=== PATIENT | female | born 1960 | race Caucasian/White ===

== ENCOUNTER 2022-05-31 12:40 | Inpatient (IN) ==
--- NOTE | 2022-05-31 12:50 | Emergency Department Note ---
ED Provider Note NAME: CASSIDY CAGLE AGE: 61 SEX: F : 1960 ARRIVES VIA: Ambulance INFORMANT: [Patient][, ] ED PROVIDER(S): [Vaughn Cuello MD] Chief Complaint: [] HPI: [] ROS: See HPI for pertinent positives and negatives. A total of 10 systems were reviewed and otherwise negative. Past medical history: See below Surgical history: See below Social history: See below Physical Exam: GENERAL: NAD, [wearing a mask,] non-toxic. EYE EXAM: Normal conjunctiva. PERRL, no anisocoria and EOM's grossly intact w/o pain. NECK: Supple, no nuchal rigidity, no adenopathy, non-tender. No signs of meningismus. FROM of the neck with good chin to chest and neck extension. No stridor. LUNGS: Clear to auscultation. Normal chest wall mechanics. HEART: NSR, no MRG. ABDOMEN: Abdomen soft, non-tender, normo-active bowel sounds, no masses, no rebound or guarding. BACK: No CVA TTP. SKIN: No rashes and no bruising. UPPER EXTREMITIES: Upper extremities are grossly normal. LOWER EXTREMITIES: Grossly normal, no edema. NEURO EXAM: A&O x3, cranial nerves II-XII grossly intact, normal speech, moves all 4 extremities. Differential diagnoses: [] Course: Patient was seen and evaluated the bedside. Full history physical exam was performed. EKG interpreted by me [] Imaging Studies: See Below Cardiac monitoring: An order was placed for continuous cardiac monitoring. The monitor shows a rate of [] with [] rhythm. 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 marital status: Single Current Living Situation: Other Current Living Situation Comment: son and grandson live downstairs current occupational status: employed 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 Feels Safe at Home: Yes Childhood Exposure to Second-Hand Smoke: Yes Diet Comment: sometimes does [facility], Regularly: Yes Physical Activity Frequency: 5-6 Times per Week Seatbelt Use: always Sunscreen Use: Yes Allergies Allergies Allergy/AdvReac Type Severity Reaction Status Date / Time levofloxacin Allergy Intermediate UNSURE Unverified 05/17/22 14:52 baclofin Allergy Unknown Uncoded 05/17/22 14:53 Home Meds Previous Rx's Medication Instructions Recorded atorvastatin 40 mg tablet 40 mg PO DAILY #90 tabs 11/09/21 sertraline 100 mg tablet 150 mg PO DAILY #90 tabs 04/24/22 cholecalciferol (vitamin D3) 1,250 50,000 unit PO WEEKLY 8 weeks #8 05/25/22 mcg (50,000 unit) capsule caps cyanocobalamin (vitamin B-12) 1,000 mcg sublingual DAILY #30 tabs 05/25/22 1,000 mcg sublingual tablet syringe with needle 3 mL 23 x 1" #15 ea 05/25/22 (BD SafetyGlide Syringe) Results & Data (ED) Home Medications Current Medication List: was personally reviewed by me Laboratory Data Attestation: I reviewed the patient's lab results. Discharge Plan Visit Data Chief Complaint: Mental Health Evaluation Stated Complaint: ANXIETY ED Provider: Vaughn Cuello Forms Stand Alone Forms: My [facility], Suicide Prevention Resources Prescriptions Prescriptions: No Action atorvastatin 40 mg tablet 40 mg PO DAILY Qty: 90 3RF cyanocobalamin (vitamin B-12) 1,000 mcg tablet, sublingual 1,000 mcg sublingual DAILY Qty: 30 0RF cholecalciferol (vitamin D3) 1,250 mcg (50,000 unit) capsule 50,000 unit PO WEEKLY 56 Days Qty: 8 0RF Rx Instructions: Take one capsule once a week for eight weeks, then get a level rechecked. (DME) BD SafetyGlide Syringe 3 mL 23 x 1" syringe See Rx Instructions .MEDSUPPLY Qty: 15 0RF Rx Instructions: As directed for B12 injections sertraline 100 mg tablet 150 mg PO DAILY Qty: 90 3RF Referrals Referrals: Rina Rm MD [Primary Care Provider] -
--- NOTE | 2022-05-31 12:58 | Emergency Department Note ---
Impression & Plan Mood disorder, Depression ED Provider Note NAME: CASSIDY CAGLE AGE: 61 SEX: F : 1960 ARRIVES VIA: Ambulance INFORMANT: Patient ED PROVIDER(S): Luiz Ramirez DO CHIEF COMPLAINT: Depression, anxiety HPI: Patient is a 61-year-old female with past medical history B12 deficiency, vitamin D deficiency, who presents the ER for depression and anxiety. She notes she has been very weak and feels depressed and anxious for the past month. She denies any active suicidal or homicidal ideations. No auditory visual hallucinations. She feels as though she can carry on with life. She is no longer leaving the house. She has not been going to work. She is sleeping for extended period of times but notes that she wakes up after falling asleep very quickly. Denies any headache or change in vision. No chest pain or shortness of breath. No nausea, vomiting, or diarrhea. ROS: See above HPI for pertinent positives & negatives. A total of 10 systems reviewed and were otherwise negative. PAST MEDICAL HISTORY:See Below PAST SURGICAL HISTORY:See Below FAMILY HISTORY:See Below SOCIAL HISTORY:See Below HOME MEDICATIONS:See Below ALLERGIES:See Below VITALS:See Below PHYSICAL EXAMINATION: GENERAL: Sitting up in bed, alert, well appearing, well nourished, no distress, non-toxic EYE EXAM: normal conjunctiva. OROPHARYNX: no exudate, no erythema, lips, buccal mucosa, and tongue normal and mucous membranes are moist NECK: supple, no nuchal rigidity, no adenopathy, non-tender LUNGS: Clear to auscultation. Normal chest wall mechanics HEART: no murmurs, S1 normal and S2 normal ABDOMEN: abdomen soft, non-tender, normo-active bowel sounds, no masses, no rebound or guarding. UPPER EXTREMITIES: upper extremities are grossly normal. LOWER EXTREMITIES: No pitting edema. NEURO EXAM: Normal sensorium, cranial nerves II-XII intact, normal speech, no weakness of arms, no weakness of legs. No drift. PSYCH: Denies any suicidal or homicidal ideations. No auditory visual hallucinations. MEDICAL DECISION MAKING: Patient is a 61-year-old female who presents the ER for depression. She notes that she has not been eating or drinking. She is lost 6 pounds in the past several weeks. Office of aging is involved. She feels too weak to get around and does not want to get up and move. She is completely neurologically intact. CBC shows no significant leukocytosis or anemia. BMP along with LFTs bilirubin was unremarkable. TSH was unremarkable. UA was clean. Tox was negative. Alcohol was negative. Patient was updated bedside. She was seen and evaluated by psychiatric chronic care nurse. Patient was signed out Dr. Dobson at the change in shift. Start Time: 1245 Reason: Patient with PMHx of depression underwent ED Observation for psychiatric evaluation and placement. Fam Hx: No pertinent family history SocHx: See Below Assessment(s): As described above Summary: As described above Disposition: 05/31/2022 1700. Total Time: 4.25hr Triage Nursing notes reviewed. Limited review of prior medical records performed Vital Signs: reviewed and remarkable for no significant abnormalities Differential diagnosis: Mood disorder, infection, hypoglycemia, electrolyte abnormalities, cardiac sources, intracerebral event, toxicologic, trauma, neurologic, as well as other pathologies. ER treatment provided: See below Diagnostics interpreted by me: ECG: none Laboratory studies: As stated above and show below. Imaging studies: See below Consultation(s): none Procedures: none Critical Care: None Past Med/Surg History Medical History Anxiety Hyperlipidemia Trigeminal neuralgia of left side of face Surgical History H/O wisdom tooth extraction H/O: Family History Aunt Breast cancer Denies family history of Ovarian cancer Prostate cancer Myocardial infarction Colorectal cancer Social History Smoking Status: Never smoker Tobacco Type: Cigarettes Age Started Using Tobacco: 16; Second Hand Exposure: No; Hx Alcohol Use: No Hx Substance Use: No Preferred Language: Spanish Communication Ability: Effective Visual Impairment: No Limitations Hearing Ability: Normal 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 marital status: Single Current Living Situation: Other Current Living Situation Comment: son and grandson live downstairs current occupational status: employed 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 Feels Safe at Home: Yes Childhood Exposure to Second-Hand Smoke: Yes Diet Comment: sometimes does [facility], Regularly: Yes Physical Activity Frequency: 5-6 Times per Week Seatbelt Use: always Sunscreen Use: Yes Allergies Allergies Allergy/AdvReac Type Severity Reaction Status Date / Time levofloxacin Allergy Intermediate UNSURE Unverified 05/17/22 14:52 baclofin Allergy Unknown Uncoded 05/17/22 14:53 Home Meds Previous Rx's Medication Instructions Recorded atorvastatin 40 mg tablet 40 mg PO DAILY #90 tabs 11/09/21 sertraline 100 mg tablet 150 mg PO DAILY #90 tabs 04/24/22 cholecalciferol (vitamin D3) 1,250 50,000 unit PO WEEKLY 8 weeks #8 05/25/22 mcg (50,000 unit) capsule caps cyanocobalamin (vitamin B-12) 1,000 mcg sublingual DAILY #30 tabs 05/25/22 1,000 mcg sublingual tablet syringe with needle 3 mL 23 x 1" #15 ea 05/25/22 (BD SafetyGlide Syringe) Results & Data (ED) Vital Signs Vital Signs - 24 hr 05/31/22 12:40 05/31/22 15:34 Temperature 36.9 C 37.1 C Temperature Source Oral Oral Pulse Rate 76 Pulse Rate [Finger] 74 Respiratory Rate 18 18 Respiratory Effort / Characteristics Non-Labored Non-Labored Respiratory Depth Normal Normal Respiratory Pattern Regular Blood Pressure 136/96 Blood Pressure [Left Arm] 166/83 H Blood Pressure Mean 109 Blood Pressure Mean [Left Arm] 110 Pulse Oximetry 97 96 Oxygen Delivery Method Room Air Room Air Sepsis Recent Fever Within 48 Hours No Sepsis New/Unexplained Change in Mental Status N/A Sepsis Action Taken by Nursing No Action Required Laboratory Data Result diagrams: 05/31/22 14:20 05/31/22 14:20 Lab Results 05/31/22 05/31/22 05/31/22 Range/Units 13:05 13:05 14:20 WBC 7.18 (4.8-10.8) K/ul RBC 5.58 H (3.93-5.22) M/uL Hgb 16.6 H (12.0-16.0) g/dl Hct 48.0 H (34.1-44.9) % MCV 86.0 (80.0-100.0) fL MCH 29.7 (25.0-34.0) pg MCHC 34.6 (32.0-36.0) g/dL RDW Std Deviation 39.6 (36.4-46.3) fL RDW Coeff of [place]aga 13.0 (11.5-14.5) % Plt Count 217 (130-400) K/uL MPV 8.9 L (9.4-12.3) fL Immature Gran % (Auto) 0.1 % Neut % (Auto) 77.3 % Lymph % (Auto) 15.9 % Dane % (Auto) 6.1 % Eos % (Auto) 0.3 % Baso % (Auto) 0.3 % Neut # (Auto) 5.55 (1.4-6.5) K/uL Lymph # (Auto) 1.14 L (1.2-3.4) K/uL Dane # (Auto) 0.44 (0.24-0.82) K/uL Eos # (Auto) 0.02 (0-0.50) K/uL Baso # (Auto) 0.02 (0-0.2) K/uL Immature Gran # (Auto) 0.01 (0.00-0.02) K/uL Sodium (136-145) mmol/L Potassium (3.5-5.1) mmol/L Chloride (98-107) mmol/L Carbon Dioxide (21-32) mmol/L Anion Gap (3-11) BUN (6-23) mg/dl Creatinine (0.6-1.2) mg/dl Est Cr Clr Drug Dosing ml/min Est GFR ( Amer) ml/min Est GFR (Non-Af Amer) ml/min BUN/Creatinine Ratio (10-20) Glucose (70-99(Fasting)) mg/dl Calcium (8.5-10.1) mg/dl Total Bilirubin (0.2-1.0) mg/dl AST (13-39) U/L ALT (7-52) U/L Alkaline Phosphatase (34-104) U/L Total Protein (6.0-8.3) gm/dl Albumin (3.4-5.0) gm/dl Globulin (2.5-4.0) gm/dl Albumin/Globulin Ratio (0.9-2) TSH (0.300-4.500) uIu/ml Urine Color Yellow Urine Appearance Turbid A (Clear) Urine pH 7.5 (4.5-7.5) Ur Specific [place] 1.015 (1.000-1.030) Urine Protein Negative (Negative) Urine Glucose (UA) Negative (Negative) Urine Ketones Negative (Negative) Urine Blood Negative (Negative) Urine Nitrite Negative (Negative) Urine Bilirubin Negative (Negative) Urine Urobilinogen Negative (Negative) Ur Leukocyte Esterase Negative (Negative) Urine WBC (Auto) 1-5 (0-5) /hpf Urine RBC (Auto) 0-4 (0-4) /hpf U Hyaline Cast (Auto) 1-5 (0-5) /lpf U Epithel Cells (Auto) 20-30 H (0-5) /lpf Urine Bacteria (Auto) Negative (Negative) Salicylates (3.0-30) mg/dl Urine Opiates Screen Neg (Neg) Ur Methadone, Qual Neg (Neg) Acetaminophen (10-30) ug/ml Urine Barbiturates Neg (Neg) Ur Phencyclidine (PCP) Neg (Neg) U Amphetamin/Meth Scrn Neg (Neg) MDMA (Ecstasy) Screen Neg (Neg) U Benzodiazepines Scrn Neg (Neg) Ur Cocaine Metabolite Neg (Neg) U Marijuana (THC) Screen Neg (Neg) Ethyl Alcohol mg/dL (<10.0) mg/dl 05/31/22 05/31/22 05/31/22 Range/Units 14:20 14:20 14:20 WBC (4.8-10.8) K/ul RBC (3.93-5.22) M/uL Hgb (12.0-16.0) g/dl Hct (34.1-44.9) % MCV (80.0-100.0) fL MCH (25.0-34.0) pg MCHC (32.0-36.0) g/dL RDW Std Deviation (36.4-46.3) fL RDW Coeff of Naga (11.5-14.5) % Plt Count (130-400) K/uL MPV (9.4-12.3) fL Immature Gran % (Auto) % Neut % (Auto) % Lymph % (Auto) % Dane % (Auto) % Eos % (Auto) % Baso % (Auto) % Neut # (Auto) (1.4-6.5) K/uL Lymph # (Auto) (1.2-3.4) K/uL Dane # (Auto) (0.24-0.82) K/uL Eos # (Auto) (0-0.50) K/uL Baso # (Auto) (0-0.2) K/uL Immature Gran # (Auto) (0.00-0.02) K/uL Sodium 139 (136-145) mmol/L Potassium 3.5 (3.5-5.1) mmol/L Chloride 102 (98-107) mmol/L Carbon Dioxide 29 (21-32) mmol/L Anion Gap 8 (3-11) BUN 8 (6-23) mg/dl Creatinine 0.75 (0.6-1.2) mg/dl Est Cr Clr Drug Dosing 50.9 ml/min Est GFR ( Amer) 99.7 ml/min Est GFR (Non-Af Amer) 86.0 ml/min BUN/Creatinine Ratio 10.7 (10-20) Glucose 123 H (70-99(Fasting)) mg/dl Calcium 10.1 (8.5-10.1) mg/dl Total Bilirubin 1.0 (0.2-1.0) mg/dl AST 12 L (13-39) U/L ALT 14 (7-52) U/L Alkaline Phosphatase 127 H (34-104) U/L Total Protein 7.2 (6.0-8.3) gm/dl Albumin 4.7 (3.4-5.0) gm/dl Globulin 2.5 (2.5-4.0) gm/dl Albumin/Globulin Ratio 1.9 (0.9-2) TSH 2.074 (0.300-4.500) uIu/ml Urine Color Urine Appearance (Clear) Urine pH (4.5-7.5) Ur Specific [place] (1.000-1.030) Urine Protein (Negative) Urine Glucose (UA) (Negative) Urine Ketones (Negative) Urine Blood (Negative) Urine Nitrite (Negative) Urine Bilirubin (Negative) Urine Urobilinogen (Negative) Ur Leukocyte Esterase (Negative) Urine WBC (Auto) (0-5) /hpf Urine RBC (Auto) (0-4) /hpf U Hyaline Cast (Auto) (0-5) /lpf U Epithel Cells (Auto) (0-5) /lpf Urine Bacteria (Auto) (Negative) Salicylates < 3.0 L (3.0-30) mg/dl Urine Opiates Screen (Neg) Ur Methadone, Qual (Neg) Acetaminophen < 3 L (10-30) ug/ml Urine Barbiturates (Neg) Ur Phencyclidine (PCP) (Neg) U Amphetamin/Meth Scrn (Neg) MDMA (Ecstasy) Screen (Neg) U Benzodiazepines Scrn (Neg) Ur Cocaine Metabolite (Neg) U Marijuana (THC) Screen (Neg) Ethyl Alcohol mg/dL (<10.0) mg/dl 05/31/22 Range/Units 14:20 WBC (4.8-10.8) K/ul RBC (3.93-5.22) M/uL Hgb (12.0-16.0) g/dl Hct (34.1-44.9) % MCV (80.0-100.0) fL MCH (25.0-34.0) pg MCHC (32.0-36.0) g/dL RDW Std Deviation (36.4-46.3) fL RDW Coeff of [place]ga[place] (11.5-14.5) % Plt Count (130-400) K/uL MPV (9.4-12.3) fL Immature Gran % (Auto) % Neut % (Auto) % Lymph % (Auto) % Dane % (Auto) % Eos % (Auto) % Baso % (Auto) % Neut # (Auto) (1.4-6.5) K/uL Lymph # (Auto) (1.2-3.4) K/uL Dane # (Auto) (0.24-0.82) K/uL Eos # (Auto) (0-0.50) K/uL Baso # (Auto) (0-0.2) K/uL Immature Gran # (Auto) (0.00-0.02) K/uL Sodium (136-145) mmol/L Potassium (3.5-5.1) mmol/L Chloride (98-107) mmol/L Carbon Dioxide (21-32) mmol/L Anion Gap (3-11) BUN (6-23) mg/dl Creatinine (0.6-1.2) mg/dl Est Cr Clr Drug Dosing ml/min Est GFR ( Amer) ml/min Est GFR (Non-Af Amer) ml/min BUN/Creatinine Ratio (10-20) Glucose (70-99(Fasting)) mg/dl Calcium (8.5-10.1) mg/dl Total Bilirubin (0.2-1.0) mg/dl AST (13-39) U/L ALT (7-52) U/L Alkaline Phosphatase (34-104) U/L Total Protein (6.0-8.3) gm/dl Albumin (3.4-5.0) gm/dl Globulin (2.5-4.0) gm/dl Albumin/Globulin Ratio (0.9-2) TSH (0.300-4.500) uIu/ml Urine Color Urine Appearance (Clear) Urine pH (4.5-7.5) Ur Specific [place] (1.000-1.030) Urine Protein (Negative) Urine Glucose (UA) (Negative) Urine Ketones (Negative) Urine Blood (Negative) Urine Nitrite (Negative) Urine Bilirubin (Negative) Urine Urobilinogen (Negative) Ur Leukocyte Esterase (Negative) Urine WBC (Auto) (0-5) /hpf Urine RBC (Auto) (0-4) /hpf U Hyaline Cast (Auto) (0-5) /lpf U Epithel Cells (Auto) (0-5) /lpf Urine Bacteria (Auto) (Negative) Salicylates (3.0-30) mg/dl Urine Opiates Screen (Neg) Ur Methadone, Qual (Neg) Acetaminophen (10-30) ug/ml Urine Barbiturates (Neg) Ur Phencyclidine (PCP) (Neg) U Amphetamin/Meth Scrn (Neg) MDMA (Ecstasy) Screen (Neg) U Benzodiazepines Scrn (Neg) Ur Cocaine Metabolite (Neg) U Marijuana (THC) Screen (Neg) Ethyl Alcohol mg/dL < 10.0 (<10.0) mg/dl Discharge Plan Visit Data Chief Complaint: Mental Health Evaluation Stated Complaint: ANXIETY ED Provider: Luiz Ramirez Discharge Problem: Mood disorder, Depression Forms Stand Alone Forms: My [facility], Suicide Prevention Resources Prescriptions Prescriptions: No Action atorvastatin 40 mg tablet 40 mg PO DAILY Qty: 90 3RF cyanocobalamin (vitamin B-12) 1,000 mcg tablet, sublingual 1,000 mcg sublingual DAILY Qty: 30 0RF cholecalciferol (vitamin D3) 1,250 mcg (50,000 unit) capsule 50,000 unit PO WEEKLY 56 Days Qty: 8 0RF Rx Instructions: Take one capsule once a week for eight weeks, then get a level rechecked. (DME) BD SafetyGlide Syringe 3 mL 23 x 1" syringe See Rx Instructions .MEDSUPPLY Qty: 15 0RF Rx Instructions: As directed for B12 injections sertraline 100 mg tablet 150 mg PO DAILY Qty: 90 3RF Referrals Referrals: Rina Rm MD [Primary Care Provider] -
[2022-05-31 13:27] LABS: Appearance Urine Turbid (Clear); Bacteria Urine Automated Negative (Negative); Bilirubin Urine Negative (Negative); Blood Urine Negative (Negative); Color Urine Yellow; Epithelial Cell Urine Auto 20-30 /lpf (0-5); Glucose Urine UA Negative (Negative); Ketones Urine Negative (Negative); Leukocyte Esterase Urine Negative (Negative); Nitrite Urine Negative (Negative); Protein Urine Negative (Negative); RBC Urine Automated 0-4 /hpf (0-4); Specific Gravity Urine 1.015 (1.000-1.030); Urobilinogen Urine Negative (Negative); pH Urine 7.5 (4.5-7.5)
[2022-05-31 13:54] LABS: Amphetamines+Metham, Urine Neg (Neg); Barbiturates, Urine Neg (Neg); Benzodiazepine, Urine Neg (Neg); Cocaine, Urine Neg (Neg); MDMA (Ecstacy), Urine Neg (Neg); Methadone, Urine Neg (Neg); Opiate, Urine Neg (Neg); Phencyclidine, Urine Neg (Neg)
[2022-05-31 14:45] LABS: Basophils # (auto) 0.02 K/uL (0-0.2); Basophils % (auto) 0.3 %; Eosinophils # (auto) 0.02 K/uL (0-0.50); Eosinophils % (auto) 0.3 %; Hemoglobin 16.6 g/dl (12.0-16.0); Immature Granulocytes # (auto) 0.01 K/uL (0.00-0.02); Immature Granulocytes % (auto) 0.1 %; Lymphocytes # (auto) 1.14 K/uL (1.2-3.4); Lymphocytes % (auto) 15.9 %; Mean Corpuscular Hemoglobin 29.7 pg (25.0-34.0); Mean Corpuscular Hgb Conc 34.6 g/dL (32.0-36.0); Mean Platelet Volume 8.9 fL (9.4-12.3); Monocytes # (auto) 0.44 K/uL (0.24-0.82); Monocytes % (auto) 6.1 %; Neutrophils # (auto) 5.55 K/uL (1.4-6.5); Neutrophils % (auto) 77.3 %; Platelet Count 217 K/uL (130-400); RDW Standard Deviation 39.6 fL (36.4-46.3); Red Blood Count 5.58 M/uL (3.93-5.22); White Blood Count 7.18 K/ul (4.8-10.8)
[2022-05-31 15:00] LABS: Albumin Globulin Ratio 1.9 (0.9-2); Albumin Level 4.7 gm/dl (3.4-5.0); BUN Creatinine Ratio 10.7 (10-20); Calcium 10.1 mg/dl (8.5-10.1); Creatinine Clr Calc Pharmacy 50.9 ml/min; Est GFR (African American) 99.7 ml/min; Globulin 2.5 gm/dl (2.5-4.0); Potassium 3.5 mmol/L (3.5-5.1); Total Protein 7.2 gm/dl (6.0-8.3)
[2022-05-31 15:02] LABS: Acetaminophen < 3 ug/ml (10-30); Salicylate < 3.0 mg/dl (3.0-30)
[2022-05-31] MEDS ORDERED: ACETAMINOPHEN 325 MG TAB PO PRN (18:17)
[2022-05-31] MEDS ORDERED: BISMUTH SUBSALICYLATE LIQD 236 ML PO PRN (18:17)
[2022-05-31] MEDS ORDERED: SODIUM CHLORIDE 0.65% NA SOLN 45 ML (OCEAN) PRN (18:17)
[2022-05-31] MEDS ORDERED: ALUMINUM/MAGNESIUM SUSP 30 ML UDC PO PRN (18:17)
[2022-05-31] MEDS ORDERED: MAGNESIUM HYDROXIDE SUSP 30 ML UDC PO PRN (18:17)
[2022-05-31] MEDS ORDERED: hydrOXYzine HCl 25 MG TAB PO PRN ×2 (18:17)
--- NOTE | 2022-05-31 20:59 | Emergency Department Note ---
ED Visit Note Signed out to me awaiting placement. Patient was accepted at [facility] [address] .
[2022-06-01] MEDS ORDERED: PROPRANOLOL HCL 10 MG TAB PO SCH (11:05)
[2022-06-01] MEDS ORDERED: ATORVASTATIN 40 MG TAB PO SCH (11:15)
[2022-06-01] MEDS ORDERED: SERTRALINE HCL 50 MG TABLET PO SCH (11:15)
[2022-06-01] MEDS ORDERED: CYANOCOBALAMIN (B-12) 500 MCG TABLET PO SCH (12:00)
--- NOTE | 2022-06-01 15:07 | History & Physical ---
Date of Service June 01, 2022 Impression / Recommendations Impression 61 yo female with depression in the context of medical leave for tremor and associated health-related anxiety. Presented to ED with thoughts of overwhelm/inability to function. (1) Depression: (2) Tremor: (3) Anxiety: Plan The patient was admitted to the [facility]) on q15 min checks (behavioral with suicide precautions) for safety. The patient will participate in group, recreational, and milieu therapies and will be offered additional individual and family sessions as clinically appropriate. Risks/benefits/alternatives were reviewed re: taper of Zoloft and identifying outpatient providers. She would prefer discharge given out of network benefits if viable safety/aftercare plan rather than being transferred to another facility. She agreed to a trial of propranolol after confirming no hx of arrthymia, cardiac issues, etc. Inventory Assets Strengths: help seeking, close with son Needs: outpatient providers, improve coping skills Suicide Risk Level Suicide Risk Level Comments: patient will be maintained on suicide checks while hospitalized according to unit procotol Risk Factors Assessment : Yes Do You Have Access To A Gun?: No Health Problems: Yes Mental Health Diagnoses: Yes Substance Use Disorders: No Previous Attempt: Yes Family History of Suicide: Yes (great nephew) Previous Psychiatric Hospitalization: No Hopelessness: Yes Protective Factors Assessment Employed: No Supportive Family: Yes Psychiatric History Identifying Data CASSIDY CAGLE is a 61-year-old F who currently lives in [place], and was admitted on 05/31/22 18:17 on a 201 voluntary commitment for inability to function at home. Chief Complaint "I'm just worried about this tremor and doing my job. What will I do?" History of Present Illness Patient presented to the ED on referral from crisis/son as she has been weak and c/o tremor for weeks. She also described parethesias and that these symptoms interfere with work and she continues to worry that she has Parkinson's even though she has been evaluated by neurology. She hasn't felt interested in things and worries constantly about finances as her medical leave (since Mid April) has already exhausted her PTO and she is unsure where things stand with her short term disability. She is open to anxiety/depression making her presentation worse. The tremor is worse when she demonstrates it, otherwise consistent with essential tremor and per son to SW other women in the family have had it. She has taken Zoloft "for years" with minimal perceived benefit, and although the dose was increased recently to 150 mg she has only been taking 100 mg as otherwise "I felt worse". Sleep and appetite are more disrupted, lack of interest in things. Although she denies SI, she does feel easily overwhelmed and has wished she wouldn't wake up. She denies having intent or plan to harm he rself. Past Psychiatric History Previous Psych History: no formal Current Psychiatric Diagnosis: mood disorder Outpatient Services: med management with PCP Previous Psych Admissions: none Do You Have Access To A Gun?: No History of Previous Suicide Attempt: No Past Medication Trials: Zoloft only Past Head Trauma/Neuro History History of Concussion/Seizure: No Allergies Allergy/AdvReac Type Severity Reaction Status Date / Time levofloxacin Allergy Intermediate UNSURE Unverified 05/17/22 14:52 baclofin Allergy Unknown Uncoded 05/17/22 14:53 Home Medications Medication Instructions Recorded Confirmed Type atorvastatin 40 mg tablet 40 mg PO DAILY #90 tabs 11/09/21 05/31/22 Rx cholecalciferol (vitamin D3) 1,250 50,000 unit PO WEEKLY 8 weeks #8 05/25/22 05/31/22 Rx mcg (50,000 unit) capsule caps cyanocobalamin (vitamin B-12) 1,000 mcg sublingual DAILY #30 tabs 05/25/22 05/31/22 Rx 1,000 mcg sublingual tablet propranolol 10 mg tablet 10 mg PO BIDM #60 tabs 06/01/22 Rx sertraline 100 mg tablet 50 mg PO DAILY #1 tab 06/01/22 05/31/22 Rx Family History Family Mental Health History Comment: great nephew completed suicide; sister has depression, mom may have had depression Alcohol History Hx of Alcohol Use Over the Past 12 Months: No AUDIT Total Score: 0 Smoking Use Have You Smoked or Used Tobacco Products in the Last 30 Days: No Smoking Status: Never smoker Substance History Hx of Prescription Med Misuse Over the Past 12 Months: No Hx of Over the Counter Med Misuse Over the Past 12 Months: No Hx of Inhalent Misuse Over the Past 12 Months: No Hx of Organic Substance Use Over the Past 12 Months: No Hx of Illegal Substances/Street Drug Use Over Past 12 Months: No Problems as a Result of Past Substance Use: None Identified Personal History Living Arrangements: Home Childhood: 1 sister Highest Grade Completed: [employer]. Marital Status: Number Of Children: 1 (son), "had him at age 17" Beliefs That Will Affect Care: None Current Legal Problems: No Hx Traumatic Life Events: No Patient History Medical History Anxiety Hyperlipidemia Trigeminal neuralgia of left side of face Surgical History H/O wisdom tooth extraction H/O: Family History Aunt Breast cancer Denies family history of Ovarian cancer Prostate cancer Myocardial infarction Colorectal cancer Social History Smoking Status: Never smoker Tobacco Type: Cigarettes Age Started Using Tobacco: 16; Second Hand Exposure: No; Hx Alcohol Use: No Hx Substance Use: No Preferred Language: Turkish Communication Ability: Effective Visual Impairment: No Limitations Hearing Ability: Normal 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 Beliefs That Will Affect Care: None marital status: Single Current Living Situation: Other Current Living Situation Comment: son and grandson live downstairs current occupational status: employed current occupation: [employer] Feels Safe at Home: Yes Childhood Exposure to Second-Hand Smoke: Yes Diet Comment: sometimes does [facility], Regularly: Yes Physical Activity Frequency: 5-6 Times per Week Seatbelt Use: always Sunscreen Use: Yes Assistive Devices: None Review of Systems Review of Systems: All systems reviewed & are unremarkable except as noted in HPI & below Physical Exam Psychiatric: Orientation: alert and oriented x 3 Apperance: appropriately dressed and appropriately groomed Eye Contact: good eye contact Motor Behavior: + tremor (fine, resting) Speech: normal rate/rhythm/volume of speech Affect: + depressed affect and + anxious affect Mood: + depressed mood and + anxious mood Thought Process: goal directed thought process Thought Content: reality based without delusions Suicidal Thoughts: denies suicidal thoughts Homicidal Thoughts: denies homicidal thoughts Hallucinations: no auditory hallucinations and no visual hallucinations Cognition: attention grossly intact and language grossly intact Estimated Intelligence: consistent with education level Insight: + limited insight Vital Signs (Past 24 Hours): Last Vital Signs Temp 36.7 C 06/01/22 14:27 Pulse 97 H 06/01/22 14:27 Resp 16 06/01/22 14:27 BP 146/81 H 06/01/22 14:27 Pulse Ox 99 06/01/22 14:27 O2 Del Method 05/31/22 19:33 Exam Statement: A physical exam was performed in the ED by Dr. Ramirez for the purposes of medical clearance. I accept that physical as correct and adequate for the purposes of the inpatient physical exam. Results & Data ([facility]) Laboratory Results Laboratory Results - last 24 hr 05/31/22 05/31/22 14:20 17:46 TSH 2.074 SARS-CoV-2, RNA, NAAT NEGATIVE Labs 05/31/22 05/31/22 05/31/22 13:05 13:05 14:20 WBC 7.18 RBC 5.58 H Hgb 16.6 H Hct 48.0 H MCV 86.0 MCH 29.7 MCHC 34.6 RDW Std Deviation 39.6 RDW Coeff of [place] 13.0 Plt Count 217 MPV 8.9 L Immature Gran % (Auto) 0.1 Neut % (Auto) 77.3 Lymph % (Auto) 15.9 [place] % (Auto) 6.1 Eos % (Auto) 0.3 Baso % (Auto) 0.3 Neut # (Auto) 5.55 Lymph # (Auto) 1.14 L [place] # (Auto) 0.44 Eos # (Auto) 0.02 Baso # (Auto) 0.02 Immature Gran # (Auto) 0.01 Sodium Potassium Chloride Carbon Dioxide Anion Gap BUN Creatinine Est Cr Clr Drug Dosing Est GFR ( Amer) Est GFR (Non-Af Amer) BUN/Creatinine Ratio Glucose Calcium Total Bilirubin AST ALT Alkaline Phosphatase Total Protein Albumin Globulin Albumin/Globulin Ratio TSH Urine Color Yellow Urine Appearance Turbid A Urine pH 7.5 Ur Specific [place] 1.015 Urine Protein Negative Urine Glucose (UA) Negative Urine Ketones Negative Urine Blood Negative Urine Nitrite Negative Urine Bilirubin Negative Urine Urobilinogen Negative Ur Leukocyte Esterase Negative Urine WBC (Auto) 1-5 Urine RBC (Auto) 0-4 U Hyaline Cast (Auto) 1-5 U Epithel Cells (Auto) 20-30 H Urine Bacteria (Auto) Negative Salicylates Urine Opiates Screen Neg Ur Methadone, Qual Neg Acetaminophen Urine Barbiturates Neg Ur Phencyclidine (PCP) Neg U Amphetamin/Meth Scrn Neg MDMA (Ecstasy) Screen Neg U Benzodiazepines Scrn Neg Ur Cocaine Metabolite Neg U Marijuana (THC) Screen Neg Ethyl Alcohol mg/dL SARS-CoV-2, RNA, NAAT 05/31/22 05/31/22 05/31/22 14:20 14:20 14:20 WBC RBC Hgb Hct MCV MCH MCHC RDW Std Deviation RDW Coeff of [place] Plt Count MPV Immature Gran % (Auto) Neut % (Auto) Lymph % (Auto) [place] % (Auto) Eos % (Auto) Baso % (Auto) Neut # (Auto) Lymph # (Auto) [place] # (Auto) Eos # (Auto) Baso # (Auto) Immature Gran # (Auto) Sodium 139 Potassium 3.5 Chloride 102 Carbon Dioxide 29 Anion Gap 8 BUN 8 Creatinine 0.75 Est Cr Clr Drug Dosing 50.9 Est GFR ( Amer) 99.7 Est GFR (Non-Af Amer) 86.0 BUN/Creatinine Ratio 10.7 Glucose 123 H Calcium 10.1 Total Bilirubin 1.0 AST 12 L ALT 14 Alkaline Phosphatase 127 H Total Protein 7.2 Albumin 4.7 Globulin 2.5 Albumin/Globulin Ratio 1.9 TSH 2.074 Urine Color Urine Appearance Urine pH Ur Specific [place] Urine Protein Urine Glucose (UA) Urine Ketones Urine Blood Urine Nitrite Urine Bilirubin Urine Urobilinogen Ur Leukocyte Esterase Urine WBC (Auto) Urine RBC (Auto) U Hyaline Cast (Auto) U Epithel Cells (Auto) Urine Bacteria (Auto) Salicylates < 3.0 L Urine Opiates Screen Ur Methadone, Qual Acetaminophen < 3 L Urine Barbiturates Ur Phencyclidine (PCP) U Amphetamin/Meth Scrn MDMA (Ecstasy) Screen U Benzodiazepines Scrn Ur Cocaine Metabolite U Marijuana (THC) Screen Ethyl Alcohol mg/dL SARS-CoV-2, RNA, NAAT 05/31/22 05/31/22 14:20 17:46 WBC RBC Hgb Hct MCV MCH MCHC RDW Std Deviation RDW Coeff of [place] Plt Count MPV Immature Gran % (Auto) Neut % (Auto) Lymph % (Auto) [place] % (Auto) Eos % (Auto) Baso % (Auto) Neut # (Auto) Lymph # (Auto) [place] # (Auto) Eos # (Auto) Baso # (Auto) Immature Gran # (Auto) Sodium Potassium Chloride Carbon Dioxide Anion Gap BUN Creatinine Est Cr Clr Drug Dosing Est GFR ( Amer) Est GFR (Non-Af Amer) BUN/Creatinine Ratio Glucose Calcium Total Bilirubin AST ALT Alkaline Phosphatase Total Protein Albumin Globulin Albumin/Globulin Ratio TSH Urine Color Urine Appearance Urine pH Ur Specific [place] Urine Protein Urine Glucose (UA) Urine Ketones Urine Blood Urine Nitrite Urine Bilirubin Urine Urobilinogen Ur Leukocyte Esterase Urine WBC (Auto) Urine RBC (Auto) U Hyaline Cast (Auto) U Epithel Cells (Auto) Urine Bacteria (Auto) Salicylates Urine Opiates Screen Ur Methadone, Qual Acetaminophen Urine Barbiturates Ur Phencyclidine (PCP) U Amphetamin/Meth Scrn MDMA (Ecstasy) Screen U Benzodiazepines Scrn Ur Cocaine Metabolite U Marijuana (THC) Screen Ethyl Alcohol mg/dL < 10.0 SARS-CoV-2, RNA, NAAT NEGATIVE Current Inpatient Medications Current Inpatient Medications: Current Inpatient Medications Acetaminophen (Acetaminophen 325 Mg Tab) 650 mg PO Q4H PRN PRN Reason: Headache or Minor Fever Stop: 06/30/22 18:16 Al Hydrox/Mg Hydrox/Simethicone (Aluminum/Magnesium Susp 30 Ml Udc) 30 ml PO Q4H PRN PRN Reason: GI Upset Stop: 06/30/22 18:16 Atorvastatin Calcium (Atorvastatin 40 Mg Tab) 40 mg PO DAILY CLAU Stop: 07/01/22 11:14 Last Admin: 06/01/22 12:34 Dose: 40 mg Bismuth Subsalicylate (Bismuth Subsalicylate Liqd 236 Ml) 15 ml PO PRN PRN PRN Reason: Loose Stool Stop: 06/30/22 18:16 Cyanocobalamin (Cyanocobalamin (B-12) 500 Mcg Tablet) 1,000 mcg PO DAILY CLAU Stop: 07/01/22 11:59 Last Admin: 06/01/22 12:34 Dose: 1,000 mcg Hydroxyzine HCl (Hydroxyzine Hcl 25 Mg Tab) 50 mg PO HSZ PRN PRN Reason: Insomnia Stop: 06/30/22 18:16 Hydroxyzine HCl (Hydroxyzine Hcl 25 Mg Tab) 25 mg PO Q4H PRN PRN Reason: Anxiety Stop: 06/30/22 18:16 Last Admin: 05/31/22 19:26 Dose: 25 mg Magnesium Hydroxide (Magnesium Hydroxide Susp 30 Ml Udc) 30 ml PO DAILY PRN PRN Reason: Constipation Stop: 06/30/22 18:16 Propranolol HCl (Propranolol Hcl 10 Mg Tab) 10 mg PO BIDM [facility] Stop: 07/01/22 11:04 Last Admin: 06/01/22 11:32 Dose: 10 mg Sertraline HCl (Sertraline Hcl 50 Mg Tablet) 50 mg PO DAILY CLAU Stop: 07/01/22 11:14 Last Admin: 06/01/22 11:32 Dose: 50 mg Sodium Chloride (Sodium Chloride 0.65% Na Soln 45 Ml ([place])) 1 - 2 sprays NA PRN PRN PRN Reason: Nasal Dryness/Congestion Stop: 06/30/22 18:16
--- NOTE | 2022-06-01 16:14 | Discharge Summary ---
Date of Service June 01, 2022 History of Present Illness Patient presented to the ED on referral from crisis/son as she has been weak and c/o tremor for weeks. She also described parethesias and that these symptoms interfere with work and she continues to worry that she has Parkinson's even though she has been evaluated by neurology. She hasn't felt interested in things and worries constantly about finances as her medical leave (since April) has already exhausted her PTO and she is unsure where things stand with her short term disability. She is open to anxiety/depression making her presentation worse. The tremor is worse when she demonstrates it, otherwise consistent with essential tremor and per son to SW other women in the family have had it. She has taken Zoloft "for years" with minimal perceived benefit, and although the dose was increased recently to 150 mg she has only been taking 100 mg as otherwise "I felt worse". Sleep and appetite are more disrupted, lack of interest in things. Although she denies SI, she does feel easily overwhelmed and has wished she wouldn't wake up. She denies having intent or plan to harm herself. Physical Exam Psychiatric Orientation: alert and oriented x 3 Apperance: appropriately dressed and appropriately groomed Eye Contact: good eye contact Motor Behavior: + tremor (fine, resting) Speech: normal rate/rhythm/volume of speech Affect: + depressed affect and + anxious affect Mood: + depressed mood and + anxious mood Thought Process: goal directed thought process Thought Content: reality based without delusions Suicidal Thoughts: denies suicidal thoughts Homicidal Thoughts: denies homicidal thoughts Hallucinations: no auditory hallucinations and no visual hallucinations Cognition: attention grossly intact and language grossly intact Estimated Intelligence: consistent with education level Insight: + limited insight Vital Signs (Past 24 Hours) Last Vital Signs Temp 36.7 C 06/01/22 14:27 Pulse 97 H 06/01/22 14:27 Resp 16 06/01/22 14:27 BP 146/81 H 06/01/22 14:27 Pulse Ox 99 06/01/22 14:27 O2 Del Method 05/31/22 19:33 Principal Diagnosis major depressive disorder Psychiatric Data See daily stay summary. In short, safety was maintained and the patient was cooperative with care she received but was requesting discharge given that she was not actively suicidal, had assistance in multidisciplinary discharge planning, and a viable safety plan. SW involved in son who was also comfortable with this. She was concerned about cost of stay under out of network benefits but that was not the sole rationale for her decision. There is no evidence of psychosis, abeba, or derlirium interfering with her medical decision making and as such no grounds for involuntary commitment. Medication changes included taper of Zoloft (which will need to be completed on an outpatient basis) in preparation for a trial of another agent (perhaps Cymbalta given paresthesia complaints or another SSRI) and addition of low dose propranolol for tremor. She received 1 dose of propranolol and felt she did well with it and was hopeful. A safety plan was completed prior to discharge. Day of Discharge Assessment Today the patient voices readiness for discharge. They note improvement in mood and deny thoughts to harm self or others. Thoughts remain organized and they are improved from admission. There is no evidence of psychosis. They agree to take mediations as prescribed and keep follow-up appointments. They are stable for discharge to outpatient level of care. Transition of Care Transition Of Care Record: was reviewed with the patient Advance Directives Advance Directives Information Provided: Yes Advance Directives: No Mental Health Advance Directive: No Advance Directives on File: No Living Will: No Power of Chief Digital Media Officer: No Advance Directives Reason:: Declines as Mental Health Visit. Suicide Risk Level Suicide Risk Level Comments: Suicide risk at discharge is deemed low as the patient is no longer requiring 24-hr monitoring, has a safety plan, and is free of suicidal ideation at discharge. Risk Factors Assessment : Yes Do You Have Access To A Gun?: No Health Problems: Yes Mental Health Diagnoses: Yes Substance Use Disorders: No Previous Attempt: Yes Family History of Suicide: Yes (great nephew) Previous Psychiatric Hospitalization: No Hopelessness: Yes Protective Factors Assessment Employed: No Supportive Family: Yes Tobacco Cessation at Discharge Tobacco Cessation Medication Prescribed at Discharge: Not Applicable/Non-Smoker Total Time Total Time Spent: Less Than 30 Minutes Discharge Data Lab Results 05/31/22 05/31/22 05/31/22 13:05 13:05 14:20 WBC 7.18 RBC 5.58 H Hgb 16.6 H Hct 48.0 H MCV 86.0 MCH 29.7 MCHC 34.6 RDW Std Deviation 39.6 RDW Coeff of [place] 13.0 Plt Count 217 MPV 8.9 L Immature Gran % (Auto) 0.1 Neut % (Auto) 77.3 Lymph % (Auto) 15.9 [place] % (Auto) 6.1 Eos % (Auto) 0.3 Baso % (Auto) 0.3 Neut # (Auto) 5.55 Lymph # (Auto) 1.14 L [place] # (Auto) 0.44 Eos # (Auto) 0.02 Baso # (Auto) 0.02 Immature Gran # (Auto) 0.01 Sodium Potassium Chloride Carbon Dioxide Anion Gap BUN Creatinine Est Cr Clr Drug Dosing Est GFR ( Amer) Est GFR (Non-Af Amer) BUN/Creatinine Ratio Glucose Calcium Total Bilirubin AST ALT Alkaline Phosphatase Total Protein Albumin Globulin Albumin/Globulin Ratio TSH Urine Color Yellow Urine Appearance Turbid A Urine pH 7.5 Ur Specific [place] 1.015 Urine Protein Negative Urine Glucose (UA) Negative Urine Ketones Negative Urine Blood Negative Urine Nitrite Negative Urine Bilirubin Negative Urine Urobilinogen Negative Ur Leukocyte Esterase Negative Urine WBC (Auto) 1-5 Urine RBC (Auto) 0-4 U Hyaline Cast (Auto) 1-5 U Epithel Cells (Auto) 20-30 H Urine Bacteria (Auto) Negative Salicylates Urine Opiates Screen Neg Ur Methadone, Qual Neg Acetaminophen Urine Barbiturates Neg Ur Phencyclidine (PCP) Neg U Amphetamin/Meth Scrn Neg MDMA (Ecstasy) Screen Neg U Benzodiazepines Scrn Neg Ur Cocaine Metabolite Neg U Marijuana (THC) Screen Neg Ethyl Alcohol mg/dL SARS-CoV-2, RNA, NAAT 05/31/22 05/31/22 05/31/22 14:20 14:20 14:20 WBC RBC Hgb Hct MCV MCH MCHC RDW Std Deviation RDW Coeff of [place] Plt Count MPV Immature Gran % (Auto) Neut % (Auto) Lymph % (Auto) [place] % (Auto) Eos % (Auto) Baso % (Auto) Neut # (Auto) Lymph # (Auto) [place] # (Auto) Eos # (Auto) Baso # (Auto) Immature Gran # (Auto) Sodium 139 Potassium 3.5 Chloride 102 Carbon Dioxide 29 Anion Gap 8 BUN 8 Creatinine 0.75 Est Cr Clr Drug Dosing 50.9 Est GFR ( Amer) 99.7 Est GFR (Non-Af Amer) 86.0 BUN/Creatinine Ratio 10.7 Glucose 123 H Calcium 10.1 Total Bilirubin 1.0 AST 12 L ALT 14 Alkaline Phosphatase 127 H Total Protein 7.2 Albumin 4.7 Globulin 2.5 Albumin/Globulin Ratio 1.9 TSH 2.074 Urine Color Urine Appearance Urine pH Ur Specific [place] Urine Protein Urine Glucose (UA) Urine Ketones Urine Blood Urine Nitrite Urine Bilirubin Urine Urobilinogen Ur Leukocyte Esterase Urine WBC (Auto) Urine RBC (Auto) U Hyaline Cast (Auto) U Epithel Cells (Auto) Urine Bacteria (Auto) Salicylates < 3.0 L Urine Opiates Screen Ur Methadone, Qual Acetaminophen < 3 L Urine Barbiturates Ur Phencyclidine (PCP) U Amphetamin/Meth Scrn MDMA (Ecstasy) Screen U Benzodiazepines Scrn Ur Cocaine Metabolite U Marijuana (THC) Screen Ethyl Alcohol mg/dL SARS-CoV-2, RNA, NAAT 05/31/22 05/31/22 14:20 17:46 WBC RBC Hgb Hct MCV MCH MCHC RDW Std Deviation RDW Coeff of [place] Plt Count MPV Immature Gran % (Auto) Neut % (Auto) Lymph % (Auto) [place] % (Auto) Eos % (Auto) Baso % (Auto) Neut # (Auto) Lymph # (Auto) [place] # (Auto) Eos # (Auto) Baso # (Auto) Immature Gran # (Auto) Sodium Potassium Chloride Carbon Dioxide Anion Gap BUN Creatinine Est Cr Clr Drug Dosing Est GFR ( Amer) Est GFR (Non-Af Amer) BUN/Creatinine Ratio Glucose Calcium Total Bilirubin AST ALT Alkaline Phosphatase Total Protein Albumin Globulin Albumin/Globulin Ratio TSH Urine Color Urine Appearance Urine pH Ur Specific [place] Urine Protein Urine Glucose (UA) Urine Ketones Urine Blood Urine Nitrite Urine Bilirubin Urine Urobilinogen Ur Leukocyte Esterase Urine WBC (Auto) Urine RBC (Auto) U Hyaline Cast (Auto) U Epithel Cells (Auto) Urine Bacteria (Auto) Salicylates Urine Opiates Screen Ur Methadone, Qual Acetaminophen Urine Barbiturates Ur Phencyclidine (PCP) U Amphetamin/Meth Scrn MDMA (Ecstasy) Screen U Benzodiazepines Scrn Ur Cocaine Metabolite U Marijuana (THC) Screen Ethyl Alcohol mg/dL < 10.0 SARS-CoV-2, RNA, NAAT NEGATIVE Hospital Course (1) Depression: (2) Tremor: (3) Anxiety: Plan The patient was admitted to the [facility] ([facility] mental [facility] unit) on q15 min checks (behavioral with suicide precautions) for safety. The patient will participate in group, recreational, and milieu therapies and will be offered additional individual and family sessions as clinically appropriate. Risks/benefits/alternatives were reviewed re: taper of Zoloft and identifying outpatient providers. She would prefer discharge given out of network benefits if viable safety/aftercare plan rather than being transferred to another facility. She agreed to a trial of propranolol after confirming no hx of arrthymia, cardiac issues, etc. Mental Health & Subst Abuse Tx Psychiatrist Name of Psychiatrist: Benito Randall Psychiatrist's Date of Appointment with Psychiatrist: 06/14/22 Time of Appointment with Psychiatrist: 8:15 AM Psychiatric Appointment Comment: [address] [facility] [address] Psychiatrist Release of Information: Obtained, Reviewed and Signed Therapist Name of Therapist: [facility] Therapy Appointment Comment: On waitlist - please follow up in 2 weeks for an update. Matcher Operator Name of Matcher Operator: None Post Discharge Appointments Primary Care Physician Name Of Family Doctor: SANJAY Chand [facility] Date of Appointment with PCP: 06/08/22 Time of Appointment with PCP: 4:00 PM Provider Appointment Comment: [address], [place] [address] Primary Care Release of Information: Obtained, Reviewed and Signed Neurologist Name of Neurologist: SANJAY Germain Neurologist's Date of Appointment with Neurologist: 06/12/22 Time of Appointment with Neurologist: 2:00 PM Neurology Appointment Comment: [address], [place] [address] Release of Information for Neurologist: Obtained, Reviewed and Signed Specialist Name of Specialist: [facility] (Occupational Therapy) Phone Number for Specialist: [phone] Time of Appointment with Specialist: Call to schedule initial assessment. Specialty Appointment Comment: [address] [facility] Smoking Cessation Counseling Tobacco Cessation Medication Prescribed at Discharge: Not Applicable/Non-Smoker Discharge Plan Discharge Items Patient Disposition: Home - Self-Care Reason For Visit: MDD Discharge Diagnosis: major depressive disorder Activity: Resume your previous activity Non-emergency contact: Primary Care Provider, Neurologist, Psychiatrist and Therapist Call non-emergency contact if: you have any medication questions and your symptoms worsen Follow-up/Referrals: Rina Rm MD [Primary Care Provider] - Diet: Regular Addtl Attending Provider Instructions: SPECIAL CARE INSTRUCTIONS: 1. Follow through with your scheduled aftercare appointments. If unable to keep an appointment, please call to reschedule. 2. Take your medication only as prescribed. Medication should not be changed or stopped without the approval of your doctor. In the event of worsening symptoms or concerns about side effects, contact your doctor immediately. 3. Utilize new healthy coping skills, anger management skills, and stress management skills learned during your hospitalization. Journal feelings and process them with a support person. Identify stressors or situations that may result in relapse, deterioration or inappropriate behaviors and develop a plan to deal with those issues. 4. If your coping skills are ineffective and you are in crisis, contact your outpatient providers for direction. If unable to reach your providers, please call the [facility] CRISIS LINE AT , go to the [facility] walk-in center at [address] [place] [address] [facility] or go to the closest Emergency Room. 5. Avoid alcohol and un-prescribed drugs. 6. You have been provided with the Mental Health Advance Directives Pamphlet for your review. 7. Your condition is stable for discharge to outpatient level of care, but recovery is an ongoing process. Ifthoughts to harm yourself or others return, follow the safety plan developed during your stay. Planning for a safe return home includes securing weapons. Our treatment team recommends weaponsbe removed from the home until your outpatient provider reassesses your progress. In rare cases where the items themselvescannot be removed, guns and ammunitionshould be secured separatelyand keys stored by a reliable personoutside of the home. If you were admitted on an involuntary commitment, the police or other legal authorities may be involved in this process. AFTERCARE APPOINTMENTS: * Please call your insurance company prior to your scheduled appointment to confirm your aftercare providers are covered. Take your insurance information to your appointments. WHO TO CALL AND WHEN: Medical Emergencies: For questions or emergencies related to your hospital stay, please contact the Inpatient Behavioral Health Unit at [phone]. A steel turner is on-call 08/04 for the Behavioral Health Unit for emergencies At any time you feel your situation is an emergency, you may also call 911 immediately. Pending Studies at Discharge: No Stand-Alone Forms: My [facility], Smoking Cessation Medications and DC Order Prescriptions: New propranolol 10 mg Tablet 10 mg PO BIDM Qty: 60 0RF Continued atorvastatin 40 mg tablet 40 mg PO DAILY Qty: 90 3RF cyanocobalamin (vitamin B-12) 1,000 mcg tablet, sublingual 1,000 mcg sublingual DAILY Qty: 30 0RF cholecalciferol (vitamin D3) 1,250 mcg (50,000 unit) capsule 50,000 unit PO WEEKLY 56 Days Qty: 8 0RF Rx Instructions: Take one capsule once a week for eight weeks, then get a level rechecked. Changed sertraline 100 mg tablet 50 mg PO DAILY Qty: 1 0RF Rx Instructions: for 5 days then discontinue Discontinued (DME) BD SafetyGlide Syringe 3 mL 23 x 1" syringe See Rx Instructions .MEDSUPPLY Qty: 15 0RF Rx Instructions: As directed for B12 injections Discharge Orders: Discharge Order (Routine); Ordered 06/01/22 Ordered By: Lucrecia Infante Admission Data Admit Date/Time: 05/31/22 18:17 Attending Provider: Lucrecia Infante Admit Provider: Lucrecia Infante Primary Care Provider: Rina Rm Other Interventions: Discharge Summary Assessment (RN) Last Done: 06/01/22 14:27 PSY Interdisciplinary Discharge Planning Last Done: 06/01/22 14:27 Coding Level of Care Code None Diagnoses Depression F32.A Tremor R25.1 Anxiety F41.9 Comment the patient was admitted and discharged in less than 24 hrs.
== END 2022-06-01 15:13 | disposition home or self-care (01) | DRG 881 ==
LOC: ED 12:40 → 3S 18:17

== ENCOUNTER 2024-12-17 11:15 | Inpatient (IN) ==
--- NOTE | 2024-12-17 11:33 | Emergency Department Note ---
Impression & Plan Abdominal pain, Renal colic, Acute hypokalemia, Weakness ED Provider Note NAME: CASSIDY CAGLE AGE: 64 SEX: F : 1960 ARRIVES VIA: Ambulance INFORMANT: Patient ED PROVIDER(S): Luiz Ramirez DO CHIEF COMPLAINT: abdominal pain HPI: Patient is a 64-year-old female with a past medical history of seizures, cerebral hemorrhage, trigeminal neuralgia, anxiety and hyperlipidemia that presents to the ER for abdominal pain. Per report from medics this has been present today. Patient is able to state that she has pain in her lower belly and point to it but denies all other complaints including head pain and chest pain and cough and congestion. History is limited secondary to mentation. ADDITIONAL HISTORY OBTAINED: Additional history is obtained from nursing staff at [facility] who notes that patient has not eaten today. They note that they sent her here as she has been complaining of belly pain which started earlier today. Chronic Medical/Social Conditions Affecting Care: Per HPI PAST MEDICAL HISTORY:See Below PAST SURGICAL HISTORY:See Below FAMILY HISTORY:See Below SOCIAL HISTORY:See Below HOME MEDICATIONS:See Below ALLERGIES:See Below VITALS:See Below PHYSICAL EXAMINATION: GENERAL: Sitting up in bed, alert, chronically ill-appearing, disheveled EYE EXAM: normal conjunctiva. PERRL and EOM's grossly intact. OROPHARYNX: no exudate, no erythema, lips, buccal mucosa, and tongue normal and mucous membranes are moist NECK: supple, no nuchal rigidity, no adenopathy, non-tender LUNGS: Clear to auscultation. Normal chest wall mechanics HEART: no murmurs, S1 normal and S2 normal ABDOMEN: abdomen soft, non-tender, normo-active bowel sounds, no masses, no rebound or guarding. UPPER EXTREMITIES: upper extremities are grossly normal. LOWER EXTREMITIES: No pitting edema. NEURO EXAM: Awake alert moving upper extremities holding lower abdomen MEDICAL DECISION MAKING: Patient is a 64-year-old female who presents ER for the above-stated complaint. IV was established and blood work was obtained. Labs show no significant leukocytosis or anemia. BMP with a hypokalemia at 2.9. LFTs and bilirubin unremarkable. Lipase was normal. Alves was hanging out upon arrival. Multiple attempts in the ER to replace was unsuccessful. Urology was consulted. CT abdomen pelvis shows a distal right ureteral stone. I do favor this likely cause of the symptoms. She was given IV fluids, IV morphine and Zofran. She was updated at bedside. Discussed the case with urology at bedside and they recommended taking the patient to the OR for stent and Alves placement. [facility] with [facility] and they note that patient has not eaten anything today. Discussed case with the hospitalist for further evaluation management treatment. IV potassium was ordered. Consults/Care Managements Discussions: Per [facility] Triage Nursing notes reviewed. Limited review of prior medical records performed Vital Signs: reviewed and remarkable for no significant abnormalities Differential diagnosis: Differential diagnoses includes but is not limited to gastritis, peptic ulcer disease, GERD, gallbladder disease, pancreatitis, small bowel obstruction, appendicitis, diverticulitis, hernia, urinary tract infection, torsion, /ectopic (if female), perforation, trauma, infectious. ER treatment provided: See below Diagnostics interpreted by me include EKG and cardiac monitoring as listed below: -Cardiac Monitoring: An order was placed for continuous cardiac monitoring. The monitor shows a rate of 70 with sinus rhythm. -ECG: none -Laboratory studies:Interpreted by me as stated above in MDM and shown below. Imaging studies: Xrays: As interpreted by me:none CTs show: CT abdomen pelvis per my preliminary interpretation showed no obvious bowel obstruction CT and pelvis per radiologist described above Procedures:none Critical Care: None Past Med/Surg History Problem List (Updated 12/17/24 @ 14:13 by EMELY Bunn) Nephrolithiasis Right ureteral stone Esophageal dysphagia Seizure-like activity Cerebral hemorrhage Carpal tunnel syndrome, left Cerebral vein occlusion left Cerebral venous sinus thrombosis Depression (Acute) B12 deficiency Vitamin D deficiency Cervical radiculopathy Paresthesias Hyper reflexia Tremor Neuralgia Depression Trigeminal neuralgia of left side of face Anxiety Hyperlipidemia Medical History Aphasia Cognitive communication deficit Abnormal posture Muscle weakness (generalized) Difficulty in walking, not elsewhere classified 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 Presence of urogenital implants H/O wisdom tooth extraction H/O: Family History Aunt Breast cancer Denies family history of Ovarian cancer Prostate cancer Myocardial infarction Colorectal cancer Social History Smoking Status: Unknown if ever smoked Tobacco Type: Cigarettes Age Started Using Tobacco: 16; Preferred Language: Dutch Communication Ability: unknown Visual Impairment: No Limitations Hearing Ability: Normal Tomography Technologist Required: No Beliefs That Will Affect Care: None marital status: Single Current Living Situation: Senior Care Current Living Situation Comment: [facility] current occupational status: employed 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5 mg PO UD PRN Motion Sickness 08/27/24 12/14/24 Milk of Magnesia 30 ml PO UD PRN Constipation 10/09/24 12/14/24 acetaminophen 500 mg/15 mL oral 1,000 mg PO BID 10/09/24 12/14/24 liquid acetaminophen 650 mg/20.3 mL oral 650 mg PO QID PRN pain 1-8 10/09/24 12/14/24 suspension ascorbic acid-ascorbate 30 ml PO QAM frequent UTI's 10/09/24 12/14/24 calcium-ascorbate sod 500 mg/15 mL oral liquid (Vitamin C) atorvastatin 20 mg/5 mL (4 mg/mL) 10 mg PO HS 10/09/24 12/14/24 oral suspension bisacodyl 10 mg rectal suppository 10 mg MO UD PRN Constipation 10/09/24 12/14/24 (Dulcolax (bisacodyl)) ceftriaxone 1 gram solution for 1 g IM QPM 10/09/24 12/14/24 injection docusate sodium 50 mg/5 mL oral 100 mg PO BID 10/09/24 12/14/24 liquid gabapentin 300 mg/6 mL (6 mL) oral 100 - 300 mg PO UD 10/09/24 12/14/24 solution levetiracetam 500 mg/5 mL (5 mL) 500 mg PO BID 10/09/24 12/14/24 oral solution lidocaine HCl 10 mg/mL (1 %) 2.1 ml IM UD 10/09/24 12/14/24 injection solution melatonin 3 mg/4 mL oral drops 3 mg PO HS 10/09/24 12/14/24 ondansetron 4 mg disintegrating 4 mg PO Q6H PRN nausea/vomiting 10/09/24 12/14/24 tablet oxycodone 5 mg/5 mL oral solution 5 mg PO Q4H PRN pain 9-10 10/09/24 12/14/24 promethazine 25 mg/mL injection 25 mg IM Q6H PRN nausea/vomiting 10/09/24 12/14/24 solution propranolol 20 mg/5 mL (4 mg/mL) 20 mg PO TID 10/09/24 12/14/24 oral solution ropinirole 0.25 mg tablet 0.25 mg PO TID 10/09/24 12/14/24 sodium phosphates 19 gram-7 118 ml MO UD PRN Constipation 10/09/24 12/14/24 gram/118 mL enema (Fleet Enema) Pantoprazole Sodium 40 mg PO BID 12/14/24 12/14/24 acetaminophen 650 mg rectal 650 mg MO Q4H PRN pain, rated 1-3 12/14/24 12/14/24 suppository mirtazapine 15 mg tablet (Remeron) 15 mg PO HS 12/14/24 12/14/24 potassium chloride 20 mEq/15 mL 20 meq PO QID 12/14/24 12/14/24 oral liquid Results & Data (ED) Vital Signs Vital Signs - 24 hr 12/17/24 11:24 12/17/24 12:12 12/17/24 12:16 Temperature 36.6 C Temperature Source Oral Pulse Rate 97 H 93 H 91 H Pulse Rate from SpO2 Sensor 93 H Respiratory Rate 18 13 Respiratory Effort / Characteristics Non-Labored Spontaneous Respiratory Depth Normal Respiratory Pattern Regular Blood Pressure 134/75 Blood Pressure Mean 94 Pulse Oximetry 99 99 Oxygen Delivery Method Room Air Room Air Sepsis Recent Fever Within 48 Hours No Sepsis New/Unexplained Change in Mental Status No Sepsis Action Taken by Nursing No Action Required 12/17/24 12:33 12/17/24 12:48 12/17/24 13:09 Temperature Temperature Source Pulse Rate 90 90 98 H Pulse Rate from SpO2 Sensor 90 89 98 H Respiratory Rate 20 26 H 15 Respiratory Effort / Characteristics Respiratory Depth Respiratory Pattern Blood Pressure Blood Pressure Mean Pulse Oximetry 98 99 98 Oxygen Delivery Method Room Air Room Air Room Air Sepsis Recent Fever Within 48 Hours Sepsis New/Unexplained Change in Mental Status Sepsis Action Taken by Nursing 12/17/24 13:24 12/17/24 13:27 12/17/24 13:32 Temperature Temperature Source Pulse Rate 96 H 97 H Pulse Rate from SpO2 Sensor 96 H 96 H Respiratory Rate 16 26 H Respiratory Effort / Characteristics Respiratory Depth Respiratory Pattern Blood Pressure 112/91 Blood Pressure Mean 96 Pulse Oximetry 98 99 Oxygen Delivery Method Room Air Room Air Sepsis Recent Fever Within 48 Hours Sepsis New/Unexplained Change in Mental Status Sepsis Action Taken by Nursing 12/17/24 13:36 12/17/24 13:57 12/17/24 14:00 Temperature Temperature Source Pulse Rate 94 H 88 Pulse Rate from SpO2 Sensor 94 H 88 Respiratory Rate 26 H 20 Respiratory Effort / Characteristics Respiratory Depth Respiratory Pattern Blood Pressure 135/80 Blood Pressure Mean 98 Pulse Oximetry 98 99 Oxygen Delivery Method Room Air Room Air Sepsis Recent Fever Within 48 Hours Sepsis New/Unexplained Change in Mental Status Sepsis Action Taken by Nursing Laboratory Data 12/17/24 12:36 12/17/24 12:36 Lab Results 12/17/24 12/17/24 Range/Units 12:31 12:36 WBC 7.21 (4.8-10.8) K/ul RBC 3.93 L (4.20-5.40) M/uL Hgb 12.7 (12.0-16.0) g/dl POC Hgb 13.3 (12.0-16.0) g/dl Hct 37.2 (37.0-47.0) % POC Hct 39 (37-47) % MCV 94.7 (80.0-100.0) fL MCH 32.3 (25.0-34.0) pg MCHC 34.1 (32.0-36.0) g/dL RDW Std Deviation 54.9 H (36.4-46.3) fL RDW Coeff of [place] 15.9 H (11.5-14.5) % Plt Count 213 (130-400) K/uL MPV 9.6 (9.4-12.4) fL Immature Gran % (Auto) 0.6 % Neut % (Auto) 50.7 % Lymph % (Auto) 37.9 % [place] % (Auto) 10.0 % Eos % (Auto) 0.7 % Baso % (Auto) 0.1 % Neut # (Auto) 3.66 (1.40-6.50) K/uL Lymph # (Auto) 2.73 (1.20-3.40) K/uL [place] # (Auto) 0.72 H (0.11-0.59) K/uL Eos # (Auto) 0.05 (0.00-0.50) K/uL Baso # (Auto) 0.01 (0.00-0.20) K/uL Immature Gran # (Auto) 0.04 (0.01-0.20) K/uL Absolute Nucleated RBC 0.03 (0.00-0.12) K/uL Nucleated RBC % (auto) 0.4 % POC Sodium 133 L (135-144) mmol/L Sodium 139 (136-145) mmol/L POC Potassium 2.8 L (3.3-5.0) mmol/L Potassium 2.9 L (3.5-5.1) mmol/L POC Chloride 97 L (101-112) mmol/L Chloride 97 L (98-107) mmol/L Carbon Dioxide 35 H (21-32) mmol/L POC Total CO2 31 (24-31) mmol/L Anion Gap 7 (3-11) POC Anion Gap 9.0 L (16-25) mmol/L POC BUN 16 (7-18) mg/dl BUN 16 (6-23) mg/dl Creatinine 0.56 L (0.6-1.2) mg/dl POC Creatinine 0.5 L (0.6-1.3) mg/dl Est Cr Clr Drug Dosing Not Reportable eGFR 101.85 BUN/Creatinine Ratio 28.6 H (10-20) Glucose 113 H (70-99(Fasting)) mg/dl POC Glucose (other) 116 H (70-99) mg/dl Calcium 8.3 L (8.6-10.3) mg/dl POC Ioniz Calcium [place] 0.82 L (1.12-1.32) mmol/l Total Bilirubin 1.0 (0.2-1.0) mg/dl AST 18 (13-39) U/L ALT 12 (7-52) U/L Alkaline Phosphatase 134 H (34-104) U/L Total Protein 5.5 L (6.0-8.3) gm/dl Albumin 2.7 L (3.4-5.0) gm/dl Globulin 2.8 (2.5-4.0) gm/dl Albumin/Globulin Ratio 1.0 (0.9-2) Lipase 58 (11-82) U/L Administered Medications Discontinued Medications Sodium Chloride (Nss) 1,000 mls @ 999 mls/hr IV .Q1H1M ONE Stop: 12/17/24 12:30 Last Admin: 12/17/24 13:09 Dose: 999 mls/hr Documented By: NA Potassium Acetate (Potassium Acetate/Nss) 10 meq in 105 mls @ 105 mls/hr IV Q1H ONE Stop: 12/17/24 13:32 Last Admin: 12/17/24 13:08 Dose: 105 mls/hr Documented By: NA Ioversol (Optiray 320 100ml) 94 ml IV ONCE ONE Stop: 12/17/24 13:09 Last Admin: 12/17/24 13:09 Dose: 94 ml Documented By: MOR Imaging Data Radiologist's Impression: Abdomen/Pelvis CT 12/17/24 11:[address] WITH IV CONTRAST CT DOSE: 607.25 mGy.cm HISTORY: Acute mid abdominal pain mid abd pain TECHNIQUE: Multiaxial CT images of the abdomen and pelvis were performed following the IV administration of 94 cc of Optiray, A dose lowering technique was utilized adhering to the principles of ALARA. COMPARISON STUDY: 08/27/2024 FINDINGS: Chronic moderate right hemidiaphragmatic elevation with right basilar atelectasis versus scarring. No pneumatosis or pneumoperitoneum. Unremarkable spleen, gallbladder, mildly atrophic pancreas and adrenal glands. Hepatic steatosis. Patency of the hepatic and portal veins. Mild cortical scarring of the superior pole left kidney. 4 mm nonobstructing calculus of the superior pole right kidney.8 mm calculus within the right renal pelvis causes mild pelviectasis with urothelial thickening. 2 mm nonobstructing calculus of the report right kidney. There is no significant hydronephrosis. 4 mm calculus of the distal right ureter on image 316 is noted approximately 2 cm upstream to the UVJ. Partial distention of the urinary bladder with irregular wall thickening and mucosal hyperemia with small bladder diverticula. Retroflexed uterus with possible fundal fibroid. Atherosclerosis of aorta without aneurysm. No lymphadenopathy. Distal esophageal wall thickening. The mid to distal esophagus is fluid-filled. No bowel obstruction. No acute fracture. Heterogeneously sclerotic appearance of the right hemipelvis is similar to prior suggestive of pagetoid changes. IMPRESSION: 1. 4 mm calculus of the distal right ureter without associated hydronephrosis. 2. Unchanged 8 mm calculus in the right renal pelvis causing mild pelviectasis with urothelial thickening. Correlate with urinalysis to exclude infection. 3. Nonobstructing right renal calculi. 4. Probable cystitis. 5. No bowel obstruction or bowel wall thickening. 6. Additional findings as above. ACT 112: Negative or not required by law. The above report was generated using voice recognition software. It may contain grammatical, syntax or spelling errors. Electronically signed by: Mraky Rosa M.D. 12/17/2024 1:39 PM Discharge Plan Visit Data Chief Complaint: Abdominal Pain Stated Complaint: AB PAIN ED Provider: Luiz Ramirez Discharge Problem: Abdominal pain, Renal colic, Acute hypokalemia, Weakness Patient Disposition: Admitted As Inpatient Discharge Instructions Interventions: ED Discharge Assessment Last Done: 12/17/24 14:05 Forms Stand Alone Forms: [employer] Prescriptions Prescriptions: No Action docusate sodium 50 mg/5 mL Liquid 100 mg PO BID lidocaine HCl 10 mg/mL (1 %) Solution 2.1 ml IM UD Rx Instructions: give 2.1 mL IM in the evening to minimize pain with IM injection for 10 days with 1gm Ceftriaxone prior to administration oxycodone 5 mg/5 mL Solution 5 mg PO Q4H PRN (Reason: pain 9-10) ceftriaxone 1 gram Recon Soln 1 g IM QPM Rx Instructions: for 10 days for UTI propranolol 20 mg/5 mL (4 mg/mL) Solution 20 mg PO TID ropinirole 0.25 mg Tablet 0.25 mg PO TID bisacodyl [Dulcolax (bisacodyl)] 10 mg Suppository 10 mg MO UD PRN (Reason: Constipation) Rx Instructions: give on day 3 3-11 shift, if no BM after MOM promethazine 25 mg/mL Solution 25 mg IM Q6H PRN (Reason: nausea/vomiting) Fleet Enema 19-7 gram/118 mL Enema 118 ml MO UD PRN (Reason: Constipation) Rx Instructions: if no BM after dulcolax, administer fleets on -3 shift after day 4. ondansetron 4 mg Tablet,Disintegrating 4 mg PO Q6H PRN (Reason: nausea/vomiting) Rx Instructions: if promethazine is ineffective acetaminophen 500 mg/15 mL Liquid 1,000 mg PO BID levetiracetam 500 mg/5 mL (5 mL) Solution 500 mg PO BID acetaminophen 650 mg/20.3 mL Suspension 650 mg PO QID PRN (Reason: pain 1-8 ) Vitamin C 500 mg/15 mL Liquid 30 ml PO QAM gabapentin 300 mg/6 mL (6 mL) Solution 100 - 300 mg PO UD Rx Instructions: 100mg BID and 300mg HS, daily melatonin 3 mg/4 mL Drops 3 mg PO HS atorvastatin 20 mg/5 mL (4 mg/mL) Suspension 10 mg PO HS Rx Instructions: administer on an empty stomach, at least 1 hour before or 2 hours after food/meal(s) Milk of Magnesia 30 ml PO UD PRN (Reason: Constipation) Rx Instructions: after no BM for 3 days administer on 7-3 shift acetaminophen 650 mg Suppository 650 mg MO Q4H PRN (Reason: Pain) meclizine 12.5 mg Tablet 12.5 mg PO UD PRN (Reason: Motion Sickness) Rx Instructions: Take 30 minutes prior to any vehicle transport acetaminophen 650 mg Suppository 650 mg MO Q4H PRN (Reason: pain, rated 1-3) potassium chloride 20 mEq/15 mL Liquid 20 meq PO QID mirtazapine [Remeron] 15 mg Tablet 15 mg PO HS Pantoprazole Sodium 40 mg PO BID Rx Instructions: 4mg/10mL Referrals Referrals: [facility] [Primary Care Provider] - Discharge Problem: Abdominal pain Qualifiers: Abdominal location: unspecified location Qualified Code(s): R10.9 - Unspecified abdominal pain
[2024-12-17 12:43] LABS: iSTAT Creatinine 0.5 mg/dl (0.6-1.3); iSTAT Hemoglobin 13.3 g/dl (12.0-16.0); iSTAT Ionized Calcium 0.82 mmol/l (1.12-1.32); iSTAT Potassium 2.8 mmol/L (3.3-5.0)
[2024-12-17 13:00] LABS: Basophils # (auto) 0.01 K/uL (0.00-0.20); Basophils % (auto) 0.1 %; Eosinophils # (auto) 0.05 K/uL (0.00-0.50); Eosinophils % (auto) 0.7 %; Hematocrit (blood only) 37.2 % (37.0-47.0); Hemoglobin 12.7 g/dl (12.0-16.0); Immature Granulocytes # (auto) 0.04 K/uL (0.01-0.20); Immature Granulocytes % (auto) 0.6 %; Lymphocytes # (auto) 2.73 K/uL (1.20-3.40); Lymphocytes % (auto) 37.9 %; Mean Corpuscular Hemoglobin 32.3 pg (25.0-34.0); Mean Corpuscular Hgb Conc 34.1 g/dL (32.0-36.0); Mean Corpuscular Volume 94.7 fL (80.0-100.0); Mean Platelet Volume 9.6 fL (9.4-12.4); Monocytes # (auto) 0.72 K/uL (0.11-0.59); Neutrophils # (auto) 3.66 K/uL (1.40-6.50); Neutrophils % (auto) 50.7 %; Nucleated RBC # (auto) 0.03 K/uL (0.00-0.12); Nucleated RBC % (auto) 0.4 %; Platelet Count 213 K/uL (130-400); RDW Coefficient of Variation 15.9 % (11.5-14.5); RDW Standard Deviation 54.9 fL (36.4-46.3); Red Blood Count 3.93 M/uL (4.20-5.40); White Blood Count 7.21 K/ul (4.8-10.8)
[2024-12-17] MEDS: POTASSIUM ACETATE/NSS 10 MEQ/105 ML BAG IV ONE (13:08)
[2024-12-17] MEDS: OPTIRAY 320 100ml IV ONE (13:09)
[2024-12-17] MEDS: SODIUM CHLORIDE 0.9% 1,000 ML IV ONE (13:09)
[2024-12-17 13:13] LABS: Albumin Level 2.7 gm/dl (3.4-5.0); Anion Gap 7 (3-11); Calcium 8.3 mg/dl (8.6-10.3); Carbon Dioxide 35 mmol/L (21-32); Chloride 97 mmol/L (98-107); Potassium 2.9 mmol/L (3.5-5.1); Sodium 139 mmol/L (136-145)
[2024-12-17 13:19] LABS: Alanine Aminotransferase 12 U/L (7-52); Alkaline Phosphatase 134 U/L (34-104); Aspartate Aminotransferase 18 U/L (13-39); BUN Creatinine Ratio 28.6 (10-20); Blood Urea Nitrogen 16 mg/dl (6-23); Globulin 2.8 gm/dl (2.5-4.0); Glucose 113 mg/dl (70-99(Fasting)); Lipase 58 U/L (11-82); Total Protein 5.5 gm/dl (6.0-8.3)
--- NOTE | 2024-12-17 13:40 | CT Scan Report ---
ABDOMEN AND PELVIS CT WITH IV CONTRAST CT DOSE: 607.25 mGy.cm HISTORY: Acute mid abdominal pain mid abd pain TECHNIQUE: Multiaxial CT images of the abdomen and pelvis were performed following the IV administrat ion of 94 cc of Optiray, A dose lowering technique was utilized adhering to the principles of ALARA. COMPARISON STUDY: 08/27/2024 FINDINGS: Chronic moderate right hemidiaphragmatic elevation with right basilar atelectasis versus sc arring. No pneumatosis or pneumoperitoneum. Unremarkable spleen, gallbladder, mildly atrophic pancrea s and adrenal glands. Hepatic steatosis. Patency of the hepatic and portal veins. Mild cortical scarring of the superior pole left kidney. 4 mm nonobstructing calculus of the superior pole right kidney.8 mm calculus within the right renal pelvis causes mild pelviectasis with urotheli al thickening. 2 mm nonobstructing calculus of the report right kidney. There is no significant hydro nephrosis. 4 mm calculus of the distal right ureter on image 316 is noted approximately 2 cm upstream to the UVJ. Partial distention of the urinary bladder with irregular wall thickening and mucosal hyp eremia with small bladder diverticula. Retroflexed uterus with possible fundal fibroid. Atheroscleros is of aorta without aneurysm. No lymphadenopathy. Distal esophageal wall thickening. The mid to distal esophagus is fluid-filled. No bowel obstruction. No acute fracture. Heterogeneously sclerotic appearance of the right hemipelvis is similar to prior suggestive of pagetoid changes. IMPRESSION: 1. 4 mm calculus of the distal right ureter without associated hydronephrosis. 2. Unchanged 8 mm calculus in the right renal pelvis causing mild pelviectasis with urothelial thicke radha. Correlate with urinalysis to exclude infection. 3. Nonobstructing right renal calculi. 4. Probable cystitis. 5. No bowel obstruction or bowel wall thickening. 6. Additional findings as above. ACT 112: Negative or not required by law. The above report was generated using voice recognition software. It may contain grammatical, syntax o r spelling errors. Electronically signed by: Marky Rosa M.D. 12/17/2024 1:39 PM
--- NOTE | 2024-12-17 14:03 | Urology Consultation ---
<Statement entered by Steven Chopra MD - 12/17/24 15:25> I have seen and discussed Mr. Rae's case with EMELY Cullen and agree with the above documentation. She appears to have a right ureteral stone and UTI. In this case we will proceed with cystoscopy, right retrograde pyelogram and right ureteral stent placement. We will replace Alves catheter at the time of surgery. I discussed this procedure as well as the associated risks and benefits with her as well as her son/POA. Both expressed understanding and would like to proceed with surgery. -Steven Chopra MD. Date of Consultation December 17, 2024 Assessment & Plan (1) Right ureteral stone: (2) Nephrolithiasis: 64 yo/F presented to ED from [facility] on 12/17/24 for evaluation of abdominal pain. CT abdomen pelvis demonstrates a 4 mm right ureteral calculus. Patient currently afebrile, hemodynamically stable Labs reviewedcreatinine 0.56, WBC 7.21, hemoglobin 12.7 CTAP shows 4 mm right ureteral calculus, no hydronephrosis; an 8 mm stone within the right renal pelvis with urothelial thickening. Urinary bladder with irregular wall thickening and hyperemia with small bladder diverticula. Patient has chronic Alves catheter, which was out upon arrival per nursing Alves unable to be replaced by nursing Discussed findings of right ureteral stone and concern for infection Recommend cystoscopy and right ureteral stent placement given findings Alves catheter can be replaced in OR and obtain culture She has been initiated on Ceftriaxone Keep NPO for procedure Recommend admit to medicine for observation after procedure See attending note for further details of plan of care History of Present Illness Requesting Physician: Dr. Ramirez History of Present Illness This is a 64-year-old female with past medical history of seizures, cerebral hemorrhage, hyperlipidemia, and chronic indwelling catheter who presented to the ED today from [facility] for evaluation of abdominal pain. On arrival to ED, she was afebrile, hemodynamic stable. Lab work shows a creatinine of 0.56, WBC 7.21, hemoglobin 12.7. Patient's Alves catheter was reportedly out with a 30cc balloon intact. Nursing was unable to replace Alves catheter in ED. Workup included CT abdomen pelvis with IV contrast which demonstrated a 4 mm calculus at the distal right ureter without associated hydronephrosis. Stable 8 mm calculus in the right renal pelvis causing mild pelviectasis with urothelial thickening, nonobstructing right renal calculi. Urinary bladder with irregular wall thickening and hyperemia with small bladder diverticula. Urology is consulted for catheter replacement and stone. Patient seen and examined in the emergency department. She is resting in litter, no acute distress. She is alert. Responds "okay" when asked questions. Unable to provide history. Per [facility], patient has not had anything to eat or drink today. Allergies Allergy/AdvReac Type Severity Reaction Status Date / Time No Known Allergies Allergy Verified 12/14/24 14:48 Home Medications Medication Instructions Recorded Confirmed Type acetaminophen 650 mg rectal 650 mg [place] Q4H PRN Pain 08/27/24 12/14/24 History suppository meclizine 12.5 mg tablet 12.5 mg PO UD PRN Motion Sickness 08/27/24 12/14/24 History Milk of Magnesia 30 ml PO UD PRN Constipation 10/09/24 12/14/24 History acetaminophen 500 mg/15 mL oral 1,000 mg PO BID 10/09/24 12/14/24 History liquid acetaminophen 650 mg/20.3 mL oral 650 mg PO QID PRN pain 1-8 10/09/24 12/14/24 History suspension ascorbic acid-ascorbate 30 ml PO QAM frequent UTI's 10/09/24 12/14/24 History calcium-ascorbate sod 500 mg/15 mL oral liquid (Vitamin C) atorvastatin 20 mg/5 mL (4 mg/mL) 10 mg PO HS 10/09/24 12/14/24 History oral suspension bisacodyl 10 mg rectal suppository 10 mg AZ UD PRN Constipation 10/09/24 12/14/24 History (Dulcolax (bisacodyl)) ceftriaxone 1 gram solution for 1 g IM QPM 10/09/24 12/14/24 History injection docusate sodium 50 mg/5 mL oral 100 mg PO BID 10/09/24 12/14/24 History liquid gabapentin 300 mg/6 mL (6 mL) oral 100 - 300 mg PO UD 10/09/24 12/14/24 History solution levetiracetam 500 mg/5 mL (5 mL) 500 mg PO BID 10/09/24 12/14/24 History oral solution lidocaine HCl 10 mg/mL (1 %) 2.1 ml IM UD 10/09/24 12/14/24 History injection solution melatonin 3 mg/4 mL oral drops 3 mg PO HS 10/09/24 12/14/24 History ondansetron 4 mg disintegrating 4 mg PO Q6H PRN nausea/vomiting 10/09/24 12/14/24 History tablet oxycodone 5 mg/5 mL oral solution 5 mg PO Q4H PRN pain 9-10 10/09/24 12/14/24 History promethazine 25 mg/mL injection 25 mg IM Q6H PRN nausea/vomiting 10/09/24 12/14/24 History solution propranolol 20 mg/5 mL (4 mg/mL) 20 mg PO TID 10/09/24 12/14/24 History oral solution ropinirole 0.25 mg tablet 0.25 mg PO TID 10/09/24 12/14/24 History sodium phosphates 19 gram-7 118 ml AZ UD PRN Constipation 10/09/24 12/14/24 History gram/118 mL enema (Fleet Enema) Pantoprazole Sodium 40 mg PO BID 12/14/24 12/14/24 History acetaminophen 650 mg rectal 650 mg [place] Q4H PRN pain, rated 1-3 12/14/24 12/14/24 History suppository mirtazapine 15 mg tablet (Remeron) 15 mg PO HS 12/14/24 12/14/24 History potassium chloride 20 mEq/15 mL 20 meq PO QID 12/14/24 12/14/24 History oral liquid Patient History Medical History Aphasia Cognitive communication deficit Abnormal posture Muscle weakness (generalized) Difficulty in walking, not elsewhere classified 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 Presence of urogenital implants H/O wisdom tooth extraction H/O: Family History Aunt Breast cancer Denies family history of Ovarian cancer Prostate cancer Myocardial infarction Colorectal cancer Social History Smoking Status: Current every day smoker Tobacco Type: Cigarettes Age Started Using Tobacco: 16; Preferred Language: Faroese Communication Ability: unknown Visual Impairment: No Limitations Hearing Ability: Normal Contract Admin Required: No Beliefs That Will Affect Care: None marital status: Single Current Living Situation: Retirement Current Living Situation Comment: [facility] current occupational status: employed 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 Feels Safe at Home: Yes Childhood Exposure to Second-Hand Smoke: Yes Diet: other Diet Comment: sometimes does [facility], Regularly: Yes Physical Activity Frequency: 5-6 Times per Week Seatbelt Use: always Sunscreen Use: Yes Assistive Devices: Mechanical Lift and Walker Review of Systems Review of Systems: Unobtainable due to cognitive status Physical Exam Constitutional: no acute distress Respiratory: normal respiratory effort; no respiratory distress and no labored breathing Gastrointestinal (Abdomen): Inspection/Auscultation: abdomen normal to inspection Musculoskeletal: Head/Neck/Chest: normocephalic Neurologic: awake aphasia Psychiatric: Orientation: alert and cooperative Results & Data Vital Signs (Past 12 Hours) Vital Signs Temp Pulse Resp BP Pulse Ox O2 Del Method 12/17/24 12:16 91 H 12/17/24 11:24 36.6 C 97 H 18 134/75 99 Room Air PG Care Time/CCT Total # of Minutes Spent Total Time Spent with Patient: Total time spent is greater than 50% in coordination of care (as documented) at patient's floor/unit and/or counseling patient: Coding Level of Care Code 78782 INT INP/OBS CARE 3/75MIN Diagnoses Right ureteral stone N20.1 Nephrolithiasis N20.0
[2024-12-17] MEDS: MoRPHine SULFATE 4 MG/ML 1 ML CARP\\VIAL IV STA (14:09)
[2024-12-17] MEDS: cefTRIAXone SODIUM 2,000 MG/50 ML BAG IV STA (14:09)
[2024-12-17] MEDS: ONDANSETRON INJ 2 MG/ML 2 ML VIAL IV STA (14:09)
[2024-12-17] MEDS ORDERED: SOD PHOSPHATE/SOD BIPHOSPHATE ENEMA 132 ML BTL PR PRN (14:11)
[2024-12-17] MEDS ORDERED: PROMETHAZINE HCL INJ 25 MG/ML 1 ML VIAL IM PRN (14:11)
[2024-12-17] MEDS ORDERED: ONDANSETRON 4 MG OD TAB PO PRN (14:11)
[2024-12-17] MEDS ORDERED: bisacodyL 10 MG SUPP PR PRN (14:11)
[2024-12-17] MEDS ORDERED: MECLIZINE 12.5 MG TAB PO PRN (14:11)
--- NOTE | 2024-12-17 14:11 | History & Physical Report ---
Date of Service December 17, 2024 Assessment & Plan (1) Right ureteral stone: Plan: Postobstructive nephropathy secondary to right ureteral stone in a 64 yo female with abdominal pain S/P ureteral stent placed on rocephin vitals stable will admit to med/surg awaiting cultures. (2) Cerebral hemorrhage: Plan: chronic patient with expressive aphasia. resumed gabapentin and keppra (3) Hyperlipidemia: Plan: resume home meds Hypokalemia Replaced potassium History of Present Illness Chief Complaint: abdominal pain. Primary Care Provider: [facility] Pleasent 64 year old female with PMH: hemorrhagic stroke, seizures, hyperlipidemia, and chronic indwelling catheter who presented to the ED from [facility] for abdominal pain. Unable to obtain more details from the abdominal pain. Patient has expressive aphasia and is a poor historian. Vitals were stable in the ED. No fever. CT abd/pelvis was obtained. Imaging showed hydronephrosis with a 4 mm calculus at the distal right ureter. Urology was consulted for stent placement and Hospitalist service for admission. Allergies Allergy/AdvReac Type Severity Reaction Status Date / Time No Known Allergies Allergy Verified 12/14/24 14:48 Home Medications Medication Instructions Recorded Confirmed Type meclizine 12.5 mg tablet 12.5 mg PO DIRECTED PRN Motion 08/27/24 12/17/24 History Sickness acetaminophen 500 mg/15 mL oral 1,000 mg PO BID 10/09/24 12/17/24 History liquid acetaminophen 650 mg/20.3 mL oral 650 mg PO QID PRN pain 1-8 10/09/24 12/17/24 History suspension ascorbic acid-ascorbate 15 ml PO QAM frequent UTI's 10/09/24 12/17/24 History calcium-ascorbate sod 500 mg/15 mL oral liquid (Vitamin C) bisacodyl 10 mg rectal suppository 10 mg PA DIRECTED PRN 10/09/24 12/17/24 History (Dulcolax (bisacodyl)) Constipation docusate sodium 50 mg/5 mL oral 100 mg PO BID 10/09/24 12/17/24 History liquid gabapentin 300 mg/6 mL (6 mL) oral 100 - 300 mg PO TID 10/09/24 12/17/24 History solution levetiracetam 500 mg/5 mL (5 mL) 500 mg PO BID 10/09/24 12/17/24 History oral solution magnesium hydroxide 400 mg/5 mL 2,400 mg PO DIRECTED PRN 10/09/24 12/17/24 History oral suspension (Milk of Magnesia) Constipation ##0 melatonin 3 mg/4 mL oral drops 3 mg PO HS 10/09/24 12/17/24 History ondansetron 4 mg disintegrating 4 mg PO Q6H PRN nausea/vomiting 10/09/24 12/17/24 History tablet oxycodone 5 mg/5 mL oral solution 5 mg PO Q4H PRN pain 9-10 10/09/24 12/17/24 History promethazine 25 mg/mL injection 25 mg IM Q6H PRN nausea/vomiting 10/09/24 12/17/24 History solution propranolol 20 mg/5 mL (4 mg/mL) 60 mg PO Q8H 10/09/24 12/17/24 History oral solution ropinirole 0.25 mg tablet 0.25 mg PO TID 10/09/24 12/17/24 History sodium phosphates 19 gram-7 118 ml PA DIRECTED PRN 10/09/24 12/17/24 History gram/118 mL enema (Fleet Enema) Constipation acetaminophen 650 mg rectal 650 mg PA Q4H PRN pain, rated 1-3 12/14/24 12/17/24 History suppository mirtazapine 15 mg tablet (Remeron) 15 mg PO HS 12/14/24 12/17/24 History pantoprazole 40 mg tablet,delayed See Rx Instructions .Route .COMPLEX 12/14/24 12/17/24 History release potassium chloride 20 mEq/15 mL 20 meq PO QID 12/14/24 12/17/24 History oral liquid atorvastatin 40 mg tablet 40 mg PO HS 12/17/24 12/17/24 History Past Med/Surg History Problem List Nephrolithiasis Right ureteral stone Esophageal dysphagia Seizure-like activity Cerebral hemorrhage Carpal tunnel syndrome, left Cerebral vein occlusion left Cerebral venous sinus thrombosis Depression (Acute) B12 deficiency Vitamin D deficiency Cervical radiculopathy Paresthesias Hyper reflexia Tremor Neuralgia Depression Trigeminal neuralgia of left side of face Anxiety Hyperlipidemia Medical History Aphasia Cognitive communication deficit Abnormal posture Muscle weakness (generalized) Difficulty in walking, not elsewhere classified 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 Presence of urogenital implants H/O wisdom tooth extraction H/O: Family History Aunt Breast cancer Denies family history of Ovarian cancer Prostate cancer Myocardial infarction Colorectal cancer Social History Smoking Status: Former smoker Tobacco Type: Cigarettes Age Started Using Tobacco: 16; Hx Alcohol Use: No Hx Substance Use: No Preferred Language: Nigerien Communication Ability: Impaired Visual Impairment: No Limitations Hearing Ability: Normal Ic Designer Custom Required: No Beliefs That Will Affect Care: None marital status: Single Current Living Situation: [facility] Current Living Situation Comment: [facility] resident current occupational status: employed 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 Other Information That Helps Us Care for You: No Feels Safe at Home: Yes Safety Concerns: Feels Safe At This Time Childhood Exposure to Second-Hand Smoke: Yes Diet: other Diet Comment: sometimes does [facility], Regularly: Yes Physical Activity Frequency: 5-6 Times per Week Seatbelt Use: always Sunscreen Use: Yes Assistive Devices: Mechanical Lift and Walker Review of Systems Review of Systems: Other (unable to obtain due to expressive aphasia) Physical Exam Constitutional: WD/WN, vitals as above Eyes: PERRL, conjunctivae normal, anicteric sclerae ENMT: external ear and nose normal, oropharynx normal Neck: trachea midline, no thyromegaly Respiratory: normal respiratory effort, lungs clear to auscultation Cardiovascular: RRR, no murmur, no edema Gastrointestinal (Abdomen): normal bowel sounds, soft, nontender, no hepatosplenomegaly Skin: no rashes, warm and dry Psychiatric: Orientation: alert, oriented to person and oriented to place (due to aphasia unable to check for time) Lymphatic: no cervical or axillary lymphadenopathy Results & Data Results & Data Vital Signs (Past 12 Hours) Vital Signs Temp Pulse Resp BP Pulse Ox O2 Del Method 12/17/24 14:00 135/80 12/17/24 13:57 88 20 99 Room Air 12/17/24 13:36 94 H 26 H 98 Room Air 12/17/24 13:32 112/91 12/17/24 13:27 97 H 26 H 99 Room Air 12/17/24 13:24 96 H 16 98 Room Air 12/17/24 13:09 98 H 15 98 Room Air 12/17/24 12:48 90 26 H 99 Room Air 12/17/24 12:33 90 20 98 Room Air 12/17/24 12:16 91 H 12/17/24 12:12 93 H 13 99 Room Air 12/17/24 11:24 36.6 C 97 H 18 134/75 99 Room Air PG Care Time/CCT Total # of Minutes Spent Total Time Spent with Patient: Total time spent is greater than 50% in coordination of care (as documented) at patient's floor/unit and/or counseling patient: Coding Level of Care Code 59468 INT INP/OBS CARE 3/75MIN Diagnoses Right ureteral stone N20.1 Cerebral hemorrhage I61.9 Hyperlipidemia E78.5
--- NOTE | 2024-12-17 14:17 | Anesthesiology Consultation ---
Date of Service December 17, 2024 Assessment & Plan Chart Review Chart Review: Acceptable Risk for Surgery and Patient NOT seen in Pre Admission Testing Consults Requested none ASA [id number] Proposed Anesthesia Anesthesia Type: MAC History Surgery Operation Date: 12/17/24 07:00 Proposed Procedures p Cystoscopy Right Ureteral Stent Placement - Steven Chopra MD Height/Weight Weight: 46.7 kg Allergies Allergy/AdvReac Type Severity Reaction Status Date / Time No Known Allergies Allergy Verified 12/14/24 14:48 Medications Home Medications Medication Instructions Recorded Confirmed Last Taken acetaminophen 650 mg rectal 650 mg [place] Q4H PRN Pain 08/27/24 12/14/24 Unknown suppository meclizine 12.5 mg tablet 12.5 mg PO UD PRN Motion Sickness 08/27/24 12/14/24 Unknown Milk of Magnesia 30 ml PO UD PRN Constipation 10/09/24 12/14/24 Unknown acetaminophen 500 mg/15 mL oral 1,000 mg PO BID 10/09/24 12/14/24 10/13/24 liquid acetaminophen 650 mg/20.3 mL oral 650 mg PO QID PRN pain 1-8 10/09/24 12/14/24 10/13/24 suspension ascorbic acid-ascorbate 30 ml PO QAM frequent UTI's 10/09/24 12/14/24 10/07/24 calcium-ascorbate sod 500 mg/15 mL oral liquid (Vitamin C) atorvastatin 20 mg/5 mL (4 mg/mL) 10 mg PO HS 10/09/24 12/14/24 10/13/24 oral suspension bisacodyl 10 mg rectal suppository 10 mg AK UD PRN Constipation 10/09/24 12/14/24 Unknown (Dulcolax (bisacodyl)) ceftriaxone 1 gram solution for 1 g IM QPM 10/09/24 12/14/24 Unknown injection docusate sodium 50 mg/5 mL oral 100 mg PO BID 10/09/24 12/14/24 Unknown liquid gabapentin 300 mg/6 mL (6 mL) oral 100 - 300 mg PO UD 10/09/24 12/14/24 10/13/24 solution levetiracetam 500 mg/5 mL (5 mL) 500 mg PO BID 10/09/24 12/14/24 10/13/24 oral solution lidocaine HCl 10 mg/mL (1 %) 2.1 ml IM UD 10/09/24 12/14/24 Unknown injection solution melatonin 3 mg/4 mL oral drops 3 mg PO HS 10/09/24 12/14/24 Unknown ondansetron 4 mg disintegrating 4 mg PO Q6H PRN nausea/vomiting 10/09/24 12/14/24 Unknown tablet oxycodone 5 mg/5 mL oral solution 5 mg PO Q4H PRN pain 9-10 10/09/24 12/14/24 Unknown promethazine 25 mg/mL injection 25 mg IM Q6H PRN nausea/vomiting 10/09/24 12/14/24 Unknown solution propranolol 20 mg/5 mL (4 mg/mL) 20 mg PO TID 10/09/24 12/14/24 10/13/24 oral solution ropinirole 0.25 mg tablet 0.25 mg PO TID 10/09/24 12/14/24 10/13/24 sodium phosphates 19 gram-7 118 ml AK UD PRN Constipation 10/09/24 12/14/24 Unknown gram/118 mL enema (Fleet Enema) Pantoprazole Sodium 40 mg PO BID 12/14/24 12/14/24 Unknown acetaminophen 650 mg rectal 650 mg AK Q4H PRN pain, rated 1-3 12/14/24 12/14/24 Unknown suppository mirtazapine 15 mg tablet (Remeron) 15 mg PO HS 12/14/24 12/14/24 Unknown potassium chloride 20 mEq/15 mL 20 meq PO QID 12/14/24 12/14/24 Unknown oral liquid Active Medications Generic Name Dose Route Start Last Admin Trade Name Freq PRN Reason Stop Dose Admin Ceftriaxone Sodium 2,000 mg in 50 mls @ 100 mls/hr 12/17/24 13:51 12/17/24 14:09 Rocephin IV 12/17/24 14:20 100 mls/hr NOW STA Administration Past Medical History Medical History Aphasia Cognitive communication deficit Abnormal posture Muscle weakness (generalized) Difficulty in walking, not elsewhere classified 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, unspecified Dysphagia, oral phase Cerebral infarction due to cerebral venous thrombosis, nonpyogenic Dysphagia following cerebral infarction Aphasia following cerebral infarction Personal history of nicotine dependence Anxiety disorder, unspecified Major depressive disorder with single episode Hyperlipidemia RLS (restless legs syndrome) Trigeminal neuralgia Adult failure to thrive Nontraumatic intracerebral hemorrhage in hemisphere, subcortical Exercise / Class Metabolic Activity III < 4 Walking/Shop/Light housework Past Family History Family History Aunt Breast cancer Denies family history of Ovarian cancer Prostate cancer Myocardial infarction Colorectal cancer Past Surgical History Surgical History History of esophagogastroduodenoscopy (EGD) 10/14/24, w/bx. Presence of urogenital implants H/O wisdom tooth extraction H/O: Past Anesthesia History No Hx of Anesthesia Complications and No Family Hx of Anesthesia Complications History of PONV No Hx of PONV and No Hx of Motion Sickness Social History Smoking Status: Current every day smoker Physical Exam Vital Signs Last Vital Signs Temp 36.6 C 12/17/24 11:24 Pulse 88 12/17/24 13:57 Resp 20 12/17/24 13:57 BP 135/80 12/17/24 14:00 Pulse Ox 99 12/17/24 13:57 O2 Del Method Room Air 12/17/24 13:57 Testing Laboratory Results 12/17/24 12:36 12/17/24 12:36 12/17/24 12:31 POC Glucose (other) 116 H Electrocardiogram Date: 09/02/22 Findings: + NSR @ (@ 81)
[2024-12-17] MEDS ORDERED: PROPOFOL IV EMULSION 10 MG/ML 20 ML VIAL IV ONE (14:35)
[2024-12-17] MEDS ORDERED: MIDAZOLAM HCL 1 MG/ML 2ML VIAL ONE (14:35)
[2024-12-17] MEDS ORDERED: LIDOCAINE 2% 2 ML VIAL/AMP(20MG/ML) INFIL ONE (14:35)
[2024-12-17] MEDS ORDERED: fentaNYL citrate PF 100 MCG/2 ML VIAL ONE (14:35)
[2024-12-17] MEDS ORDERED: MAGNESIUM HYDROXIDE SUSP 30 ML UDC PO PRN (14:38)
[2024-12-17 15:05] LABS: iSTAT Creatinine 0.6 mg/dl (0.6-1.3); iSTAT Hemoglobin 12.9 g/dl (12.0-16.0); iSTAT Ionized Calcium 1.05 mmol/l (1.12-1.32); iSTAT Potassium 3.1 mmol/L (3.3-5.0)
[2024-12-17] MEDS ORDERED: FLUMAZENIL 0.1 MG/1 ML 10 ML VIAL IV PRN (15:23)
[2024-12-17] MEDS ORDERED: fentaNYL citrate PF 100 MCG/2 ML VIAL IV PRN (15:23)
[2024-12-17] MEDS ORDERED: PROMETHAZINE HCL 6.25 MG in SODIUM CHLORIDE 0.9% 50 ML IV PRN (15:23)
[2024-12-17] MEDS ORDERED: ePHEDrine sulfate 50 MG/ML AMP IV PRN (15:23)
[2024-12-17] MEDS ORDERED: NALOXONE HCL 0.4 MG/1 ML VIAL/CARP IV PRN (15:23)
[2024-12-17] MEDS ORDERED: ONDANSETRON INJ 2 MG/ML 2 ML VIAL IV PRN (15:23)
[2024-12-17] MEDS ORDERED: ATROPINE SULFATE 0.1 MG/ML 10ML SYR IV PRN (15:23)
[2024-12-17] MEDS: DIATRIZOATE MEGLUMINE 30% 100ML VIAL INSTIL ONE (15:50)
--- NOTE | 2024-12-17 15:56 | Operative Report ---
PG Post Operative Report Pre & Post Diagnosis Operation Date: 12/17/24 07:00 Preoperative diagnosis: Right ureteral stone, UTI Postoperative diagnosis: Right ureteral stone, UTI I identified the patient and participated in the time-out.: Yes Procedure Operation Date: 12/17/24 07:00 Cystoscopy, right ureteral stent placement Surgeon Steven Chopra MD Manager Lab none Estimated Blood Loss 0 Findings Consistent with Post-Op Diagnosis Specimens Urine from right kidney for culture Drains 6 [place] x 24 cm double-J ureteral stent in the right ureter 16 [place] Alves catheter per urethra Anesthesia Type MAC Complications none Disposition Accompanied Patient To Recovery: Yes Disposition: Recovery Room Indications This is a 64-year-old female who presented to the emergency department was found to have a distal right ureteral stone as well as concern for urinary tract infection. She is brought to the OR for right ureteral stent placement. Description of Procedure The patient was identified in the holding area and informed consent was confirmed. She was marked on the right side, then was taken to the operating room where anesthesia was initiated. She was placed in the dorsal lithotomy position with all pressure points appropriately padded. She was prepped and draped in the usual sterile fashion and a preoperative timeout was performed. A well-lubricated cystoscope was inserted per urethra and panendoscopy was performed. The urethra was normal in appearance. The bladder was of normal size with ureteral orifices in orthotopic position. The right ureteral orifice was identified and cannulated with a 5 [place] open- ended catheter. 0.038 inch zip wire was advanced to the kidney under fluoroscopic guidance. The kidney was still full of contrast from her earlier CT scan. I advanced the 5 [place] open-ended catheter up to the kidney to aspirate some of this urine. This was collected and sent for culture. The wire was then replaced. Over the wire, a 6 [place] x 24 centimeter double-J ureteral stent was advanced. When the wire was removed, the proximal curl was visualized in the kidney with x-ray, and the distal curl visualized in the bladder with the cystoscope. At this point the bladder was drained and all instrumentation was removed. The patient was then awakened from anesthesia and was brought to the PACU in stable condition. I attest to the content of the Intraoperative Record and any orders documented therein. Any exceptions are noted below.
--- NOTE | 2024-12-17 17:05 | Anesthesiology Progress Note ---
Date of Service December 17, 2024 Anesthesia Post Procedure Vital Signs Vital Signs: Temp Pulse Pulse Resp BP BP Pulse Ox 12/17/24 16:35 93 H 14 154/93 H 100 12/17/24 16:20 93 H 14 135/86 100 12/17/24 16:10 87 18 148/94 H 97 12/17/24 16:00 36.0 C L 88 20 120/92 98 12/17/24 14:38 36.5 C 88 20 104/83 99 12/17/24 14:00 135/80 12/17/24 13:57 88 20 99 12/17/24 13:36 94 H 26 H 98 12/17/24 13:32 112/91 12/17/24 13:27 97 H 26 H 99 12/17/24 13:24 96 H 16 98 12/17/24 13:09 98 H 15 98 12/17/24 12:48 90 26 H 99 12/17/24 12:33 90 20 98 12/17/24 12:16 91 H 12/17/24 12:12 93 H 13 99 12/17/24 11:24 36.6 C 97 H 18 134/75 99 O2 Del Method 12/17/24 16:35 Room Air 12/17/24 16:20 Room Air 12/17/24 16:10 Room Air 12/17/24 16:00 Room Air 12/17/24 14:38 Room Air 12/17/24 14:00 12/17/24 13:57 Room Air 12/17/24 13:36 Room Air 12/17/24 13:32 12/17/24 13:27 Room Air 12/17/24 13:24 Room Air 12/17/24 13:09 Room Air 12/17/24 12:48 Room Air 12/17/24 12:33 Room Air 12/17/24 12:16 12/17/24 12:12 Room Air 12/17/24 11:24 Room Air Pain Intensity Abdomen: Pain Intensity: 7 Transfer of Care Handoff Completed per policy Notes Mental Status: alert / awake / arousable Patient Amnestic to Procedure: Yes Nausea / Vomiting: adequately controlled Pain: adequately controlled Airway Patency, RR, SpO2: stable & adequate BP & HR: stable & adequate Hydration State: stable & adequate Anesthetic Complications: no major complications apparent
[2024-12-17] MEDS: POTASSIUM CHLORIDE 20 MEQ/15 ML UDC PO STA (17:21)
[2024-12-17] MEDS: LACTATED RINGER'S 1,000 ML IV SCH (17:21)
[2024-12-17] MEDS ORDERED: PROMETHAZINE 25 MG/51 ML BAG IV PRN (18:00)
[2024-12-17] MEDS: ACETAMINOPHEN SUSP 325 MG/10.15 ML UDC PO PRN (20:47)
[2024-12-17] MEDS: POTASSIUM CHLORIDE 20 MEQ/15 ML UDC PO SCH (20:48)
[2024-12-17] MEDS: MELATONIN 3 MG TAB PO SCH (20:49)
[2024-12-17] MEDS: GABAPENTIN 250 MG/5 ML 470 ML BTL PO SCH (20:50)
[2024-12-17] MEDS: PROPRANOLOL PO SCH (20:50)
[2024-12-17] MEDS: levETIRAcetam ORAL SOLN 100MG/ML PO SCH (20:51)
[2024-12-17] MEDS: rOPINIRole HCL 0.25 MG TABLET PO SCH (20:53)
[2024-12-17] MEDS: PANTOprazole 40 MG TAB PO SCH (22:32)
[2024-12-17] MEDS: ATORVASTATIN 10 MG TAB PO SCH (22:33)
[2024-12-17] MEDS: MIRTAZAPINE TAB 15 MG TAB PO SCH (22:33)
[2024-12-17] MEDS: DOCUSATE SODIUM SYRUP 100 MG/10 ML UDC PO SCH (22:33)
[2024-12-17] MEDS: ACETAMINOPHEN SUSP 500 MG/15.6 ML UDP PO SCH (22:36)
[2024-12-18 07:21] LABS: Basophils # (auto) 0.01 K/uL (0.00-0.20); Basophils % (auto) 0.1 %; Eosinophils # (auto) 0.05 K/uL (0.00-0.50); Eosinophils % (auto) 0.6 %; Hematocrit (blood only) 37.4 % (37.0-47.0); Hemoglobin 12.2 g/dl (12.0-16.0); Immature Granulocytes # (auto) 0.06 K/uL (0.01-0.20); Immature Granulocytes % (auto) 0.7 %; Lymphocytes # (auto) 3.58 K/uL (1.20-3.40); Lymphocytes % (auto) 44.6 %; Mean Corpuscular Hemoglobin 31.7 pg (25.0-34.0); Mean Corpuscular Hgb Conc 32.6 g/dL (32.0-36.0); Mean Corpuscular Volume 97.1 fL (80.0-100.0); Mean Platelet Volume 9.5 fL (9.4-12.4); Monocytes # (auto) 0.69 K/uL (0.11-0.59); Monocytes % (auto) 8.6 %; Neutrophils # (auto) 3.64 K/uL (1.40-6.50); Neutrophils % (auto) 45.4 %; Nucleated RBC # (auto) 0.03 K/uL (0.00-0.12); Nucleated RBC % (auto) 0.4 %; Platelet Count 202 K/uL (130-400); RDW Coefficient of Variation 16.4 % (11.5-14.5); RDW Standard Deviation 58.4 fL (36.4-46.3); Red Blood Count 3.85 M/uL (4.20-5.40); White Blood Count 8.03 K/ul (4.8-10.8)
[2024-12-18 07:36] LABS: BUN Creatinine Ratio 20.3 (10-20); C Reactive Protein 2.18 mg/dl (0-0.5); Calcium 8.1 mg/dl (8.6-10.3); Creatinine Clr Calc Pharmacy 62.2 ml/min; Potassium 3.5 mmol/L (3.5-5.1)
[2024-12-18 07:46] LABS: Appearance Urine Turbid (Clear); Bacteria Urine Automated 1+ (None Seen); Bilirubin Urine Negative (Negative); Blood Urine 3+ (Negative); Color Urine Dark Yellow; Glucose Urine UA Negative (Negative); Ketones Urine Trace (Negative); Leukocyte Esterase Urine 2+ (Negative); Nitrite Urine Negative (Negative); Protein Urine 3+ (Negative); RBC Urine Automated >20 /hpf (0-2); Specific Gravity Urine > 1.045 (1.000-1.030); Urobilinogen Urine Negative (Negative); WBC Urine Automated >50 /hpf (0-5); pH Urine 5.5 (4.5-7.5)
--- NOTE | 2024-12-18 08:06 | Fluoroscopy Report ---
[facility] CLINICAL HISTORY: STENT PLACEMENTstatus post placement of a right ureteral stent COMPARISON STUDY: CT 08/27/2024 FLUOROSCOPY TIME: 9.7 seconds FLUOROSCOPY IMAGES: 2 EXPOSURE DOSE: 0.96 mGy FINDINGS: Proximal portion of a right ureteral stent is in satisfactory positioning. Mild dilation of the right renal pelvis. IMPRESSION: Fluoroscopic assistance as above. ACT 112: Negative or not required by law. Electronically signed by: Marky Rosa M.D. 12/18/2024 8:03 AM
[2024-12-18] MEDS: GABAPENTIN 250 MG/5 ML 470 ML BTL PO SCH (09:51)
[2024-12-18] MEDS: ASCORBIC ACID 500 MG TAB PO SCH (09:53)
--- NOTE | 2024-12-18 10:28 | Urology Progress Note ---
Date of Service December 18, 2024 Assessment & Plan (1) Nephrolithiasis: (2) Right ureteral stone: Plan 64-year-old female with an obstructing right ureteral stone and concern for UTI. s/p cystoscopy and right ureteral stent placement on 12/17/24 Appears to be tolerating the ureteral stent Labs reviewed -WBCs 8.03, hemoglobin 12.2, creatinine 0.69 Blood cultures currently pending Chronic Alves catheter in place, draining appropriately Continue supportive care and monitoring. Continue antibiotics as prescribed. Would recommend fluconazole due to yeast in the urine No plan for further urologic intervention during this admission. Will arrange outpatient follow-up with our service for definitive stone management after the infection has been treated-recommend her son be present in person or by phone. Urology will sign off Admission and Anticipated Discharge Date Admission Date: December 18, 2024 Supervising Physician Co-Signing Physician Notes Doing well s/p ureteral stent placement on 12/17/24. Would continue broad- spectrum antibiotics and consider adding fluconazole given the yeast on her recent urine sample. Can narrow as cultures become available. No plan for additional intervention at this time. Urology will sign off for now and coordinate outpatient follow-up for definitive stone removal. Subjective Patient resting comfortably in bed At her baseline with some aphasia Denied abdominal or flank pain Catheter draining clear yellow Review of Systems Constitutional: as per Subjective / HPI Genitourinary: as per Subjective / HPI Physical Exam Constitutional: + lethargic; no acute distress Respiratory: normal respiratory effort Musculoskeletal: Extremities: + limited ROM of extremities Psychiatric: Orientation: oriented to person Results & Data Vital Signs (Past 12 Hours) Vital Signs Temp Pulse Resp BP Pulse Ox O2 Del Method 12/18/24 07:59 36.6 C 80 16 90/62 L 98 Room Air 12/18/24 05:42 36 C L 104/72 98 Room Air 12/18/24 03:38 36.4 C 67 14 95/64 L 95 Room Air 12/17/24 22:44 36.7 C 80 106/67 98 Room Air PG Care Time/CCT Total # of Minutes Spent Total Time Spent with Patient: Total time spent is greater than 50% in coordination of care (as documented) at patient's floor/unit and/or counseling patient: Coding Level of Care Code 49764 SUB INP/OBS CARE 10/10MIN Diagnoses Nephrolithiasis N20.0 Right ureteral stone N20.1
[2024-12-18] MEDS ORDERED: cefTRIAXone SODIUM 2,000 MG/50 ML BAG IV SCH (14:00)
[2024-12-18] MEDS: CEFEPIME 2000MG 2,000 MG/20 ML SYR IV SCH (17:24)
--- NOTE | 2024-12-18 22:42 | Hospitalist Progress Note ---
Date of Service December 18, 2024 Assessment & Plan (1) Right ureteral stone: Plan: Postobstructive nephropathy secondary to right ureteral stone in a 64 yo female with abdominal pain S/P ureteral stent cultures growing pseudomonas, will switch to cefepime. vitals stable will admit to med/surg awaiting sensitivities cultures LIkely will need to be here over the weekend. (2) Cerebral hemorrhage: Plan: chronic patient with expressive aphasia. Patient more lethargic today. will hold gabapentin continue keppra (3) Hyperlipidemia: Plan: resume home meds Hypokalemia Replaced potassium Admission and Anticipated Discharge Date Admission Date: December 18, 2024 Subjective Patient is drowsy, poor historian. Physical Exam Constitutional: WD/WN, vitals as above Eyes: PERRL, conjunctivae normal, anicteric sclerae ENMT: external ear and nose normal, oropharynx normal Neck: trachea midline, no thyromegaly Respiratory: normal respiratory effort, lungs clear to auscultation Cardiovascular: RRR, no murmur, no edema Gastrointestinal (Abdomen): normal bowel sounds, soft, nontender, no hepatosplenomegaly Skin: no rashes, warm and dry Psychiatric: Orientation: alert, oriented to person and oriented to place (due to aphasia unable to check for time) Lymphatic: no cervical or axillary lymphadenopathy Results & Data Results & Data Vital Signs (Past 12 Hours) Vital Signs Temp Pulse Resp BP Pulse Ox O2 Del Method 12/18/24 21:12 36.7 C 98 H 18 101/68 95 Room Air 12/18/24 14:53 36.3 C L 77 16 105/80 97 Room Air 12/18/24 14:12 36.6 C 78 16 95/60 L 98 Room Air PG Care Time/CCT Total # of Minutes Spent Total Time Spent with Patient: Total time spent is greater than 50% in coordination of care (as documented) at patient's floor/unit and/or counseling patient: Coding Level of Care Code 71679 SUB INP/OBS CARE 3/50MIN Diagnoses Right ureteral stone N20.1 Cerebral hemorrhage I61.9 Hyperlipidemia E78.5
[2024-12-18] MEDS: PLASMA-LYTE A 1,000 ML IV SCH (23:18)
[2024-12-19 09:47] LABS: BUN Creatinine Ratio 30.8 (10-20); C Reactive Protein 2.21 mg/dl (0-0.5); Calcium 7.9 mg/dl (8.6-10.3); Creatinine Clr Calc Pharmacy 82.5 ml/min; Potassium 3.4 mmol/L (3.5-5.1)
[2024-12-19 10:58] LABS: Hematocrit (blood only) 35.2 % (37.0-47.0); Hemoglobin 11.4 g/dl (12.0-16.0); Mean Corpuscular Hemoglobin 30.6 pg (25.0-34.0); Mean Corpuscular Hgb Conc 32.4 g/dL (32.0-36.0); Mean Corpuscular Volume 94.6 fL (80.0-100.0); Mean Platelet Volume 9.6 fL (9.4-12.4); Nucleated RBC # (auto) 0.02 K/uL (0.00-0.12); Nucleated RBC % (auto) 0.3 %; Platelet Count 200 K/uL (130-400); RDW Coefficient of Variation 16.5 % (11.5-14.5); RDW Standard Deviation 56.6 fL (36.4-46.3); Red Blood Count 3.72 M/uL (4.20-5.40); White Blood Count 6.92 K/ul (4.8-10.8)
[2024-12-19] MEDS: FLUCONAZOLE 100 MG TAB PO SCH (13:52)
--- NOTE | 2024-12-19 23:00 | Hospitalist Progress Note ---
Date of Service December 19, 2024 Assessment & Plan (1) Right ureteral stone: Plan: Postobstructive nephropathy secondary to right ureteral stone in a 64 yo female with abdominal pain S/P ureteral stent cultures growing pseudomonas, switched to cefepime. urine now also growing marge: added fluconazole. vitals stable will admit to med/surg awaiting sensitivities cultures Likely will need to be here over the weekend. (2) Cerebral hemorrhage: Plan: chronic patient with expressive aphasia. Patient more lethargic today. will resume gabapentin on 12/20 continue keppra (3) Hyperlipidemia: Plan: resume home meds Hypokalemia Replaced potassium Admission and Anticipated Discharge Date Admission Date: December 18, 2024 Subjective 64 yo female is a por historian. She is more awake today. Physical Exam Constitutional: WD/WN, vitals as above Eyes: PERRL, conjunctivae normal, anicteric sclerae ENMT: external ear and nose normal, oropharynx normal Neck: trachea midline, no thyromegaly Respiratory: normal respiratory effort, lungs clear to auscultation Cardiovascular: RRR, no murmur, no edema Gastrointestinal (Abdomen): normal bowel sounds, soft, nontender, no hepatosplenomegaly Skin: no rashes, warm and dry Psychiatric: Orientation: alert, oriented to person and oriented to place (due to aphasia unable to check for time) Lymphatic: no cervical or axillary lymphadenopathy Results & Data Results & Data Vital Signs (Past 12 Hours) Vital Signs Temp Pulse Resp BP Pulse Ox O2 Del Method 12/19/24 20:30 Room Air 12/19/24 20:30 36.4 C L 99 H 16 107/70 96 Room Air 12/19/24 15:23 Room Air 12/19/24 15:03 36.9 C 93 H 18 115/78 95 Room Air PG Care Time/CCT Total # of Minutes Spent Total Time Spent with Patient: Total time spent is greater than 50% in coordination of care (as documented) at patient's floor/unit and/or counseling patient: Coding Level of Care Code 38929 SUB INP/OBS CARE 3/50MIN Diagnoses Right ureteral stone N20.1 Cerebral hemorrhage I61.9 Hyperlipidemia E78.5
[2024-12-20 07:52] LABS: Hemoglobin 11.3 g/dl (12.0-16.0); Mean Corpuscular Hemoglobin 31.7 pg (25.0-34.0); Mean Corpuscular Hgb Conc 33.2 g/dL (32.0-36.0); Mean Corpuscular Volume 95.5 fL (80.0-100.0); Mean Platelet Volume 9.9 fL (9.4-12.4); Nucleated RBC # (auto) 0.02 K/uL (0.00-0.12); Nucleated RBC % (auto) 0.3 %; Platelet Count 186 K/uL (130-400); RDW Coefficient of Variation 15.8 % (11.5-14.5); RDW Standard Deviation 55.1 fL (36.4-46.3); Red Blood Count 3.56 M/uL (4.20-5.40); White Blood Count 7.06 K/ul (4.8-10.8)
[2024-12-20 08:18] LABS: Potassium 3.7 mmol/L (3.5-5.1)
[2024-12-20 08:23] LABS: BUN Creatinine Ratio 40.7 (10-20); C Reactive Protein 1.91 mg/dl (0-0.5); Creatinine Clr Calc Pharmacy 79.4 ml/min
[2024-12-20] MEDS: GABAPENTIN 100 MG CAP PO ONE (14:17)
[2024-12-20] MEDS: SODIUM CHLORIDE 0.9% 1,000 ML IV SCH (16:07)
--- NOTE | 2024-12-20 22:24 | Hospitalist Progress Note ---
Date of Service December 20, 2024 Assessment & Plan (1) Right ureteral stone: Plan: Postobstructive nephropathy secondary to right ureteral stone in a 64 yo female with abdominal pain S/P ureteral stent cultures growing pseudomonas, switched to cefepime. urine now also growing marge: added fluconazole. vitals stable Likely will need to be here over the weekend. (2) Cerebral hemorrhage: Plan: chronic patient with expressive aphasia. Patient more lethargic today. will resume gabapentin on 12/20 continue keppra Given poor appetite failure to thrive: will consult GI on 12/21 for PEG tube placement this was scheduled for last week. Added IVF due to her poor oral intake (3) Hyperlipidemia: Plan: resume home meds Hypokalemia Replaced potassium Admission and Anticipated Discharge Date Admission Date: December 18, 2024 Subjective Patient is a poor historian. Patient reports having some pain. Physical Exam Constitutional: WD/WN, vitals as above Eyes: PERRL, conjunctivae normal, anicteric sclerae ENMT: external ear and nose normal, oropharynx normal Neck: trachea midline, no thyromegaly Respiratory: normal respiratory effort, lungs clear to auscultation Cardiovascular: RRR, no murmur, no edema Gastrointestinal (Abdomen): normal bowel sounds, soft, nontender, no hepatosplenomegaly Skin: no rashes, warm and dry Psychiatric: Orientation: alert, oriented to person and oriented to place (due to aphasia unable to check for time) Lymphatic: no cervical or axillary lymphadenopathy Results & Data Results & Data Vital Signs (Past 12 Hours) Vital Signs Temp Pulse Resp BP Pulse Ox O2 Del Method 12/20/24 19:20 Room Air 12/20/24 19:17 36.5 C 82 16 106/71 99 Room Air 12/20/24 15:30 36.5 C 83 16 96/58 L 99 Room Air PG Care Time/CCT Total # of Minutes Spent Total Time Spent with Patient: Total time spent is greater than 50% in coordination of care (as documented) at patient's floor/unit and/or counseling patient: Coding Level of Care Code 32788 SUB INP/OBS CARE 3/50MIN Diagnoses Right ureteral stone N20.1 Cerebral hemorrhage I61.9 Hyperlipidemia E78.5
--- NOTE | 2024-12-21 09:55 | Gastrointestinal Consultation ---
Date of Consultation December 21, 2024 Assessment & Plan (1) Esophageal dysphagia: GI was asked to see due to failure to thrive and for consideration of a peg tube. Patient does admit to some dysphagia. She has aphasia and answered questions yes/no. We discussed a peg tube for nutrition/feedings. She is curr ently refusing to have this done. I will discuss this case further with Dr. Church, further recommendations to follow. Supervising Physician Co-Signing Physician Notes I saw and examined this patient with our nurse practitioner and agree with her assessment and plan. Considering feeding gastrostomy in this patient with failu re to maintain adequate caloric intake. Today she is refusing to proceed with this plan. In light of prior strokes and aphasia it is very hard to determine her exact wishes. As we are confident that this is what she wants as well as what her family wants can proceed. History of Present Illness Reason for Consultation: Peg tube for placement / failure to thrive Requesting Physician: Piyush Murillo MD Attending Physician: Piyush Murillo History of Present Illness Patient is a 64 year old female with a past medical history of hemorrhagic stroke, seizures, hyperlipidemia, and chronic indwelling catheter who presented to the ED from [facility] with complaints of abdominal pain. Imaging showed hydronephrosis with a 4 mm calculus at the distal right ureter. she is status post stent. Patient has expressive aphasia and is a poor historian, however shakes her head yes/no to answer my questions. GI was asked to come see about peg tube placement due to failure to thrive. She does admit to some dysphagia. The rest of GI ROS unremarkable. I discussed with her about peg tube placement and she is currently refusing peg tube placement. Allergies Allergy/AdvReac Type Severity Reaction Status Date / Time No Known Allergies Allergy Verified 12/14/24 14:48 Home Medications Medication Instructions Recorded Confirmed Type meclizine 12.5 mg tablet 12.5 mg PO DIRECTED PRN Motion 08/27/24 12/17/24 History Sickness acetaminophen 500 mg/15 mL oral 1,000 mg PO BID 10/09/24 12/17/24 History liquid acetaminophen 650 mg/20.3 mL oral 650 mg PO QID PRN pain 1-8 10/09/24 12/17/24 History suspension ascorbic acid-ascorbate 15 ml PO QAM frequent UTI's 10/09/24 12/17/24 History calcium-ascorbate sod 500 mg/15 mL oral liquid (Vitamin C) bisacodyl 10 mg rectal suppository 10 mg TX DIRECTED PRN 10/09/24 12/17/24 History (Dulcolax (bisacodyl)) Constipation docusate sodium 50 mg/5 mL oral 100 mg PO BID 10/09/24 12/17/24 History liquid gabapentin 300 mg/6 mL (6 mL) oral 100 - 300 mg PO TID 10/09/24 12/17/24 History solution levetiracetam 500 mg/5 mL (5 mL) 500 mg PO BID 10/09/24 12/17/24 History oral solution magnesium hydroxide 400 mg/5 mL 2,400 mg PO DIRECTED PRN 10/09/24 12/17/24 History oral suspension (Milk of Magnesia) Constipation ##0 melatonin 3 mg/4 mL oral drops 3 mg PO HS 10/09/24 12/17/24 History ondansetron 4 mg disintegrating 4 mg PO Q6H PRN nausea/vomiting 10/09/24 12/17/24 History tablet oxycodone 5 mg/5 mL oral solution 5 mg PO Q4H PRN pain 9-10 10/09/24 12/17/24 History promethazine 25 mg/mL injection 25 mg IM Q6H PRN nausea/vomiting 10/09/24 12/17/24 History solution propranolol 20 mg/5 mL (4 mg/mL) 60 mg PO Q8H 10/09/24 12/17/24 History oral solution ropinirole 0.25 mg tablet 0.25 mg PO TID 10/09/24 12/17/24 History sodium phosphates 19 gram-7 118 ml TX DIRECTED PRN 10/09/24 12/17/24 History gram/118 mL enema (Fleet Enema) Constipation acetaminophen 650 mg rectal 650 mg TX Q4H PRN pain, rated 1-3 12/14/24 12/17/24 History suppository mirtazapine 15 mg tablet (Remeron) 15 mg PO HS 12/14/24 12/17/24 History pantoprazole 40 mg tablet,delayed See Rx Instructions .Route .COMPLEX 12/14/24 12/17/24 History release potassium chloride 20 mEq/15 mL 20 meq PO QID 12/14/24 12/17/24 History oral liquid atorvastatin 40 mg tablet 40 mg PO HS 12/17/24 12/17/24 History Patient History Medical History Aphasia Cognitive communication deficit Abnormal posture Muscle weakness (generalized) Difficulty in walking, not elsewhere classified 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 Presence of urogenital implants H/O wisdom tooth extraction H/O: Family History Aunt Breast cancer Denies family history of Ovarian cancer Prostate cancer Myocardial infarction Colorectal cancer Social History Smoking Status: Former smoker Tobacco Type: Cigarettes Age Started Using Tobacco: 16; Hx Alcohol Use: No Hx Substance Use: No Preferred Language: Belgian Communication Ability: Impaired Visual Impairment: No Limitations Hearing Ability: Normal Loading Unit Tool Setter Required: No Beliefs That Will Affect Care: None marital status: Single Current Living Situation: Intermediate Current Living Situation Comment: [facility] resident current occupational status: employed 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 Other Information That Helps Us Care for You: No Feels Safe at Home: Yes Safety Concerns: Feels Safe At This Time Childhood Exposure to Second-Hand Smoke: Yes Diet: other Diet Comment: sometimes does [facility], Regularly: Yes Physical Activity Frequency: 5-6 Times per Week Seatbelt Use: always Sunscreen Use: Yes Assistive Devices: Mechanical Lift Review of Systems Review of Systems: All systems reviewed & are unremarkable except as noted in HPI & below Physical Exam Constitutional: WD/WN, vitals as above Respiratory: normal respiratory effort, lungs clear to auscultation Cardiovascular: Rate/Rhythm: regular rate and regular rhythm Gastrointestinal (Abdomen): normal bowel sounds, soft, nontender, no hepatosplenomegaly Psychiatric: Orientation: alert Results & Data Vital Signs (Past 12 Hours) Vital Signs Temp Pulse Resp BP Pulse Ox O2 Del Method 12/21/24 08:20 97.7 F 87 16 120/84 97 Room Air 12/21/24 07:35 Room Air Coding Level of Care Code 86489 INT INP/OBS CARE 2/55MIN Diagnoses Esophageal dysphagia R13.19
[2024-12-21 17:42] LABS: C Reactive Protein 0.96 mg/dl (0-0.5); Calcium 7.4 mg/dl (8.6-10.3); Creatinine Clr Calc Pharmacy 85.8 ml/min; Potassium 4.6 mmol/L (3.5-5.1)
[2024-12-21 18:45] LABS: Hematocrit (blood only) 34.8 % (37.0-47.0); Hemoglobin 11.3 g/dl (12.0-16.0); Mean Corpuscular Hemoglobin 31.4 pg (25.0-34.0); Mean Corpuscular Hgb Conc 32.5 g/dL (32.0-36.0); Mean Corpuscular Volume 96.7 fL (80.0-100.0); Mean Platelet Volume 10.1 fL (9.4-12.4); Nucleated RBC # (auto) 0.02 K/uL (0.00-0.12); Nucleated RBC % (auto) 0.3 %; Platelet Count 154 K/uL (130-400); RDW Coefficient of Variation 16.5 % (11.5-14.5); RDW Standard Deviation 58.9 fL (36.4-46.3)
--- NOTE | 2024-12-21 22:33 | Hospitalist Progress Note ---
Date of Service December 21, 2024 Assessment & Plan (1) Right ureteral stone: Plan: Postobstructive nephropathy secondary to right ureteral stone in a 64 yo female with abdominal pain S/P ureteral stent cultures growing pseudomonas, switched to cefepime. urine now also growing marge: added fluconazole. vitals stable Urine now clear with magallanes cathter in place. (2) Cerebral hemorrhage: Plan: chronic patient with expressive aphasia. Patient now awake continue gabapentin on 12/20 continue keppra Given poor appetite failure to thrive: consulted GI on 12/21 for PEG tube placement this was scheduled for last week as an outpatient. Added IVF due to her poor oral intake Discussed with GI. (3) Hyperlipidemia: Plan: resume home meds Hypokalemia Replaced potassium Admission and Anticipated Discharge Date Admission Date: December 18, 2024 Subjective 64 yo female has aphasia. Son at bedside, able to ask patient if she is agreeable for peg tube feeding which she was. Physical Exam Constitutional: WD/WN, vitals as above Eyes: PERRL, conjunctivae normal, anicteric sclerae ENMT: external ear and nose normal, oropharynx normal Neck: trachea midline, no thyromegaly Respiratory: normal respiratory effort, lungs clear to auscultation Cardiovascular: RRR, no murmur, no edema Gastrointestinal (Abdomen): normal bowel sounds, soft, nontender, no hepatosp lenomegaly Skin: no rashes, warm and dry Psychiatric: Orientation: alert, oriented to person and oriented to place (due to aphasia unable to check for time) Lymphatic: no cervical or axillary lymphadenopathy Results & Data Results & Data Vital Signs (Past 12 Hours) Vital Signs Temp Pulse Pulse Resp BP Pulse Ox O2 Del Method 12/21/24 19:20 36.4 C L 70 16 105/67 100 Room Air 12/21/24 14:28 36.3 C L 79 16 104/74 99 Room Air 12/21/24 11:34 36.5 C 80 18 120/84 98 Room Air PG Care Time/CCT Total # of Minutes Spent Total Time Spent with Patient: Total time spent is greater than 50% in coordination of care (as documented) at patient's floor/unit and/or counseling patient: Coding Level of Care Code 62981 SUB INP/OBS CARE 3/50MIN Diagnoses Right ureteral stone N20.1 Cerebral hemorrhage I61.9 Hyperlipidemia E78.5
[2024-12-22 08:27] LABS: Hematocrit (blood only) 33.6 % (37.0-47.0); Hemoglobin 11.3 g/dl (12.0-16.0); Mean Corpuscular Hemoglobin 31.5 pg (25.0-34.0); Mean Corpuscular Hgb Conc 33.6 g/dL (32.0-36.0); Mean Corpuscular Volume 93.6 fL (80.0-100.0); Mean Platelet Volume 9.7 fL (9.4-12.4); Nucleated RBC # (auto) 0.04 K/uL (0.00-0.12); Nucleated RBC % (auto) 0.6 %; Platelet Count 147 K/uL (130-400); RDW Coefficient of Variation 16.6 % (11.5-14.5); RDW Standard Deviation 55.8 fL (36.4-46.3); Red Blood Count 3.59 M/uL (4.20-5.40); White Blood Count 6.92 K/ul (4.8-10.8)
[2024-12-22 08:38] LABS: Calcium 7.4 mg/dl (8.6-10.3); Creatinine Clr Calc Pharmacy 102.1 ml/min; Potassium 4.6 mmol/L (3.5-5.1)
--- NOTE | 2024-12-22 10:57 | Gastroenterology Progress Note ---
Date of Service December 22, 2024 Assessment & Plan (1) Esophageal dysphagia: Plan: Patient now agreeable to peg tube. Discussed case with Dr. Church. Will coordinate with endo staff for peg tube placement. Will plan to do tomorrow 12/23. Admission and Anticipated Discharge Date Admission Date: December 18, 2024 Supervising Physician Co-Signing Physician Notes I saw and examined this patient with our nurse practitioner and agree with her assessment and plan. Family and patient agreeable to feeding tube placement. Will proceed tomorrow. Needs INR and continue antibiotics. Subjective Patient now agreeable to having peg tube placement. Physical Exam Constitutional: WD/WN, vitals as above Respiratory: normal respiratory effort, lungs clear to auscultation Cardiovascular: Rate/Rhythm: regular rate and regular rhythm Gastrointestinal (Abdomen): normal bowel sounds, soft, nontender, no hepatosplenomegaly Psychiatric: Orientation: alert Results & Data Results & Data Vital Signs (Past 12 Hours) Vital Signs Temp Pulse Resp BP Pulse Ox O2 Del Method 12/22/24 09:02 Room Air 12/22/24 07:39 97.5 F L 73 14 126/98 99 Room Air Laboratory Results Laboratory Results - last 48 hr 12/21/24 12/21/24 12/22/24 16:43 18:22 07:13 WBC Cancelled 7.90 6.92 RBC Cancelled 3.60 L 3.59 L Hgb Cancelled 11.3 L 11.3 L Hct Cancelled 34.8 L 33.6 L MCV Cancelled 96.7 93.6 MCH Cancelled 31.4 31.5 MCHC Cancelled 32.5 33.6 RDW Std Deviation Cancelled 58.9 H 55.8 H RDW Coeff of Naga Cancelled 16.5 H 16.6 H Plt Count Cancelled 154 147 MPV Cancelled 10.1 9.7 Absolute Nucleated RBC Cancelled 0.02 0.04 Nucleated RBC % (auto) Cancelled 0.3 0.6 Platelet Estimate Cancelled Sodium 140 138 Potassium 4.6 D 4.6 Chloride 111 H 114 H Carbon Dioxide 21 19 L Anion Gap 8 5 BUN 15 13 Creatinine 0.50 L 0.42 L Est Cr Clr Drug Dosing 85.8 102.1 eGFR 104.67 109.16 BUN/Creatinine Ratio 30.0 H 31.0 H Glucose 136 H 103 H Calcium 7.4 L 7.4 L C-Reactive Protein 0.96 H Coding Level of Care Code 71347 SUB INP/OBS CARE 35MIN Diagnoses Esophageal dysphagia R13.19
[2024-12-22] MEDS: SODIUM CHLORIDE 0.9% 1,000 ML IV SCH (18:31)
--- NOTE | 2024-12-22 22:46 | Hospitalist Progress Note ---
Date of Service December 22, 2024 Assessment & Plan (1) Right ureteral stone: Plan: Postobstructive nephropathy secondary to right ureteral stone in a 64 yo female with abdominal pain S/P ureteral stent cultures growing pseudomonas, switched to cefepime. urine now also growing marge: added fluconazole. vitals stable Urine now clear with magallanes cathter in place. Plan for Peg tube placement. (2) Cerebral hemorrhage: Plan: chronic patient with expressive aphasia. Patient now awake continue gabapentin on 12/20 continue keppra Given poor appetite failure to thrive: consulted GI on 12/21 for PEG tube placement this was scheduled for last week as an outpatient. Added IVF due to her poor oral intake Discussed with GI. (3) Hyperlipidemia: Plan: resume home meds Hypokalemia Replaced potassium Admission and Anticipated Discharge Date Admission Date: December 18, 2024 Subjective Patient reports no new symptoms. She is a poor historian. Physical Exam Constitutional: WD/WN, vitals as above Eyes: PERRL, conjunctivae normal, anicteric sclerae ENMT: external ear and nose normal, oropharynx normal Neck: trachea midline, no thyromegaly Respiratory: normal respiratory effort, lungs clear to auscultation Cardiovascular: RRR, no murmur, no edema Gastrointestinal (Abdomen): normal bowel sounds, soft, nontender, no hepatosplenomegaly Skin: no rashes, warm and dry Psychiatric: Orientation: alert, oriented to person and oriented to place (due to aphasia unable to check for time) Lymphatic: no cervical or axillary lymphadenopathy Results & Data Results & Data Vital Signs (Past 12 Hours) Vital Signs Temp Pulse Resp BP Pulse Ox O2 Del Method 12/22/24 21:00 Room Air 12/22/24 15:38 36.3 C L 70 14 100/70 97 Room Air 12/22/24 14:05 36.5 C 72 16 114/72 97 Room Air PG Care Time/CCT Total # of Minutes Spent Total Time Spent with Patient: Total time spent is greater than 50% in coordination of care (as documented) at patient's floor/unit and/or counseling patient: Coding Level of Care Code 22670 SUB INP/OBS CARE 2/35MIN Diagnoses Right ureteral stone N20.1 Cerebral hemorrhage I61.9 Hyperlipidemia E78.5
[2024-12-23 09:08] LABS: BUN Creatinine Ratio 26.2 (10-20); C Reactive Protein 1.19 mg/dl (0-0.5); Calcium 7.7 mg/dl (8.6-10.3); Creatinine Clr Calc Pharmacy 102.1 ml/min; Potassium 3.8 mmol/L (3.5-5.1)
[2024-12-23 09:11] LABS: INR 1.1 (0.9-1.1); Prothrombin Time 11.9 Seconds (9.0-12.0)
[2024-12-23 09:16] LABS: Hematocrit (blood only) 39.5 % (37.0-47.0); Hemoglobin 12.7 g/dl (12.0-16.0); Mean Corpuscular Hemoglobin 31.8 pg (25.0-34.0); Mean Corpuscular Hgb Conc 32.2 g/dL (32.0-36.0); Mean Platelet Volume 10.2 fL (9.4-12.4); Nucleated RBC # (auto) 0.03 K/uL (0.00-0.12); Nucleated RBC % (auto) 0.2 %; Platelet Count 180 K/uL (130-400); RDW Coefficient of Variation 16.9 % (11.5-14.5); Red Blood Count 3.99 M/uL (4.20-5.40); White Blood Count 12.41 K/ul (4.8-10.8)
--- NOTE | 2024-12-23 10:55 | History & Physical Bridge Note ---
Date of Service December 23, 2024 History & Physical Bridge Note I have examined the patient, reviewed the History & Physical and in the interval since the performance of the History & Physical I have noted the following changes of clinical significance: Patient is agreeable to having peg tube. no new concerns. will proceed with peg placement later today. Supervising Physician Co-Signing Physician Notes I saw and examined this patient with our nurse practitioner and agree with her assessment and plan.
[2024-12-23] MEDS: MICONAZOLE NITRATE POWDER 85 GM EXT PRN (12:48)
--- NOTE | 2024-12-23 21:21 | Hospitalist Progress Note ---
Date of Service December 23, 2024 Assessment & Plan (1) Right ureteral stone: Plan: Postobstructive nephropathy secondary to right ureteral stone in a 64 yo female with abdominal pain S/P ureteral stent cultures growing pseudomonas, switched to cefepime. urine now also growing marge: added fluconazole. vitals stable Urine now clear with magallanes cathter in place. Plan for Peg tube placement: need consent, this will be postponed to saturday. (2) Cerebral hemorrhage: Plan: chronic patient with expressive aphasia. Patient again lethargic. will hold all meds including gabapentin and keppra, will likely resume meds but use gabapentin at lower dose if patient is more awake on 12/24 Given poor appetite failure to thrive: consulted GI on 12/21 for PEG tube placement this was scheduled for last week as an outpatient. Added IVF due to her poor oral intake Discussed with GI. (3) Hyperlipidemia: Plan: resume home meds Hypokalemia Replaced potassium Admission and Anticipated Discharge Date Admission Date: December 18, 2024 Subjective 64 yo female is more lethargic today. Physical Exam Constitutional: WD/WN, vitals as above Eyes: PERRL, conjunctivae normal, anicteric sclerae ENMT: external ear and nose normal, oropharynx normal Neck: trachea midline, no thyromegaly Respiratory: normal respiratory effort, lungs clear to auscultation Cardiovascular: RRR, no murmur, no edema Gastrointestinal (Abdomen): normal bowel sounds, soft, nontender, no hepatosplenomegaly Skin: no rashes, warm and dry Psychiatric: Orientation: alert, oriented to person and oriented to place (due to aphasia unable to check for time) Lymphatic: no cervical or axillary lymphadenopathy Results & Data Results & Data Vital Signs (Past 12 Hours) Vital Signs Temp Pulse Resp BP Pulse Ox O2 Del Method 12/23/24 14:06 36.5 C 77 16 94/65 L 98 Room Air PG Care Time/CCT Total # of Minutes Spent Total Time Spent with Patient: Total time spent is greater than 50% in coordination of care (as documented) at patient's floor/unit and/or counseling patient: Coding Level of Care Code 12571 SUB INP/OBS CARE 3/50MIN Diagnoses Right ureteral stone N20.1 Cerebral hemorrhage I61.9 Hyperlipidemia E78.5
[2024-12-23] MEDS: LACTATED RINGER'S 1,000 ML IV ONE (23:31)
--- NOTE | 2024-12-24 00:49 | Communication Note ---
Date of Service: December 24, 2024 Was contacted by RN regarding BP of 81/66 with repeat of 70/32. Arrived at bedside and patient awake and alert, able to answer questions, and endorsing pal pitations and dizziness. Denied having chest pain, SOB, or other sxs. Other VS without fevers/hypothermia, mild tachycardia of 94, and O2 saturation of 98. Lactate ordered and showed level of 3.4. Urine cultures showing Dhara and Pseudomonas susceptible to Cefepime. Ordered blood cultures, random cortisol, cbc, cmp, troponin, and d-dimer. Hgb and WBC stable, CMP showing hypokalemia of 2.9 (replacement ordered), Troponin and d-dimer wnl. Random cortisol of 18.77. In between the two 1L boluses, repeat manual BM showing 90s systolic over 50-60s diastolic (MAP > 65). Current Alves catheter not changed since 12/17/24. Will remove catheter and do voiding trial but could replace if failed or if otherwise indicated. Will order hydrocortisone stress dose and maintenance since current random cortisol level may represent relative AI since cortisol levels typically increase with stress from infection and hypotension. Will continue to monitor. Resident Activity Tracking Resident Involvement: Resident Care Provided Care Provided: Adult Hospital Medicine
[2024-12-24] MEDS: LACTATED RINGER'S 1,000 ML IV ONE (01:06)
[2024-12-24 01:27] LABS: Hematocrit (blood only) 34.3 % (37.0-47.0); Hemoglobin 11.1 g/dl (12.0-16.0); Mean Corpuscular Hemoglobin 31.8 pg (25.0-34.0); Mean Corpuscular Hgb Conc 32.4 g/dL (32.0-36.0); Mean Corpuscular Volume 98.3 fL (80.0-100.0); Mean Platelet Volume 10.4 fL (9.4-12.4); Nucleated RBC # (auto) 0.07 K/uL (0.00-0.12); Nucleated RBC % (auto) 0.5 %; Platelet Count 162 K/uL (130-400); RDW Coefficient of Variation 17.1 % (11.5-14.5); RDW Standard Deviation 60.7 fL (36.4-46.3); Red Blood Count 3.49 M/uL (4.20-5.40); White Blood Count 12.99 K/ul (4.8-10.8)
[2024-12-24 01:53] LABS: Albumin Globulin Ratio 0.9 (0.9-2); Albumin Level 2.2 gm/dl (3.4-5.0); BUN Creatinine Ratio 30.6 (10-20); Bilirubin,Total 0.8 mg/dl (0.2-1.0); Calcium 7.4 mg/dl (8.6-10.3); Creatinine Clr Calc Pharmacy 87.5 ml/min; Globulin 2.4 gm/dl (2.5-4.0); Potassium 2.9 mmol/L (3.5-5.1); Total Protein 4.6 gm/dl (6.0-8.3)
[2024-12-24 01:54] LABS: Troponin I High Sensitivity 10.2 pg/ml (0-14)
[2024-12-24 01:55] LABS: D Dimer 440 ug/L FEU (0-500)
[2024-12-24] MEDS: POTASSIUM CHLORIDE / WTR 10 MEQ/100 ML PLCT IV SCH (02:35)
[2024-12-24 02:37] LABS: Basophils # (auto) 0.04 K/uL (0.00-0.20); Basophils % (auto) 0.3 %; Echinocytes 1+; Eosinophils # (auto) 0.02 K/uL (0.00-0.50); Eosinophils % (auto) 0.2 %; Immature Granulocytes # (auto) 0.12 K/uL (0.01-0.20); Immature Granulocytes % (auto) 0.9 %; Lymphocytes # (auto) 2.22 K/uL (1.20-3.40); Lymphocytes % (auto) 17.1 %; Monocytes # (auto) 0.54 K/uL (0.11-0.59); Monocytes % (auto) 4.2 %; Neutrophils # (auto) 10.05 K/uL (1.40-6.50); Neutrophils % (auto) 77.3 %; Polychromasia 1+
[2024-12-24] MEDS: HYDROCORTISONE SOD 100 MG in SYRINGE 0 ML IV ONE (04:04)
[2024-12-24] MEDS: HYDROCORTISONE SOD 50 MG in SYRINGE 0 ML IV SCH (09:14)
[2024-12-24] MEDS: ACETAMINOPHEN 1,000 MG/100 ML VIAL IV PRN (09:18)
[2024-12-24 12:25] LABS: BUN Creatinine Ratio 31.8 (10-20); Calcium 7.4 mg/dl (8.6-10.3); Creatinine Clr Calc Pharmacy 97.5 ml/min; Magnesium 1.3 mg/dl (1.7-2.4); Phosphorus 2.1 mg/dl (2.5-4.9); Potassium 4.4 mmol/L (3.5-5.1)
[2024-12-24] MEDS: LIDOCAINE 2% 2 ML VIAL/AMP(20MG/ML) INFIL ONE (14:49)
[2024-12-24] MEDS: ONDANSETRON INJ 2 MG/ML 2 ML VIAL ONE (14:49)
[2024-12-24] MEDS: PROPOFOL IV EMULSION 10 MG/ML 20 ML VIAL IV ONE (14:49)
[2024-12-24] MEDS: GLYCOPYRROLATE 0.2 MG/ML VIAL ONE (14:50)
[2024-12-24] MEDS: fentaNYL citrate PF 100 MCG/2 ML VIAL ONE (14:50)
--- NOTE | 2024-12-24 15:13 | Gastroenterology Progress Note ---
Date of Service December 24, 2024 Assessment & Plan (1) Esophageal dysphagia: Plan Will plan to proceed with peg tube tomorrow as long as medically stable. Noted that she was hypotensive earlier today. will reevaluate tomorrow morning. Admission and Anticipated Discharge Date Admission Date: December 18, 2024 Subjective no complaints from patient. we were able to obtain consent from family to proceed with peg. noted that she was hypotensive earlier today. Physical Exam Gastrointestinal (Abdomen): normal bowel sounds, soft, nontender, no hepatosplenomegaly Psychiatric: Orientation: alert Results & Data Results & Data Vital Signs (Past 12 Hours) Vital Signs Temp Pulse Resp BP Pulse Ox O2 Del Method 12/24/24 08:47 Room Air 12/24/24 07:28 97.5 F L 87 14 92/62 L 95 Room Air 12/24/24 05:25 97/65 L Coding Level of Care Code 59824 SUB INP/OBS CARE 10/10MIN Diagnoses Esophageal dysphagia R13.19
[2024-12-24 16:42] LABS: Hematocrit (blood only) 35.5 % (37.0-47.0); Hemoglobin 11.5 g/dl (12.0-16.0); Mean Corpuscular Hemoglobin 31.7 pg (25.0-34.0); Mean Corpuscular Hgb Conc 32.4 g/dL (32.0-36.0); Mean Corpuscular Volume 97.8 fL (80.0-100.0); Mean Platelet Volume 11.1 fL (9.4-12.4); Nucleated RBC # (auto) 0.07 K/uL (0.00-0.12); Nucleated RBC % (auto) 0.6 %; Platelet Count 202 K/uL (130-400); RDW Coefficient of Variation 17.6 % (11.5-14.5); RDW Standard Deviation 62.4 fL (36.4-46.3); Red Blood Count 3.63 M/uL (4.20-5.40); White Blood Count 11.48 K/ul (4.8-10.8)
--- NOTE | 2024-12-24 20:49 | Hospitalist Progress Note ---
Date of Service December 24, 2024 Assessment & Plan (1) Right ureteral stone: Plan: Postobstructive nephropathy secondary to right ureteral stone in a 64 yo female with abdominal pain S/P ureteral stent Urine culture (12/17/2024, 3:45pm) growing Pseudomonas aeruginosa; repeat urine culture (12/18/2024, time unknown) growing 4,000 cfu/mL gram negative bacilli: continue cefepime. Urine culture (12/17/2024, 3:45pm) growing Dhara albicans; repeat urine culture (12/18/2024, time unknown) growing Dhara albicans: continue fluconazole. Plan for PEG tube placement on Saturday with GI Dr. Lenin Church. 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 Patient NOT lethargic on 12/24/2024. However, I have opted to continue holding OFF patient's home-scheduled gabapentin and keppra on 12/24/2024. Given poor appetite failure to thrive: Consulted GI Dr. Lenin Church on 12/21/2024 for PEG tube placement and patient awaits PEG on Saturday with GI Dr. Lenin Church. Of note, PEG was originally scheduled for last week as an outpatient. Added IVF due to her poor oral intake (3) Hyperlipidemia: Plan: Asymptomatic on home-scheduled atorvastatin 10mg PO qhs. Hypokalemia Replaced potassium (4) Acute hypokalemia: Plan: RESOLVED with post-admission K 2.9 mmol/L (12/24/2024, 12:47am) treated with ongoing KCl 20meq PO qid (start date 12/17/2024, 5:00pm). RESOLVED with post- supplement K 4.4 mmol/L (12/24/2024, 11:37am). Observe. Admission and Anticipated Discharge Date Admission Date: December 18, 2024 Subjective Patient suffers from expressive aphasia due to historical left basal ganglia CVA (diagnosed on 09/02/2022), and hence, patient cannot talk in words/sentences, but nonetheless, patient remains wide awake and alert, and can nod/grunt in the affirmative or negative when answering all questions posed to her by the examiner in an appropriate manner. Patient reports that she has no complaints at all on 12/24/2024. Review of Systems Constitutional: Negative for antecedent/coincident fevers, chills, diaphoresis, cough, wheeze, sore throat, hemoptysis, chest pains, palpitations, pleurisy, nausea, vomiting, diarrhea, abdominal pain, pelvic pain, hematemesis, hematochezia, melena, hematuria, dysuria, frequency, urgency, headaches, dizziness, lightheadedness, visual changes, hearing changes, weakness, falls, syncope, trauma, travel history, sick contacts, or food/drug ingestions novel or new. All other review of systems are reported as negative by the patient on 12/24/2024. Physical Exam Constitutional: General: Comfortable, coherent, cooperative; wide awake and alert. Not confused, lethargic, or obtunded. Patient suffers from expressive aphasia due to historical left basal ganglia CVA (diagnosed on 09/02/2022), and hence, patient cannot talk in words/sentences, but nonetheless, patient remains wide awake and alert, and can nod/grunt in the affirmative or negative when answering all questions posed to her by the examiner in an appropriate manner. HEENT: Normocephalic, atraumatic. Extra-ocular muscles intact. Pupils equally round and reactive to light. No nystagmus, gaze paresis, anisocoria, miosis, mydriasis, hyphema, scleral injection, conjunctivitis, or pterygium. No otorrhea or rhinorrhea. No pharyngeal erythema, edema, or discharge. Neck: Supple, no stridor, bruit, goiter, or hepato-jugular reflux. Jugular venous pressure is estimated to be 3 cm above the sternal angle of Jama, which in turn, is 5 cm above the level of the right atrium; with jugular venous pressure estimated to be 8 cm, then, there is no jugular venous distention on 12/24/2024. Lymphatics: No cervical (anterior/posterior), supraclavicular, infraclavicular, axillary, epitrochlear, or inguinal adenopathy. Chest: Symmetric rise and fall with respirations. Non-tender to palpation. Lungs: Clear to auscultation and percussion. Heart: Regular rate and rhythm. S1 and S2 noted. No S3 or S4 summation gallop. No tripartite friction rub. Grade II/ early systolic murmur @ LLSB without radiation to the carotids, axilla, or back, and which remains invariant in regards to the respiratory cycle. Abdomen: Soft, non-tender, non-distended. No rebound, guarding, Denny's sign, or organomegaly. Bowel sounds auscultated in all 4 quadrants. Extremities: No clubbing, cyanosis, or edema. 2+ pedal pulses bilaterally. Skin: No decubitus ulcer, exanthem, or enanthem. Genito-urinary: No urethral discharge. No magallanes catheter. No purewick. Dry diaper. Neurology: Alert and oriented in regards to person, place, time, and situ ation. DTR+ and symmetric. Psychiatry: No homicidal ideation. No suicidal ideation. No flat affect; smiles appropriately. Results & Data Results & Data Vital Signs (Past 12 Hours) Vital Signs Temp Pulse Pulse Resp BP Pulse Ox O2 Del Method 12/24/24 19:20 36.7 C 95 H 14 117/79 99 Room Air 12/24/24 17:57 109/75 12/24/24 15:21 36.4 C L 88 16 94/66 L 98 Room Air 12/24/24 08:47 Room Air Laboratory Results 12/23/24 23:37 Aerobic Blood Culture - Pending Blood Anaerobic Blood Culture - Pending 12/23/24 23:37 Aerobic Blood Culture - Pending Blood Anaerobic Blood Culture - Pending 12/24/24 12/24/24 12/24/24 11:37 02:18 00:50 WBC 11.48 H RBC 3.63 L Hgb 11.5 L Hct 35.5 L MCV 97.8 MCH 31.7 MCHC 32.4 RDW Std Deviation 62.4 H RDW Coeff of Naga 17.6 H Plt Count 202 MPV 11.1 Immature Gran % (Auto) Neut % (Auto) Lymph % (Auto) [facility] [facility] % (Auto) Eos % (Auto) Baso % (Auto) Neut # (Auto) Lymph # (Auto) [facility] # (Auto) Eos # (Auto) Baso # (Auto) Immature Gran # (Auto) Absolute Nucleated RBC 0.07 Nucleated RBC % (auto) 0.6 Polychromasia Echinocytes D-Dimer 440 Sodium 137 Potassium 4.4 D Chloride 115 H Carbon Dioxide 15 L Anion Gap 7 BUN 14 Creatinine 0.44 L Est Cr Clr Drug Dosing 97.5 eGFR 107.95 BUN/Creatinine Ratio 31.8 H Glucose 120 H Lactate 3.9 H* Calcium 7.4 L Phosphorus 2.1 L Magnesium 1.3 L Total Bilirubin AST ALT Alkaline Phosphatase Troponin I High Sens Total Protein Albumin Globulin Albumin/Globulin Ratio Random Cortisol 12/24/24 12/23/24 00:47 23:37 WBC 12.99 H RBC 3.49 L Hgb 11.1 L Hct 34.3 L MCV 98.3 MCH 31.8 MCHC 32.4 RDW Std Deviation 60.7 H RDW Coeff of Naga 17.1 H Plt Count 162 MPV 10.4 Immature Gran % (Auto) 0.9 Neut % (Auto) 77.3 Lymph % (Auto) 17.1 [facility] [place] [facility] % (Auto) 4.2 Eos % (Auto) 0.2 Baso % (Auto) 0.3 Neut # (Auto) 10.05 H Lymph # (Auto) 2.22 [facility] [place] [facility] # (Auto) 0.54 Eos # (Auto) 0.02 Baso # (Auto) 0.04 Immature Gran # (Auto) 0.12 Absolute Nucleated RBC 0.07 Nucleated RBC % (auto) 0.5 Polychromasia 1+ Echinocytes 1+ D-Dimer Sodium 140 Potassium 2.9 L D Chloride 114 H Carbon Dioxide 17 L Anion Gap 9 BUN 15 Creatinine 0.49 L Est Cr Clr Drug Dosing 87.5 eGFR 105.18 BUN/Creatinine Ratio 30.6 H Glucose 93 Lactate 3.4 H* Calcium 7.4 L Phosphorus Magnesium Total Bilirubin 0.8 AST 35 ALT 16 Alkaline Phosphatase 133 H Troponin I High Sens 10.2 Total Protein 4.6 L Albumin 2.2 L Globulin 2.4 L Albumin/Globulin Ratio 0.9 Random Cortisol 18.77 PG Care Time/CCT Total # of Minutes Spent Total Time Spent with Patient: Total time spent is greater than 50% in coordination of care (as documented) at patient's floor/unit and/or counseling patient: Coding Level of Care Code 26499 SUB INP/OBS CARE 2/35MIN Diagnoses Right ureteral stone N20.1 Cerebral hemorrhage I61.9 Hyperlipidemia E78.5 Acute hypokalemia E87.6
[2024-12-25] MEDS: SODIUM CHLORIDE 0.9% 1,000 ML IV SCH (01:29)
--- NOTE | 2024-12-25 10:07 | History & Physical Bridge Note ---
Date of Service December 25, 2024 History & Physical Bridge Note I have examined the patient, reviewed the History & Physical and in the interval since the performance of the History & Physical I have noted the following changes of clinical significance: no changes noted. no complaints offered by patient. Blood pressure more stable today. - will plan to proceed with PEG placement today. Supervising Physician Co-Signing Physician Notes I saw and examined this patient with our nurse practitioner and agree with her assessment and plan. Obtain consent from son will proceed with PEG tube placement.
[2024-12-25 11:35] LABS: Basophils # (auto) 0.01 K/uL (0.00-0.20); Basophils % (auto) 0.1 %; Hematocrit (blood only) 31.6 % (37.0-47.0); Hemoglobin 10.3 g/dl (12.0-16.0); Immature Granulocytes # (auto) 0.07 K/uL (0.01-0.20); Immature Granulocytes % (auto) 0.8 %; Lymphocytes # (auto) 1.71 K/uL (1.20-3.40); Lymphocytes % (auto) 18.9 %; Mean Corpuscular Hemoglobin 31.7 pg (25.0-34.0); Mean Corpuscular Hgb Conc 32.6 g/dL (32.0-36.0); Mean Corpuscular Volume 97.2 fL (80.0-100.0); Mean Platelet Volume 10.4 fL (9.4-12.4); Monocytes % (auto) 4.4 %; Neutrophils # (auto) 6.85 K/uL (1.40-6.50); Neutrophils % (auto) 75.8 %; Nucleated RBC # (auto) 0.03 K/uL (0.00-0.12); Nucleated RBC % (auto) 0.3 %; Platelet Count 183 K/uL (130-400); RDW Coefficient of Variation 17.4 % (11.5-14.5); RDW Standard Deviation 60.9 fL (36.4-46.3); Red Blood Count 3.25 M/uL (4.20-5.40); White Blood Count 9.04 K/ul (4.8-10.8)
--- NOTE | 2024-12-25 12:05 | Anesthesiology Consultation ---
Date of Service December 25, 2024 Assessment & Plan ASA ASA4 Proposed Anesthesia Anesthesia Type: MAC Risk / Benefits Reviewed With: PT / POA / Parent / Guardian, Accepts Plan and Informed Consent Obtained History Surgery Operation Date: 12/17/24 07:00 Proposed Procedures p Cystoscopy Right Ureteral Stent Placement - Steven Chopra MD Operation Date: 12/23/24 16:30 Proposed Procedures p Esophagogastroduodenoscopy with Gastric Tube Placement Dr. Ranjit Church MD Operation Date: 12/25/24 16:30 Proposed Procedures p Esophagogastroduodenoscopy with Gastric Tube Placement Dr. Ranjit Church MD Height/Weight Height: 5 ft 1 in Weight: 50.2 kg Allergies Allergy/AdvReac Type Severity Reaction Status Date / Time No Known Allergies Allergy Verified 12/14/24 14:48 Medications Home Medications Medication Instructions Recorded Confirmed Last Taken meclizine 12.5 mg tablet 12.5 mg PO DIRECTED PRN Motion 08/27/24 12/17/24 Unknown Sickness acetaminophen 500 mg/15 mL oral 1,000 mg PO BID 10/09/24 12/17/24 10/13/24 liquid acetaminophen 650 mg/20.3 mL oral 650 mg PO QID PRN pain 1-8 10/09/24 12/17/24 10/13/24 suspension ascorbic acid-ascorbate 15 ml PO QAM frequent UTI's 10/09/24 12/17/24 10/07/24 calcium-ascorbate sod 500 mg/15 mL oral liquid (Vitamin C) bisacodyl 10 mg rectal suppository 10 mg NC DIRECTED PRN 10/09/24 12/17/24 Unknown (Dulcolax (bisacodyl)) Constipation docusate sodium 50 mg/5 mL oral 100 mg PO BID 10/09/24 12/17/24 Unknown liquid gabapentin 300 mg/6 mL (6 mL) oral 100 - 300 mg PO TID 10/09/24 12/17/24 10/13/24 solution levetiracetam 500 mg/5 mL (5 mL) 500 mg PO BID 10/09/24 12/17/24 10/13/24 oral solution magnesium hydroxide 400 mg/5 mL 2,400 mg PO DIRECTED PRN 10/09/24 12/17/24 Unknown oral suspension (Milk of Magnesia) Constipation ##0 melatonin 3 mg/4 mL oral drops 3 mg PO HS 10/09/24 12/17/24 Unknown ondansetron 4 mg disintegrating 4 mg PO Q6H PRN nausea/vomiting 10/09/24 12/17/24 Unknown tablet oxycodone 5 mg/5 mL oral solution 5 mg PO Q4H PRN pain 9-10 10/09/24 12/17/24 Unknown promethazine 25 mg/mL injection 25 mg IM Q6H PRN nausea/vomiting 10/09/24 12/17/24 Unknown solution propranolol 20 mg/5 mL (4 mg/mL) 60 mg PO Q8H 10/09/24 12/17/24 10/13/24 oral solution ropinirole 0.25 mg tablet 0.25 mg PO TID 10/09/24 12/17/24 10/13/24 sodium phosphates 19 gram-7 118 ml NC DIRECTED PRN 10/09/24 12/17/24 Unknown gram/118 mL enema (Fleet Enema) Constipation acetaminophen 650 mg rectal 650 mg NC Q4H PRN pain, rated 1-3 12/14/24 12/17/24 Unknown suppository mirtazapine 15 mg tablet (Remeron) 15 mg PO HS 12/14/24 12/17/24 Unknown pantoprazole 40 mg tablet,delayed See Rx Instructions .Route .COMPLEX 12/14/24 12/17/24 Unknown release potassium chloride 20 mEq/15 mL 20 meq PO QID 12/14/24 12/17/24 Unknown oral liquid atorvastatin 40 mg tablet 40 mg PO HS 12/17/24 12/17/24 Unknown Active Medications Generic Name Dose Route Start Last Admin Trade Name Freq PRN Reason Stop Dose Admin Ascorbic Acid 1,000 mg 12/18/24 09:00 12/25/24 08:39 Ascorbic Acid 500 Mg Tab PO 01/17/25 08:59 Not Given DAILY [facility] Atorvastatin Calcium 10 mg 12/17/24 21:00 12/24/24 20:35 Atorvastatin 10 Mg Tab PO 01/16/25 20:59 Not Given HS [facility] Docusate Sodium 100 mg 12/17/24 21:00 12/25/24 08:39 Docusate Sodium Syrup 100 Mg/10 Ml Udc PO 01/16/25 20:59 Not Given BID CLAU Fluconazole 200 mg 12/19/24 13:00 12/25/24 08:39 Fluconazole 100 Mg Tab PO 01/01/25 09:01 Not Given DAILY CLAU Gabapentin 100 mg 12/18/24 08:00 12/23/24 14:21 Gabapentin 250 Mg/5 Ml 470 Ml Btl PO 01/17/25 07:59 100 mg BID@0800,1200 CLAU Administration Gabapentin 300 mg 12/17/24 21:00 12/22/24 20:47 Gabapentin 250 Mg/5 Ml 470 Ml Btl PO 01/16/25 20:59 300 mg HS CLAU Administration Cefepime HCl 2,000 mg in 20 mls @ 5 mls/min 12/18/24 14:45 12/25/24 06:18 Maxipime 2000mg IV 12/28/24 14:44 5 mls/min Q8 CLAU Administration Hydrocortisone Sodium 1 mls @ 4 mls/min 12/24/24 09:00 12/25/24 09:03 Succinate 50 mg/ Syringe IV 01/23/25 08:59 4 mls/min Q6H CLAU Administration Acetaminophen 1,000 mg in 100 mls @ 400 mls/hr 12/24/24 09:04 12/25/24 10:22 Ofirmev IV 12/27/24 09:03 Infused Q8H PRN Infusion Headache or Pain Levetiracetam 500 mg 12/17/24 21:00 12/25/24 08:39 Levetiracetam Oral Soln 100mg/Ml PO 01/16/25 20:59 Not Given BID [facility] Melatonin 3 mg 12/17/24 21:00 12/24/24 20:35 Melatonin 3 Mg Tab PO 01/16/25 20:59 Not Given HS [facility] Miconazole Nitrate 1 appln 12/20/24 15:42 12/23/24 12:48 Miconazole Nitrate Powder 85 Gm EXT 01/19/25 15:41 1 appln PRN PRN Administration Affected Skin Folds Mirtazapine 15 mg 12/17/24 21:00 12/24/24 20:35 Mirtazapine Tab 15 Mg Tab PO 01/16/25 20:59 Not Given HS CLAU Pantoprazole Sodium 40 mg 12/17/24 21:00 12/25/24 08:39 Pantoprazole 40 Mg Tab PO 01/16/25 20:59 Not Given BID CLAU Potassium Chloride 20 meq 12/17/24 17:00 12/25/24 08:39 Potassium Chloride 20 Meq/15 Ml Udc PO 01/16/25 16:59 Not Given QID CLAU Propranolol HCl 20 mg 12/17/24 21:00 12/25/24 08:39 Propranolol Oral Soln 8 Mg/Ml PO 01/16/25 20:59 Not Given TID CLAU Ropinirole HCl 0.25 mg 12/17/24 21:00 12/25/24 08:39 Ropinirole Hcl 0.25 Mg Tablet PO 01/16/25 20:59 Not Given TID CLAU NPO Date Last Intake of Fluids: 12/22/24 Time Last Intake of Fluids: 08:00 Last Intake of Fluids Comment: sips of water Date Last Intake of Solids: 12/16/24 Time Last Intake of Solids: 13:00 Past Medical History Medical History Aphasia Cognitive communication deficit Abnormal posture Muscle weakness (generalized) Difficulty in walking, not elsewhere classified 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, unspecified Dysphagia, oral phase Cerebral infarction due to cerebral venous thrombosis, nonpyogenic Dysphagia following cerebral infarction Aphasia following cerebral infarction Personal history of nicotine dependence Anxiety disorder, unspecified Major depressive disorder with single episode Hyperlipidemia RLS (restless legs syndrome) Trigeminal neuralgia Adult failure to thrive Nontraumatic intracerebral hemorrhage in hemisphere, subcortical Exercise / Class Metabolic Activity II 4-5 Yardwork/Stairs/Walk up hill Past Family History Family History Aunt Breast cancer Denies family history of Ovarian cancer Prostate cancer Myocardial infarction Colorectal cancer Past Surgical History Surgical History History of esophagogastroduodenoscopy (EGD) 10/14/24, w/bx. Presence of urogenital implants H/O wisdom tooth extraction H/O: Past Anesthesia History No Hx of Anesthesia Complications and No Family Hx of Anesthesia Complications History of PONV No Hx of PONV and No Hx of Motion Sickness Social History Smoking Status: Former smoker Hx Alcohol Use: No Hx Substance Use: No Review of Systems pt non verbal denies ELICIA Physical Exam Vital Signs Last Vital Signs Temp 36.7 C 12/25/24 07:16 Pulse 88 12/25/24 07:16 Resp 17 12/25/24 07:16 BP 135/97 12/25/24 07:16 Pulse Ox 100 12/25/24 07:16 O2 Del Method Room Air 12/25/24 08:00 ENMT Mouth: no TMJ abnormality and no dentition abnormality Thyromental Distance: > or= 3.5 Finger Breadths Mallampati Class: Other (unable to assess) Neck neck extension not limited Respiratory normal respiratory effort; no respiratory distress Auscultation: lungs clear to auscultation bilaterally Cardiovascular Rate/Rhythm: regular rate and regular rhythm Neurologic moves all extremities Psychiatric Orientation: alert and oriented x 3 Testing Laboratory Results 12/25/24 10:09 12/24/24 11:37 PT 11.9 Seconds (9.0-12.0) 12/23/24 08:21 INR 1.1 (0.9-1.1) 12/23/24 08:21 Urine Color Dark Yellow 12/18/24 Unknown Urine Appearance Turbid (Clear) A 12/18/24 Unknown Urine pH 5.5 (4.5-7.5) 12/18/24 Unknown Ur Specific Combes > 1.045 (1.000-1.030) H 12/18/24 Unknown Urine Protein 3+ (Negative) H 12/18/24 Unknown Urine Glucose (UA) Negative (Negative) 12/18/24 Unknown Urine Ketones Trace (Negative) H 12/18/24 Unknown Urine Nitrite Negative (Negative) 12/18/24 Unknown Ur Leukocyte Esterase 2+ (Negative) H 12/18/24 Unknown Urine WBC (Auto) >50 /hpf (0-5) H 12/18/24 Unknown Urine RBC (Auto) >20 /hpf (0-2) H 12/18/24 Unknown U Hyaline Cast (Auto) 11-20 /lpf (0-2) H 12/18/24 Unknown U Epithel Cells (Auto) 3-5 /hpf (0-2) H 12/18/24 Unknown Urine Bacteria (Auto) 1+ (None Seen) H 12/18/24 Unknown 12/23/24 23:37 Aerobic Blood Culture - Preliminary Blood No growth in Aerobic bottle after 24 hours. Anaerobic Blood Culture - Final 12/23/24 23:37 Aerobic Blood Culture - Preliminary Blood No growth in Aerobic bottle after 24 hours. Anaerobic Blood Culture - Final 12/18/24 Unknown Urine Culture - Final Urine,Clean Catch Dhara albicans Gram negative bacilli 12/17/24 15:45 Urine Culture - Final Urine,Kidney Pseudomonas aeruginosa Dhara albicans Electrocardiogram Date: 09/02/22 Findings: + NSR @ (@ 73)
[2024-12-25 12:07] LABS: Magnesium 1.3 mg/dl (1.7-2.4); Phosphorus 2.5 mg/dl (2.5-4.9)
[2024-12-25] MEDS: SODIUM CHLORIDE 0.9% 500 ML IV SCH (12:49)
--- NOTE | 2024-12-25 14:03 | GI REPORT ---
[facility] Patient: CASSIDY CAGLE : 1960 Sex at : Female Age: 64 Years Procedure: Upper GI endoscopy Date: 12/25/2024 Attending Physician: Lenin Church MD Referring MD: Referred Self Indications: - Feeding disorder Medications: - Monitored Anesthesia Care Complications: - No immediate complications. Estimated Blood Loss: - Estimated blood loss was minimal. Procedure: - Prior to the procedure, a History and Physical was performed, and patient medications and allergies were reviewed. The patient's tolerance of previous anesthesia was also reviewed. The risks and benefits of the procedure and the sedation options and risks were discussed with the patient. All questions were answered, and informed consent was obtained. [Anticoagulant Agents] [Days Prior to Procedure]. [ASA Grade]. After reviewing the risks and benefits, the patient was deemed in satisfactory condition to undergo the procedure. - The egd scope was introduced through the mouth and advanced to the second part of the duodenum. - The upper GI endoscopy was accomplished without difficulty. - The patient tolerated the procedure well. Findings: - The examined esophagus was normal. - The entire examined stomach was normal. The patient was placed in the supine position for PEG placement. The stomach was insufflated to appose gastric and abdominal delgadillo. A site was located in the body of the stomach with excellent transillumination for placement. The abdominal wall was marked and prepped in a sterile manner. The area was anesthetized with 1 mL of 0.5% lidocaine. The trocar needle was introduced through the abdominal wall and into the stomach under direct endoscopic view. A snare was introduced through the endoscope and opened in the gastric lumen. The guide wire was passed through the trocar and into the open snare. The snare was closed around the guide wire. The endoscope and snare were removed, pulling the wire out through the mouth. A skin incision was made at the site of needle insertion. The externally removable 20 Fr gastrostomy tube was lubricated. The G-tube was passed over the guide wire through the mouth, and into the stomach. The trocar needle was removed, and the gastrostomy tube was pulled out from the stomach through the skin. The guide wire was removed, and the external bumper attached to the gastrostomy tube. The feeding tube was then cut to an appropriate length. The final position of the gastrostomy tube was confirmed by skin marking noted to be 2 cm at the external bumper. The final tension and compression of the abdominal wall by the PEG tube and external bumper were checked and revealed that the bumper was moderately tight and mildly deforming the skin. The feeding tube was capped, and the tube site was cleaned and dressed. - The examined duodenum was normal. Impression: - Normal esophagus. - Normal stomach. - An externally removable PEG placement was successfully completed. - Normal examined duodenum. - No specimens collected. Recommendation: - Resume previous diet. - Patient has a contact number available for emergencies. The signs and symptoms of potential delayed complications were discussed with the patient. Return to normal activities tomorrow. Written discharge instructions were provided to the patient. Procedure Code(s): - 32162, Esophagogastroduodenoscopy, flexible, transoral; with directed placement of percutaneous gastrostomy tube CPT(R) - 2023 copyright [employer]. All Rights Reserved. The CPT codes, CCI edits and ICD codes generated are intended as suggestions and were generated based on input data. These codes are preliminary and upon rail setter review may be revised to meet current compliance and payer requirements. The provider is responsible for the final determination of appropriate codes, and modifiers. Lenin Church MD This document has been electronically signed. Note Initiated:12/25/2024 Note Completed:12/25/2024 2:01 PM [id number]
--- NOTE | 2024-12-25 14:23 | Anesthesiology Progress Note ---
Date of Service December 25, 2024 Anesthesia Post Procedure Vital Signs Vital Signs: Temp Pulse Pulse Resp BP BP Pulse Ox 12/25/24 14:09 69 18 165/119 H 98 12/25/24 12:45 36 C L 97 H 16 152/111 H 99 12/25/24 08:00 12/25/24 07:16 36.7 C 88 17 135/97 100 12/24/24 20:40 12/24/24 19:20 36.7 C 95 H 14 117/79 99 12/24/24 17:57 109/75 12/24/24 15:21 36.4 C L 88 16 94/66 L 98 O2 Del Method 12/25/24 14:09 Room Air 12/25/24 12:45 Room Air 12/25/24 08:00 Room Air 12/25/24 07:16 Room Air 12/24/24 20:40 Room Air 12/24/24 19:20 Room Air 12/24/24 17:57 12/24/24 15:21 Room Air Pain Intensity Abdomen: Pain Intensity: 6 Transfer of Care Handoff Completed per policy Notes Mental Status: alert / awake / arousable and participated in evaluation Patient Amnestic to Procedure: Yes Nausea / Vomiting: adequately controlled Pain: adequately controlled Airway Patency, RR, SpO2: stable & adequate BP & HR: stable & adequate Hydration State: stable & adequate Anesthetic Complications: no major complications apparent and Pt Satisfied with anesthetic care
[2024-12-25] MEDS: LIDOCAINE 2% 2 ML VIAL/AMP(20MG/ML) INFIL ONE ×2 (15:05→15:06)
[2024-12-25] MEDS: PROPOFOL IV EMULSION 10 MG/ML 20 ML VIAL IV ONE (15:06)
[2024-12-25] MEDS: fentaNYL citrate PF 100 MCG/2 ML VIAL ONE (15:07)
[2024-12-25] MEDS: PHENYLEPHRINE 100MCG/ML 5ML SYR ONE (15:08)
--- NOTE | 2024-12-25 18:45 | Hospitalist Progress Note ---
Date of Service December 25, 2024 Assessment & Plan (1) Right ureteral stone: Plan: Postobstructive nephropathy secondary to right ureteral stone in a 64 yo female with abdominal pain S/P ureteral stent Urine culture (12/17/2024, 3:45pm) growing Pseudomonas aeruginosa; repeat urine culture (12/18/2024, time unknown) growing 4,000 cfu/mL gram negative bacilli: continue cefepime. Urine culture (12/17/2024, 3:45pm) growing Dhara albicans; repeat urine culture (12/18/2024, time unknown) growing Dhara albicans: continue fluconazole. Plan for PEG tube placement on Saturday with GI Dr. Lenin Church. 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 Patient NOT lethargic on 12/24/2024 or on 12/25/2024. However, I have opted to continue holding OFF patient's home-scheduled gabapentin and keppra on 12/24/2024 and on 12/25/2024. Given poor appetite failure to thrive: Consulted GI Dr. Lenin Church on 12/21/2024 for PEG insertion; patient subsequently underwent PEG insertion on 12/25/2024, 2:03pm with GI Dr. Lenin Church. Of note, PEG was originally scheduled for last week as an outpatient. Added IVF due to her poor oral intake (3) Hyperlipidemia: Plan: Asymptomatic on home-scheduled atorvastatin 10mg PO qhs on 12/24/2024 and on 12/25/2024. (4) Acute hypokalemia: Plan: RESOLVED with post-admission K 2.9 mmol/L (12/24/2024, 12:47am) treated with ongoing KCl 20meq PO qid (start date 12/17/2024, 5:00pm). RESOLVED with post- supplement K 4.4 mmol/L (12/24/2024, 11:37am). Observe. Admission and Anticipated Discharge Date Admission Date: December 18, 2024 Subjective Patient suffers from expressive aphasia due to historical left basal ganglia CVA (diagnosed on 09/02/2022), and hence, patient cannot talk in words/sentences, but nonetheless, patient remains wide awake and alert, and can nod/grunt in the affirmative or negative when answering all questions posed to her by the examiner in an appropriate manner. Patient reports that she has no complaints at all on 12/24/2024 and on 12/25/2024. Review of Systems Constitutional: Negative for antecedent/coincident fevers, chills, diaphoresis, cough, wheeze, sore throat, hemoptysis, chest pains, palpitations, pleurisy, nausea, vomiting, diarrhea, abdominal pain, pelvic pain, hematemesis, hematochezia, melena, hematuria, dysuria, frequency, urgency, headaches, dizziness, lightheadedness, visual changes, hearing changes, weakness, falls, syncope, trauma, travel history, sick contacts, or food/drug ingestions novel or new. All other review of systems are reported as negative by the patient on 12/24/2024 and on 12/25/2024. Physical Exam Constitutional: General: Comfortable, coherent, cooperative; wide awake and alert. Not confused, lethargic, or obtunded. Patient suffers from expressive aphasia due to historical left basal ganglia CVA (diagnosed on 09/02/2022), and hence, patient cannot talk in words/sentences, but nonetheless, patient remains wide awake and alert, and can nod/grunt in the affirmative or negative when answering all questions posed to her by the examiner in an appropriate manner. HEENT: Normocephalic, atraumatic. Extra-ocular muscles intact. Pupils equally round and reactive to light. No nystagmus, gaze paresis, anisocoria, miosis, mydriasis, hyphema, scleral injection, conjunctivitis, or pterygium. No otorrhea or rhinorrhea. No pharyngeal erythema, edema, or discharge. Neck: Supple, no stridor, bruit, goiter, or hepato-jugular reflux. Jugular venous pressure is estimated to be 3 cm above the sternal angle of Jama, which in turn, is 5 cm above the level of the right atrium; with jugular venous pressure estimated to be 8 cm, then, there is no jugular venous distention on 12/24/2024. Lymphatics: No cervical (anterior/posterior), supraclavicular, infraclavicular, axillary, epitrochlear, or inguinal adenopathy. Chest: Symmetric rise and fall with respirations. Non-tender to palpation. Lungs: Clear to auscultation and percussion. No audible expiratory wheeze, egophony, pectoriloquy, increase in tactile fremitus, or flatness/dullness to percussion at the bases. Heart: Regular rate and rhythm. S1 and S2 noted. No S3 or S4 summation gallop. No tripartite friction rub. Grade II/ early systolic murmur @ LLSB without radiation to the carotids, axilla, or back, and which remains invariant in regards to the respiratory cycle. Abdomen: Soft, non-tender, non-distended. No rebound, guarding, Denny's sign, or organomegaly. Bowel sounds auscultated in all 4 quadrants. PEG in situ (12/25/2024, 2:03pm, GI Dr. Lenin Church). Extremities: No clubbing, cyanosis, or edema. 2+ pedal pulses bilaterally. Skin: No decubitus ulcer, exanthem, or enanthem. Genito-urinary: No urethral discharge. No magallanes catheter. No purewick. Dry diaper. Neurology: Alert and oriented in regards to person, place, time, and situation. DTR+ and symmetric. Psychiatry: No homicidal ideation. No suicidal ideation. No flat affect; smiles appropriately. Results & Data Results & Data Vital Signs (Past 12 Hours) Vital Signs Temp Pulse Pulse Resp BP BP Pulse Ox 12/25/24 18:04 36.8 C 86 20 150/88 H 97 12/25/24 17:00 36.8 C 20 L 88 144/77 H 12/25/24 16:25 36.4 C L 91 H 16 120/69 99 12/25/24 16:00 36.6 C 83 18 147/91 H 98 12/25/24 15:30 36.6 C 90 20 150/96 H 98 12/25/24 15:00 36.8 C 88 20 158/98 H 98 12/25/24 14:43 79 16 178/100 H 98 12/25/24 14:28 84 16 141/107 H 99 12/25/24 14:09 69 18 165/119 H 98 12/25/24 12:45 36 C L 97 H 16 152/111 H 99 12/25/24 08:00 12/25/24 07:16 36.7 C 88 17 135/97 100 O2 Del Method 12/25/24 18:04 Room Air 12/25/24 17:00 12/25/24 16:25 Room Air 12/25/24 16:00 Room Air 12/25/24 15:30 Room Air 12/25/24 15:00 Room Air 12/25/24 14:43 Room Air 12/25/24 14:28 Room Air 12/25/24 14:09 Room Air 12/25/24 12:45 Room Air 12/25/24 08:00 Room Air 12/25/24 07:16 Room Air Laboratory Results 12/23/24 23:37 Aerobic Blood Culture - Preliminary Blood No growth in Aerobic bottle after 24 hours. Anaerobic Blood Culture - Final 12/23/24 23:37 Aerobic Blood Culture - Preliminary Blood No growth in Aerobic bottle after 24 hours. Anaerobic Blood Culture - Final 12/25/24 12/25/24 12/25/24 11:33 10:15 10:09 WBC 9.04 RBC 3.25 L Hgb 10.3 L Hct 31.6 L MCV 97.2 MCH 31.7 MCHC 32.6 RDW Std Deviation 60.9 H RDW Coeff of Naga 17.4 H Plt Count 183 MPV 10.4 Immature Gran % (Auto) 0.8 Neut % (Auto) 75.8 Lymph % (Auto) 18.9 Ramsey % (Auto) 4.4 Eos % (Auto) 0.0 Baso % (Auto) 0.1 Neut # (Auto) 6.85 H Lymph # (Auto) 1.71 Ramsey # (Auto) 0.40 Eos # (Auto) 0.00 Baso # (Auto) 0.01 Immature Gran # (Auto) 0.07 Absolute Nucleated RBC 0.03 Nucleated RBC % (auto) 0.3 Lactate 1.2 Phosphorus 2.5 TNP Magnesium 1.3 L TNP Diagnostic Findings EGD (12/25/2024, 2:03pm): Normal esophagus, stomach, and duodenum. Externally removable PEG placement successfully completed. No specimens collected. (as per GI Dr. Lenin Church). PG Care Time/CCT Total # of Minutes Spent Total Time Spent with Patient: Total time spent is greater than 50% in coordination of care (as documented) at patient's floor/unit and/or counseling patient: Coding Level of Care Code 49156 SUB INP/OBS CARE 2/35MIN Diagnoses Right ureteral stone N20.1 Cerebral hemorrhage I61.9 Hyperlipidemia E78.5 Acute hypokalemia E87.6
[2024-12-25] MEDS: HYDROmorphone INJ 0.5 MG/0.5 ML SYR IV STA (22:10)
[2024-12-26 08:54] LABS: BUN Creatinine Ratio 29.8 (10-20); Calcium 7.3 mg/dl (8.6-10.3); Creatinine Clr Calc Pharmacy 75.2 ml/min; Magnesium 1.3 mg/dl (1.7-2.4); Phosphorus 2.7 mg/dl (2.5-4.9); Potassium 3.2 mmol/L (3.5-5.1)
[2024-12-26] MEDS: MAGNESIUM SULFATE / D5W 1 GM/100 ML BAG IV SCH (09:31)
[2024-12-26] MEDS: POTASSIUM CHLORIDE / WTR 10 MEQ/100 ML PLCT IV SCH (09:31)
[2024-12-26 10:06] LABS: Albumin Level 2.1 gm/dl (3.4-5.0)
[2024-12-26 10:39] LABS: Hemoglobin 11.8 g/dl (12.0-16.0); Mean Corpuscular Hemoglobin 31.7 pg (25.0-34.0); Mean Corpuscular Hgb Conc 32.8 g/dL (32.0-36.0); Mean Corpuscular Volume 96.8 fL (80.0-100.0); Mean Platelet Volume 10.2 fL (9.4-12.4); Nucleated RBC # (auto) 0.07 K/uL (0.00-0.12); Nucleated RBC % (auto) 0.6 %; Platelet Count 155 K/uL (130-400); RDW Coefficient of Variation 17.5 % (11.5-14.5); RDW Standard Deviation 61.6 fL (36.4-46.3); Red Blood Count 3.72 M/uL (4.20-5.40); White Blood Count 11.76 K/ul (4.8-10.8)
[2024-12-26 10:41] LABS: Basophils # (auto) 0.01 K/uL (0.00-0.20); Basophils % (auto) 0.1 %; Immature Granulocytes # (auto) 0.11 K/uL (0.01-0.20); Lymphocytes % (auto) 14.8 %; Monocytes # (auto) 0.45 K/uL (0.11-0.59); Monocytes % (auto) 3.9 %; Neutrophils # (auto) 9.21 K/uL (1.40-6.50); Neutrophils % (auto) 80.2 %
--- NOTE | 2024-12-26 12:53 | Ultrasound Report ---
US arterial duplex UE LT CLINICAL HISTORY: pulseless, cold left arm COMPARISON STUDY: None FINDINGS: Arterial velocities at the left upper extremity are normal. No evidence of significant venita rial narrowing or occlusion seen at the left upper extremity. IMPRESSION: No significant arterial narrowing or occlusion seen at the left upper extremity. ACT 112: Negative or not required by law. Electronically signed by: Kevin Bryant M.D. 12/26/2024 12:52 PM
[2024-12-26] MEDS: TUBE FEEDING WATER FLUSH GT SCH (13:09)
[2024-12-26] MEDS: FIBERSOURCE HN 1.2 CAL 1000 ML BAG GT SCH (13:10)
[2024-12-26] MEDS: MULTI VIT W/MINERALS LIQUID 15 ML UDC PEG SCH (13:49)
[2024-12-26] MEDS: MoRPHine SULFATE 2 MG/ML CARP IV PRN (13:49)
[2024-12-26] MEDS: THIAMINE HCL 100 MG TAB PEG SCH (13:49)
--- NOTE | 2024-12-26 18:55 | Hospitalist Progress Note ---
Date of Service December 26, 2024 Assessment & Plan (1) Right ureteral stone: Plan: Postobstructive nephropathy secondary to right ureteral stone in a 64 yo female with abdominal pain S/P ureteral stent Urine culture (12/17/2024, 3:45pm) growing Pseudomonas aeruginosa; repeat urine culture (12/18/2024, time unknown) growing 4,000 cfu/mL gram negative bacilli: continue cefepime. Urine culture (12/17/2024, 3:45pm) growing Dhara albicans; repeat urine culture (12/18/2024, time unknown) growing Dhara albicans: continue fluconazole. s/p PEG tube insertion (12/25/2024, 2:03pm) with GI Dr. Lenin Church. Patient awaits formal [employer] evaluation regarding initiation of PEG feeds on 12/26/2024. 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 Patient NOT lethargic on 12/24/2024 - 12/26/2024. However, I have opted to continue holding OFF patient's home-scheduled gabapentin and keppra on 12/24/2024 and on 12/25/2024. Given poor appetite failure to thrive: Consulted GI Dr. Lenin Church on 12/21/2024 for PEG insertion; patient subsequently underwent PEG insertion on 12/25/2024, 2:03pm with GI Dr. Lenin Church. Of note, PEG was originally scheduled for last week as an outpatient. Added IVF due to her poor oral intake (3) Hyperlipidemia: Plan: Asymptomatic on home-scheduled atorvastatin 10mg PO qhs on 12/24/2024 - 12/26/2024. (4) Acute hypokalemia: Plan: RESOLVED with post-admission K 2.9 mmol/L (12/24/2024, 12:47am) treated with ongoing KCl 20meq PO qid (start date 12/17/2024, 5:00pm). RESOLVED with post- supplement K 4.4 mmol/L (12/24/2024, 11:37am). RECURRENT with current K 3.2 mmol/L (12/26/2024, 7:37am) with etiology of recurrent hypokalemia most probably due to NPO status with no oral intake of potassium-containing foods or liquids. Supplement with KCl 10mmol IV q1h x 8 doses (starting on 12/26/2024, 9:15am). Check post-supplement K in the 12/27/2024 am. Admission and Anticipated Discharge Date Admission Date: December 18, 2024 Subjective Patient suffers from expressive aphasia due to historical left basal ganglia CVA (diagnosed on 09/02/2022), and hence, patient cannot talk in words/sentences, but nonetheless, patient remains wide awake and alert, and can nod/grunt in the affirmative or negative when answering all questions posed to her by the examiner in an appropriate manner. Patient reports that she has no complaints at all on 12/24/2024 - 12/26/2024. Review of Systems Constitutional: Negative for antecedent/coincident fevers, chills, diaphoresis, cough, wheeze, sore throat, hemoptysis, chest pains, palpitations, pleurisy, nausea, vomiting, diarrhea, abdominal pain, pelvic pain, hematemesis, hematochezia, melena, hematuria, dysuria, frequency, urgency, headaches, dizziness, lightheadedness, visual changes, hearing changes, weakness, falls, syncope, trauma, travel history, sick contacts, or food/drug ingestions novel or new. All other review of systems are reported as negative by the patient on 12/24/2024 - 12/26/2024. Physical Exam Constitutional: General: Comfortable, coherent, cooperative; wide awake and alert. Not confused, lethargic, or obtunded. Patient suffers from expressive aphasia due to historical left basal ganglia CVA (diagnosed on 09/02/2022), and hence, patient cannot talk in words/sentences, but nonetheless, patient remains wide awake and alert, and can nod/grunt in the affirmative or negative when answering all questions posed to her by the examiner in an appropriate manner. HEENT: Normocephalic, atraumatic. Extra-ocular muscles intact. Pupils equally round and reactive to light. No nystagmus, gaze paresis, anisocoria, miosis, mydriasis, hyphema, scleral injection, conjunctivitis, or pterygium. No otorrhea or rhinorrhea. No pharyngeal erythema, edema, or discharge. Neck: Supple, no stridor, bruit, goiter, or hepato-jugular reflux. Jugular venous pressure is estimated to be 3 cm above the sternal angle of Jama, which in turn, is 5 cm above the level of the right atrium; with jugular venous pressure estimated to be 8 cm, then, there is no jugular venous distention on 12/26/2024. Lymphatics: No cervical (anterior/posterior), supraclavicular, infraclavicular, axillary, epitrochlear, or inguinal adenopathy. Chest: Symmetric rise and fall with respirations. Non-tender to palpation. Lungs: Clear to auscultation and percussion. No audible expiratory wheeze, egophony, pectoriloquy, increase in tactile fremitus, or flatness/dullness to percussion at the bases. Heart: Regular rate and rhythm. S1 and S2 noted. No S3 or S4 summation gallop. No tripartite friction rub. Grade II/ early systolic murmur @ LLSB without radiation to the carotids, axilla, or back, and which remains invariant in regards to the respiratory cycle. Abdomen: Soft, non-tender, non-distended. No rebound, guarding, Denny's sign, or organomegaly. Bowel sounds auscultated in all 4 quadrants. PEG in situ (12/25/2024, 2:03pm, GI Dr. Lenin Church). Extremities: No clubbing, cyanosis, or edema. 2+ pedal pulses bilaterally. Skin: No decubitus ulcer, exanthem, or enanthem. Genito-urinary: No urethral discharge. No magallanes catheter. No purewick. Dry diaper. Neurology: Alert and oriented in regards to person, place, time, and situation. DTR+ and symmetric. Psychiatry: No homicidal ideation. No suicidal ideation. No flat affect; smiles appropriately. Results & Data Results & Data Vital Signs (Past 12 Hours) Vital Signs Temp Pulse Resp BP Pulse Ox O2 Del Method 12/26/24 14:51 36.3 C L 86 20 107/76 100 Room Air 12/26/24 11:35 36.6 C 112 H 20 122/92 96 Room Air 12/26/24 10:52 36.4 C L 119 H 20 130/73 99 Room Air 12/26/24 08:15 36.8 C 125 H 22 131/82 100 Room Air 12/26/24 07:30 Room Air Laboratory Results 12/23/24 23:37 Aerobic Blood Culture - Preliminary Blood No growth in Aerobic bottle after 48 hours. Anaerobic Blood Culture - Final 12/23/24 23:37 Aerobic Blood Culture - Preliminary Blood No growth in Aerobic bottle after 48 hours. Anaerobic Blood Culture - Final 12/26/24 12/26/24 10:22 07:37 WBC 11.76 H Cancelled RBC 3.72 L Cancelled Hgb 11.8 L Cancelled Hct 36.0 L Cancelled MCV 96.8 Cancelled MCH 31.7 Cancelled MCHC 32.8 Cancelled RDW Std Deviation 61.6 H Cancelled RDW Coeff of Naga 17.5 H Cancelled Plt Count 155 Cancelled MPV 10.2 Cancelled Immature Gran % (Auto) 1.0 Cancelled Neut % (Auto) 80.2 Cancelled Lymph % (Auto) 14.[address] [place] % (Auto) 3.9 Cancelled Eos % (Auto) 0.0 Cancelled Baso % (Auto) 0.1 Cancelled Neut # (Auto) 9.21 H Cancelled Lymph # (Auto) 1.[address] [place] # (Auto) 0.45 Cancelled Eos # (Auto) 0.00 Cancelled Baso # (Auto) 0.01 Cancelled Immature Gran # (Auto) 0.11 Cancelled Absolute Nucleated RBC 0.07 Cancelled Nucleated RBC % (auto) 0.6 Cancelled Neutrophils % (Manual) Cancelled Band Neutrophils % Cancelled Lymphocytes % (Manual) Cancelled Prolymphocyte % Cancelled Reactive Lymphs % (Man) Cancelled Monocytes % (Manual) Cancelled Eosinophils % (Manual) Cancelled Basophils % (Manual) Cancelled Metamyelocytes % (Man) Cancelled Myelocytes % (Man) Cancelled Promyelocytes % (Man) Cancelled Blast Cells % (Manual) Cancelled Plasma Cell % (Manual) Cancelled Other Cells % Cancelled Nucleated RBC % Cancelled Neutrophils # (Manual) Cancelled Band Neutrophils # Cancelled Total Absolute Neuts Cancelled Lymphocytes # (Manual) Cancelled Prolymphocyte # Cancelled Reactive Lymphs # Cancelled Total Abs Lymphocytes Cancelled Monocytes # (Manual) Cancelled Eosinophils # (Manual) Cancelled Basophils # (Manual) Cancelled Metamyelocytes # (Man) Cancelled Myelocytes # (Manual) Cancelled Promyelocytes # (Man) Cancelled Blast Cells # (Man) Cancelled Plasma Cell # (Manual) Cancelled Other Cells # Cancelled Nucleated RBCs # (Man) Cancelled Hypersegmented Neuts Cancelled Hyposegmented Neuts Cancelled Hypogranular Neuts Cancelled Large Granular Lymphs Cancelled # Lrg Granular Lymphs Cancelled Hairy Cells Cancelled Smudge Cells Cancelled Toxic Granulation Cancelled Toxic Vacuolation Cancelled Dohle Bodies Cancelled Elif Rods Cancelled Platelet Estimate Cancelled Hypogranular Platelets Cancelled Giant Platelets Cancelled Platelet Satelliting Cancelled RBC Morphology Cancelled Polychromasia Cancelled Hypochromasia Cancelled Poikilocytosis Cancelled Basophilic Stippling Cancelled Anisocytosis Cancelled Microcytosis Cancelled Macrocytosis Cancelled Spherocytes Cancelled Pappenheimer Bodies Cancelled Sickle Cells Cancelled Target Cells Cancelled Tear Drop Cells Cancelled Ovalocytes Cancelled Stomatocytes Cancelled [place] Bodies Cancelled Echinocytes Cancelled Acanthocytes (Spur) Cancelled Rouleaux Cancelled RBC Agglutinates Cancelled Schistocytes Cancelled Sezary Cell Cancelled Sodium 140 Potassium 3.2 L D Chloride 119 H Carbon Dioxide 12 L Anion Gap 9 BUN 17 Creatinine 0.57 L Est Cr Clr Drug Dosing 75.2 eGFR 101.42 BUN/Creatinine Ratio 29.8 H Glucose 119 H Calcium 7.3 L Phosphorus 2.7 Magnesium 1.3 L Albumin 2.1 L Blood Parasites ID Cancelled PG Care Time/CCT Total # of Minutes Spent Total Time Spent with Patient: Total time spent is greater than 50% in coordination of care (as documented) at patient's floor/unit and/or counseling patient: Coding Level of Care Code 81716 SUB INP/OBS CARE 2/35MIN Diagnoses Right ureteral stone N20.1 Cerebral hemorrhage I61.9 Hyperlipidemia E78.5 Acute hypokalemia E87.6
[2024-12-26] MEDS: oxyCODONE HCL SOLN 5 MG/5 ML UDC PO PRN (21:55)
[2024-12-27] MEDS ORDERED: ONDANSETRON 4 MG OD TAB PEG PRN (08:30)
[2024-12-27] MEDS ORDERED: MAGNESIUM HYDROXIDE SUSP 30 ML UDC PEG PRN (08:30)
[2024-12-27 08:41] LABS: BUN Creatinine Ratio 41.8 (10-20); Blood Urea Nitrogen 23 mg/dl (6-23); Calcium 7.5 mg/dl (8.6-10.3); Carbon Dioxide 12 mmol/L (21-32); Chloride 116 mmol/L (98-107); Glucose 245 mg/dl (70-99(Fasting))
[2024-12-27 08:48] LABS: Basophils # (auto) 0.03 K/uL (0.00-0.20); Basophils % (auto) 0.3 %; Hematocrit (blood only) 37.2 % (37.0-47.0); Hemoglobin 11.4 g/dl (12.0-16.0); Immature Granulocytes # (auto) 0.08 K/uL (0.01-0.20); Immature Granulocytes % (auto) 0.7 %; Lymphocytes # (auto) 2.43 K/uL (1.20-3.40); Lymphocytes % (auto) 20.7 %; Mean Corpuscular Hemoglobin 31.4 pg (25.0-34.0); Mean Corpuscular Hgb Conc 30.6 g/dL (32.0-36.0); Mean Corpuscular Volume 101.9 fL (80.0-100.0); Mean Platelet Volume 9.8 fL (9.4-12.4); Monocytes % (auto) 4.3 %; Neutrophils # (auto) 8.71 K/uL (1.40-6.50); Nucleated RBC # (auto) 0.06 K/uL (0.00-0.12); Nucleated RBC % (auto) 0.5 %; Platelet Count 118 K/uL (130-400); RDW Coefficient of Variation 18.1 % (11.5-14.5); RDW Standard Deviation 67.7 fL (36.4-46.3); Red Blood Count 3.63 M/uL (4.20-5.40); White Blood Count 11.75 K/ul (4.8-10.8)
[2024-12-27] MEDS: oxyCODONE HCL SOLN 5 MG/5 ML UDC GT PRN (09:08)
[2024-12-27] MEDS: POTASSIUM CHLORIDE 20 MEQ/15 ML UDC PEG SCH (09:09)
[2024-12-27] MEDS: DOCUSATE SODIUM SYRUP 100 MG/10 ML UDC PEG SCH (09:09)
[2024-12-27] MEDS: FLUCONAZOLE 100 MG TAB PEG SCH (09:10)
[2024-12-27] MEDS: ASCORBIC ACID 500 MG TAB PEG SCH (09:11)
[2024-12-27] MEDS: LANSOPRAZOLE 30 MG SOLTAB PEG SCH (09:29)
[2024-12-27] MEDS: levETIRAcetam ORAL SOLN 100MG/ML PEG SCH (09:30)
--- NOTE | 2024-12-27 10:54 | XRay Report ---
KUB HISTORY: crying uncontrollably COMPARISON STUDY: 06/04/2023 FINDINGS: Position of the PEG tube is grossly stable. There is an interval well positioned appearing right ureteral stent. There are a few right renal calculi visible. There is mild retained stool. No b owel obstruction seen. No gross free air. IMPRESSION: No acute findings. ACT 112: Negative or not required by law. The above report was generated using voice recognition software. It may contain grammatical, syntax o r spelling errors. Electronically signed by: Kevin Bryant M.D. 12/27/2024 10:52 AM
[2024-12-27] MEDS ORDERED: GABAPENTIN 250 MG/5 ML 470 ML BTL PEG SCH ×2 (12:00→21:00)
[2024-12-27 14:39] LABS: Albumin Level 2.2 gm/dl (3.4-5.0); Magnesium 2.7 mg/dl (1.7-2.4)
--- NOTE | 2024-12-27 18:00 | Hospitalist Progress Note ---
Date of Service December 27, 2024 Assessment & Plan (1) Right ureteral stone: Plan: Postobstructive nephropathy secondary to right ureteral stone in a 64 years old female present with generalized abdominal pain S/P ureteral stent Urine culture (12/17/2024, 3:45pm) growing Pseudomonas aeruginosa; repeat urine culture (12/18/2024, time unknown) growing 4,000 cfu/mL gram negative bacilli: D/C cefepime 2g IV q8 (day #1 on 12/18/2024, 5:24pm; day #10 on 12/27/2024, 1:45pm) on 12/27/2024, 6:12pm. Urine culture (12/17/2024, 3:45pm) growing Dhara albicans; repeat urine culture (12/18/2024, time unknown) growing Dhara albicans: s/p fluconazole 200mg PO daliy (day #1 on 12/20/2024, 10:34am; day #4 on 12/23/2024, 2:21pm), not given on 12/24/2024, 12/25/2024, or 12/26/2024; started fluconazole 200mg PEG daily (day #1/3 on 12/27/2024, 9:10am; day #2/3 on 12/28/2024, 9:10am; day #3/3 on 12/29/2024, 9:10am). s/p PEG tube insertion (12/25/2024, 2:03pm) with GI Dr. Lenin Church. Patient underwent formal [employer] evaluation regarding initiation of PEG feeds on 12/26/2024, and is tolerating very well FiberSource HN 1.2 liu @ 30 mL/hr on 12/27/2024 with no residuals noted. 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 Patient NOT lethargic on 12/24/2024 - 12/27/2024. However, I have opted to continue holding OFF patient's home-scheduled gabapentin 300mg PO tid and keppra 500mg PO bid on 12/24/2024 and on 12/25/2024 given NPO status with PEG not yet inserted. Patient subsequently underwent PEG insertion (12/25/2024, 2:03pm, GI Dr. Lenin Church). Restarted keppra 500mg PEG bid (12/27/2024, 9:00am). Restarted gabapentin 300mg PEG tid (12/27/2024, 6:05pm).. Given poor appetite failure to thrive: Consulted GI Dr. Lenin Church on 12/21/2024 for PEG insertion; patient subsequently underwent PEG insertion on 12/25/2024, 2:03pm with GI Dr. Lenin Church. Of note, PEG was originally scheduled for last week as an outpatient. Added IVF due to her poor oral intake (3) Hyperlipidemia: Plan: Asymptomatic on home-scheduled atorvastatin 10mg PO qhs on 12/24/2024 - 12/27/2024. (4) Acute hypokalemia: Plan: RESOLVED with post-admission K 2.9 mmol/L (12/24/2024, 12:47am) treated with ongoing KCl 20meq PO qid (start date 12/17/2024, 5:00pm). RESOLVED with post- supplement K 4.4 mmol/L (12/24/2024, 11:37am). RECURRENT with current K 3.2 mmol/L (12/26/2024, 7:37am) with etiology of recurrent hypokalemia most probably due to NPO status with no oral intake of potassium-containing foods or liquids. Supplemented with KCl 10mmol IV q1h x 8 doses (starting on 12/26/2024, 9:15am). Post-supplement K hemolyzed (12/27/2024, 7:46am). Post-supplement K hemolyzed (12/27/2024, 11:09am). Post-supplement K hemolyzed (12/27/2024, 11:09am). Post-supplement K cancelled (12/27/2024, 12:54pm). Post-supplement K 6.0 mmol/L (12/27/2024, 2:11pm). Given coincident findings of BUN:creatinine ratio > 20:1 (cf., BUN 23, creatinine 0.55 on 12/27/2024, 7:46am), Na 132 mmol/L and Mg 2.7 mg/dL (12/27/2024, 2:11pm), I surmise that patient is acutely dehydrated even while receiving FiberSource HN 1.2 liu @ 30 mL/hr on 12/27/2024, and that acute dehydration is the etiology of patient's acute hyperkalemia. Hence, I have opted to continue free water flushes of 100 mL PEG q4h [id number]; start 1 liter of 0.9% NS @ 50 mL/hr (12/27/2024, 6:25pm); and I will check repeat BUN:creatinine ratio, K, Na, and Mg levels in the 12/28/2024 am. . Admission and Anticipated Discharge Date Admission Date: December 18, 2024 Subjective Patient suffers from expressive aphasia due to historical left basal ganglia CVA (diagnosed on 09/02/2022), and hence, patient cannot talk in words/sentences, but nonetheless, patient remains wide awake and alert, and can nod/grunt in the affirmative or negative when answering all questions posed to her by the examiner in an appropriate manner. Patient reports that she has no complaints at all on 12/24/2024 - 12/27/2024. Review of Systems Constitutional: Negative for antecedent/coincident fevers, chills, diaphoresis, cough, wheeze, sore throat, hemoptysis, chest pains, palpitations, pleurisy, nausea, vomiting, diarrhea, abdominal pain, pelvic pain, hematemesis, hematochezia, melena, keri turia, dysuria, frequency, urgency, headaches, dizziness, lightheadedness, visual changes, hearing changes, weakness, falls, syncope, trauma, travel history, sick contacts, or food/drug ingestions novel or new. All other review of systems are reported as negative by the patient on 12/24/2024 - 12/27/2024. Physical Exam Constitutional: General: Comfortable, coherent, cooperative; wide awake and alert. Not confused, lethargic, or obtunded. Patient suffers from expressive aphasia due to historical left basal ganglia CVA (diagnosed on 09/02/2022), and hence, patient cannot talk in words/sentences, but nonetheless, patient remains wide awake and alert, and can nod/grunt in the affirmative or negative when answering all questions posed to her by the examiner in an appropriate manner. HEENT: Normocephalic, atraumatic. Extra-ocular muscles intact. Pupils equally round and reactive to light. No nystagmus, gaze paresis, anisocoria, miosis, mydriasis, hyphema, scleral injection, conjunctivitis, or pterygium. No otorrhea or rhinorrhea. No pharyngeal erythema, edema, or discharge. Neck: Supple, no stridor, bruit, goiter, or hepato-jugular reflux. Jugular venous pressure is estimated to be 3 cm above the sternal angle of Jama, which in turn, is 5 cm above the level of the right atrium; with jugular venous pressure estimated to be 8 cm, then, there is no jugular venous distention on 12/27/2024. Lymphatics: No cervical (anterior/posterior), supraclavicular, infraclavicular, axillary, epitrochlear, or inguinal adenopathy. Chest: Symmetric rise and fall with respirations. Non-tender to palpation. Lungs: Clear to auscultation and percussion. No audible expiratory wheeze, egophony, pectoriloquy, increase in tactile fremitus, or flatness/dullness to percussion at the bases. Heart: Regular rate and rhythm. S1 and S2 noted. No S3 or S4 summation gallop. No tripartite friction rub. Grade II/ early systolic murmur @ LLSB without radiation to the carotids, axilla, or back, and which remains invariant in regards to the respiratory cycle. Abdomen: Soft, non-tender, non-distended. No rebound, guarding, Denny's sign, or organomegaly. Bowel sounds auscultated in all 4 quadrants. PEG in situ (12/25/2024, 2:03pm, GI Dr. Lenin Church) tolerating FiberSource HN 1.2 liu @ 30 mL/hr with no residuals noted on 12/27/2024. Extremities: No clubbing, cyanosis, or edema. 2+ pedal pulses bilaterally. Skin: No decubitus ulcer, exanthem, or enanthem. Genito-urinary: No urethral discharge. No magallanes catheter. No purewick. Dry diaper. Neurology: Alert and oriented in regards to person, place, time, and situation. DTR+ and symmetric. Psychiatry: No homicidal ideation. No suicidal ideation. No flat affect; smiles appropriately. Results & Data Results & Data Vital Signs (Past 12 Hours) Vital Signs Temp Pulse Resp BP BP Pulse Ox O2 Del Method 12/27/24 17:40 64 22 100/72 99 Room Air 12/27/24 14:29 36.6 C 62 20 124/86 98 Room Air 12/27/24 11:14 36.2 C L 88 18 136/82 96 Room Air 12/27/24 08:32 37.2 C 62 18 121/80 90 Room Air 12/27/24 08:00 Room Air Diagnostic Findings Portable AXR (12/27/2024, 10:31am)(performed to address patient's monotonous moaning without appearing distressed on 12/27/2024): No obstruction. No free air. Few R renal calculi noted. Mild retained stool. ECG Additional Comments: EKG (12/27/2024, 6:21pm): (to evaluate for any peaked T waves, [place] prolongation, QRS widening, bundle branch blocks, or U waves given K 6.0 mmol/L (12/27/2024, 2:11pm) PG Care Time/CCT Total # of Minutes Spent Total Time Spent with Patient: Total time spent is greater than 50% in coordination of care (as documented) at patient's floor/unit and/or counseling patient: Coding Level of Care Code 23912 SUB INP/OBS CARE 2/35MIN Diagnoses Right ureteral stone N20.1 Cerebral hemorrhage I61.9 Hyperlipidemia E78.5 Acute hypokalemia E87.6
--- NOTE | 2024-12-27 20:25 | XRay Report ---
EXAM: Portable AP chest radiograph TECHNIQUE: AP portable radiograph of the chest was obtained. INDICATION: Shortness of breath Comparison: Chest radiograph September 02, 2022. FINDINGS: LINES and TUBES: None. CARDIOVASCULAR: Cardiac silhouette is mildly enlarged in size. LUNGS/PLEURA: There are hazy bibasilar densities obscuring the hemidiaphragms which may represent pleural fluids and atelectasis. Superimposed airspace disease is not excluded. Mild pulmonary vascular congestion. No discernible pneumothorax. OSSEOUS/OTHER: No displaced acute osseous process identified. Compressive changes of the spine. There is a catheter material noted over the right hemiabdomen. IMPRESSION: Hazy bibasilar densities obscuring the hemidiaphragms which may represent pleural fluids and atelectasis. Superimposed airspace disease is not excluded. Electronically signed by Mauro Logan 12-27-2024 8:24 PM
[2024-12-27 20:44] LABS: Potassium 5.9 mmol/L (3.5-5.1)
[2024-12-27] MEDS: NALOXONE HCL 0.4 MG/1 ML VIAL/CARP ONE (20:51)
[2024-12-27 20:56] LABS: iSTAT Arterial Blood Gas HCO3 5 meg/L (19-24); iSTAT Arterial Blood Gas pCO2 12 mmHg (35-46); iSTAT Arterial Blood Gas pH 7.21 (7.35-7.45); iSTAT Arterial Blood Gas pO2 87 mmHg (80-95); iSTAT Carbon Dioxide 5 mmol/L (24-31); iSTAT Hematocrit 43 % (37-47); iSTAT Hemoglobin 14.6 g/dl (12.0-16.0); iSTAT Potassium 5.7 mmol/L (3.3-5.0); iSTAT Sodium 135 mmol/L (135-144)
[2024-12-27] MEDS ORDERED: MIRTAZAPINE TAB 15 MG TAB GT SCH (21:00)
[2024-12-27 21:01] LABS: Base Excess VBG -19.6 mEq/L; HCO3 VBG 6 mmol/L; PCO2 VBG 14 mmHg (38-50); PO2 VBG 131 mmHg; pH VBG 7.21 (7.36-7.41)
[2024-12-27 21:16] LABS: Albumin Level 2.3 gm/dl (3.4-5.0); BUN Creatinine Ratio 37.7 (10-20); Bilirubin Direct 0.2 mg/dl (0-0.2); Bilirubin,Total 0.6 mg/dl (0.2-1.0); Calcium 8.3 mg/dl (8.6-10.3); Creatinine Clr Calc Pharmacy 62.2 ml/min; Potassium 5.7 mmol/L (3.5-5.1)
[2024-12-27 21:18] LABS: Hematocrit (blood only) 43.3 % (37.0-47.0); Hemoglobin 13.8 g/dl (12.0-16.0); Mean Corpuscular Hemoglobin 31.4 pg (25.0-34.0); Mean Corpuscular Hgb Conc 31.9 g/dL (32.0-36.0); Mean Corpuscular Volume 98.4 fL (80.0-100.0); Mean Platelet Volume 9.9 fL (9.4-12.4); Nucleated RBC # (auto) 0.27 K/uL (0.00-0.12); Platelet Count 170 K/uL (130-400); RDW Coefficient of Variation 18.3 % (11.5-14.5); RDW Standard Deviation 65.9 fL (36.4-46.3); White Blood Count 9.05 K/ul (4.8-10.8)
[2024-12-27 21:21] LABS: Troponin I High Sensitivity 11.4 pg/ml (0-14)
[2024-12-27] MEDS ORDERED: STAT IV/IM STA (21:23)
[2024-12-27 21:31] LABS: D Dimer 2330 ug/L FEU (0-500)
[2024-12-27] MEDS: ATORVASTATIN 10 MG TAB PEG SCH (21:51)
[2024-12-27] MEDS: SODIUM BICARBONATE 8.4% 150 MEQ in DEXTROSE 5% 1,000 ML IV SCH (22:05)
[2024-12-27] MEDS: THIAMINE HCL 200 MG in SODIUM CHLORIDE 0.9% 50 ML IV STA (22:17)
[2024-12-27 22:45] LABS: Basophils # (auto) 0.04 K/uL (0.00-0.20); Basophils % (auto) 0.4 %; Eosinophils # (auto) 0.04 K/uL (0.00-0.50); Eosinophils % (auto) 0.4 %; Immature Granulocytes # (auto) 0.13 K/uL (0.01-0.20); Immature Granulocytes % (auto) 1.4 %; Lymphocytes % (auto) 28.7 %; Monocytes # (auto) 0.28 K/uL (0.11-0.59); Monocytes % (auto) 3.1 %; Neutrophils # (auto) 5.96 K/uL (1.40-6.50); Polychromasia 1+
--- NOTE | 2024-12-27 23:02 | CT Scan Report ---
Exam(s): CT HEAD Without Contrast EXAM: CT Head Without Intravenous Contrast CLINICAL HISTORY: Reason for exam: lethargy; sluggish pupils. TECHNIQUE: Axial computed tomography images of the head/brain without intravenous contrast. CTDI is 61.2 mGy and DLP is 961.59 mGy-cm. Automated exposure control was utilized for the study. A dose lowering technique was utilized adhering to the principles of ALARA. COMPARISON: CT January 23, 2024. FINDINGS: Brain: There is stable, old encephalomalacia in the left basal ganglia and estrella radiata white matter. No acute intracranial edema, hemorrhage or abnormal mass-effect. Ventricles: Unremarkable. No ventriculomegaly. Bones/joints: Unremarkable. No acute fracture. Soft tissues: Unremarkable. Sinuses: Unremarkable as visualized. No acute sinusitis. Mastoid air cells: Unremarkable as visualized. No mastoid effusion. IMPRESSION: No acute findings in the head/brain. Electronically signed by: Montrell Buck MD 12/27/24 23:01 PM
[2024-12-28] MEDS: GABAPENTIN 300 MG CAP PO SCH (00:17)
[2024-12-28] MEDS: SODIUM CHLORIDE 0.9% 500 ML IV ONE (00:17)
[2024-12-28 00:33] LABS: Appearance Urine Turbid (Clear); Bacteria Urine Automated 4+ (None Seen); Bilirubin Urine Negative (Negative); Blood Urine 3+ (Negative); Cast Urine Automated >20 /lpf (0-2); Color Urine Orange; Glucose Urine UA 2+ (Negative); Granular Casts Urine Present /lpf (None Prsent); Hyaline Casts Urine Present /lpf (None Presnt); Ketones Urine Negative (Negative); Leukocyte Esterase Urine 3+ (Negative); Nitrite Urine Negative (Negative); Protein Urine 2+ (Negative); RBC Urine Automated >20 /hpf (0-2); Specific Gravity Urine 1.011 (1.000-1.030); Urobilinogen Urine Negative (Negative); WBC Urine Automated >50 /hpf (0-5); pH Urine 5.5 (4.5-7.5)
[2024-12-28 00:41] LABS: Urine Potassium 21.8 mmol/L
[2024-12-28 02:18] LABS: BUN Creatinine Ratio 33.3 (10-20); Calcium 7.5 mg/dl (8.6-10.3); Creatinine Clr Calc Pharmacy 59.6 ml/min; Potassium 4.3 mmol/L (3.5-5.1)
[2024-12-28 03:47] LABS: Base Excess VBG -9.9 mEq/L; HCO3 VBG 14 mmol/L; Oxygen Saturation VBG < 60.0 %; PCO2 VBG 24 mmHg (38-50); PO2 VBG 31 mmHg; pH VBG 7.36 (7.36-7.41)
--- NOTE | 2024-12-28 04:21 | Communication Note ---
Date of Service: December 28, 2024 Patient with Rapid Response called earlier for decreased responsiveness, tachypnea. ABG obtained 7.21//5 Chemistry with Mg=455, K=5.7, HCO3=8. Renal function intact. Lactate=2. No anion gap CT Head with no acute findings in the brain CXR with hazy bibasilar densities which may represent pleural fluids and atelectasis, airspace disease not excluded Non-anion gap metabolic acidosis - etiology uncertain. Possible RTA. Consider pancreatic-duodenal fistula - patient with recent placement of PEG tube. This is unlikely complication of PEG procedure. Markedly elevated d-dimer at 2230 -Urine studies sent for workup of RTA including UA, Urine Osm and Urine electrolytes -Do not strongly suspect PE despite elevated d-dimer. Patient has not been tachycardic or hypoxic. Could consider CTA-chest but will hold off for now until patient is more stable and acidosis improving. Patient given Thiamine 200mg IV, HCO3 x 1 amp followed by HCO3 + D5W drip at 125mL/hr. Second PIV placed in LUE by IV team. Repeat blood work sent at 0100 with inaccurate results as drawn off line running HCO3+D5W Low core temperature at 36 rectal -External warming blanket placed Right femoral venous stick obtained with assistance from Critical Care EMELY Ferreira at 03:23. Labs show improvement in VBG 7.36//. Chemistry with improved K=4.5, HCO3=18. Glucose is elevated at 328 -Will DC bicarbonate drip. -Check BSG q 4 hours with discontinuation of D5W + HCO3 -Will provide insulin sliding scale. Goal blood sugar 110 - 180. Of note, patient on steroids as well -Repeat BMP at 12:00 today Patient with hypotension - BP 74/61 -Given 1L LR bolus -Albumin 5% 250mL -BP improving -Called patient's son, Basil [phone] and Left Message
[2024-12-28 04:34] LABS: Albumin Level 1.7 gm/dl (3.4-5.0); Bilirubin Direct 0.1 mg/dl (0-0.2); Potassium 4.5 mmol/L (3.5-5.1); Thyroid Stimulating Hormone 7.286 uIu/ml (0.300-4.500)
[2024-12-28 04:35] LABS: BUN Creatinine Ratio 39.7 (10-20); Bilirubin,Total 0.6 mg/dl (0.2-1.0); Calcium 7.4 mg/dl (8.6-10.3); Creatinine Clr Calc Pharmacy 68.1 ml/min; Total Protein 4.4 gm/dl (6.0-8.3)
[2024-12-28 04:45] LABS: ALC (manual) 3.46 K/uL (1.2-3.4); ANC (manual) 2.93 K/uL (1.4-6.5); Hematocrit (blood only) 37.1 % (37.0-47.0); Hemoglobin 12.5 g/dl (12.0-16.0); Lymphocytes # (manual) 3.46 K/uL (1.2-3.4); Lymphocytes % (manual) 53 %; Mean Corpuscular Hemoglobin 32.1 pg (25.0-34.0); Mean Corpuscular Hgb Conc 33.7 g/dL (32.0-36.0); Mean Corpuscular Volume 95.1 fL (80.0-100.0); Mean Platelet Volume 11.7 fL (9.4-12.4); Monocytes # (manual) 0.13 K/uL (0.11-0.59); Monocytes % (manual) 2 %; Neutrophils # (manual) 2.93 K/uL (1.40-6.50); Neutrophils % (manual) 45 %; Nucleated RBC % (auto) 1.5 %; Platelet Count 131 K/uL (130-400); Polychromasia 1+; RDW Coefficient of Variation 17.9 % (11.5-14.5); RDW Standard Deviation 60.7 fL (36.4-46.3); White Blood Count 6.52 K/ul (4.8-10.8)
[2024-12-28] MEDS ORDERED: GLUCOSE 10 TAB/TUBE PO PRN (04:55)
[2024-12-28] MEDS ORDERED: DEXTROSE 50% 50 ML SYRINGE IV PRN (04:55)
[2024-12-28] MEDS ORDERED: GLUCAGON FOR INJ 1 MG VIAL SQ PRN (04:55)
[2024-12-28] MEDS ORDERED: GLUCOSE 40% GEL 15 GM TUBE PO PRN (04:55)
[2024-12-28] MEDS ORDERED: CARBOHYDRATES FOR HYPOGLYCEMIA PO PRN (04:55)
[2024-12-28 05:10] LABS: T4 Free Thyroxine 0.99 ng/dl (0.61-1.60)
[2024-12-28] MEDS: LACTATED RINGER'S 1,000 ML IV ONE (05:34)
[2024-12-28] MEDS: ALBUMIN 5% 250 ML IV ONE (05:47)
[2024-12-28] MEDS: INSULIN ASPART PER UNIT CHARGE SC SCH (05:55)
[2024-12-28] MEDS: OPTIRAY 320 125ml IV ONE (07:51)
[2024-12-28] MEDS: PLASMA-LYTE A 1,000 ML IV SCH (08:29)
[2024-12-28] MEDS: MEROPENEM 500 MG in SYRINGE 0 ML IV SCH (08:33)
--- NOTE | 2024-12-28 08:38 | CT Scan Report ---
EXAM: CT angio chest PE protocol CLINICAL HISTORY: elevated d-dimer. TECHNIQUE: CT angiography of the chest was performed with and without intravenous contrast with the following protocol: axial images with, reconstructed coronal and sagittal images. Non-contrast images were initially acquired, followed by contrast-enhanced images in arterial and venous phases. Intravenous contrast was administered using automated injection techniques. Bolus tracking was employed to optimize arterial phase imaging. One of these 3D techniques was utilized: Maximum Intensity Pixel (MIP), 3D Reconstructed Images, Volume Rendered Images, Surface Shaded Rendering. One of the following dose reduction techniques was utilized for this exam: Automated exposure control, adjustment of the mA and/or kV according to patient size, and use of iterative reconstruction. DLP: 170.5 mGy.cm. COMPARISON: chest x-ray dated 12/27/[address] dated 12/17/2024. FINDINGS: Aorta and Great Vessels: Ascending Aorta: Normal in caliber, no aneurysm, dissection, or significant atherosclerosis. Aortic Arch: Normal in caliber, no aneurysm, dissection, or significant atherosclerosis. Descending Aorta: Normal in caliber, no aneurysm, dissection, or significant atherosclerosis. Pulmonary Arteries: Right upper lobe segmental artery thrombus is seen. The main pulmonary artery and its branches are patent. No evidence of other pulmonary embolism or significant stenosis. Heart: Cardiac Chambers: Mildly enlarged in size with increased RV:LV ratio, indicating right cardiac strain. Pericardium: Mild pericardial effusion/thickening. Lungs and Pleura: Bilateral moderate-sized free pleural effusion with passive basal atelectasis. No evidence of consolidation, collapse, or focal lesions. Mediastinum: No mediastinal mass or abnormal lymphadenopathy. The esophagus is mildly prominent, nonspecific. Normal appearance of the trachea and central bronchi. Hilar Structures: Hilar structures are normal without enlargement. Chest Wall: No mass lesions or abnormalities in the chest wall. Vascular Structures: Superior Vena Cava: Patent without evidence of stenosis or thrombus. Inferior Vena Cava: Patent without evidence of stenosis or thrombus. Free gas was noted in the abdomen. Bones and Soft Tissues: No fractures, lytic, or blastic lesions of the visualized bony structures. Soft tissues are unremarkable. IMPRESSION: 1. Right upper lobe segmental artery thrombus is seen with evidence of right sided cardiac strain, echo correlation recommended. 2. Bilateral moderate pleural effusion with passive basal atelectasis. present in previous chest X ray and not seen in the abdomen CT on 12/17/2024. 3. The esophagus is mildly prominent, nonspecific. Electronically signed by Reza Oreilly 12-28-2024 08:38 AM
--- NOTE | 2024-12-28 09:09 | CT Scan Report ---
EXAM: CT abd pelvis IV con only CLINICAL HISTORY: s/p PEG tube TECHNIQUE: CT of the abdomen and pelvis was performed with and without contrast (112 Opti 320), with the following protocol: axial images with, and reconstructed coronal and sagittal images. One of the following dose reduction techniques was utilized for this exam: Automated exposure control, adjustment of the mA and/or kV according to patient size, and use of iterative reconstruction. total DLP 1750.52 mGy.cm COMPARISON: Comparison is made with prior CT dated 12/17/2024. FINDINGS: Visualised thorax shows new appearance of mild bilateral pleural effusion with underlying subsegmental atelectasis. Abdomen: Liver: Normal in size, shape, and stable fatty density with pericholecystic hyperemia in segments 4b and 5. Stable small hypodense lesion of 5-6 mm in segment 6 likely cyst. No focal lesions, cysts, or masses were identified. Hepatic vasculature and biliary ducts are unremarkable. Gallbladder and Biliary System: The gallbladder is normal in size and shape with enhancing wall. No wall thickening, pericholecystic fluid, or gallstones were identified. The common bile duct is normal in caliber without dilation. Pancreas: Pancreatic head, body, and tail are visualized and appear normal in size and density. No pancreatic masses or calcifications were noted. The pancreatic duct is not dilated. Spleen: Normal in size, shape, and density. New appearance of linear faint hypodensities along lateral aspect of parenchyma possibly ischemia. Appendix: The appendix is normal in size without allison appendiceal fat stranding, and without an appendicolith. No evidence of appendiceal abscess or perforation. Kidneys and Adrenal Glands: New finding of right renal DJ stent and calculus along stent in proximal ureter. Previously seen calculi in upper pole and pelvis of right kidney not seen in current scan. Both kidneys are normal in size, shape, and position. Cortical thickness is within normal limits. Adrenal glands are unremarkable with no evidence of masses or hyperplasia. Pelvis: Urinary Bladder: Partially distended and shows stable irregular wall thickening. No intraluminal lesions identified. Uterus: Normal in size and contour. No masses or abnormal thickening. Ovaries: Not well visualized but no gross abnormalities noted. Vagina: Normal in contour and wall thickness. Cervix: No evidence of mass or abnormal thickening. Peritoneal and Retroperitoneal Structures: New appearance of moderate ascites and fat stranding in mesentery. Mild amount of free air noted. No lymphadenopathy was noted. Moderate atherosclerotic wall calcifications in abdominal aorta and its branches. Bowel: New finding of PEG tube in stomach and edematous thickening of stomach wall. The visualized bowel loops are normal in caliber and appearance. No evidence of bowel obstruction or wall thickening. Bones and Soft Tissues: Diffuse anasarca. Osteopenia. Spondylotic changes in spine. Pelvic bones and soft tissues are unremarkable. No fractures or abnormal masses were identified. IMPRESSION: 1. New appearance of mild bilateral pleural effusion with underlying subsegmental atelectasis. 2. New appearance of moderate ascites and fat stranding in mesentery. 3. New finding of PEG tube in stomach and edematous thickening of stomach wall. 4. New finding of mild pneumoperitoneum likely post intervention. 5. New appearance of linear faint hypodensities along lateral aspect of splenic parenchyma possibly ischemia. 6. New finding of right renal DJ stent and calculus along stent in proximal ureter. 7. Previously seen calculi in upper pole and pelvis of right kidney not seen in current scan. 8. Stable fatty liver with pericholecystic hyperemia in segments 4b and 5. 9. Stable small hypodense lesion of 5-6 mm in segment 6 of liver likely cyst. 10. Stable irregular wall thickening in urinary bladder likely cystitis. Clinical correlation is recommended for further evaluation. Electronically signed by Reza Oreilly 12-28-2024 09:09 AM
[2024-12-28] MEDS ORDERED: Heparin IV Adult Wt-Based Standard w/ INITIAL Bolus Protocol IV STA (09:13)
--- NOTE | 2024-12-28 09:31 | Critical Care Consultation ---
Date of Consultation December 28, 2024 Assessment & Plan (1) Pulmonary emboli: Reason Critically Ill: Hypotension with recent diagnosis of pulmonary embolism PLAN: Neuro: Encephalopathy: Multifactorial - History of hemorrhagic CVA, history of seizure-like activity, known urologic infection - Patient has been off home gabapentin and Keppra, would continue Keppra Resp: Acute pulmonary embolism - This could be considered provoked secondary to immobilization and surgical procedure biotic risk. I am unclear of the patient's baseline mobility - Heparin infusion, will likely need transition to oral anticoagulant - Patient has absolute contraindication to systemic thrombolysis: Prior hemorrhagic CVA CV: Hypotension: Likely multifactorial - No obvious evidence of heart strain seen on echocardiogram, no elevation in troponin, patient's blood pressure improved with crystalloid administration Fluids/Renal: Chronic indwelling Alves Right-sided nephrolithiasis - Postop day 11 from right-sided ureteral stent - Reviewed 12/18 urology plan to continue biotics as prescribed, fluconazole, urology to facilitate outpatient follow-up Non-Anion gap metabolic acidosis - Documentation of GI losses however nursing notes reveal proximately 1 bowel movement daily - Most consistent with hyperchloremic metabolic acidosis ID: Funguria -Diflucan until 12/29/2024 - Patient hypothermic, however blood pressure is improved after crystalloid infusion Pseudomonal urinary tract infection - Day 10/ days of cefepime, transition to meropenem for concerns for attribution to encephalopathy - Meropenem 500 mg every 6 hours GI/Nutrition: Failure to thrive - Postop day 3 from PEG tube placement Can restart tube feeds at trickle and increase slowly Heme: Type and screen ordered DVT prophylaxis: Heparin infusion Endocrine: ICU hyperglycemia protocol Patient previously given steroids for relatively low cortisol Vascular access: Left internal jugular CVC catheter - Triple-lumen obtained secondary to requiring multiple medications and possible compatibility issues versus Kirby catheter given the diagnosis Code Status: Full code Disposition: ICU (2) Nephrolithiasis: (3) Right ureteral stone: (4) Esophageal dysphagia: (5) Seizure-like activity: (6) Cerebral hemorrhage: (7) Metabolic acidosis with normal anion gap and bicarbonate losses: Supervising Physician Co-Signing Physician Notes I have personally spent 50 minutes of critical care time in the direct management of this patient. This is a life/limb threatening event. This includes time spent evaluating patient, direct bedside care, chart review, placing orders, interpretation of diagnostic studies, discussion with consultants, patient, and/or family members regarding treatment decisions, as well as other required patient management activities. This time is exclusive of all separately billable procedures, and teaching time and separate from and in addition to any other critical care service time. History of Present Illness Reason for Consultation: Pulmonary embolism and hypotension Attending Physician: Ernesto Fagan MD History of Present Illness Patient with a complex past medical history who was initially admitted to the hospital on December 17 for abdominal pain who was noted to have right-sided ureter al stone requiring ureteral stent. Significant past medical history includes prior hemorrhagic stroke with residual deficits including expressive aphasia, seizures who normally resides at [facility]. Patient was found to have polymicrobial infection including Pseudomonas and Dhara. During the course of her stay patient was also diagnosed with failure to thrive and underwent a PEG tube placement with gastroenterology. Overnight patient was called for rapid responses like acidosis and hypotension, ultimately the patient responded to fluids and await further evaluation. She was found to have a right upper lobe embolism pretension she was transferred to the ICU for further evaluation and management. Additionally the patient had poor vascular access several ultrasound-guided IVs. Per report the patient's mentation has also creased. Allergies Allergy/AdvReac Type Severity Reaction Status Date / Time No Known Allergies Allergy Verified 12/14/24 14:48 Home Medications Medication Instructions Recorded Confirmed Type meclizine 12.5 mg tablet 12.5 mg PO DIRECTED PRN Motion 08/27/24 12/17/24 History Sickness acetaminophen 500 mg/15 mL oral 1,000 mg PO BID 10/09/24 12/17/24 History liquid acetaminophen 650 mg/20.3 mL oral 650 mg PO QID PRN pain 1-8 10/09/24 12/17/24 History suspension ascorbic acid-ascorbate 15 ml PO QAM frequent UTI's 10/09/24 12/17/24 History calcium-ascorbate sod 500 mg/15 mL oral liquid (Vitamin C) bisacodyl 10 mg rectal suppository 10 mg [place] DIRECTED PRN 10/09/24 12/17/24 History (Dulcolax (bisacodyl)) Constipation docusate sodium 50 mg/5 mL oral 100 mg PO BID 10/09/24 12/17/24 History liquid gabapentin 300 mg/6 mL (6 mL) oral 100 - 300 mg PO TID 10/09/24 12/17/24 History solution levetiracetam 500 mg/5 mL (5 mL) 500 mg PO BID 10/09/24 12/17/24 History oral solution magnesium hydroxide 400 mg/5 mL 2,400 mg PO DIRECTED PRN 10/09/24 12/17/24 History oral suspension (Milk of Magnesia) Constipation ##0 melatonin 3 mg/4 mL oral drops 3 mg PO HS 10/09/24 12/17/24 History ondansetron 4 mg disintegrating 4 mg PO Q6H PRN nausea/vomiting 10/09/24 12/17/24 History tablet oxycodone 5 mg/5 mL oral solution 5 mg PO Q4H PRN pain 9-10 10/09/24 12/17/24 History promethazine 25 mg/mL injection 25 mg IM Q6H PRN nausea/vomiting 10/09/24 12/17/24 History solution propranolol 20 mg/5 mL (4 mg/mL) 60 mg PO Q8H 10/09/24 12/17/24 History oral solution ropinirole 0.25 mg tablet 0.25 mg PO TID 10/09/24 12/17/24 History sodium phosphates 19 gram-7 118 ml [place] DIRECTED PRN 10/09/24 12/17/24 History gram/118 mL enema (Fleet Enema) Constipation acetaminophen 650 mg rectal 650 mg [place] Q4H PRN pain, rated 1-3 12/14/24 12/17/24 History suppository mirtazapine 15 mg tablet (Remeron) 15 mg PO HS 12/14/24 12/17/24 History pantoprazole 40 mg tablet,delayed See Rx Instructions .Route .COMPLEX 12/14/24 12/17/24 History release potassium chloride 20 mEq/15 mL 20 meq PO QID 12/14/24 12/17/24 History oral liquid atorvastatin 40 mg tablet 40 mg PO HS 12/17/24 12/17/24 History Patient History Medical History Aphasia Cognitive communication deficit Abnormal posture Muscle weakness (generalized) Difficulty in walking, not elsewhere classified 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 Presence of urogenital implants H/O wisdom tooth extraction H/O: Family History Aunt Breast cancer Denies family history of Ovarian cancer Prostate cancer Myocardial infarction Colorectal cancer Social History Smoking Status: Former smoker Tobacco Type: Cigarettes Age Started Using Tobacco: 16; Hx Alcohol Use: No Hx Substance Use: No Preferred Language: Chinese Communication Ability: Impaired Visual Impairment: No Limitations Hearing Ability: Normal Shoes Hand Sewer Required: No Beliefs That Will Affect Care: None marital status: Single Current Living Situation: [facility] Current Living Situation Comment: [facility] resident current occupational status: employed 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 Glascow Coma Scale: Eyes: 4, Verbal 2, Motor 5, Total 11 Skin: Cool, please see vascular evaluation of hand for further details Head: Atraumatic Ears, nose, mouth and throat: airway patent Cardiovascular: Normal sinus rhythm noted on bedside monitor Respiratory: no respiratory distress Gastrointestinal: Non distended Musculoskeletal: No deformity Results & Data Results & Data Vital Signs (Past 12 Hours) Vital Signs Temp Pulse Pulse Pulse Resp BP BP 12/28/24 08:20 34.8 C L 85 19 109/73 12/28/24 07:29 79 23 126/67 12/28/24 05:09 35.2 C L 80 28 H 74/61 L 12/28/24 02:30 78 106/79 12/27/24 22:00 12/27/24 21:31 80 40 H 94/80 L Pulse Ox O2 Del Method 12/28/24 08:20 98 Room Air 12/28/24 07:29 97 Room Air 12/28/24 05:09 97 Room Air 12/28/24 02:30 97 Room Air 12/27/24 22:00 Room Air 12/27/24 21:31 97 Room Air Critical Care Results & Data Vital Signs (Past 12 Hours) Vital Signs Temp Pulse Pulse Pulse Resp BP BP 12/28/24 08:20 34.8 C L 85 19 109/73 12/28/24 07:29 79 23 126/67 12/28/24 05:09 35.2 C L 80 28 H 74/61 L 12/28/24 02:30 78 106/79 12/27/24 22:00 12/27/24 21:31 80 40 H 94/80 L Pulse Ox O2 Del Method 12/28/24 08:20 98 Room Air 12/28/24 07:29 97 Room Air 12/28/24 05:09 97 Room Air 12/28/24 02:30 97 Room Air 12/27/24 22:00 Room Air 12/27/24 21:31 97 Room Air Lab & Micro Results (Past 24 Hours) RBC 3.90 M/uL (4.20-5.40) L 12/28/24 WBC 6.52 K/ul (4.8-10.8) 12/28/24 Hgb 12.5 g/dl (12.0-16.0) 12/28/24 Hct 37.1 % (37.0-47.0) 12/28/24 MCV 95.1 fL (80.0-100.0) 12/28/24 MCH 32.1 pg (25.0-34.0) 12/28/24 MCHC 33.7 g/dL (32.0-36.0) 12/28/24 RDW Standard Deviation 60.7 fL (36.4-46.3) H 12/28/24 RDW Coefficient of Variation 17.9 % (11.5-14.5) H 12/28/24 Plt Count 131 K/uL (130-400) 12/28/24 MPV 11.7 fL (9.4-12.4) 12/28/24 Nucleated Red Blood Cells % (auto) 1.5 % 12/28 Nucleated RBC Absolute Count (auto) 0.10 K/uL (0.00-0.12) 0 12/28/24 Neutrophils (%) (Auto) 66.0 % 12/27/24 Lymphocytes (%) (Auto) 28.7 % 12/27/24 Monocytes # (Auto) 0.28 K/uL (0.11-0.59) 12/27/24 Eosinophils # (Auto) 0.04 K/uL (0.00-0.50) 12/27/24 Immature Granulocyte % (Auto) 1.4 % 12/27/24 Neutrophils # (Auto) 5.96 K/uL (1.40-6.50) 12/27/24 Lymphocytes # (Auto) 2.60 K/uL (1.20-3.40) 12/27/24 Monocytes # (Auto) 0.28 K/uL (0.11-0.59) 12/27/24 Eosinophils # (Auto) 0.04 K/uL (0.00-0.50) 12/27/24 Basophils # (Auto) 0.04 K/uL (0.00-0.20) 12/27/24 Immature Granulocyte # (Auto) 0.13 K/uL (0.01-0.20) 5 ANC 2.93 K/uL (1.4-6.5) 12/28/24 ALC 3.46 K/uL (1.2-3.4) H 12/28/24 Neutrophils % (Manual) 45 % 12/28/24 Lymphocytes % (Manual) 53 % 12/28/24 Monocytes % (Manual) 2 % 12/28/24 Neutrophils # (Manual) 2.93 K/uL (1.40-6.50) 12/28/24 Lymphocytes # (Manual) 3.46 K/uL (1.2-3.4) H 12/28/24 Monocytes # (Manual) 0.13 K/uL (0.11-0.59) 12/28/24 Polychromasia 1+ 12/28/24 Na 137 mmol/L (136-145) 12/28/24 K 3.9 mmol/L (3.5-5.1) 12/28/24 Cl 111 mmol/L (98-107) H 12/28/24 CO2 17 mmol/L (21-32) L 12/28/24 Anion Gap 9 (3-11) 12/28/24 BUN 22 mg/dl (6-23) 12/28/24 Creatinine 0.56 mg/dl (0.6-1.2) L 12/28/24 BUN/Creatinine Ratio 39.3 (10-20) H 12/28/24 Glu 135 mg/dl (70-99(Fasting)) H 12/28/24 Ca 7.8 mg/dl (8.6-10.3) L 12/28/24 Phosphorus Level 2.0 mg/dl (2.5-4.9) L 12/27/24 Total Bilirubin 0.6 mg/dl (0.2-1.0) 12/28/24 Direct Bilirubin 0.1 mg/dl (0-0.2) 12/28/24 AST 33 U/L (13-39) 12/28/24 ALT 37 U/L (7-52) 12/28/24 Alkaline Phosphatase 172 U/L (34-104) H 12/28/24 TP 4.4 gm/dl (6.0-8.3) L 12/28/24 Albumin 1.7 gm/dl (3.4-5.0) L 12/28/24 Calcium Level 7.8 mg/dl (8.6-10.3) L 12/28/24 12:52 Venous Blood pH 7.36 (7.36-7.41) 12/28/24 03:23 Venous Blood Partial Pressure CO2 24 mmHg (38-50) L 12/28/24 03 :23 Venous Blood Partial Pressure O2 31 mmHg 12/28/24 03:23 Venous Blood HCO3 14 mmol/L 12/28/24 03:23 Venous Blood Base Excess -9.9 mEq/L 12/28/24 03:23 Venous Blood Oxygen Saturation < 60.0 % 12/28/24 03:23 Diagnostic Findings (Past 24 Hours) KUB X-Ray 12/27/24 10:31 KUB HISTORY: crying uncontrollably COMPARISON STUDY: 06/04/2023 FINDINGS: Position of the PEG tube is grossly stable. There is an interval well positioned appearing right ureteral stent. There are a few right renal calculi visible. There is mild retained stool. No bowel obstruction seen. No gross free air. IMPRESSION: No acute findings. ACT 112: Negative or not required by law. The above report was generated using voice recognition software. It may contain grammatical, syntax or spelling errors. Electronically signed by: Kevin Bryant M.D. 12/27/2024 10:52 AM Chest X-Ray 12/27/24 19:29 EXAM: Portable AP chest radiograph TECHNIQUE: AP portable radiograph of the chest was obtained. INDICATION: Shortness of breath Comparison: Chest radiograph September 02, 2022. FINDINGS: LINES and TUBES: None. CARDIOVASCULAR: Cardiac silhouette is mildly enlarged in size. LUNGS/PLEURA: There are hazy bibasilar densities obscuring the hemidiaphragms which may represent pleural fluids and atelectasis. Superimposed airspace disease is not excluded. Mild pulmonary vascular congestion. No discernible pneumothorax. OSSEOUS/OTHER: No displaced acute osseous process identified. Compressive changes of the spine. There is a catheter material noted over the right hemiabdomen. IMPRESSION: Hazy bibasilar densities obscuring the hemidiaphragms which may represent pleural fluids and atelectasis. Superimposed airspace disease is not excluded. Electronically signed by Mauro Logan 12-27-2024 8:[address] 12/27/24 19:29 Exam(s): CT HEAD Without Contrast EXAM: CT Head Without Intravenous Contrast CLINICAL HISTORY: Reason for exam: lethargy; sluggish pupils. TECHNIQUE: Axial computed tomography images of the head/brain without intravenous contrast. CTDI is 61.2 mGy and DLP is 961.59 mGy-cm. Automated exposure control was utilized for the study. A dose lowering technique was utilized adhering to the principles of ALARA. COMPARISON: CT January 23, 2024. FINDINGS: Brain: There is stable, old encephalomalacia in the left basal ganglia and estrella radiata white matter. No acute intracranial edema, hemorrhage or abnormal mass-effect. Ventricles: Unremarkable. No ventriculomegaly. Bones/joints: Unremarkable. No acute fracture. Soft tissues: Unremarkable. Sinuses: Unremarkable as visualized. No acute sinusitis. Mastoid air cells: Unremarkable as visualized. No mastoid effusion. IMPRESSION: No acute findings in the head/brain. Electronically signed by: Montrell Buck MD 12/27/24 23:01 PM Abdomen/Pelvis CT 12/28/24 07:09 EXAM: CT abd pelvis IV con only CLINICAL HISTORY: s/p PEG tube TECHNIQUE: CT of the abdomen and pelvis was performed with and without contrast (112 Opti 320), with the following protocol: axial images with, and reconstructed coronal and sagittal images. One of the following dose reduction techniques was utilized for this exam: Automated exposure control, adjustment of the mA and/or kV according to patient size, and use of iterative reconstruction. total DLP 1750.52 mGy.cm COMPARISON: Comparison is made with prior CT dated 12/17/2024. FINDINGS: Visualised thorax shows new appearance of mild bilateral pleural effusion with underlying subsegmental atelectasis. Abdomen: Liver: Normal in size, shape, and stable fatty density with pericholecystic hyperemia in segments 4b and 5. Stable small hypodense lesion of 5-6 mm in segment 6 likely cyst. No focal lesions, cysts, or masses were identified. Hepatic vasculature and biliary ducts are unremarkable. Gallbladder and Biliary System: The gallbladder is normal in size and shape with enhancing wall. No wall thickening, pericholecystic fluid, or gallstones were identified. The common bile duct is normal in caliber without dilation. Pancreas: Pancreatic head, body, and tail are visualized and appear normal in size and density. No pancreatic masses or calcifications were noted. The pancreatic duct is not dilated. Spleen: Normal in size, shape, and density. New appearance of linear faint hypodensities along lateral aspect of parenchyma possibly ischemia. Appendix: The appendix is normal in size without allison appendiceal fat stranding, and without an appendicolith. No evidence of appendiceal abscess or perforation. Kidneys and Adrenal Glands: New finding of right renal DJ stent and calculus along stent in proximal ureter. Previously seen calculi in upper pole and pelvis of right kidney not seen in current scan. Both kidneys are normal in size, shape, and position. Cortical thickness is within normal limits. Adrenal glands are unremarkable with no evidence of masses or hyperplasia. Pelvis: Urinary Bladder: Partially distended and shows stable irregular wall thickening. No intraluminal lesions identified. Uterus: Normal in size and contour. No masses or abnormal thickening. Ovaries: Not well visualized but no gross abnormalities noted. Vagina: Normal in contour and wall thickness. Cervix: No evidence of mass or abnormal thickening. Peritoneal and Retroperitoneal Structures: New appearance of moderate ascites and fat stranding in mesentery. Mild amount of free air noted. No lymphadenopathy was noted. Moderate atherosclerotic wall calcifications in abdominal aorta and its branches. Bowel: New finding of PEG tube in stomach and edematous thickening of stomach wall. The visualized bowel loops are normal in caliber and appearance. No evidence of bowel obstruction or wall thickening. Bones and Soft Tissues: Diffuse anasarca. Osteopenia. Spondylotic changes in spine. Pelvic bones and soft tissues are unremarkable. No fractures or abnormal masses were identified. IMPRESSION: 1. New appearance of mild bilateral pleural effusion with underlying subsegmental atelectasis. 2. New appearance of moderate ascites and fat stranding in mesentery. 3. New finding of PEG tube in stomach and edematous thickening of stomach wall. 4. New finding of mild pneumoperitoneum likely post intervention. 5. New appearance of linear faint hypodensities along lateral aspect of splenic parenchyma possibly ischemia. 6. New finding of right renal DJ stent and calculus along stent in proximal ureter. 7. Previously seen calculi in upper pole and pelvis of right kidney not seen in current scan. 8. Stable fatty liver with pericholecystic hyperemia in segments 4b and 5. 9. Stable small hypodense lesion of 5-6 mm in segment 6 of liver likely cyst. 10. Stable irregular wall thickening in urinary bladder likely cystitis. Clinical correlation is recommended for further evaluation. Electronically signed by Reza Oreilly 12-28-2024 09:09 AM Chest CTA 12/28/24 07:09 EXAM: CT angio chest PE protocol CLINICAL HISTORY: elevated d-dimer. TECHNIQUE: CT angiography of the chest was performed with and without intravenous contrast with the following protocol: axial images with, reconstructed coronal and sagittal images. Non-contrast images were initially acquired, followed by contrast-enhanced images in arterial and venous phases. Intravenous contrast was administered using automated injection techniques. Bolus tracking was employed to optimize arterial phase imaging. One of these 3D techniques was utilized: Maximum Intensity Pixel (MIP), 3D Reconstructed Images, Volume Rendered Images, Surface Shaded Rendering. One of the following dose reduction techniques was utilized for this exam: Automated exposure control, adjustment of the mA and/or kV according to patient size, and use of iterative reconstruction. DLP: 170.5 mGy.cm. COMPARISON: chest x-ray dated 12/27/[address] dated 12/17/2024. FINDINGS: Aorta and Great Vessels: Ascending Aorta: Normal in caliber, no aneurysm, dissection, or significant atherosclerosis. Aortic Arch: Normal in caliber, no aneurysm, dissection, or significant atherosclerosis. Descending Aorta: Normal in caliber, no aneurysm, dissection, or significant atherosclerosis. Pulmonary Arteries: Right upper lobe segmental artery thrombus is seen. The main pulmonary artery and its branches are patent. No evidence of other pulmonary embolism or significant stenosis. Heart: Cardiac Chambers: Mildly enlarged in size with increased RV:LV ratio, indicating right cardiac strain. Pericardium: Mild pericardial effusion/thickening. Lungs and Pleura: Bilateral moderate-sized free pleural effusion with passive basal atelectasis. No evidence of consolidation, collapse, or focal lesions. Mediastinum: No mediastinal mass or abnormal lymphadenopathy. The esophagus is mildly prominent, nonspecific. Normal appearance of the trachea and central bronchi. Hilar Structures: Hilar structures are normal without enlargement. Chest Wall: No mass lesions or abnormalities in the chest wall. Vascular Structures: Superior Vena Cava: Patent without evidence of stenosis or thrombus. Inferior Vena Cava: Patent without evidence of stenosis or thrombus. Free gas was noted in the abdomen. Bones and Soft Tissues: No fractures, lytic, or blastic lesions of the visualized bony structures. Soft tissues are unremarkable. IMPRESSION: 1. Right upper lobe segmental artery thrombus is seen with evidence of right sided cardiac strain, echo correlation recommended. 2. Bilateral moderate pleural effusion with passive basal atelectasis. present in previous chest X ray and not seen in the abdomen CT on 12/17/2024. 3. The esophagus is mildly prominent, nonspecific. Electronically signed by Reza Oreilly 12-28-2024 08:38 AM I & O Totals 24 Hours 12/27/24 12/28/24 12/29/24 06:59 06:59 06:59 Intake Total 1281.667 / 1965.455 1755.250 / 3208.250 0.75 / 0.75 Output Total 350 / 350 525 / 525 Balance 931.667 / 545.419 7355.250 / 2683.250 0.75 / 0.75 Cumulative 12/17/24 11:06 thru 12/28/24 07:31 Intake Total 89436.333 Output Total 6660 Balance 78417.333 RT Ventilator Mngmt (Last Documented) Ventilator Ordered Settings Respiratory Rate 19 12/28/24 08:20 Ventilator - PT Measurements Respiratory Rate 19 Coding Level of Care Code 45863 CRITICAL CARE 1ST 30-74M Diagnoses Acute pulmonary embolism without acute cor pulmonale, unspecified pulmonary embolism type I26.99 Pulmonary embolism type: unspecified Chronicity: acute Acute cor pulmonale presence: without acute cor pulmonale Nephrolithiasis N20.0 Right ureteral stone N20.1 Esophageal dysphagia R13.19 Seizure-like activity R56.9 Cerebral hemorrhage I61.9 Metabolic acidosis with normal anion gap and bicarbonate losses E87.20 (1) Pulmonary emboli Pulmonary embolism type: unspecified Chronicity: acute Acute cor pulmonale presence: without acute cor pulmonale Qualified Code(s): I26.99 - Other pulmonary embolism without acute cor pulmonale
--- NOTE | 2024-12-28 10:38 | XCELERA ---
[id number]
--- NOTE | 2024-12-28 11:09 | Hospitalist Progress Note ---
Date of Service December 28, 2024 Assessment & Plan (1) Pulmonary emboli: (2) AMS (altered mental status): (3) Metabolic acidosis with normal anion gap and bicarbonate losses: (4) Right arm weakness: (5) Depression: (6) UTI (urinary tract infection): (7) Status post insertion of percutaneous endoscopic gastrostomy (PEG) tube: Plan Bridge summary: Patient case reviewed and with rapid response and deterioration overnight. Case reviewed and summarized as below following handoff: 64-year-old female with past medical history of hemorrhagic left basal ganglier CVA in 2021 with resulting right sided strength deficits, seizure, hyperlipidemia, chronic indwelling Alves who presented with concern for complicated UTI with right hydronephrosis and he was treated for both Pseudomonas and candidal UTI. Due to right hydro she underwent right stent placement. She completed 10 days of cefepime but due to concerns for encephalopathy was transitioned to meropenem. Is continued on Diflucan for possible candidal UTI. Patient has had progressive deterioration of her cognitive status. At baseline was reportedly able to walk with assistance although residual right-sided deficits and could talk and hold conversation. During admission had been generally nonverbal. Overnight 12/27/24 did have a rapid response for lethargy and hypotension. Evaluation showed a non-anion gap metabolic acidosis, CT of the head has been without acute findings, chest x-rayWith hazy bibasilar densities? Pleural fluid/atelectasis versus early pneumonia. KUB was unremarkable. Did have some transient improvement with Narcan, further opioids were held. Did not return to mentation baseline. Patient was signed out by overnight team morning and 12/28. Given her clinical deterioration, hypotension, elevated D-dimer, and declining presentation CTAchest and CTA/P with contrast was performed. CTAchest- right pulmonary emboli. Patient was seen at the bedside and was found to have a cold left hand. Both upper extremities with significant pitting edema however left hand was with asymmetric coolness and delayed cap refill of several seconds. Prior arterial duplex studies 12/26/2024 did not show any acute occlusion. Repeat arterial duplex was ordered due to concern for worsening perfusion of the left hand and CT limited due to prior contrast load. Vascular was consulted. Per verbal report with nursing bedside ultrasound was able to confirm vascular flow to the hand, arterial duplex was canceled. Patient is pending heparinization for her PE. In addition to above patient had a left ultrasound-guided IV which was no longer able to draw for labs. Other IV access lost. Temp to draw labs and obtain additional access have failed and limited by significant third spacing and edema. Discussed with ICU, patient to be transferred down due to worsening illness, need for central line access and higher level of monitoring given hypotension, PE, initial concern for limb evaluation, and NAGMA. Additionally on discussion with nursing staff prior to transfer patient has had loose/liquid bowel movements of several days. Likely contributing to her nonanion gap acidosis and bicarbonate loss, given antibiotic treatment and prolonged course C. difficile has been ordered. Per discussion with family patient is around with 70% reduced function and while aphasic at baseline normally can engage and follows commands for neurologic testing. #Complicated UTI, right obstructive ureteral stones Pseudomonas/candidal infection Cefepime 10 days completed 12/27, transition to meropenem for concerns of contribution to encephalopathy Continue meropenem 500 mg every 6 hours Continue Diflucan for candidal UTI, course to be complete 12/29/24 Creatinine stable, BMP daily Cultures drawn 12/28 NGTD #PE CTA 12/28With right upper lobe segmental thrombus, radiographic suggestion of right heart strain TTE with some RV dilation. Grade 1 diastolic dysfunction. LV SF normal Heparin GTT ordered She was hypotensive however patient does have a history of hemorrhagic stroke. Thrombolysis contraindicated. Additionally following fluid resuscitation blood pressure has normalized, has a unilateral clot burden, and while formal read pending no overt evidence of right-sided heart strain at bedside echo. #Non-anion gap metabolic acidosis With GI losses, poor nutritional intake requiring PEG feeding. Creatinine is normal and w/o renal failure On bicarb drip overnight - persistently hyperchloremic --> use balanced crystalloids when required With volume contraction and PEG feeds Repeat VBG 7. ? Increased GI losses with loose BMs per discussion with nursing. C. difficile pending BMP pending, replete as indicated. Bicarb improving #Encephalopathy Patient has a prolonged period of deviation from her mentation baseline and while had been described as nonverbal this admission was reportedly able to carry conversation and ambulate prior to this. Did have some degree of infectious metabolic encephalopathy however has not improved despite broad- spectrum antibiotics. - On provider assessment follow xfer to ICU remains altered. Open eyes but does not track. Does not follow one step commands (Close your eyes, squeeze my hand). - Reviewed [facility] neurology note from 1 year ago. Current level of function is clearly well below her baseline. While she does have persistent expressive aphasia in the past she is clearly been able to engage in neurologic testing and follow commands which is absent currently. - MRI- B ordered Patient did have some improvement following Narcan overnight and had been getting morphine for discomfort. Remains with significantly altered and suppressed mentation several hours out from this and does not show signs of respiratory suppression. Has not received further narcotics. Could have some contribution from metabolite accumulation. Avoid narcotics Hypoalbuminemia CTA/P: Moderate ascites and mesenteric fat stranding. PEG tube is noted. Mild pneumoperitoneum likely post PEG tube/intervention. Faint splenic parenchymal hypodensities suggestive of possible ischemia. Right renal stent in place. Stable fatty liver disease, mild pericholecystic hyperemia. Small liver hypodensity suspected cystic. Evidence of cystitis No overt cirrhosis. INR 1.1. Mild transaminitis is improved/resolved with fluid ? Nutritional #Concern for left upper extremity ischemia At bedside evaluation following signout left hand cool, with prolonged cap refill. Radial pulse difficult to appreciate although significant surrounding edema Vascular consulted. Patient had already received contrast, repeat arterial duplex was ordered pending evaluation. Already ordered therapeutic heparin for PE as noted Strength/sensation limited by mentation On vascular surgery had adequate cap refill and was able to have good Doppler signals at the wrist and palmar arch. Did not feel there was evidence of ischemia of the right upper extremity; additional workup not recommended at this time. Appreciate evaluation. #History of seizure Gabapentin held due to altered mental status Keppra via PEG tube twice daily continued #PEG feeds Continue continuous/trophic feeds, increase as tolerated Nutrition consulted and following Goals of care: Did update patient's son by phone following assumption of care on 12/28. He reports that Soha at this time would want full measures including central lines, vasopressors if indicated, anticoagulation, and surgeries if likely to improve her functional ability and quality of life. In the event of a catastrophic event and if she was unlikely to regain significant function/likely to have difficultly impaired function chronically would consider palliative measures at that time. Full code, full measures at this time but would like to discuss with palliative care if patient deteriorates. Son again updated at bedside after arriving in the ICU in the evening. Notes that his mother is at about 30% of what her normal function was 3 weeks ago Admission and Anticipated Discharge Date Admission Date: December 18, 2024 Subjective Reviewed at signout. Reviewed overnight code events. At bedside history is limited by nonverbal status, patient does not follow commands or open eyes. Lethargic [facility] neurology note reviewed from 04/02/2024 63-year-old female with history of left basal cannula intraparenchymal hemorrhage with left lateral ventricle IVH on 09/12/2022 Seizure associated with her IPH, was placed on Keppra at that time. EEG showed persistent left hemispheric slowing On exam at this time patient's son provided most of the history. Patient did have moderate difficulties with dysarthria and expressive aphasia and left-sided facial droop. Wheelchair-bound. At that visit did not have recurrent seizure-like activity Was with concern for progression of speech Duloxetine 30 mg twice daily, aspirin, atorvastatin, and ropinirole were continued. Was able to participate in [id number]-[id number] testing at that time. At office visit prior to that was able to participate in dysdiadochokinesia testing Based on above note current level of function is clearly well below her baseline. While she does have persistent expressive aphasia in the past she is clearly been able to engage in neurologic testing and follow commands which is absent currently. Physical Exam Physical Exam: General: Lethargic. On reassessment opens eyes but does not track, does not follow one-step commands HEENT: Pupils equal, reactive to light bilaterally. No relative afferent pupillary defect. Does not follow commands difficult to assess vision/ Pulm: Diminished but clear. No hypoxia. Cardiac: RRR, -mrg. Radial pulses intact and symmetrical. Abdominal: Soft. Without rigidity Extremities: Diffuse third spacing/pitting edema of all extremities. Both upper extremities cool however left hand is asymmetrically cold, difficult to appreciate radial pulse due to swelling, cap refill prolonged and around 5 seconds on morning assessment. Strength and sensation unable to be assessed due to mentation Results & Data Results & Data Vital Signs (Past 12 Hours) Vital Signs Temp Pulse Pulse Pulse Resp BP BP 12/28/24 08:20 34.8 C L 85 19 109/73 12/28/24 08:00 34.8 C L 12/28/24 08:00 12/28/24 07:29 79 23 126/67 12/28/24 05:09 35.2 C L 80 28 H 74/61 L 12/28/24 02:30 78 106/79 Pulse Ox O2 Del Method 12/28/24 08:20 98 Room Air 12/28/24 08:00 12/28/24 08:00 Room Air 12/28/24 07:29 97 Room Air 12/28/24 05:09 97 Room Air 12/28/24 02:30 97 Room Air PG Care Time/CCT Total # of Minutes Spent Total Time Spent with Patient: Total time spent is greater than 50% in coordination of care (as documented) at patient's floor/unit and/or counseling patient: Coding Level of Care Code 25133 SUB INP/OBS CARE 3/50MIN Diagnoses Acute pulmonary embolism without acute cor pulmonale, unspecified pulmonary embolism type I26.99 Pulmonary embolism type: unspecified Chronicity: acute Acute cor pulmonale presence: without acute cor pulmonale AMS (altered mental status) R41.82 Metabolic acidosis with normal anion gap and bicarbonate losses E87.20 Right arm weakness R29.898 Depression F32.A UTI (urinary tract infection) N39.0 Status post insertion of percutaneous endoscopic gastrostomy (PEG) tube Z93.1 (1) Pulmonary emboli Pulmonary embolism type: unspecified Chronicity: acute Acute cor pulmonale presence: without acute cor pulmonale Qualified Code(s): I26.99 - Other pulmonary embolism without acute cor pulmonale
--- NOTE | 2024-12-28 11:12 | Electrocardiogram Report ---
Test Reason : Blood Pressure : */* mmHG Vent. Rate : 69 BPM Atrial Rate : 69 BPM P-R Int : 168 ms QRS Dur : 66 ms QT Int : 420 ms P-R-T Axes : 45 2 112 degrees QTcB Int : 450 ms Normal sinus rhythm Low voltage QRS Abnormal ECG When compared with ECG of 02-Sep-2022 13:04, QRS voltage has decreased Nonspecific T wave abnormality now evident in Lateral leads Confirmed by Too Moyer ([id number]) on 12/28/2024 11:12:22 AM Referred By: REFERRED SELF Confirmed By: Too Moyer
--- NOTE | 2024-12-28 11:16 | Electrocardiogram Report ---
Test Reason : Blood Pressure : */* mmHG Vent. Rate : 80 BPM Atrial Rate : 80 BPM P-R Int : 148 ms QRS Dur : 74 ms QT Int : 398 ms P-R-T Axes : 27 -19 67 degrees QTcB Int : 459 ms Normal sinus rhythm Low voltage QRS Possible Inferior infarct , age undetermined Abnormal ECG When compared with ECG of 27-Dec-2024 18:49, (unconfirmed) Borderline criteria for Inferior infarct are now Present Confirmed by Too Moyer ([id number]) on 12/28/2024 11:15:56 AM Referred By: REFERRED SELF Confirmed By: Too Moyer
--- NOTE | 2024-12-28 11:40 | Ultrasound Report ---
US venous doppler UE BI CLINICAL HISTORY: upper arm swelling b/l COMPARISON STUDY: None FINDINGS: No evidence of DVT seen at bilateral upper extremities. IMPRESSION: No DVT seen. ACT 112: Negative or not required by law. Electronically signed by: Kevin Bryant M.D. 12/28/2024 11:39 AM
--- NOTE | 2024-12-28 12:16 | Consultation ---
Date of Consultation December 28, 2024 Assessment & Plan (1) Right arm weakness: On exam she has good Doppler signals both at the wrist and the palmar arch. She has good capillary refill to the fingertips. There is no evidence of ischemia of the right upper extremity. No further workup or intervention is needed. Please call if there are any other concerns. Thank you very much for letting us participate in the care of this patient. History of Present Illness Reason for Consultation: Right hand coldness Attending Physician: Ernesto Fagan MD History of Present Illness This is a 64-year-old patient who is nonverbal from aphasia. There is concern about right hand ischemia with coldness and slight discoloration. Allergies Allergy/AdvReac Type Severity Reaction Status Date / Time No Known Allergies Allergy Verified 12/14/24 14:48 Home Medications Medication Instructions Recorded Confirmed Type meclizine 12.5 mg tablet 12.5 mg PO DIRECTED PRN Motion 08/27/24 12/17/24 History Sickness acetaminophen 500 mg/15 mL oral 1,000 mg PO BID 10/09/24 12/17/24 History liquid acetaminophen 650 mg/20.3 mL oral 650 mg PO QID PRN pain 1-8 10/09/24 12/17/24 History suspension ascorbic acid-ascorbate 15 ml PO QAM frequent UTI's 10/09/24 12/17/24 History calcium-ascorbate sod 500 mg/15 mL oral liquid (Vitamin C) bisacodyl 10 mg rectal suppository 10 mg AL DIRECTED PRN 10/09/24 12/17/24 History (Dulcolax (bisacodyl)) Constipation docusate sodium 50 mg/5 mL oral 100 mg PO BID 10/09/24 12/17/24 History liquid gabapentin 300 mg/6 mL (6 mL) oral 100 - 300 mg PO TID 10/09/24 12/17/24 History solution levetiracetam 500 mg/5 mL (5 mL) 500 mg PO BID 10/09/24 12/17/24 History oral solution magnesium hydroxide 400 mg/5 mL 2,400 mg PO DIRECTED PRN 10/09/24 12/17/24 History oral suspension (Milk of Magnesia) Constipation ##0 melatonin 3 mg/4 mL oral drops 3 mg PO HS 10/09/24 12/17/24 History ondansetron 4 mg disintegrating 4 mg PO Q6H PRN nausea/vomiting 10/09/24 12/17/24 History tablet oxycodone 5 mg/5 mL oral solution 5 mg PO Q4H PRN pain 9-10 10/09/24 12/17/24 History promethazine 25 mg/mL injection 25 mg IM Q6H PRN nausea/vomiting 10/09/24 12/17/24 History solution propranolol 20 mg/5 mL (4 mg/mL) 60 mg PO Q8H 10/09/24 12/17/24 History oral solution ropinirole 0.25 mg tablet 0.25 mg PO TID 10/09/24 12/17/24 History sodium phosphates 19 gram-7 118 ml AL DIRECTED PRN 10/09/24 12/17/24 History gram/118 mL enema (Fleet Enema) Constipation acetaminophen 650 mg rectal 650 mg AL Q4H PRN pain, rated 1-3 12/14/24 12/17/24 History suppository mirtazapine 15 mg tablet (Remeron) 15 mg PO HS 12/14/24 12/17/24 History pantoprazole 40 mg tablet,delayed See Rx Instructions .Route .COMPLEX 12/14/24 12/17/24 History release potassium chloride 20 mEq/15 mL 20 meq PO QID 12/14/24 12/17/24 History oral liquid atorvastatin 40 mg tablet 40 mg PO HS 12/17/24 12/17/24 History Patient History Medical History Aphasia Cognitive communication deficit Abnormal posture Muscle weakness (generalized) Difficulty in walking, not elsewhere classified 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 Presence of urogenital implants H/O wisdom tooth extraction H/O: Family History Aunt Breast cancer Denies family history of Ovarian cancer Prostate cancer Myocardial infarction Colorectal cancer Social History Smoking Status: Former smoker Tobacco Type: Cigarettes Age Started Using Tobacco: 16; Hx Alcohol Use: No Hx Substance Use: No Preferred Language: Palauan Communication Ability: Impaired Visual Impairment: No Limitations Hearing Ability: Normal Train Conductor Required: No Beliefs That Will Affect Care: None marital status: Single Current Living Situation: Half-Way Current Living Situation Comment: [facility] resident current occupational status: employed current occupation: [employer] Other Information That Helps Us Care for You: No Feels Safe at Home: Yes Safety Concerns: Feels Safe At This Time Childhood Exposure to Second-Hand Smoke: Yes Diet: other Diet Comment: sometimes does [facility], Regularly: Yes Physical Activity Frequency: 5-6 Times per Week Seatbelt Use: always Sunscreen Use: Yes Assistive Devices: Mechanical Lift Review of Systems Review of Systems: Unobtainable due to cognitive status Physical Exam Constitutional: WD/WN, vitals as above Cardiovascular: Vessels: radial pulses present (Left radial pulses palpable right radial and cannot feel due to the edema) Extremities: normal capillary refill and + edema (There is marked edema of the right upper extremity mostly forearm and hand.) There is good capillary refill in the fingers of the right hand. Doppler done on the right upper extremity had triphasic sounding signals at the radial and ulnar arteries. There is also a triphasic signal heard in the palmar arch of the right hand. Skin: + ecchymosis (Mild-moderate ecchymosis p resent of the right forearm.) All extremities were cool to touch. Results & Data Vital Signs (Past 12 Hours) Vital Signs Temp Pulse Pulse Pulse Resp BP BP 12/28/24 08:20 34.8 C L 85 19 109/73 12/28/24 08:00 34.8 C L 12/28/24 08:00 12/28/24 07:29 79 23 126/67 12/28/24 05:09 35.2 C L 80 28 H 74/61 L 12/28/24 02:30 78 106/79 Pulse Ox O2 Del Method 12/28/24 08:20 98 Room Air 12/28/24 08:00 12/28/24 08:00 Room Air 12/28/24 07:29 97 Room Air 12/28/24 05:09 97 Room Air 12/28/24 02:30 97 Room Air
--- NOTE | 2024-12-28 12:30 | Procedure Note ---
Procedure Note Date of Service December 28, 2024 Procedure date: Noted above Procedure: Central venous access Pre-procedure indication: Need for vasoactive medication administration Post-procedure Diagnosis: same as above Prior to Procedure: Informed Consent: Two physician consent Attending Staff: Shannan Adamson DO Resident/APC: Not applicable Skin Prep: Chlorhexidine Anesthesia: 4 mL 1% lidocaine without epinephrine The identity of the patient was confirmed and a bedside time out was performed. Description of Procedure: After sterile prep and sterile drape utilizing standard sterile technique the superficial skin of the left internal jugular area was anesthetized. The target vessel was identified and entered with an 18- gauge needle. Dark venous blood return was noted. A guidewire was inserted through the needle and into the vessel. The needle was withdrawn and a skin yeny was made. A tissue dilator was advanced via Seldinger technique and removed. A triple lumen catheter was inserted via Seldinger technique and the guidewire removed. All ports ellie and flushed easily. A Biopatch was placed, and the catheter was secured via silk suture. A sterile dressing was then applied. Complications: None Estimated blood loss: Trace Patient tolerated the procedure well. Procedure Date: Noted Above Procedure: Procedural Ultrasound Indication: Central venous access Attending: Shannan Adamson DO Resident/Physician Agricultural Systems Specialist: Not applicable Artery visualized: Yes Vein visualized: Yes Compressible Vein: Yes Vein patent: Yes Guidewire or Short Catheter seen in vein prior to dilation: Yes Line confirmed in Vein with ultrasound: Yes Lung Sliding on side of attempt (if applicable): NA If no lung sliding or not obtained has CXR been ordered: Yes Impression: Successful central venous access placement Images obtained are saved for permanent record [facility] Procedure Codes (Charges) Tubes, Drains, and Vasc Access Procedure 1: Tubes, Drains, and Vasc Access: [id number] Insertion Of Non-tunneled Catheter Age 5 Yrs> Procedure 2: Tubes, Drains, and Vasc Access: [id number] Ultrasound Guidance For Vascular Coding CPT Codes Tubes, Drains, and Vasc Access - Tubes, Drains, and Vasc Access: [id number] Insertion Of Non-tunneled Catheter Age 5 Yrs> ([id number]) Tubes, Drains, and Vasc Access - Tubes, Drains, and Vasc Access: [id number] Ultrasound Guidance For Vascular ([id number]) Additional Codes Date of Service ([facility].SURGERY)
[2024-12-28] MEDS: HEPARIN 25000 UNIT/500 ML D5W 25,000 UNITS/500 ML BAG IV SCH (13:06)
[2024-12-28] MEDS: HEPARIN SOD (PORCINE) 1000 UNIT/ML IV ONE (13:06)
--- NOTE | 2024-12-28 13:27 | XRay Report ---
XR chest 1V portable CLINICAL HISTORY: lines COMPARISON STUDY: 12/27/2024 FINDINGS: Heart size and pulmonary vasculature are normal. There is stable stranding opacity in the l judson bases. No pneumothorax. There is interval left central catheter with the tip near the brachioceph alic SVC junction. IMPRESSION: No pneumothorax. Otherwise as described. ACT 112: Negative or not required by law. Electronically signed by: Kevin Bryant M.D. 12/28/2024 1:26 PM
[2024-12-28 13:34] LABS: BUN Creatinine Ratio 39.3 (10-20); Calcium 7.8 mg/dl (8.6-10.3); Creatinine Clr Calc Pharmacy 76.6 ml/min; Potassium 3.9 mmol/L (3.5-5.1)
[2024-12-28 18:20] LABS: BUN Creatinine Ratio 39.6 (10-20); Calcium 7.8 mg/dl (8.6-10.3); Creatinine Clr Calc Pharmacy 80.9 ml/min; Phosphorus 1.7 mg/dl (2.5-4.9); Potassium 3.9 mmol/L (3.5-5.1)
[2024-12-28] MEDS ORDERED: SODIUM PHOSPHATE 3 MMOL/1 ML INFUSION IV STA (18:23)
[2024-12-28] MEDS: SODIUM PHOSPHATE 12 MMOL in SODIUM CHLORIDE 0.9% 250 ML IV ONE (19:32)
[2024-12-28 21:11] LABS: ANTI-Xa, UFH(UnfractionatedHep > 1.50 IU/ml (0.3-0.7)
[2024-12-28] MEDS ORDERED: Nursing to Pharmacy Communication SCH (23:45)
[2024-12-29 00:09] LABS: ANTI-Xa, UFH(UnfractionatedHep > 1.50 IU/ml (0.3-0.7)
[2024-12-29 01:18] LABS: ANTI-Xa, UFH(UnfractionatedHep 1.12 IU/ml (0.3-0.7)
[2024-12-29 02:07] LABS: ANTI-Xa, UFH(UnfractionatedHep 0.81 IU/ml (0.3-0.7)
[2024-12-29 03:14] LABS: ANTI-Xa, UFH(UnfractionatedHep 0.54 IU/ml (0.3-0.7)
[2024-12-29 05:27] LABS: Magnesium 2.1 mg/dl (1.7-2.4); Phosphorus 2.6 mg/dl (2.5-4.9); Potassium 3.7 mmol/L (3.5-5.1)
[2024-12-29 05:47] LABS: Hematocrit (blood only) 25.8 % (37.0-47.0); Mean Corpuscular Hgb Conc 34.9 g/dL (32.0-36.0); Mean Corpuscular Volume 91.8 fL (80.0-100.0); Mean Platelet Volume 10.7 fL (9.4-12.4); Nucleated RBC # (auto) 0.16 K/uL (0.00-0.12); Nucleated RBC % (auto) 2.2 %; Platelet Count 84 K/uL (130-400); RDW Standard Deviation 59.3 fL (36.4-46.3); Red Blood Count 2.81 M/uL (4.20-5.40)
[2024-12-29] MEDS: HYDROCORTISONE SOD 50 MG in SYRINGE 0 ML IV SCH (09:31)
[2024-12-29] MEDS: CALCIUM GLUCONATE 1,000 MG/60 ML BAG IV STA (09:31)
[2024-12-29 10:13] LABS: ANTI-Xa, UFH(UnfractionatedHep 1.03 IU/ml (0.3-0.7)
[2024-12-29] MEDS: TUBE FEEDING WATER FLUSH PEG SCH (11:02)
[2024-12-29 11:24] LABS: Reticulocyte % 2.98 % (0.50-2.00); Reticulocytes # 0.09 10^6/uL (0.020-0.100)
[2024-12-29 11:47] LABS: Iron 41 mcg/dl (35-150); Transferrin < 95 mg/dl (200-360)
[2024-12-29 12:00] LABS: Ferritin 1236.1 ng/ml (8-388)
[2024-12-29] MEDS: 4.5GM X1 IV ONE (12:32)
--- NOTE | 2024-12-29 14:38 | Magnetic Resonance Report ---
MR brain wo con HISTORY: 64 years-old Female Nonverbal, persistent AMS, hx ICH acutely altered mental status with re cent head trauma COMPARISON: Head CT 12/27/2024 TECHNIQUE: Multiplanar multisequence MRI of the brain was obtained without IV contrast FINDINGS: Study is motion degraded. The midline structures appear unremarkable Large focus of encephalomalacia with peripheral hemosiderin is seen within the left frontal lobe estrella radiata and basal ganglia wit h ex vacuo ventriculomegaly of the left lateral ventricle. Within the center of the encephalomalacia there is a 2.9 x 1.3 cm heterogeneous focus with intermediate T2 signal, increased T1 signal and incr eased diffusion-weighted signal on image 16 series 11. Prior left occipital craniotomy. There is an 8 mm focus of restricted diffusion within the right cerebral hemisphere on image 8 series 11 demonstra ting slightly decreased signal on ADC map. Involutional changes with moderate T2/FLAIR hyperintense foci. The white matter suggestive of chronic microvascular ischemic disease. Cerebral venous sinuses and visualized major arterial flow voids eder ear patent. Moderate to large mastoid effusions. Unremarkable skull, orbits and soft tissues. IMPRESSION: 1. Large area of chronic encephalomalacia again noted within the left frontal lobe estrella radiata and basal ganglia. Within the center of the encephalomalacia there is a 2.9 cm focus of restricted diffu rodrigo which is likely related to the chronic findings. This less likely represents an acute versus sub acute infarct within the residual brain parenchyma within this distribution. Correlate with patient p resentation. 2. 8 mm focus of restricted diffusion within the right cerebral hemisphere is suggestive of an acute versus subacute lacunar infarct. 3. Involutional changes with chronic microvascular ischemic disease. 4. Left occipital craniotomy with bilateral mastoid effusions. ACT 112: Negative or not required by law. The above report was generated using voice recognition software. It may contain grammatical, syntax o r spelling errors. Electronically signed by: Marky Rosa M.D. 12/29/2024 2:36 PM
--- NOTE | 2024-12-29 16:34 | Critical Care Progress Note ---
Date of Service December 29, 2024 Assessment & Plan (1) Pulmonary emboli: Plan: Reason Critically Ill: Hypotension with recent diagnosis of pulmonary embolism PLAN: Neuro: Encephalopathy: Multifactorial - History of hemorrhagic CVA, history of seizure-like activity, known urologic infection - Patient has been off home gabapentin and Keppra, would continue Keppra - MRI brain pending: Possible acute versus subacute infarct - Question whether patient would benefit from antiplatelet medication while also on coagulation - Unclear if patient has bubble study performed on echo Resp: Acute pulmonary embolism - This could be considered provoked secondary to immobilization and surgical procedure biotic risk. I am unclear of the patient's baseline mobility - Heparin infusion, will likely need transition to oral anticoagulant - Patient has absolute contraindication to systemic thrombolysis: Prior hemorrhagic CVA CV: Hypotension: Resolved - No obvious evidence of heart strain seen on echocardiogram, no elevation in troponin, patient's blood pressure improved with crystalloid administration Fluids/Renal: Chronic indwelling Alves Right-sided nephrolithiasis - Postop day 12 from right-sided ureteral stent - Reviewed 12/18 urology plan to continue biotics as prescribed, fluconazole, urology to facilitate outpatient follow-up Non-Anion gap metabolic acidosis: Improved - Most consistent with hyperchloremic metabolic acidosis ID: Funguria -Diflucan until 12/29/2024 - Patient hypothermic, however blood pressure is improved after crystalloid infusion Pseudomonal urinary tract infection - Day 14 days of cefepime, transition to meropenem for concerns for attribution to encephalopathy - Acceptable to transition to Zosyn GI/Nutrition: Failure to thrive - Postop day 4 from PEG tube placement Can increase tube feeds to goal Heme: Anemia - Send baseline labs with reticulocyte count and peripheral smear - Doubtful to represent hemolysis, suspect bone marrow suppression and dilution from recent crystalloid infusions DVT prophylaxis: Heparin infusion Endocrine: ICU hyperglycemia protocol Patient previously given steroids for relatively low cortisol Vascular access: Left internal jugular CVC catheter - Triple-lumen placed 12/28. Strongly consider Code Status: Full code Disposition: Patient critical care needs appears to have resolved would be stable for downgrade out of ICU (2) Nephrolithiasis: (3) Right ureteral stone: (4) Esophageal dysphagia: (5) Seizure-like activity: (6) Cerebral hemorrhage: (7) Metabolic acidosis with normal anion gap and bicarbonate losses: Admission and Anticipated Discharge Date Admission Date: December 18, 2024 Subjective No significant overnight events Physical Exam Physical Exam: General: Alert. Unable to follow commands, Skin: Warm, dry, Head: Atraumatic Ears, nose, mouth and throat: airway patent Cardiovascular: Normal peripheral perfusion Respiratory: no respiratory distress Gastrointestinal: Non distended Musculoskeletal: No deformity Results & Data Results & Data Vital Signs (Past 12 Hours) Vital Signs Temp Pulse Resp BP Pulse Ox O2 Del Method 12/29/24 16:08 36.4 C L 12/29/24 16:00 131/79 12/29/24 16:00 131/79 12/29/24 16:00 131/79 12/29/24 16:00 131/79 12/29/24 16:00 73 16 100 12/29/24 15:00 137/65 12/29/24 15:00 69 18 100 12/29/24 14:36 75 21 100 12/29/24 13:18 36.2 C L 79 20 99 12/29/24 13:03 36.2 C L 81 19 99 12/29/24 13:00 133/85 12/29/24 13:00 133/85 12/29/24 13:00 133/85 12/29/24 12:57 36.2 C L 79 19 99 12/29/24 12:15 36.2 C L 79 22 98 12/29/24 12:00 112/75 12/29/24 12:00 112/75 12/29/24 11:57 36.2 C L 67 15 98 12/29/24 11:12 36.3 C L 69 15 98 12/29/24 11:00 118/68 12/29/24 11:00 118/68 12/29/24 10:54 36.3 C L 83 24 99 12/29/24 10:00 36.3 C L 87 20 99 12/29/24 10:00 122/80 12/29/24 09:21 36.3 C L 82 19 118/74 98 12/29/24 08:12 36.3 C L 89 19 99 12/29/24 08:00 118/74 12/29/24 08:00 Room Air 12/29/24 08:00 36.5 C 12/29/24 07:00 36.4 C L 88 18 99 Room Air 12/29/24 07:00 108/74 12/29/24 06:00 36.5 C 82 17 95/58 L 97 12/29/24 05:15 36.5 C 81 33 H 98 12/29/24 05:00 103/72 12/29/24 04:48 36.4 C L 82 21 98 Coding Level of Care Code 64413 SUB INP/OBS CARE 3/50MIN Diagnoses Acute pulmonary embolism without acute cor pulmonale, unspecified pulmonary embolism type I26.99 Pulmonary embolism type: unspecified Chronicity: acute Acute cor pulmonale presence: without acute cor pulmonale Nephrolithiasis N20.0 Right ureteral stone N20.1 Esophageal dysphagia R13.19 Seizure-like activity R56.9 Cerebral hemorrhage I61.9 Metabolic acidosis with normal anion gap and bicarbonate losses E87.20 (1) Pulmonary emboli Pulmonary embolism type: unspecified Chronicity: acute Acute cor pulmonale presence: without acute cor pulmonale Qualified Code(s): I26.99 - Other pulmonary embolism without acute cor pulmonale
[2024-12-29] MEDS: ICU ELECTROLYTE REPLACEMENT PROTOCOL SCH (17:31)
[2024-12-29] MEDS: 4.5GM EXT INFUSION IV SCH (17:50)
--- NOTE | 2024-12-29 18:02 | Hospitalist Progress Note ---
Date of Service December 29, 2024 Assessment & Plan (1) Pulmonary emboli: (2) AMS (altered mental status): (3) Metabolic acidosis with normal anion gap and bicarbonate losses: (4) Right arm weakness: (5) Depression: (6) UTI (urinary tract infection): (7) Status post insertion of percutaneous endoscopic gastrostomy (PEG) tube: Plan 64-year-old female with past medical history of hemorrhagic left basal ganglier CVA in 2021 with resulting right sided strength deficits, seizure, h yperlipidemia, chronic indwelling Alves who presented with concern for complicated UTI with right hydronephrosis and he was treated for both Pseudomonas and candidal UTI. Due to right hydro she underwent right stent placement. She completed 10 days of cefepime but due to concerns for encephalopathy was transitioned to meropenem. Is continued on Diflucan for possible candidal UTI. Overnight 12/27/24 did have a rapid response for lethargy and hypotension. Evaluation showed a non-anion gap metabolic acidosis, CT of the head has been without acute findings, chest x-rayWith hazy bibasilar densit ies? Pleural fluid/atelectasis versus early pneumonia. KUB was unremarkable. Per discussion with family patient is around with 70% reduced function and while aphasic at baseline normally can engage and follows commands for neurologic testing. Subsequent MRI shows evidence of new stroke Subacute CVA, chronic CVA, history of ICH History of left hemorrhagic CVA, seizure-like activity MRI: Large area of chronic encephalomalacia in the left frontal lobe. Within the center of this there is a 2.9 cm focus of restricted diffusion likely chronic but less likely could nagi present an acute versus subacute infarct within prior residual brain parenchyma. Additionally an 8 mm focus of restricted diffusion within the right cerebral hemisphere suggestive of acute versus subacute lacunar infarct is seen. Involutional changes are noted. Left occipital craniotomy noted. Patient is heparinized. Does have a history of intracranial hemorrhage. Neurology consulted evaluate for risk/benefits of antiplatelet/dual antiplatelet therapy with ongoing anticoagulation for PE and prior history of intraparenchymal hemorrhage. Patient with some improved alertness and moaning but still does not follow commands 12/29 Son updated at bedside. No further questions or concerns. Open to palliative care consultation, placed. #Complicated UTI, right obstructive ureteral stones Pseudomonas/candidal infection Cefepime 10 days completed 12/27, transition to meropenem for concerns of contribution to encephalopathy Continue meropenem 500 mg every 6 hours Continue Diflucan for candidal UTI, course to be complete 12/29/24 Creatinine stable, BMP daily Cultures drawn 12/28 NGTD #PE CTA With right upper lobe segmental thrombus, radiographic suggestion of right heart strain TTE with some RV dilation. Grade 1 diastolic dysfunction. LV SF normal Heparin GTT continued Thrombocytopenia Platelet count decreased from 131->84. DDx includes critical illness. No evidence of oozing from catheter site. If platelet drop greater than 50% (less than 75K), develop sequelae of thrombosis/DIC would need evaluation and potential treatment for HIT. Patient is not able to swallow safely at this time but does have a PEG tube. Could consider DOAC via PEG versus fondaparinux. Trend CBC daily #Non-anion gap metabolic acidosis With GI losses, poor nutritional intake requiring PEG feeding. Creatinine is normal and w/o renal failure On bicarb drip overnight - persistently hyperchloremic --> use balanced crystalloids when required With volume contraction and PEG feeds ? Increased GI losses with loose BMs per discussion with nursing. Diuresing/resolved, C. difficile testing is pending however lower suspicion to this given she has not had recurrent persistent diarrhea Trend BMP. Hyperchloremia downtrending. Bicarb remains similar/slightly improved Hypoalbuminemia CTA/P: Moderate ascites and mesenteric fat stranding. PEG tube is noted. Mild pneumoperitoneum likely post PEG tube/intervention. Faint splenic parenchymal hypodensities suggestive of possible ischemia. Right renal stent in place. Stable fatty liver disease, mild pericholecystic hyperemia. Small liver hypodensity suspected cystic. Evidence of cystitis No overt cirrhosis. INR 1.1. Mild transaminitis is improved/resolved with fluid ? Nutritional #Concern for left upper extremity ischemia At bedside evaluation following signout left hand cool, with prolonged cap refill. Radial pulse difficult to appreciate although significant surrounding edema Vascular consulted. Patient had already received contrast, repeat arterial duplex was ordered pending evaluation. Already ordered therapeutic heparin for PE as noted Strength/sensation limited by mentation On vascular surgery had adequate cap refill and was able to have good Doppler signals at the wrist and palmar arch. Did not feel there was evidence of ischemia of the right upper extremity; additional workup not recommended at this time. Appreciate evaluation. #History of seizure Gabapentin held due to altered mental status Keppra via PEG tube twice daily continued #PEG feeds Continue continuous feeds at this time Nutrition consulted and following Admission and Anticipated Discharge Date Admission Date: December 18, 2024 Subjective Seen at the bedside. Hemodynamically stable. Gazes around the room somewhat but still not following commands. Sedation/strength testing limited by cognitive status. Pupils are equal and reactive to light. Does track provider somewhat with eyes briefly for approximately 2 seconds Physical Exam Physical Exam: General: Lethargic. On reassessment opens eyes but does not track, tracks briefly before closing eyes does not follow commands. HEENT: Pupils equal, reactive to light bilaterally. No relative afferent pupillary defect. Does not follow commands difficult to assess vision/ Pulm: Diminished but clear. No hypoxia. Cardiac: RRR, -mrg. Radial pulses intact and symmetrical. Abdominal: Soft. Without rigidity Extremities: Diffuse third spacing/pitting edema of all extremities. Upper extremities remain cool. Results & Data Results & Data Vital Signs (Past 12 Hours) Vital Signs Temp Pulse Resp BP Pulse Ox O2 Del Method 12/29/24 16:08 36.4 C L 12/29/24 16:00 131/79 12/29/24 16:00 131/79 12/29/24 16:00 131/79 12/29/24 16:00 131/79 12/29/24 16:00 73 16 100 12/29/24 15:00 137/65 12/29/24 15:00 69 18 100 12/29/24 14:36 75 21 100 12/29/24 13:18 36.2 C L 79 20 99 12/29/24 13:03 36.2 C L 81 19 99 12/29/24 13:00 133/85 12/29/24 13:00 133/85 12/29/24 13:00 133/85 12/29/24 12:57 36.2 C L 79 19 99 12/29/24 12:15 36.2 C L 79 22 98 12/29/24 12:00 112/75 12/29/24 12:00 112/75 12/29/24 11:57 36.2 C L 67 15 98 12/29/24 11:12 36.3 C L 69 15 98 12/29/24 11:00 118/68 04/15/25 11:00 118/68 12/29/24 10:54 36.3 C L 83 24 99 12/29/24 10:00 36.3 C L 87 20 99 12/29/24 10:00 122/80 12/29/24 09:21 36.3 C L 82 19 118/74 98 12/29/24 08:12 36.3 C L 89 19 99 12/29/24 08:00 118/74 12/29/24 08:00 Room Air 12/29/24 08:00 36.5 C 12/29/24 07:00 36.4 C L 88 18 99 Room Air 12/29/24 07:00 108/74 12/29/24 06:00 36.5 C 82 17 95/58 L 97 PG Care Time/CCT Total # of Minutes Spent Total Time Spent with Patient: Total time spent is greater than 50% in coordination of care (as documented) at patient's floor/unit and/or counseling patient: Coding Level of Care Code 77699 SUB INP/OBS CARE 350MIN Diagnoses Acute pulmonary embolism without acute cor pulmonale, unspecified pulmonary embolism type I26.99 Pulmonary embolism type: unspecified Chronicity: acute Acute cor pulmonale presence: without acute cor pulmonale AMS (altered mental status) R41.82 Metabolic acidosis with normal anion gap and bicarbonate losses E87.20 Right arm weakness R29.898 Depression F32.A UTI (urinary tract infection) N39.0 Status post insertion of percutaneous endoscopic gastrostomy (PEG) tube Z93.1 (1) Pulmonary emboli Pulmonary embolism type: unspecified Chronicity: acute Acute cor pulmonale presence: without acute cor pulmonale Qualified Code(s): I26.99 - Other pulmo nary embolism without acute cor pulmonale
[2024-12-29 20:34] LABS: ANTI-Xa, UFH(UnfractionatedHep 0.58 IU/ml (0.3-0.7)
[2024-12-30] MEDS: ACETAMINOPHEN 1,000 MG/100 ML VIAL IV STA (01:31)
[2024-12-30 05:25] LABS: Hemoglobin 7.9 g/dl (12.0-16.0); Mean Corpuscular Hemoglobin 31.7 pg (25.0-34.0); Mean Corpuscular Hgb Conc 34.3 g/dL (32.0-36.0); Mean Corpuscular Volume 92.4 fL (80.0-100.0); Mean Platelet Volume 11.7 fL (9.4-12.4); Nucleated RBC # (auto) 0.14 K/uL (0.00-0.12); Platelet Count 72 K/uL (130-400); RDW Coefficient of Variation 18.8 % (11.5-14.5); RDW Standard Deviation 61.4 fL (36.4-46.3); Red Blood Count 2.49 M/uL (4.20-5.40); White Blood Count 6.89 K/ul (4.8-10.8)
[2024-12-30 05:33] LABS: ANTI-Xa, UFH(UnfractionatedHep 0.62 IU/ml (0.3-0.7)
[2024-12-30 05:48] LABS: BUN Creatinine Ratio 33.3 (10-20); Calcium 7.1 mg/dl (8.6-10.3); Creatinine Clr Calc Pharmacy 86.1 ml/min; Phosphorus 2.3 mg/dl (2.5-4.9); Potassium 2.7 mmol/L (3.5-5.1)
[2024-12-30 05:54] LABS: Eosinophils # (auto) 0.01 K/uL (0.00-0.50); Eosinophils % (auto) 0.1 %; Immature Granulocytes # (auto) 0.08 K/uL (0.01-0.20); Immature Granulocytes % (auto) 1.2 %; Lymphocytes # (auto) 1.77 K/uL (1.20-3.40); Lymphocytes % (auto) 25.7 %; Monocytes # (auto) 0.26 K/uL (0.11-0.59); Monocytes % (auto) 3.8 %; Neutrophils # (auto) 4.77 K/uL (1.40-6.50); Neutrophils % (auto) 69.2 %; Polychromasia 1+; Target Cells 1+
[2024-12-30] MEDS: POTASSIUM CHLORIDE / WTR 20 MEQ/100 ML PLCT IV SCH (06:23)
[2024-12-30] MEDS: POTASSIUM CHLORIDE 20 MEQ/15 ML UDC PO STA (06:23)
[2024-12-30] MEDS ORDERED: SODIUM PHOSPHATE 3 MMOL/1 ML INFUSION IV STA (06:37)
--- NOTE | 2024-12-30 07:40 | Critical Care Progress Note ---
Date of Service December 30, 2024 Assessment & Plan Admission and Anticipated Discharge Date Admission Date: December 18, 2024 Results & Data Results & Data Vital Signs (Past 12 Hours) Vital Signs Temp Pulse Resp BP Pulse Ox 12/30/24 06:03 35.9 C L 75 16 98 12/30/24 06:00 125/81 12/30/24 05:57 35.9 C L 70 19 98 12/30/24 05:21 35.7 C L 61 17 98 12/30/24 05:00 117/75 12/30/24 04:48 35.6 C L 63 20 96 12/30/24 04:00 106/65 12/30/24 04:00 35.5 C L 65 15 98 12/30/24 03:58 35.5 C L 12/30/24 03:03 59 L 17 97 12/30/24 03:00 94/56 L 12/30/24 03:00 94/56 L 12/30/24 03:00 94/56 L 12/30/24 03:00 94/56 L 12/30/24 02:57 51 L 14 97 12/30/24 02:06 56 L 14 97 12/30/24 02:01 82/54 L 12/30/24 02:01 82/54 L 12/30/24 02:01 82/54 L 12/30/24 01:57 58 L 14 97 12/30/24 01:00 72 22 12/30/24 00:00 67 16 140/92 98 12/29/24 23:46 71 12/29/24 23:37 35.9 C L 12/29/24 23:03 66 17 98 12/29/24 23:00 121/76 12/29/24 22:51 48 L 12 98 12/29/24 22:00 63 17 100 12/29/24 21:00 70 18 99 12/29/24 21:00 124/73 12/29/24 21:00 124/73 12/29/24 20:00 74 18 99 12/29/24 20:00 134/83 12/29/24 20:00 36.2 C L Coding
[2024-12-30] MEDS: SODIUM PHOSPHATE 15 MMOL in SODIUM CHLORIDE 0.9% 250 ML IV ONE (07:44)
[2024-12-30] MEDS: MAGNESIUM SULFATE / D5W 1 GM/100 ML BAG IV SCH (07:44)
--- NOTE | 2024-12-30 09:07 | Neurology Consultation ---
Date of Consultation December 30, 2024 Assessment & Plan (1) Ischemic stroke: History of Present Illness Attending Physician: Jeniffer Reno MD History of Present Illness S: pt found to have ischemic stroke on mri brain, reviewed, noted for subacute ischemic stroke rt frontal and left subcortical area where she has large stroke in the past. pt with minimal interaction from ongoing infection and medical issues. chart reviewed. Admission HPI and hospital progress note: 64-year-old female with past medical history of hemorrhagic left basal ganglier CVA in 2021 with resulting right sided strength deficits, seizure, hyperlipidemia, chronic indwelling Alves who presented with concern for complicated UTI with right hydronephrosis and he was treated for both Pseudomonas and candidal UTI. Due to right hydro she underwent right stent placement. She completed 10 days of cefepime but due to concerns for encephalopathy was transitioned to meropenem. Is continued on Diflucan for possible candidal UTI. Overnight 12/27/24 did have a rapid response for lethargy and hypotension. Evaluation showed a non-anion gap metabolic acidosis, CT of the head has been without acute findings, chest x-rayWith hazy bibasilar densities? Pleural fluid/atelectasis versus early pneumonia. KUB was unremarkable. Per discussion with family patient is around with 70% reduced function and while aphasic at baseline normally can engage and follows commands for neurologic testing. Subsequent MRI shows evidence of new stroke Subacute CVA, chronic CVA, history of ICH History of left hemorrhagic CVA, seizure-like activity MRI: Large area of chronic encephalomalacia in the left frontal lobe. Within the center of this there is a 2.9 cm focus of restricted diffusion likely chronic but less likely could nagi present an acute versus subacute infarct within prior residual brain parenchyma. Additionally an 8 mm focus of restricted diffusion within the right cerebral hemisphere suggestive of acute versus subacute lacunar infarct is seen. Involutional changes are noted. Left occipital craniotomy noted. Patient is heparinized. Does have a history of intracranial hemorrhage. Neurology consulted evaluate for risk/benefits of antiplatelet/dual antiplatelet therapy with ongoing anticoagulation for PE and prior history of intraparenchymal hemorrhage. Patient with some improved alertness and moaning but still does not follow commands 12/29 Son updated at bedside. No further questions or concerns. Open to palliative care consultation, placed. #Complicated UTI, right obstructive ureteral stones Pseudomonas/candidal infection Cefepime 10 days completed 12/27, transition to meropenem for concerns of contribution to encephalopathy Continue meropenem 500 mg every 6 hours Continue Diflucan for candidal UTI, course to be complete 12/29/24 Creatinine stable, BMP daily Cultures drawn 12/28 NGTD Allergies Allergy/AdvReac Type Severity Reaction Status Date / Time No Known Allergies Allergy Verified 12/14/24 14:48 Home Medications Medication Instructions Recorded Confirmed Type meclizine 12.5 mg tablet 12.5 mg PO DIRECTED PRN Motion 08/27/24 12/17/24 History Sickness acetaminophen 500 mg/15 mL oral 1,000 mg PO BID 10/09/24 12/17/24 History liquid acetaminophen 650 mg/20.3 mL oral 650 mg PO QID PRN pain 1-8 10/09/24 12/17/24 History suspension ascorbic acid-ascorbate 15 ml PO QAM frequent UTI's 10/09/24 12/17/24 History calcium-ascorbate sod 500 mg/15 mL oral liquid (Vitamin C) bisacodyl 10 mg rectal suppository 10 mg MT DIRECTED PRN 10/09/24 12/17/24 History (Dulcolax (bisacodyl)) Constipation docusate sodium 50 mg/5 mL oral 100 mg PO BID 10/09/24 12/17/24 History liquid gabapentin 300 mg/6 mL (6 mL) oral 100 - 300 mg PO TID 10/09/24 12/17/24 History solution levetiracetam 500 mg/5 mL (5 mL) 500 mg PO BID 10/09/24 12/17/24 History oral solution magnesium hydroxide 400 mg/5 mL 2,400 mg PO DIRECTED PRN 10/09/24 12/17/24 History oral suspension (Milk of Magnesia) Constipation ##0 melatonin 3 mg/4 mL oral drops 3 mg PO HS 10/09/24 12/17/24 History ondansetron 4 mg disintegrating 4 mg PO Q6H PRN nausea/vomiting 10/09/24 12/17/24 History tablet oxycodone 5 mg/5 mL oral solution 5 mg PO Q4H PRN pain 9-10 10/09/24 12/17/24 History promethazine 25 mg/mL injection 25 mg IM Q6H PRN nausea/vomiting 10/09/24 0 12/17/24 History solution propranolol 20 mg/5 mL (4 mg/mL) 60 mg PO Q8H 10/09/24 12/17/24 History oral solution ropinirole 0.25 mg tablet 0.25 mg PO TID 10/09/24 12/17/24 History sodium phosphates 19 gram-7 118 ml MT DIRECTED PRN 10/09/24 12/17/24 History gram/118 mL enema (Fleet Enema) Constipation acetaminophen 650 mg rectal 650 mg MT Q4H PRN pain, rated 1-3 12/14/24 12/17/24 History suppository mirtazapine 15 mg tablet (Remeron) 15 mg PO HS 12/14/24 12/17/24 History pantoprazole 40 mg tablet,delayed See Rx Instructions .Route .COMPLEX 12/14/24 12/17/24 History release potassium chloride 20 mEq/15 mL 20 meq PO QID 12/14/24 12/17/24 History oral liquid atorvastatin 40 mg tablet 40 mg PO HS 12/17/24 12/17/24 History Patient History Medical History Aphasia Cognitive communication deficit Abnormal posture Muscle weakness (generalized) Difficulty in walking, not elsewhere classified 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 Presence of urogenital implants H/O wisdom tooth extraction H/O: Family History Aunt Breast cancer Denies family history of Ovarian cancer Prostate cancer Myocardial infarction Colorectal cancer Social History Smoking Status: Former smoker Tobacco Type: Cigarettes Age Started Using Tobacco: 16; Hx Alcohol Use: No Hx Substance Use: No Preferred Language: Vincentian Communication Ability: Impaired Visual Impairment: No Limitations Hearing Ability: Normal Facility Practice Specialist Required: No Beliefs That Will Affect Care: None marital status: Single Current Living Situation: [facility] Current Living Situation Comment: [facility] current occupational status: employed current occupation: [employer] Other Information That Helps Us Care for You: No Feels Safe at Home: Yes Safety Concerns: Feels Safe At This Time Childhood Exposure to Second-Hand Smoke: Yes Diet: other Diet Comment: sometimes does [facility], Regularly: Yes Physical Activity Frequency: 5-6 Times per Week Seatbelt Use: always Sunscreen Use: Yes Assistive Devices: Mechanical Lift Review of Systems Review of Systems: All systems reviewed & are unremarkable except as noted in Subjective Constitutional: as per Subjective / HPI Eyes: as per Subjective / HPI Ear, Nose, Mouth, Throat: as per Subjective / HPI Respiratory: as per Subjective / HPI Cardiovascular: as per Subjective / HPI Gastrointestinal: as per Subjective / HPI Musculoskeletal: as per Subjective / HPI Integumentary: as per Subjective / HPI Neurologic: as per Subjective / HPI Psychiatric: as per Subjective / HPI Endocrine: as per Subjective / HPI Hematologic / Lymphatic: as per Subjective / HPI Allergy / Immunological: as per Subjective / HPI Exam (Neuro) Physical Exam: Neuro: Mental: alert, moaning sound but does not follow command well. CN: PERRL, Full EOM grossly. Motor: No abnormal movements, normal tone, diffuse body edema and contracted rt arm and b/l legs (chronic from her prior stroke). coord: deferred. Impression: 64 yo female with complex medical issues with ongoing infection and metabolic disorders and PE with mri brain noted subacute ischemic stroke. No bleed and no acute lesions and they are not the cause for her mental status decline given the size and location of stroke. Recommendations: pt already on heparin drip for PE. do not add antiplatelet or additional blood thinners as there is no benefit and she is high risk for bleed. Permissive Hypertension not needed as pt has subacute lesion. not much to add from neurology. avoid hypotension and hypoxia. continue tx for the infection. call again if new question. Chart reviewed I have spent more than 50% educating patient about potential diagnosis and neurological evaluation and coordinating care with patient's treatment team. Total time spent (including chart review and coordination of care): 50 min (this includes chart review). Results & Data Vital Signs (Past 12 Hours) Vital Signs Temp Pulse Resp BP Pulse Ox 12/30/24 06:03 35.9 C L 75 16 98 12/30/24 06:00 125/81 12/30/24 05:57 35.9 C L 70 19 98 12/30/24 05:21 35.7 C L 61 17 98 12/30/24 05:00 117/75 12/30/24 04:48 35.6 C L 63 20 96 12/30/24 04:00 106/65 12/30/24 04:00 35.5 C L 65 15 98 12/30/24 03:58 35.5 C L 12/30/24 03:03 59 L 17 97 12/30/24 03:00 94/56 L 12/30/24 03:00 94/56 L 12/30/24 03:00 94/56 L 12/30/24 03:00 94/56 L 12/30/24 02:57 51 L 14 97 12/30/24 02:06 56 L 14 97 12/30/24 02:01 82/54 L 12/30/24 02:01 82/54 L 12/30/24 02:01 82/54 L 12/30/24 01:57 58 L 14 97 12/30/24 01:00 72 22 12/30/24 00:00 67 16 140/92 98 12/29/24 23:46 71 12/29/24 23:37 35.9 C L 12/29/24 23:03 66 17 98 12/29/24 23:00 121/76 12/29/24 22:51 48 L 12 98 12/29/24 22:00 63 17 100 12/29/24 21:00 70 18 99 12/29/24 21:00 124/73 12/29/24 21:00 124/73 PG Care Time/CCT Total # of Minutes Spent Total Time Spent with Patient: Total time spent is greater than 50% in coordination of care (as documented) at patient's floor/unit and/or counseling patient: Coding Level of Care Code 93494 IN/OBS CONSULT LVL 3,45M Diagnoses Ischemic stroke I63.9
--- NOTE | 2024-12-30 12:23 | Palliative Care Consultation ---
Date of Consultation December 30, 2024 Assessment & Plan (1) Palliative care by specialist: (2) Counseling regarding goals of care: (3) Advanced care planning/counseling discussion: Plan Palliative care consulted for assistance with goals of care discussions, no family present at bedside. Attempt made to contact pt's son (reported HCPOA - no correlating legal documentation on chart) by phone. No answer and VM was full, no ability to leave message. Will continue to attempt to contact family for ACP. 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 Due to right hydro she underwent right stent placement. After 10 days of cefepime she developed encephalopathy was transitioned to meropenem with Diflucan for possible candidal UTI. Overnight 12/27/24 MEDICAL REVIEWER was called for lethargy and hypotension. Evaluation showed a non-anion gap metabolic acidosis, CT of the head NAICA, chest x-ray with hazy bibasilar densities c/w Pleural effusion/atelectasis versus pneumonia. MRI was repeated with 8 mm focus of restricted diffusion within the right cerebral hemisphere is suggestive of an acute versus subacute lacunar infarct. Patient is reportedly expressively aphasic at baseline and follows commands. Neurology was consulted with no interventional recommendations due to likely subacute nature of findings. Palliative care is now consulted for assistance with goals of care discussions. Allergies Allergy/AdvReac Type Severity Reaction Status Date / Time No Known Allergies Allergy Verified 12/14/24 14:48 Home Medications Medication Instructions Recorded Confirmed Type meclizine 12.5 mg tablet 12.5 mg PO DIRECTED PRN Motion 08/27/24 12/17/24 History Sickness acetaminophen 500 mg/15 mL oral 1,000 mg PO BID 10/09/24 12/17/24 History liquid acetaminophen 650 mg/20.3 mL oral 650 mg PO QID PRN pain 1-8 10/09/24 12/17/24 History suspension ascorbic acid-ascorbate 15 ml PO QAM frequent UTI's 10/09/24 12/17/24 History calcium-ascorbate sod 500 mg/15 mL oral liquid (Vitamin C) bisacodyl 10 mg rectal suppository 10 mg IL DIRECTED PRN 10/09/24 12/17/24 History (Dulcolax (bisacodyl)) Constipation docusate sodium 50 mg/5 mL oral 100 mg PO BID 10/09/24 12/17/24 History liquid gabapentin 300 mg/6 mL (6 mL) oral 100 - 300 mg PO TID 10/09/24 12/17/24 History solution levetiracetam 500 mg/5 mL (5 mL) 500 mg PO BID 10/09/24 12/17/24 History oral solution magnesium hydroxide 400 mg/5 mL 2,400 mg PO DIRECTED PRN 10/09/24 12/17/24 History oral suspension (Milk of Magnesia) Constipation ##0 melatonin 3 mg/4 mL oral drops 3 mg PO HS 10/09/24 12/17/24 History ondansetron 4 mg disintegrating 4 mg PO Q6H PRN nausea/vomiting 10/09/24 12/17/24 History tablet oxycodone 5 mg/5 mL oral solution 5 mg PO Q4H PRN pain 9-10 10/09/24 12/17/24 History promethazine 25 mg/mL injection 25 mg IM Q6H PRN nausea/vomiting 10/09/24 12/17/24 History solution propranolol 20 mg/5 mL (4 mg/mL) 60 mg PO Q8H 10/09/24 12/17/24 History oral solution ropinirole 0.25 mg tablet 0.25 mg PO TID 10/09/24 12/17/24 History sodium phosphates 19 gram-7 118 ml IL DIRECTED PRN 10/09/24 12/17/24 History gram/118 mL enema (Fleet Enema) Constipation acetaminophen 650 mg rectal 650 mg IL Q4H PRN pain, rated 1-3 12/14/24 12/17/24 History suppository mirtazapine 15 mg tablet (Remeron) 15 mg PO HS 12/14/24 12/17/24 History pantoprazole 40 mg tablet,delayed See Rx Instructions .Route .COMPLEX 12/14/24 12/17/24 History release potassium chloride 20 mEq/15 mL 20 meq PO QID 12/14/24 12/17/24 History oral liquid atorvastatin 40 mg tablet 40 mg PO HS 12/17/24 12/17/24 History Patient History Medical History Aphasia Cognitive communication deficit Abnormal posture Muscle weakness (generalized) Difficulty in walking, not elsewhere classified 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 Presence of urogenital implants H/O wisdom tooth extraction H/O: Family History Aunt Breast cancer Denies family history of Ovarian cancer Prostate cancer Myocardial infarction Colorectal cancer Social History Smoking Status: Former smoker Tobacco Type: Cigarettes Age Started Using Tobacco: 16; Hx Alcohol Use: No Hx Substance Use: No Preferred Language: Belarusian Communication Ability: Impaired Visual Impairment: No Limitations Hearing Ability: Normal History Instructor Required: No Beliefs That Will Affect Care: None marital status: Single Current Living Situation: Longterm Current Living Situation Comment: [place] [facility] resident current occupational status: employed 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 Other Information That Helps Us Care for You: No Feels Safe at Home: Yes Safety Concerns: Feels Safe At This Time Childhood Exposure to Second-Hand Smoke: Yes Diet: other Diet Comment: sometimes does [facility], Regularly: Yes Physical Activity Frequency: 5-6 Times per Week Seatbelt Use: always Sunscreen Use: Yes Assistive Devices: Mechanical Lift Review of Systems Review of Systems: Unobtainable due to cognitive status Physical Exam Physical Exam: Constitutional: + ill appearing and + frail appearing Eyes: PERRL, conjunctivae normal, anicteric sclerae ENMT: external ear and nose normal, oropharynx normal Neck: trachea midline, no thyromegaly Respiratory: normal respiratory effort, lungs clear to auscultation Cardiovascular: Rate/Rhythm: regular rate and regular rhythm Extremities: + edema Gastrointestinal (Abdomen): normal bowel sounds, soft, nontender, no hepatosplenomegaly Neurologic: unresponsive to verbal stimuli, slight withdrawal from painful stimuli, does not resist manual opening of eyes Results & Data Vital Signs (Past 12 Hours) Vital Signs Temp Pulse Resp BP Pulse Ox 12/30/24 11:00 104/57 L 12/30/24 11:00 104/57 L 12/30/24 11:00 36.9 C 74 20 12/30/24 10:21 36.8 C 75 19 98 12/30/24 10:01 104/60 12/30/24 09:54 36.7 C 78 26 H 98 12/30/24 09:12 36.7 C 79 20 97 12/30/24 09:00 128/68 12/30/24 08:54 36.7 C 83 19 97 12/30/24 08:01 105/71 12/30/24 08:01 105/71 12/30/24 08:01 105/71 12/30/24 08:00 36.6 C 84 24 12/30/24 08:00 68 12/30/24 07:00 36.1 C L 77 27 H 12/30/24 07:00 130/73 12/30/24 07:00 130/73 12/30/24 07:00 130/73 12/30/24 06:03 35.9 C L 75 16 98 12/30/24 06:00 125/81 12/30/24 05:57 35.9 C L 70 19 98 12/30/24 05:21 35.7 C L 61 17 98 12/30/24 05:00 117/75 12/30/24 04:48 35.6 C L 63 20 96 12/30/24 04:00 106/65 12/30/24 04:00 35.5 C L 65 15 98 12/30/24 03:58 35.5 C L 12/30/24 03:03 59 L 17 97 12/30/24 03:00 94/56 L 12/30/24 03:00 94/56 L 12/30/24 03:00 94/56 L 12/30/24 03:00 94/56 L 12/30/24 02:57 51 L 14 97 12/30/24 02:06 56 L 14 97 12/30/24 02:01 82/54 L 12/30/24 02:01 82/54 L 12/30/24 02:01 82/54 L 12/30/24 01:57 58 L 14 97 12/30/24 01:00 72 22 Laboratory Results Abnormal lab results 12/29/24 12/29/24 12/29/24 Range/Units 12:29 17:55 23:23 RBC (4.20-5.40) M/uL Hgb (12.0-16.0) g/dl Hct (37.0-47.0) % RDW Std Deviation (36.4-46.3) fL RDW Coeff of Naga (11.5-14.5) % Plt Count (130-400) K/uL Absolute Nucleated RBC (0.00-0.12) K/uL Potassium (3.5-5.1) mmol/L Chloride (98-107) mmol/L Carbon Dioxide (21-32) mmol/L Creatinine (0.6-1.2) mg/dl BUN/Creatinine Ratio (10-20) Glucose (70-99(Fasting)) mg/dl POC Glucose 235 H 166 H 153 H (70-99) mg/dl Calcium (8.6-10.3) mg/dl Phosphorus (2.5-4.9) mg/dl 12/30/24 12/30/24 Range/Units 04:55 11:34 RBC 2.49 L (4.20-5.40) M/uL Hgb 7.9 L (12.0-16.0) g/dl Hct 23.0 L (37.0-47.0) % RDW Std Deviation 61.4 H (36.4-46.3) fL RDW Coeff of Naga 18.8 H (11.5-14.5) % Plt Count 72 L (130-400) K/uL Absolute Nucleated RBC 0.14 H (0.00-0.12) K/uL Potassium 2.7 L D (3.5-5.1) mmol/L Chloride 111 H (98-107) mmol/L Carbon Dioxide 19 L (21-32) mmol/L Creatinine 0.54 L (0.6-1.2) mg/dl BUN/Creatinine Ratio 33.3 H (10-20) Glucose 153 H (70-99(Fasting)) mg/dl POC Glucose 243 H (70-99) mg/dl Calcium 7.1 L (8.6-10.3) mg/dl Phosphorus 2.3 L (2.5-4.9) mg/dl Diagnostic Findings Abdomen Fluoroscopy 12/17/24 14:03 [facility] CLINICAL HISTORY: STENT PLACEMENTstatus post placement of a right ureteral stent COMPARISON STUDY: CT 08/27/2024 FLUOROSCOPY TIME: 9.7 seconds FLUOROSCOPY IMAGES: 2 EXPOSURE DOSE: 0.96 mGy FINDINGS: Proximal portion of a right ureteral stent is in satisfactory p ositioning. Mild dilation of the right renal pelvis. IMPRESSION: Fluoroscopic assistance as above. ACT 112: Negative or not required by law. Electronically signed by: Marky Rosa M.D. 12/18/2024 8:03 AM Duplex Scan Upper Extremity Artery 12/26/24 11:52 US arterial duplex UE LT CLINICAL HISTORY: pulseless, cold left arm COMPARISON STUDY: None FINDINGS: Arterial velocities at the left upper extremity are normal. No evidence of significant arterial narrowing or occlusion seen at the left upper extremity. IMPRESSION: No significant arterial narrowing or occlusion seen at the left upper extremity. ACT 112: Negative or not required by law. Electronically signed by: Kevin Bryant M.D. 12/26/2024 12:52 PM KUB X-Ray 12/27/24 10:31 KUB HISTORY: crying uncontrollably COMPARISON STUDY: 06/04/2023 FINDINGS: Position of the PEG tube is grossly stable. There is an interval well positioned appearing right ureteral stent. There are a few right renal calculi visible. There is mild retained stool. No bowel obstruction seen. No gross free air. IMPRESSION: No acute findings. ACT 112: Negative or not required by law. The above report was generated using voice recognition software. It may contain grammatical, syntax or spelling errors. Electronically signed by: Kevin Bryant M.D. 12/27/2024 10:[address] 12/27/24 19:29 Exam(s): CT HEAD Without Contrast EXAM: CT Head Without Intravenous Contrast CLINICAL HISTORY: Reason for exam: lethargy; sluggish pupils. TECHNIQUE: Axial computed tomography images of the head/brain without intravenous contrast. CTDI is 61.2 mGy and DLP is 961.59 mGy-cm. Automated exposure control was utilized for the study. A dose lowering technique was utilized adhering to the principles of ALARA. COMPARISON: CT January 23, 2024. FINDINGS: Brain: There is stable, old encephalomalacia in the left basal ganglia and estrella radiata white matter. No acute intracranial edema, hemorrhage or abnormal mass-effect. Ventricles: Unremarkable. No ventriculomegaly. Bones/joints: Unremarkable. No acute fracture. Soft tissues: Unremarkable. Sinuses: Unremarkable as visualized. No acute sinusitis. Mastoid air cells: Unremarkable as visualized. No mastoid effusion. IMPRESSION: No acute findings in the head/brain. Electronically signed by: Montrell Buck MD 12/27/24 23:01 PM Venous Doppler Study 12/28/24 00:00 US venous doppler UE BI CLINICAL HISTORY: upper arm swelling b/l COMPARISON STUDY: None FINDINGS: No evidence of DVT seen at bilateral upper extremities. IMPRESSION: No DVT seen. ACT 112: Negative or not required by law. Electronically signed by: Kevin Bryant M.D. 12/28/2024 11:39 AM Abdomen/Pelvis CT 12/28/24 07:09 EXAM: CT abd pelvis IV con only CLINICAL HISTORY: s/p PEG tube TECHNIQUE: CT of the abdomen and pelvis was performed with and without contrast (112 Opti 320), with the following protocol: axial images with, and reconstructed coronal and sagittal images. One of the following dose reduction techniques was utilized for this exam: Automated exposure control, adjustment of the mA and/or kV according to patient size, and use of iterative reconstruction. total DLP 1750.52 mGy.cm COMPARISON: Comparison is made with prior CT dated 12/17/2024. FINDINGS: Visualised thorax shows new appearance of mild bilateral pleural effusion with underlying subsegmental atelectasis. Abdomen: Liver: Normal in size, shape, and stable fatty density with pericholecystic hyperemia in segments 4b and 5. Stable small hypodense lesion of 5-6 mm in segment 6 likely cyst. No focal lesions, cysts, or masses were identified. Hepatic vasculature and biliary ducts are unremarkable. Gallbladder and Biliary System: The gallbladder is normal in size and shape with enhancing wall. No wall thickening, pericholecystic fluid, or gallstones were identified. The common bile duct is normal in caliber without dilation. Pancreas: Pancreatic head, body, and tail are visualized and appear normal in size and density. No pancreatic masses or calcifications were noted. The pancreatic duct is not dilated. Spleen: Normal in size, shape, and density. New appearance of linear faint hypodensities along lateral aspect of parenchyma possibly ischemia. Appendix: The appendix is normal in size without allison appendiceal fat stranding, and without an appendicolith. No evidence of appendiceal abscess or perforation. Kidneys and Adrenal Glands: New finding of right renal DJ stent and calculus along stent in proximal ureter. Previously seen calculi in upper pole and pelvis of right kidney not seen in current scan. Both kidneys are normal in size, shape, and position. Cortical thickness is within normal limits. Adrenal glands are unremarkable with no evidence of masses or hyperplasia. Pelvis: Urinary Bladder: Partially distended and shows stable irregular wall thickening. No intraluminal lesions identified. Uterus: Normal in size and contour. No masses or abnormal thickening. Ovaries: Not well visualized but no gross abnormalities noted. Vagina: Normal in contour and wall thickness. Cervix: No evidence of mass or abnormal thickening. Peritoneal and Retroperitoneal Structures: New appearance of moderate ascites and fat stranding in mesentery. Mild amount of free air noted. No lymphadenopathy was noted. Moderate atherosclerotic wall calcifications in abdominal aorta and its branches. Bowel: New finding of PEG tube in stomach and edematous thickening of stomach wall. The visualized bowel loops are normal in caliber and appearance. No evidence of bowel obstruction or wall thickening. Bones and Soft Tissues: Diffuse anasarca. Osteopenia. Spondylotic changes in spine. Pelvic bones and soft tissues are unremarkable. No fractures or abnormal masses were identified. IMPRESSION: 1. New appearance of mild bilateral pleural effusion with underlying subsegmental atelectasis. 2. New appearance of moderate ascites and fat stranding in mesentery. 3. New finding of PEG tube in stomach and edematous thickening of stomach wall. 4. New finding of mild pneumoperitoneum likely post intervention. 5. New appearance of linear faint hypodensities along lateral aspect of splenic parenchyma possibly ischemia. 6. New finding of right renal DJ stent and calculus along stent in proximal ureter. 7. Previously seen calculi in upper pole and pelvis of right kidney not seen in current scan. 8. Stable fatty liver with pericholecystic hyperemia in segments 4b and 5. 9. Stable small hypodense lesion of 5-6 mm in segment 6 of liver likely cyst. 10. Stable irregular wall thickening in urinary bladder likely cystitis. Clinical correlation is recommended for further evaluation. Electronically signed by Reza Oreilly 12-28-2024 09:09 AM Chest CTA 12/28/24 07:09 EXAM: CT angio chest PE protocol CLINICAL HISTORY: elevated d-dimer. TECHNIQUE: CT angiography of the chest was performed with and without intravenous contrast with the following protocol: axial images with, reconstructed coronal and sagittal images. Non-contrast images were initially acquired, followed by contrast-enhanced images in arterial and venous phases. Intravenous contrast was administered using automated injection techniques. Bolus tracking was employed to optimize arterial phase imaging. One of these 3D techniques was utilized: Maximum Intensity Pixel (MIP), 3D Reconstructed Images, Volume Rendered Images, Surface Shaded Rendering. One of the following dose reduction techniques was utilized for this exam: Automated exposure control, adjustment of the mA and/or kV according to patient size, and use of iterative reconstruction. DLP: 170.5 mGy.cm. COMPARISON: chest x-ray dated 12/27/[address] dated 12/17/2024. FINDINGS: Aorta and Great Vessels: Ascending Aorta: Normal in caliber, no aneurysm, dissection, or significant atherosclerosis. Aortic Arch: Normal in caliber, no aneurysm, dissection, or significant atherosclerosis. Descending Aorta: Normal in caliber, no aneurysm, dissection, or significant atherosclerosis. Pulmonary Arteries: Right upper lobe segmental artery thrombus is seen. The main pulmonary artery and its branches are patent. No evidence of other pulmonary embolism or significant stenosis. Heart: Cardiac Chambers: Mildly enlarged in size with increased RV:LV ratio, indicating right cardiac strain. Pericardium: Mild pericardial effusion/thickening. Lungs and Pleura: Bilateral moderate-sized free pleural effusion with passive basal atelectasis. No evidence of consolidation, collapse, or focal lesions. Mediastinum: No mediastinal mass or abnormal lymphadenopathy. The esophagus is mildly prominent, nonspecific. Normal appearance of the trachea and central bronchi. Hilar Structures: Hilar structures are normal without enlargement. Chest Wall: No mass lesions or abnormalities in the chest wall. Vascular Structures: Superior Vena Cava: Patent without evidence of stenosis or thrombus. Inferior Vena Cava: Patent without evidence of stenosis or thrombus. Free gas was noted in the abdomen. Bones and Soft Tissues: No fractures, lytic, or blastic lesions of the visualized bony structures. Soft tissues are unremarkable. IMPRESSION: 1. Right upper lobe segmental artery thrombus is seen with evidence of right sided cardiac strain, echo correlation recommended. 2. Bilateral moderate pleural effusion with passive basal atelectasis. present in previous chest X ray and not seen in the abdomen CT on 12/17/2024. 3. The esophagus is mildly prominent, nonspecific. Electronically signed by Reza Oreilly 12-28-2024 08:38 AM Chest X-Ray 12/28/24 12:33 XR chest 1V portable CLINICAL HISTORY: lines COMPARISON STUDY: 12/27/2024 FINDINGS: Heart size and pulmonary vasculature are normal. There is stable stranding opacity in the lung bases. No pneumothorax. There is interval left central catheter with the tip near the brachiocephalic SVC junction. IMPRESSION: No pneumothorax. Otherwise as described. ACT 112: Negative or not required by law. Electronically signed by: Kevin Bryant M.D. 12/28/2024 1:26 PM Brain MRI 12/29/24 08:13 MR brain wo con HISTORY: 64 years-old Female Nonverbal, persistent AMS, hx ICH acutely altered mental status with recent head trauma COMPARISON: Head CT 12/27/2024 TECHNIQUE: Multiplanar multisequence MRI of the brain was obtained without IV contrast FINDINGS: Study is motion degraded. The midline structures appear unremarkable Large focus of encephalomalacia with peripheral hemosiderin is seen within the left frontal lobe estrella radiata and basal ganglia with ex vacuo ventriculomegaly of the left lateral ventricle. Within the center of the encephalomalacia there is a 2.9 x 1.3 cm heterogeneous focus with intermediate T2 signal, increased T1 signal and increased diffusion-weighted signal on image 16 series 11. Prior left occipital craniotomy. There is an 8 mm focus of restricted diffusion within the right cerebral hemisphere on image 8 series 11 demonstrating slightly decreased signal on ADC map. Involutional changes with moderate T2/FLAIR hyperintense foci. The white matter suggestive of chronic microvascular ischemic disease. Cerebral venous sinuses and visualized major arterial flow voids appear patent. Moderate to large mastoid effusions. Unremarkable skull, orbits and soft tissues. IMPRESSION: 1. Large area of chronic encephalomalacia again noted within the left frontal lobe estrella radiata and basal ganglia. Within the center of the encephalomalacia there is a 2.9 cm focus of restricted diffusion which is likely related to the chronic findings. This less likely represents an acute versus subacute infarct within the residual brain parenchyma within this distribution. Correlate with patient presentation. 2. 8 mm focus of restricted diffusion within the right cerebral hemisphere is suggestive of an acute versus subacute lacunar infarct. 3. Involutional changes with chronic microvascular ischemic disease. 4. Left occipital craniotomy with bilateral mastoid effusions. ACT 112: Negative or not required by law. The above report was generated using voice recognition software. It may contain grammatical, syntax or spelling errors. Electronically signed by: Marky Rosa M.D. 12/29/2024 2:36 PM Medications Administered Current Inpatient Medications Atorvastatin Calcium (Atorvastatin 10 Mg Tab) 10 mg PEG HS CLAU Stop: 01/26/25 20:59 Last Admin: 12/29/24 20:21 Dose: 10 mg Dextrose (Dextrose 50% 50 Ml Syringe) 25 - 50 ml IV UD PRN; Protocol PRN Reason: Hypoglycemia Protocol Stop: 01/27/25 04:54 Enteral Nutritional Formula (Fibersource Hn 1.2 Sean 1000 Ml Bag) 1,000 ml GT UD CLAU; Protocol Stop: 01/25/25 12:14 Last Admin: 12/30/24 03:47 Dose: 1,000 ml Glucagon (Glucagon For Inj 1 Mg Vial) 1 mg SQ UD PRN; Protocol PRN Reason: Hypoglycemia Protocol Stop: 01/27/25 04:54 Glucose (Glucose 40% Gel 15 Gm Tube) 15 - 30 gm PO UD PRN; Protocol PRN Reason: Hypoglycemia Protocol Stop: 01/27/25 04:54 Glucose (Glucose 10 Tab/Tube) 4 - 8 tab PO UD PRN; Protocol PRN Reason: Hypoglycemia Protocol Stop: 01/27/25 04:54 Heparin Sodium/Dextrose (Heparin 49387 Unit/500 Ml D5w) 25,000 units in 500 mls @ 8 mls/hr IV .Q24H CLAU; Protocol Stop: 01/27/25 09:29 Last Titration: 12/30/24 06:53 Dose: 400 units/hr, 8 mls/hr Piperacillin Sod/Tazobactam Sod (Zosyn) 4.5 gm in 100 mls @ 25 mls/hr IV Q8H [facility]; Protocol Stop: 01/08/25 17:59 Last Admin: 12/30/24 11:24 Dose: 25 mls/hr Insulin Aspart (Insulin Aspart Per Unit Charge) 0 units SC Q6 [facility] Stop: 01/27/25 05:59 Last Admin: 12/30/24 12:07 Dose: 3 units Levetiracetam (Levetiracetam Oral Soln 100mg/Ml) 500 mg PEG BID [facility] Stop: 01/26/25 08:59 Last Admin: 12/30/24 08:40 Dose: 500 mg Miscellaneous (Carbohydrates For Hypoglycemia ) 15 - 30 gm PO UD PRN PRN Reason: Hypoglycemia Protocol Stop: 01/27/25 04:54 Miscellaneous (Icu Electrolyte Replacement Protocol) 1 each N/A BID@06,18 [facility]; Protocol Stop: 01/05/25 17:59 Last Admin: 12/30/24 05:56 Dose: 1 each Propranolol HCl (Propranolol Oral Soln 8 Mg/Ml) 20 mg PO TID [facility] Stop: 01/16/25 20:59 Last Admin: 12/30/24 08:41 Dose: 20 mg Sterile Water (Tube Feeding Water Flush) 50 ml PEG Q4H [facility] Stop: 01/28/25 10:44 Last Admin: 12/30/24 11:24 Dose: 50 ml Thiamine HCl (Thiamine Hcl 100 Mg Tab) 100 mg PEG QAM [facility] Stop: 01/25/25 13:14 Last Admin: 12/30/24 08:41 Dose: 100 mg PG Care Time/CCT Total # of Minutes Spent Total Time Spent with Patient: Total time spent is greater than 50% in coordination of care (as documented) at patient's floor/unit and/or counseling patient: [place] [address] IN/OBS CONSULT LVL 3,45M Patient Type New History Expanded Problem Focused Exam Expanded Problem Focused Medical Decision Making Low Complexity Diagnoses Palliative care by specialist Z51.5 Counseling regarding goals of care Z71.89 Advanced care planning/counseling discussion Z71.89
--- NOTE | 2024-12-30 18:25 | Hospitalist Progress Note ---
Date of Service December 30, 2024 Assessment & Plan (1) Pulmonary emboli: (2) AMS (altered mental status): (3) Metabolic acidosis with normal anion gap and bicarbonate losses: (4) Right arm weakness: (5) Depression: (6) UTI (urinary tract infection): (7) Status post insertion of percutaneous endoscopic gastrostomy (PEG) tube: Plan 64-year-old female with past medical history of hemorrhagic left basal ganglier CVA in 2021 with resulting right sided strength deficits, seizure, hyperlipidemia, chronic indwelling Alves who presented with concern for complicated UTI with right hydronephrosis and he was treated for both Pseudomonas and candidal UTI. Due to right hydro she underwent right stent placement. She completed 10 days of cefepime but due to concerns for encephalopathy was transitioned to meropenem. Is continued on Diflucan for possible candidal UTI. Overnight 12/27/24 did have a rapid response for lethargy and hypotension. Evaluation showed a non-anion gap metabolic acidosis, CT of the head has been without acute findings, chest x-rayWith hazy bibasilar densities Pleural fluid/atelectasis versus early pneumonia. KUB was unremarkable. Per discussion with family patient is around with 70% reduced function and while aphasic at baseline normally can engage and follows commands for neurologic testing. Subsequent MRI shows evidence of new stroke Subacute CVA, chronic CVA, history of ICH History of left hemorrhagic CVA, seizure-like activity MRI: Large area of chronic encephalomalacia in the left frontal lobe. Within the center of this there is a 2.9 cm focus of restricted diffusion likely chronic but less likely could nagi present an acute versus subacute infarct within prior residual brain parenchyma. Additionally an 8 mm focus of restricted diffusion within the right cerebral hemisphere suggestive of acute versus subacute lacunar infarct is seen. Involutional changes are noted. Left occipital craniotomy noted. Patient is heparinized. Does have a history of intracranial hemorrhage. Neurology consulted recommended anticoagulation alone for PE without antiplatelet because of high risk of hemorrhage Patient with some improved alertness and moaning but still does not follow commands. she is able to communicate somewhat with her son but is aphasic at baseline - consulted palliative care #Complicated UTI, right obstructive ureteral stones Pseudomonas/candidal infection discussed with [facility] pharmacist/ID: Continue pip-tazo through p.m. of 12/30 completes treatment for Pseudomonas UTI, had missed a few doses of fluconazole so continue for 6 more doses for Dhara UTI blood cultures 12/28 reviewed, no growth to date #PE CTA With right upper lobe segmental thrombus, radiographic suggestion of right heart strain TTE with some RV dilation. Grade 1 diastolic dysfunction. LV SF normal Heparin GTT continued - has developed moderate thrombocytopenia over the last 48 hours, platelets in mid 70s could be direct effect of heparin, no evidence of thrombosis at this time, will have to stop heparin drip if any worsening. hopefully stop heparin soon and transition to DOAC #Non-anion gap metabolic acidosis With GI losses, poor nutritional intake requiring PEG feeding. Creatinine is normal and w/o renal failure. has had some loose stool history of C. difficile, negative C. difficile testing 12/30 - trend is improvement though acidosis persists # malnutrition, initiation of PEG feeds - currently at [facility] with severe hypokalemia, mildly low Phos, low magnesium. at risk for refeeding syndrome Nutrition consulted and following - electrolytes were replaced, check a.m. BMP Phos and mag Hypoalbuminemia with significant anasarca CTA/P: Moderate ascites and mesenteric fat stranding. PEG tube is noted. Mild pneumoperitoneum likely post PEG tube/intervention. Faint splenic parenchymal hypodensities suggestive of possible ischemia. Right renal stent in place. Stable fatty liver disease, mild pericholecystic hyperemia. Small liver hypodensity suspected cystic. Evidence of cystitis No overt cirrhosis. INR 1.1. Mild transaminitis is improved/resolved with fluid probably nutritional #Concern for left upper extremity ischemia - cool left hand with prolonged cap refill vascular surgery evaluated had adequate cap refill and was able to have good Doppler signals at the wrist and palmar arch. Did not feel there was evidence of ischemia of the right upper extremity; additional workup not recommended - resolved #History of seizure Gabapentin held due to altered mental status Keppra via PEG tube twice daily continued Admission and Anticipated Discharge Date Admission Date: December 18, 2024 Subjective continues to not do very well cognitively. awake and moaning or crying out but not following commands was not purposeful for me but did track me visually extremely edematous and skin has been weeping TF at [facility] and electrolytes low, replaced Physical Exam 2 Physical Exam: PHYSICAL EXAMINATION Last 24h vital signs reviewed, see documentation in flowsheet General: ill-appearing woman eyes open has been moaning HEENT: PERRL, disconjugate at Lungs: Normal respiratory effort. Clear to auscultation bilaterally. No RRW Heart: Regular rate and rhythm, no murmurs. No JVD Abdomen: Soft, nontender, nondistended. Bowel sounds present. G-tube left upper quadrant Extremities: Warm, dry, well-perfused. severe anasarca with skin weeping abdominal wall and 4 extremities Neuro: Alert and nonverbal, moaning, did not follow basic commands, face is asymmetric gaze is disconjugate Results & Data Results & Data Vital Signs (Past 12 Hours) Vital Signs Temp Pulse Resp BP Pulse Ox 12/30/24 15:00 36.6 C 74 17 12/30/24 14:09 36.6 C 68 15 98 12/30/24 14:01 111/66 12/30/24 13:51 36.6 C 83 21 98 12/30/24 13:00 36.6 C 80 20 12/30/24 12:03 36.7 C 83 23 97 12/30/24 12:00 128/68 12/30/24 11:51 36.8 C 84 21 97 12/30/24 11:00 104/57 L 12/30/24 11:00 104/57 L 12/30/24 11:00 104/57 L 12/30/24 11:00 36.9 C 74 20 12/30/24 10:21 36.8 C 75 19 98 12/30/24 10:01 104/60 12/30/24 09:54 36.7 C 78 26 H 98 12/30/24 09:12 36.7 C 79 20 97 12/30/24 09:00 128/68 12/30/24 08:54 36.7 C 83 19 97 12/30/24 08:01 105/71 12/30/24 08:01 105/71 12/30/24 08:01 105/71 12/30/24 08:00 36.6 C 84 24 12/30/24 08:00 68 12/30/24 07:00 36.1 C L 77 27 H 12/30/24 07:00 130/73 12/30/24 07:00 130/73 04/16/25 07:00 130/73 Laboratory Results 12/30/24 04:55 12/30/24 04:55 PG Care Time/CCT Total # of Minutes Spent Total Time Spent with Patient: Total time spent is greater than 50% in coordination of care (as documented) at patient's floor/unit and/or counseling patient: Coding Level of Care Code 56525 SUB INP/OBS CARE 3/50MIN Diagnoses Acute pulmonary embolism without acute cor pulmonale, unspecified pulmonary embolism type I26.99 Pulmonary embolism type: unspecified Chronicity: acute Acute cor pulmonale presence: without acute cor pulmonale AMS (altered mental status) R41.82 Metabolic acidosis with normal anion gap and bicarbonate losses E87.20 Right arm weakness R29.898 Depression F32.A UTI (urinary tract infection) N39.0 Status post insertion of percutaneous endoscopic gastrostomy (PEG) tube Z93.1 (1) Pulmonary emboli Pulmonary embolism type: unspecified Chronicity: acute Acute cor pulmonale presence: without acute cor pulmonale Qualified Code(s): I26.99 - Other pulmonary embolism without acute cor pulmonale
[2024-12-30] MEDS: ATORVASTATIN 40 MG TAB GT SCH (20:13)
[2024-12-30] MEDS: POTASSIUM CHLORIDE 20 MEQ/15 ML UDC GT SCH (20:14)
[2024-12-31 05:08] LABS: ANTI-Xa, UFH(UnfractionatedHep 0.52 IU/ml (0.3-0.7)
[2024-12-31 05:22] LABS: Hematocrit (blood only) 26.8 % (37.0-47.0); Hemoglobin 8.8 g/dl (12.0-16.0); Mean Corpuscular Hemoglobin 31.5 pg (25.0-34.0); Mean Corpuscular Hgb Conc 32.8 g/dL (32.0-36.0); Mean Corpuscular Volume 96.1 fL (80.0-100.0); Mean Platelet Volume 12.5 fL (9.4-12.4); Nucleated RBC # (auto) 0.11 K/uL (0.00-0.12); Nucleated RBC % (auto) 1.3 %; Platelet Count 77 K/uL (130-400); RDW Coefficient of Variation 19.4 % (11.5-14.5); Red Blood Count 2.79 M/uL (4.20-5.40); White Blood Count 8.28 K/ul (4.8-10.8)
[2024-12-31 05:34] LABS: Calcium 7.1 mg/dl (8.6-10.3); Magnesium 2.3 mg/dl (1.7-2.4); Potassium 3.4 mmol/L (3.5-5.1)
[2024-12-31 05:36] LABS: Creatinine Clr Calc Pharmacy 85.8 ml/min; Phosphorus 2.3 mg/dl (2.5-4.9)
[2024-12-31 05:37] LABS: Basophils # (auto) 0.01 K/uL (0.00-0.20); Basophils % (auto) 0.1 %; Eosinophils # (auto) 0.03 K/uL (0.00-0.50); Eosinophils % (auto) 0.4 %; Immature Granulocytes % (auto) 1.2 %; Lymphocytes # (auto) 2.12 K/uL (1.20-3.40); Lymphocytes % (auto) 25.6 %; Monocytes # (auto) 0.34 K/uL (0.11-0.59); Monocytes % (auto) 4.1 %; Neutrophils # (auto) 5.68 K/uL (1.40-6.50); Neutrophils % (auto) 68.6 %; Polychromasia 1+; Target Cells 1+
[2024-12-31] MEDS ORDERED: POTASSIUM PHOS 3 MMOL/1 ML INFUSION IV STA (08:15)
[2024-12-31] MEDS: POTASSIUM PHOSPHATE 9 MMOL in SODIUM CHLORIDE 0.9% 250 ML IV ONE (09:46)
[2024-12-31] MEDS: FLUCONAZOLE SUSP 200 MG/5 ML UDP GT SCH (11:09)
--- NOTE | 2024-12-31 13:27 | Communication Note ---
Date of Service: December 31, 2024 Multiple attempts made to reach pt's son via phone, no answer and no VM ability. Today RN rec'd incoming call from son, who reported that he will not be av ailable for the next few days. Pt lack decisional capacity at this time and does require a health care proxy who is reasonably available to address plan of care. Discussed this with Dr Reno, attending, who is in agreement that there are not any urgent palliative needs at this time. Palliative care will follow peripherally and be available for any pending ACP discussions when family is available. Thank you for including Palliative Care in the management of this patient. Please call with any questions or concerns regarding this consultation.
--- NOTE | 2024-12-31 14:40 | Hospitalist Progress Note ---
Date of Service December 31, 2024 Assessment & Plan (1) Pulmonary emboli: (2) AMS (altered mental status): (3) Metabolic acidosis with normal anion gap and bicarbonate losses: (4) Right arm weakness: (5) Depression: (6) UTI (urinary tract infection): (7) Status post insertion of percutaneous endoscopic gastrostomy (PEG) tube: Plan 64-year-old female with past medical history of hemorrhagic left basal ganglier CVA in 2021 with resulting right sided strength deficits, seizure, hyperlipidemia, chronic indwelling Alves who presented with concern for complicated UTI with right hydronephrosis and he was treated for both Pseudomonas and candidal UTI. Due to right hydro she underwent right stent placement. She completed treatment for Pseudomonas UTI with cefepime/meropenem/pip-tazo. Is continued on Diflucan for possible candidal UTI. Overnight 12/27/24 did have a rapid response for lethargy and hypotension. Subsequent MRI shows evidence of small new stroke Subacute CVA, chronic CVA, history of ICH Acute metabolic encephalopathy History of left hemorrhagic CVA, seizure-like activity MRI: Large area of chronic encephalomalacia in the left frontal lobe. Within the center of this there is a 2.9 cm focus of restricted diffusion likely chronic but less likely could nagi present an acute versus subacute infarct within prior residual brain parenchyma. Additionally an 8 mm focus of restricted diffusion within the right cerebral hemisphere suggestive of acute versus subacute lacunar infarct is seen. Involutional changes are noted. Left occipital craniotomy noted. Does have a history of intracranial hemorrhage. Neurology consulted recommended anticoagulation alone for PE without antiplatelet because of high risk of hemorrhage Patient with some improved alertness but still does not follow commands. she is able to communicate somewhat with her son but is aphasic at baseline, usually able to follow commands to participate in neuro exam - consulted palliative care - discussed with [employer] today, her son has not been in during daytime and voicemail is full so we've been unable to talk to him for several days #Complicated UTI, right obstructive ureteral stones Pseudomonas/candidal infection discussed with [facility] pharmacist/ID: completed treatment for Pseudomonas UTI, had missed a few doses of fluconazole so continue for 6 more doses for Dhara UTI blood cultures 12/28 reviewed, still NGTD #PE CTA With right upper lobe segmental thrombus, radiographic suggestion of right heart strain TTE with some RV dilation. Grade 1 diastolic dysfunction. LV SF normal Heparin GTT continued - has developed moderate thrombocytopenia platelets remain mid 70s. Will change to apixaban. CBC AM #Non-anion gap metabolic acidosis With GI losses, poor nutritional intake requiring PEG feeding. Creatinine is normal and w/o renal failure. has had some loose stool history of C. difficile, negative C. difficile testing 12/30 - continues to improve - bicarb up to 20 and no anion gap - AM BMP # malnutrition, initiation of PEG feeds - at risk for refeeding syndrome discussed with RD will start advancing TF rate today - replaced mild hypokalemia and low phos with IV Kphos - AM BMP mag phos Hypoalbuminemia with significant anasarca hepatic steatosis but imaging, labs negative for cirrhosis. Normal renal function. Normal LVEF with mild diastolic dysfunction. seems to be nutritional #Concern for left upper extremity ischemia - cool left hand with prolonged cap refill vascular surgery evaluated had adequate cap refill and was able to have good Doppler signals at the wrist and palmar arch. Did not feel there was evidence of ischemia of the right upper extremity; additional workup not recommended - resolved #History of seizure Gabapentin held due to altered mental status Keppra via PEG tube twice daily continued DVT ppx - anticoagulated Admission and Anticipated Discharge Date Admission Date: December 18, 2024 Subjective Currently she is awake and mutters something but is not intelligible to me she did not follow commands Physical Exam 2 Physical Exam: PHYSICAL EXAMINATION Last 24h vital signs reviewed, see documentation in flowsheet General: ill-appearing woman eyes open, calm slightly more alert otherwise exam unchanged HEENT: PERRL, disconjugate Lungs: Normal respiratory effort. Clear to auscultation bilaterally. No RRW. ecchymoses upper chest, arms Heart: Regular rate and rhythm, no murmurs. No JVD Abdomen: Soft, nontender, nondistended. Bowel sounds present. G-tube left upper quadrant Extremities: Warm, dry, well-perfused. severe anasarca with skin weeping abdominal wall and 4 extremities Neuro: Alert and nonverbal, moaning, did not follow basic commands, face is asymmetric gaze is disconjugate Results & Data Results & Data Vital Signs (Past 12 Hours) Vital Signs Temp Pulse Pulse Resp BP Pulse Ox O2 Del Method 12/31/24 10:59 77 16 149/94 H 100 Room Air 12/31/24 08:00 68 12/31/24 07:50 36.5 C 82 18 135/79 100 Room Air 12/31/24 04:00 36.4 C 67 18 120/99 100 Room Air Laboratory Results 12/31/24 04:37 12/31/24 04:37 phos mildly low, mag normal PG Care Time/CCT Total # of Minutes Spent Total Time Spent with Patient: Total time spent is greater than 50% in coordination of care (as documented) at patient's floor/unit and/or counseling patient: Coding Level of Care Code 37938 SUB INP/OBS CARE 3/50MIN Diagnoses Acute pulmonary embolism without acute cor pulmonale, unspecified pulmonary embolism type I26.99 Pulmonary embolism type: unspecified Chronicity: acute Acute cor pulmonale presence: without acute cor pulmonale AMS (altered mental status) R41.82 Metabolic acidosis with normal anion gap and bicarbonate losses E87.20 Right arm weakness R29.898 Depression F32.A UTI (urinary tract infection) N39.0 Status post insertion of percutaneous endoscopic gastrostomy (PEG) tube Z93.1 (1) Pulmonary emboli Pulmonary embolism type: unspecified Chronicity: acute Acute cor pulmonale presence: without acute cor pulmonale Qualified Code(s): I26.99 - Other pulmonary embolism without acute cor pulmonale
[2024-12-31] MEDS: APIXABAN 5 MG TABLET PO SCH (19:54)
[2025-01-01 07:34] LABS: Basophils # (auto) 0.01 K/uL (0.00-0.20); Basophils % (auto) 0.1 %; Eosinophils # (auto) 0.04 K/uL (0.00-0.50); Eosinophils % (auto) 0.4 %; Hemoglobin 8.7 g/dl (12.0-16.0); Lymphocytes # (auto) 2.06 K/uL (1.20-3.40); Lymphocytes % (auto) 21.4 %; Mean Corpuscular Hemoglobin 31.9 pg (25.0-34.0); Mean Corpuscular Hgb Conc 33.5 g/dL (32.0-36.0); Mean Corpuscular Volume 95.2 fL (80.0-100.0); Mean Platelet Volume 12.8 fL (9.4-12.4); Monocytes # (auto) 0.42 K/uL (0.11-0.59); Monocytes % (auto) 4.4 %; Neutrophils # (auto) 6.98 K/uL (1.40-6.50); Neutrophils % (auto) 72.7 %; Nucleated RBC # (auto) 0.07 K/uL (0.00-0.12); Nucleated RBC % (auto) 0.7 %; Platelet Count 80 K/uL (130-400); RDW Coefficient of Variation 19.9 % (11.5-14.5); RDW Standard Deviation 67.5 fL (36.4-46.3); Red Blood Count 2.73 M/uL (4.20-5.40); White Blood Count 9.61 K/ul (4.8-10.8)
[2025-01-01 08:06] LABS: Potassium 4.2 mmol/L (3.5-5.1)
[2025-01-01 08:07] LABS: BUN Creatinine Ratio 32.5 (10-20); Calcium 7.2 mg/dl (8.6-10.3); Creatinine Clr Calc Pharmacy 107.2 ml/min; Magnesium 1.9 mg/dl (1.7-2.4); Phosphorus 2.2 mg/dl (2.5-4.9)
[2025-01-01] MEDS ORDERED: SODIUM PHOSPHATE 3 MMOL/1 ML INFUSION IV ONE (17:18)
--- NOTE | 2025-01-01 17:24 | Hospitalist Progress Note ---
Date of Service January 01, 2025 Assessment & Plan (1) Pulmonary emboli: (2) AMS (altered mental status): (3) Metabolic acidosis with normal anion gap and bicarbonate losses: (4) Right arm weakness: (5) Depression: (6) UTI (urinary tract infection): (7) Status post insertion of percutaneous endoscopic gastrostomy (PEG) tube: Plan 64-year-old female with past medical history of hemorrhagic left basal ganglier CVA in 2021 with resulting right sided strength deficits, seizure, hyperlipidemia, chronic indwelling Alves who presented with concern for complicated UTI with right hydronephrosis and he was treated for both Pseudomonas and candidal UTI. Due to right hydro she underwent right stent placement. She completed treatment for Pseudomonas UTI with cefepime/meropenem/pip-tazo. Is continued on Diflucan for possible candidal UTI. Overnight 12/27/24 did have a rapid response for lethargy and hypotension. Subsequent MRI shows evidence of small new stroke Subacute CVA, chronic CVA, history of ICH Acute metabolic encephalopathy History of left hemorrhagic CVA, seizure-like activity MRI: Large area of chronic encephalomalacia in the left frontal lobe. Within the center of this there is a 2.9 cm focus of restricted diffusion likely chronic but less likely could nagi present an acute versus subacute infarct within prior residual brain parenchyma. Additionally an 8 mm focus of restricted diffusion within the right cerebral hemisphere suggestive of acute versus subacute lacunar infarct is seen. Involutional changes are noted. Left occipital craniotomy noted. Does have a history of intracranial hemorrhage. Neurology consulted recommended anticoagulation alone for PE without antiplatelet because of high risk of hemorrhage Patient with some improved alertness but still does not follow commands. she is able to communicate somewhat with her son but is aphasic at baseline, usually able to follow commands to participate in neuro exam -- I am told her son will visit at 530 today and hope to have a discussion with him, I have been unable to reach him by phone #Complicated UTI, right obstructive ureteral stones Pseudomonas/candidal infection discussed with [facility] pharmacist/ID: completed treatment for Pseudomonas UTI, had missed a few doses of fluconazole so continue for 6 more doses for Dhara UTI blood cultures remain negative - hematuria 01/01 started overnight improved no clots currently pink and clear probably some Alves trauma while anticoagulatedcontinue to monitor #PE CTA With right upper lobe segmental thrombus, radiographic suggestion of right heart strain TTE with some RV dilation. Grade 1 diastolic dysfunction. LV SF normal stop heparin drip and started apixaban 12/31. monitor thrombocytopenia #Non-anion gap metabolic acidosis With GI losses, poor nutritional intake requiring PEG feeding. Creatinine is normal and w/o renal failure. has had some loose stool history of C. difficile, negative C. difficile testing 12/30 - improving - AM BMP # malnutrition, initiation of PEG feeds - at risk for refeeding syndrome discussed with nursing continue advancing tube feeding - potassium and mag normal, Phos low replating with IV sodium phosphate - AM BMP mag phos Hypoalbuminemia with significant anasarca hepatic steatosis but imaging, labs negative for cirrhosis. Normal renal function. Normal LVEF with mild diastolic dysfunction. seems to be nutritional #Concern for left upper extremity ischemia - cool left hand with prolonged cap refill vascular surgery evaluated had adequate cap refill and was able to have good Doppler signals at the wrist and palmar arch. Did not feel there was evidence of ischemia of the right upper extremity; additional workup not recommended - both her extremities are cool today with sluggish cap refill I think this is mostly related to her anasarca which is quite severe #History of seizure Gabapentin held due to altered mental status Keppra via PEG tube twice daily continued DVT ppx - anticoagulated Admission and Anticipated Discharge Date Admission Date: December 18, 2024 Subjective Some yes no answers but not consistently, has not been verbal remains extremely edematous and skin is weeping Physical Exam 2 Physical Exam: PHYSICAL EXAMINATION Last 24h vital signs reviewed, see documentation in flowsheet General: awake and eyes open ill-appearing HEENT: PERRL, disconjugate Lungs: Normal respiratory effort. Clear to auscultation bilaterally. No RRW. ecchymoses upper chest, arms Heart: Regular rate and rhythm, no murmurs. No JVD Abdomen: Soft, nontender, nondistended. Bowel sounds present. G-tube left upper quadrant Extremities: Warm generally except both hands are cool, severe anasarca with skin weeping abdominal wall and 4 extremities - seems to be slowly worsening Neuro: Alert and nonverbal, tracks visually, intermittently squeezes left hand to command but not consistently, face is asymmetric gaze is disconjugate Results & Data Results & Data Vital Signs (Past 12 Hours) Vital Signs Temp Pulse Pulse Resp BP Pulse Ox O2 Del Method 01/01/25 17:08 37.0 C 87 16 136/90 100 Room Air 01/01/25 11:58 36.8 C 84 16 137/82 97 Room Air 01/01/25 10:42 Room Air 01/01/25 08:00 85 01/01/25 07:46 84 16 147/89 H 100 Room Air Laboratory Results 01/01/25 06:42 01/01/25 06:42 PG Care Time/CCT Total # of Minutes Spent Total Time Spent with Patient: Total time spent is greater than 50% in coordination of care (as documented) at patient's floor/unit and/or counseling patient: Coding Level of Care Code 71497 SUB INP/OBS CARE 350MIN Diagnoses Acute pulmonary embolism without acute cor pulmonale, unspecified pulmonary embolism type I26.99 Pulmonary embolism type: unspecified Chronicity: acute Acute cor pulmonale presence: without acute cor pulmonale AMS (altered mental status) R41.82 Metabolic acidosis with normal anion gap and bicarbonate losses E87.20 Right arm weakness R29.898 Depression F32.A UTI (urinary tract infection) N39.0 Status post insertion of percutaneous endoscopic gastrostomy (PEG) tube Z93.1 (1) Pulmonary emboli Pulmonary embolism type: unspecified Chronicity: acute Acute cor pulmonale presence: without acute cor pulmonale Qualified Code(s): I26.99 - Other pulmonary embolism without acute cor pulmonale
[2025-01-01] MEDS: SODIUM PHOSPHATE 12 MMOL in SODIUM CHLORIDE 0.9% 250 ML IV ONE (18:57)
[2025-01-02 07:08] LABS: BUN Creatinine Ratio 33.3 (10-20); Calcium 7.2 mg/dl (8.6-10.3); Magnesium 1.7 mg/dl (1.7-2.4); Phosphorus 2.7 mg/dl (2.5-4.9); Potassium 4.4 mmol/L (3.5-5.1)
--- NOTE | 2025-01-02 13:07 | Hospitalist Progress Note ---
Date of Service January 02, 2025 Assessment & Plan (1) Pulmonary emboli: (2) AMS (altered mental status): (3) Metabolic acidosis with normal anion gap and bicarbonate losses: (4) Right arm weakness: (5) Depression: (6) UTI (urinary tract infection): (7) Status post insertion of percutaneous endoscopic gastrostomy (PEG) tube: Plan 64-year-old woman with past medical history of hemorrhagic left basal ganglia CVA in 2021 with resulting right sided strength deficits, seizure, hyp erlipidemia, chronic indwelling Magallanes who presented with concern for complicated UTI with right hydronephrosis and he was treated for both Pseudomonas and candidal UTI. Due to right hydro she underwent right stent placement. She completed treatment for Pseudomonas UTI with cefepime/meropenem/pip-tazo. Is continued on Diflucan for possible candidal UTI. Overnight 12/27/24 did have a rapid response for lethargy and hypotension. Subsequent MRI shows evidence of small new stroke Subacute CVA, chronic CVA, history of ICH Acute metabolic encephalopathy History of left hemorrhagic CVA, seizure-like activity MRI: Large area of chronic encephalomalacia in the left frontal lobe. Within the center of this there is a 2.9 cm focus of restricted diffusion likely chronic but less likely could nagi present an acute versus subacute infarct within prior residual brain parenchyma. Additionally an 8 mm focus of restricted diffusion within the right cerebral hemisphere suggestive of acute versus subacute lacunar infarct is seen. Involutional changes are noted. Left occipital craniotomy noted. Does have a history of intracranial hemorrhage. Neurology consulted recommended anticoagulation alone for PE without antiplatelet because of high risk of hemorrhage she has baseline aphasia but usually can communicate somewhat and follow commands for a neuro exam. she woke for me today and nodded "no" to a few questions but didn't follow commands -- I haven't been able to connect with her son, but I was able to leave a voicemail today. asked he tell us a time when I can call and get him on the phone #Complicated UTI, right obstructive ureteral stones Pseudomonas/candidal infection completed treatment for Pseudomonas UTI, last dose of fluconazole 01/05 AM for Dhara UTI blood cultures remain negative - hematuria started 01/01 probably magallanes trauma while anticoagulated - remains pink but no clots, monitor #Acute PE CTA With right upper lobe segmental thrombus, radiographic suggestion of right heart strain TTE with some RV dilation. Grade 1 diastolic dysfunction. LV SF normal stopped heparin drip and started apixaban 12/31. monitor thrombocytopenia, stable at 80 # malnutrition, initiation of PEG feeds - at risk for refeeding syndrome TF nearing goal, tolerating - electrolytes wnl today. low normal mag - will replace with 1g IV since giving lasix - AM BMP mag phos #severe anasarca - related to severe hypoalbuminemia, critical illness -addressing nutrition -try lasix 20 mg IV x 1 - unclear if she'll tolerate diuresis #Non-anion gap metabolic acidosis - was prolonged but has resolved. Thought to be related to GI losses. #cold LUE>RUE earlier in admission vascular surgery evaluated, had adequate cap refill and was able to have good Doppler signals at the wrist and palmar arch. Did not feel there was evidence of ischemia of the right upper extremity; additional workup not recommended - both UE remain cold to mid forearm. sluggish cap refill present. feet are wwp. at least partially related to anasarca #History of seizure Gabapentin held due to altered mental status Keppra via PEG tube twice daily continued Soha remains severely ill but stable. Overall prognosis very guarded. Eventual return to [facility] with tube feeding. DVT ppx - anticoagulated Discussed with bedside RN Maria C Admission and Anticipated Discharge Date Admission Date: December 18, 2024 Physical Exam Physical Exam: PHYSICAL EXAMINATION Last 24h vital signs reviewed, see documentation in flowsheet General: awake and eyes open ill-appearing HEENT: PERRL, disconjugate Lungs: Normal respiratory effort. Clear to auscultation bilaterally. No RRW. ecchymoses upper chest, arms Heart: Regular rate and rhythm, no murmurs. No JVD Abdomen: Soft, nontender, nondistended. Bowel sounds present. G-tube left upper quadrant Extremities: Warm generally except both hands are cool, severe anasarca with skin weeping abdominal wall and 4 extremities - seems to be slowly worsening Neuro: Alert and nonverbal, tracks visually, intermittently squeezes left hand to command but not consistently, face is asymmetric gaze is disconjugate Results & Data Results & Data Vital Signs (Past 12 Hours) Vital Signs Temp Pulse Pulse Resp BP Pulse Ox O2 Del Method 01/02/25 11:31 36.6 C 95 H 18 133/93 97 Room Air 01/02/25 07:12 37.1 C 94 H 18 123/79 96 Room Air 01/02/25 06:59 84 01/02/25 03:37 36.7 C 84 17 139/85 96 Room Air PG Care Time/CCT Total # of Minutes Spent Total Time Spent with Patient: Total time spent is greater than 50% in coordination of care (as documented) at patient's floor/unit and/or counseling patient: Coding Level of Care Code 89604 SUB INP/OBS CARE 3/50MIN Diagnoses Acute pulmonary embolism without acute cor pulmonale, unspecified pulmonary embolism type I26.99 Pulmonary embolism type: unspecified Chronicity: acute Acute cor pulmonale presence: without acute cor pulmonale AMS (altered mental status) R41.82 Metabolic acidosis with normal anion gap and bicarbonate losses E87.20 Right arm weakness R29.898 Depression F32.A UTI (urinary tract infection) N39.0 Status post insertion of percutaneous endoscopic gastrostomy (PEG) tube Z93.1 (1) Pulmonary emboli Pulmonary embolism type: unspecified Chronicity: acute Acute cor pulmonale presence: without acute cor pulmonale Qualified Code(s): I26.99 - Other pulmonary embolism without acute cor pulmonale
[2025-01-02] MEDS: FUROSEMIDE INJ 20 MG/2 ML VIAL IV ONE ×2 (16:13→16:14)
[2025-01-02] MEDS: MAGNESIUM SULFATE / D5W 1 GM/100 ML BAG IV ONE (16:13)
[2025-01-03 06:34] LABS: BUN Creatinine Ratio 33.3 (10-20); Calcium 7.3 mg/dl (8.6-10.3); Magnesium 1.5 mg/dl (1.7-2.4); Phosphorus 2.4 mg/dl (2.5-4.9)
[2025-01-03] MEDS ORDERED: POTASSIUM PHOS 3 MMOL/1 ML INFUSION IV ONE (08:00)
[2025-01-03] MEDS: MAGNESIUM SULFATE / D5W 1 GM/100 ML BAG IV SCH (08:52)
[2025-01-03] MEDS: POTASSIUM PHOSPHATE 6 MMOL in SODIUM CHLORIDE 0.9% 100 ML IV ONE (08:52)
[2025-01-03] MEDS: FUROSEMIDE INJ 20 MG/2 ML VIAL IV ONE ×2 (09:00→18:07)
[2025-01-03] MEDS: MoRPHine SULFATE 2 MG/ML CARP IV PRN (12:59)
--- NOTE | 2025-01-03 15:58 | Hospitalist Progress Note ---
Date of Service January 03, 2025 Assessment & Plan (1) Pulmonary emboli: (2) AMS (altered mental status): (3) Metabolic acidosis with normal anion gap and bicarbonate losses: (4) Right arm weakness: (5) Depression: (6) UTI (urinary tract infection): (7) Status post insertion of percutaneous endoscopic gastrostomy (PEG) tube: Plan 64-year-old woman with past medical history of hemorrhagic left basal ganglia CVA in 2021 with resulting right sided strength deficits, seizure, hyperlipidemia, chronic indwelling Magallanes who presented with concern for complicated UTI with right hydronephrosis and he was treated for both Pseudomonas and candidal UTI. Due to right hydro she underwent right stent placement. She completed treatment for Pseudomonas UTI with cefepime/meropenem/pip-tazo and treated for candidal UTI with fluconazole. Overnight 12/27/24 did have a rapid response for lethargy and hypotension. Found to have acute PE. Subsequent MRI with small new stroke. Since then she has continued to have slow improvement Subacute CVA, chronic CVA, history of ICH Acute metabolic encephalopathy History of left hemorrhagic CVA, seizure-like activity MRI: Large area of chronic encephalomalacia in the left frontal lobe. Within the center of this there is a 2.9 cm focus of restricted diffusion likely chronic but less likely could nagi present an acute versus subacute infarct within prior residual brain parenchyma. Additionally an 8 mm focus of restricted diffusion within the right cerebral hemisphere suggestive of acute versus subacute lacunar infarct is seen. Involutional changes are noted. Left occipital craniotomy noted. Does have a history of intracranial hemorrhage. Neurology consulted recommended anticoagulation alone for PE without antiplatelet because of high risk of hemorrhage she has baseline aphasia and apraxia but usually can communicate somewhat and follow commands for a neuro exam -more communicative last 48h and squeezing left hand to command #Complicated UTI, right obstructive ureteral stones Pseudomonas/candidal infection completed treatment for Pseudomonas UTI, last dose of fluconazole 01/05 AM for Dhara UTI blood cultures remain negative - hematuria started 01/01 probably magallanes trauma while anticoagulated - remains pink but improving and no clots, monitor #Acute PE CTA With right upper lobe segmental thrombus, radiographic suggestion of right heart strain TTE with some RV dilation. Grade 1 diastolic dysfunction. LV SF normal stopped heparin drip and started apixaban 12/31. monitor thrombocytopenia, stable at 80. AM CBC # malnutrition, initiation of PEG feeds - at risk for refeeding syndrome TF nearing goal, tolerating - replacing low mag with 2g IV today, normal on afternoon recheck, potassium ok. - AM BMP mag phos #severe anasarca - related to severe hypoalbuminemia, critical illness -addressing nutrition -tolerating lasix 20 mg IV, will try second dose this afternoon. #Non-anion gap metabolic acidosis - was prolonged but has resolved. Thought to be related to GI losses. #cold upper extremities - LUE>RUE earlier in admission vascular surgery evaluated L hand/forearm, had adequate cap refill and was able to have good Doppler signals at the wrist and palmar arch. Did not feel there was evidence of ischemia of the right upper extremity; additional workup not recommended - improved all four ext ww/p today #History of seizure Gabapentin held due to altered mental status Keppra via PEG tube twice daily continued Soha remains severely ill but stable. Overall prognosis very guarded. Eventual return to [facility] with tube feeding. I updated her son by phone today - he is hopeful she may get back to previous baseline, wants to see how she does in next 6 weeks DVT ppx - anticoagulated POC discussed with SYMONE Lombardi Admission and Anticipated Discharge Date Admission Date: December 18, 2024 Subjective Soha was endorsing pain this morning but we were unable to identify the location, she nodded "no" to all the body regions I asked her about she is squeezing my hand with her left hand today, edema appears to have improved a little bit there arms are and hands are now completely warm Physical Exam 2 Physical Exam: PHYSICAL EXAMINATION Last 24h vital signs reviewed, see documentation in flowsheet General: awake alert lying in bed HEENT: PERRL, disconjugate Lungs: Normal respiratory effort. Clear to auscultation bilaterally. No RRW. ecchymoses upper chest, arms Heart: Regular rate and rhythm, no murmurs. No JVD Abdomen: Soft, nontender, nondistended. Bowel sounds present. G-tube left upper quadrant Extremities: all 4 extremities are warm her hands are now pink and well- perfused, severe anasarca a little bit improved compared to yesterday Neuro: Alert and nonverbal, tracks visually, able to follow commands to squeeze left hand, answers yes/no questions with nods, face is asymmetric gaze is disconjugate Results & Data Results & Data Vital Signs (Past 12 Hours) Vital Signs Temp Pulse Pulse Resp BP Pulse Ox O2 Del Method 01/03/25 15:07 36.8 C 107 H 18 126/88 97 Room Air 01/03/25 11:14 36.9 C 73 18 114/77 98 Room Air 01/03/25 07:51 109 H 01/03/25 07:09 37.1 C 104 H 18 119/62 98 Room Air 01/03/25 04:00 36.7 C 103 H 17 147/87 H 96 Room Air Laboratory Results 01/01/25 06:42 01/03/25 05:42 PG Care Time/CCT Total # of Minutes Spent Total Time Spent with Patient: I personally spent: 55 minutes today on clinical care activities including: reviewing chart notes and vital signs reviewing labs examining and counseling the patient counseling the patient's family writing orders documentation Coding Level of Care Code 21066 SUB INP/OBS CARE 3/50MIN Diagnoses Acute pulmonary embolism without acute cor pulmonale, unspecified pulmonary embolism type I26.99 Pulmonary embolism type: unspecified Chronicity: acute Acute cor pulmonale presence: without acute cor pulmonale AMS (altered mental status) R41.82 Metabolic acidosis with normal anion gap and bicarbonate losses E87.20 Right arm weakness R29.898 Depression F32.A UTI (urinary tract infection) N39.0 Status post insertion of percutaneous endoscopic gastrostomy (PEG) tube Z93.1 (1) Pulmonary emboli Pulmonary embolism type: unspecified Chronicity: acute Acute cor pulmonale presence: without acute cor pulmonale Qualified Code(s): I26.99 - Other pulmonary embolism without acute cor pulmonale
[2025-01-03] MEDS: LACTATED RINGER'S 500 ML IV ONE (20:26)
[2025-01-03] MEDS: oxyCODONE HCL SOLN 5 MG/5 ML UDC GT PRN (20:30)
[2025-01-04 06:42] LABS: Hematocrit (blood only) 25.2 % (37.0-47.0); Mean Corpuscular Hemoglobin 31.6 pg (25.0-34.0); Mean Corpuscular Hgb Conc 31.7 g/dL (32.0-36.0); Mean Corpuscular Volume 99.6 fL (80.0-100.0); Mean Platelet Volume 11.4 fL (9.4-12.4); Platelet Count 117 K/uL (130-400); RDW Coefficient of Variation 19.8 % (11.5-14.5); RDW Standard Deviation 70.9 fL (36.4-46.3); Red Blood Count 2.53 M/uL (4.20-5.40); White Blood Count 12.96 K/ul (4.8-10.8)
[2025-01-04 07:05] LABS: BUN Creatinine Ratio 35.3 (10-20); Calcium 7.4 mg/dl (8.6-10.3); Creatinine Clr Calc Pharmacy 138.8 ml/min; Magnesium 1.8 mg/dl (1.7-2.4); Phosphorus 2.8 mg/dl (2.5-4.9); Potassium 4.4 mmol/L (3.5-5.1)
--- NOTE | 2025-01-04 07:30 | Hospitalist Progress Note ---
Date of Service January 04, 2025 Assessment & Plan (1) Pulmonary emboli: (2) AMS (altered mental status): (3) Metabolic acidosis with normal anion gap and bicarbonate losses: (4) Right arm weakness: (5) Depression: (6) UTI (urinary tract infection): (7) Status post insertion of percutaneous endoscopic gastrostomy (PEG) tube: Plan 64-year-old woman with past medical history of hemorrhagic left basal ganglia CVA in 2021 with resulting right sided strength deficits, seizure, hyperlipidemia, chronic indwelling Magallanes who presented with concern for complicated UTI with right hydronephrosis and he was treated for both Pseudomonas and candidal UTI. Due to right hydro she underwent right stent placement. She completed treatment for Pseudomonas UTI with cefepime/meropenem/pip-tazo and treated for candidal UTI with fluconazole. Overnight 12/27/24 did have a rapid response for lethargy and hypotension. Found to have acute PE. Subsequent MRI with small new stroke. Since then she has continued to have slow improvement #Tachycardia, leukocytosis - possible sepsis due to LLL pneumonia Afebrile, WBC newly elevated to 13. ddx clabsi, recurrent UTI, SSTI, PNA, non- infectious source, arrhythmia, overdiuresis. Already anticoagulated for PE. -hold further diuresis -CXR with L base consolidation or effusion, UA abnormal culture pending (recent enterococcus UTI, has stents), blood culture, EKG had sinus tachy -reviewed CBC, CMP remarkable for mild hyperkalemia 5.2 (held scheduled K replacement), procal mild elevation Increased hypoxia/cough/secretions throughout the day - treat for HAP ordered cefepime, vancomycin (for possible CLABSI pending cultures or recurrent UTI) Ideally would remove central line but she is so edematous that PIVs and blood draws very unreliable. was extremely difficult to get foot stick for blood culture today. If blood cx negative at 48h and continued hospitalization anticipated could exchange for PICC ?LUE pain - more swollen than RUE. Already anticoagulated but ordered duplex to check for line-associated DVT #Subacute CVA, chronic CVA, history of ICH #Acute metabolic encephalopathy History of left hemorrhagic CVA, seizure-like activity MRI: Large area of chronic encephalomalacia in the left frontal lobe. Within the center of this there is a 2.9 cm focus of restricted diffusion likely chronic but less likely could nagi present an acute versus subacute infarct within prior residual brain parenchyma. Additionally an 8 mm focus of restricted diffusion within the right cerebral hemisphere suggestive of acute versus subacute lacunar infarct is seen. Involutional changes are noted. Left occipital craniotomy noted. Does have a history of intracranial hemorrhage. Neurology consulted recommended anticoagulation alone for PE without antiplatelet because of high risk of hemorrhage she has baseline aphasia and apraxia but usually can communicate somewhat and follow commands for a neuro exam -more communicative compared to early last week and squeezing left hand to command #Complicated UTI, right obstructive ureteral stones completed treatment for Pseudomonas UTI, last dose of fluconazole 01/05 AM for Dhara UTI - hematuria started 01/01 probably magallanes trauma while anticoagulated - remains pink but improving and no clots, monitor - repeat urine culture ordered - probably will be colonized with bacteria, retreat UTI if more compelling source of sepsis not identified #Acute PE CTA With right upper lobe segmental thrombus, radiographic suggestion of right heart strain TTE with some RV dilation. Grade 1 diastolic dysfunction. LV SF normal continue apixaban. thrombocytopenia from heparin or prior sepsis resolved # malnutrition, initiation of PEG feeds TF at goal over weekend - mild refeeding syndrome resolved - albumin 1.7-->2.0 #severe anasarca - related to severe hypoalbuminemia, critical illness -addressing nutrition -tolerated 20 mg IV lasix previously - currently held #Non-anion gap metabolic acidosis - was prolonged but has resolved. Thought to be related to GI losses. #cold upper extremities - LUE>RUE earlier in admission vascular surgery evaluated L hand/forearm, had adequate cap refill and was able to have good Doppler signals at the wrist and palmar arch. Did not feel there was evidence of ischemia of the right upper extremity; additional workup not recommended - warm last 48h #History of seizure Gabapentin held due to altered mental status Keppra via PEG tube twice daily continued Soha remains severely ill and had some slow improvement through 01/03. Today however has developed additional complications. Overall prognosis very guarded. Eventual return to [facility] with tube feeding. Unclear whether she can regain her previous baseline which was already very limited. I updated her son by phone 01/03 - he is hopeful she may get back to previous baseline, wants to see how she does in next 6 weeks. Discussed with ALBINA Burrell with palliative care - will continue to readress code status DVT ppx - anticoagulated Has [facility] TLC see above Admission and Anticipated Discharge Date Admission Date: December 18, 2024 Subjective Tachycardic starting yesterday, thought perhaps overdiuresis and/or pain. 500 mL saline bolus Remains tachy today (sinus) and noted to be coughing, by afternoon had increased secretions and mild hypoxia Appears uncomfortable, unable to ascertain location of pain/discomfort despite multiple questions, possibly LUE Physical Exam 2 Physical Exam: PHYSICAL EXAMINATION Last 24h vital signs reviewed, see documentation in flowsheet General: awake, moaning a lot HEENT: PERRL, disconjugate Lungs: Normal respiratory effort. coarse BS anteriorly. ecchymoses upper chest, arms Heart: Regular rate and rhythm, no murmurs. No JVD Abdomen: Soft, nontender, nondistended. Bowel sounds present. G-tube left upper quadrant Extremities: all 4 extremities are warm her hands are now pink and well- perfused, severe anasarca especially UEs L>R, small skin tears and weeping Neuro: Alert and nonverbal, tracks visually, able to follow commands to squeeze left hand, answers yes/no questions with nods, face is asymmetric gaze is disconjugate. Results & Data Results & Data Vital Signs (Past 12 Hours) Vital Signs Temp Pulse Pulse Resp BP Pulse Ox O2 Del Method 01/04/25 03:46 37.1 C 117 H 16 115/80 95 Room Air 01/04/25 00:00 37.1 C 111 H 17 115/75 95 Room Air 01/03/25 23:29 117 H 01/03/25 20:00 Room Air 01/03/25 20:00 37.0 C 121 H 18 134/95 98 Room Air Laboratory Results 01/04/25 05:31 01/04/25 05:31 Diagnostic Findings 01/04/25 13:03 01/04/25 13:03 I personally reviewed CXR film - there is a consolidation or effusion in the L base which is new compared to prior film personally reviewed EKG - sinus tachy, inf Qs, nonspecific ST change in I, R, V1-3 PG Care Time/CCT Total # of Minutes Spent Total Time Spent with Patient: Total time spent is greater than 50% in coordination of care (as documented) at patient's floor/unit and/or counseling patient: Coding Level of Care Code 55607 SUB INP/OBS CARE 50MIN Diagnoses Acute pulmonary embolism without acute cor pulmonale, unspecified pulmonary embolism type I26.99 Acute cor pulmonale presence: without acute cor pulmonale Chronicity: acute Pulmonary embolism type: unspecified AMS (altered mental status) R41.82 Metabolic acidosis with normal anion gap and bicarbonate losses E87.20 Right arm weakness R29.898 Depression F32.A UTI (urinary tract infection) N39.0 Status post insertion of percutaneous endoscopic gastrostomy (PEG) tube Z93.1 (1) Pulmonary emboli Acute cor pulmonale presence: without acute cor pulmonale Chronicity: acute Pulmonary embolism type: unspecified Qualified Code(s): I26.99 - Other pulmonary embolism without acute cor pulmonale
--- NOTE | 2025-01-04 08:12 | XRay Report ---
XR chest 1V portable CLINICAL HISTORY: tachycardia, leukocytosis COMPARISON STUDY: 12/28/2024 FINDINGS: Stable left central catheter. Stable mild cardiomegaly without pulmonary vascular congestio n. There is mild opacity at the left base with blunting of the left costophrenic angle. No pneumothor ax. IMPRESSION: Mild opacity at the left lung base could represent small left pleural effusion, consolid ation, or atelectasis. ACT 112: Negative or not required by law. Electronically signed by: Kevin Bryant M.D. 01/04/2025 8:11 AM
[2025-01-04 11:56] LABS: Appearance Urine Cloudy (Clear); Bilirubin Urine Negative (Negative); Blood Urine 3+ (Negative); Color Urine Brown; Glucose Urine UA Negative (Negative); Ketones Urine Negative (Negative); Leukocyte Esterase Urine 1+ (Negative); Nitrite Urine Negative (Negative); Protein Urine 3+ (Negative); Specific Gravity Urine 1.025 (1.000-1.030); Urobilinogen Urine Negative (Negative)
[2025-01-04 12:40] LABS: RBC Urine >20 /hpf (0-2)
[2025-01-04 12:42] LABS: Bacteria Urine 2+ (None Seen); Epithelial Cell Urine 0-2 /hpf (0-2); WBC Urine >50 /hpf (0-5)
--- NOTE | 2025-01-04 12:47 | Electrocardiogram Report ---
Test Reason : Blood Pressure : */* mmHG Vent. Rate : 122 BPM Atrial Rate : 122 BPM P-R Int : 158 ms QRS Dur : 72 ms QT Int : 282 ms P-R-T Axes : 46 -30 104 degrees QTcB Int : 401 ms Sinus tachycardia Left axis deviation Low voltage QRS Cannot rule out Inferior infarct (cited on or before 28-Dec-2024) Abnormal ECG When compared with ECG of 28-Dec-2024 05:09, Vent. rate has increased by 42 bpm Nonspecific T wave abnormality, worse in Anterolateral leads Confirmed by Elliott Abdullahi ([id number]) on 01/04/2025 12:47:25 PM Referred By: REFERRED SELF Confirmed By: Elliott Abdullahi
[2025-01-04] MEDS ORDERED: VANCOMYCIN CONSULT ACTIVE PRN (12:51)
[2025-01-04] MEDS ORDERED: VANCOMYCIN HCL 1,250 MG in SODIUM CHLORIDE 0.9% 500 ML IV ONE (12:51)
[2025-01-04 13:27] LABS: Hematocrit (blood only) 27.1 % (37.0-47.0); Hemoglobin 8.9 g/dl (12.0-16.0); Mean Corpuscular Hgb Conc 32.8 g/dL (32.0-36.0); Mean Corpuscular Volume 97.5 fL (80.0-100.0); Mean Platelet Volume 11.8 fL (9.4-12.4); Platelet Count 164 K/uL (130-400); RDW Coefficient of Variation 19.8 % (11.5-14.5); RDW Standard Deviation 69.2 fL (36.4-46.3); Red Blood Count 2.78 M/uL (4.20-5.40); White Blood Count 13.11 K/ul (4.8-10.8)
[2025-01-04 13:51] LABS: Albumin Globulin Ratio 0.8 (0.9-2); BUN Creatinine Ratio 34.1 (10-20); Bilirubin,Total 0.4 mg/dl (0.2-1.0); Calcium 7.8 mg/dl (8.6-10.3); Creatinine Clr Calc Pharmacy 115.1 ml/min; Globulin 2.6 gm/dl (2.5-4.0); Potassium 5.2 mmol/L (3.5-5.1); Total Protein 4.6 gm/dl (6.0-8.3)
[2025-01-04] MEDS: oxyCODONE HCL SOLN 5 MG/5 ML UDC GT PRN (13:55)
[2025-01-04] MEDS: VANCOMYCIN HCL 1,250 MG in SODIUM CHLORIDE 0.9% 250 ML IV ONE (13:58)
[2025-01-04] MEDS: CEFEPIME 2000MG 2,000 MG/20 ML SYR IV SCH (14:00)
--- NOTE | 2025-01-04 14:45 | Pharmacy Report ---
Pharmacy PK ABX Note - Date of Service January 04, 2025 - Assessment and Plan Assessment 64 year old F receiving vancomycin and fluconazole for treatment of complicated UTI. 4/ urine culture from R kidney (+) Pseudomonas, dhara. 12/27 urine culture (+) E. faecium, Dhara albicans (E. faecium sensitivities not reportable/ resistant to daptomycin). Day # 1 of vancomycin therapy. Plan Vancomycin * Loading dose: 1250 mg IV x 1 * Maintenance dose: 750 mg IV every 8 hours * Regimen is predicted to achieve target AUC/HUNG of 400-600 mg/L.hr * Trough level ordered for tomorrow afternoon Pharmacy will continue to follow and will adjust dose/frequency as necessary. Thank you. Pharmacy has transitioned to AUC monitoring for vancomycin. AUC/HUNG is the preferred PK/PD target and is associated with decreased risk of nephrotoxicity compared to traditional trough targets.
[2025-01-04 14:52] LABS: Bilirubin Direct 0.1 mg/dl (0-0.2)
--- NOTE | 2025-01-04 16:22 | Communication Note ---
Date of Service: January 04, 2025 Soha has worsened throughout the day. Increasing secretions, new hypoxia, remains tachycardic, low UOP. BP has trended down throughout the day - systolic BP in 80s, MAP still high 60s. She is awake and extremities are w/wp, gurgly breath sounds, currently getting UE duplex (negative previously but she's had increased LUE pain and swelling). Anticoagulated on apixaban. Continue vanc/cefepime. Ordered 30 ml/kg sepsis bolus, RT suction, lactate and vbg, called son left voicemail, discussed POC with bedside RN and will discuss with health care social worker. Severely edematous, hypoalbuminemic, consider albumin bolus if more hypotensive, hesitate to give much more IV fluid since shes had very bad third-spacing.
[2025-01-04] MEDS: SCOPOLAMINE 1 MG/72 HR TDSY PATCH TD PRN (17:07)
[2025-01-04 17:12] LABS: Base Excess VBG -4.5 mEq/L; HCO3 VBG 22 mmol/L; Oxygen Saturation VBG < 60.0 %; PCO2 VBG 43 mmHg (38-50); PO2 VBG 37 mmHg; pH VBG 7.31 (7.36-7.41)
[2025-01-04] MEDS: ALBUMIN 25% 25 GM/100 ML VIAL IV ONE (17:15)
[2025-01-04] MEDS: CALCIUM GLUCONATE 1,000 MG/60 ML BAG IV STA (17:15)
[2025-01-04] MEDS: CHECK SCOPOLAMINE PATCH PLACEMENT SCH (17:15)
[2025-01-04] MEDS: SODIUM CHLORIDE 0.9% 1,000 ML IV SCH (17:35)
--- NOTE | 2025-01-04 18:44 | Ultrasound Report ---
EXAM: US venous doppler UE BI CLINICAL HISTORY: LR upper extremity swelling, L arm pain. TECHNIQUE: Ultrasound examination of bilateral upper extremity veins was performed in real time and duplex. One or more of the following were performed- spectral analysis, resistive index, waveform analysis, and pulsed Doppler. COMPARISON: Prior ultrasound dated 12/28/2024. FINDINGS: Right upper limb: Normal phasic, non-pulsatile, and spontaneous flow is noted in the right Internal jugular, subclavian, axillary, brachial, basilic, cephalic, antecubital, radial, and ulnar veins. Visualized veins of the right upper extremity demonstrate normal compressibility. No sonographic evidence of acute deep vein thrombosis (DVT) is detected in the visualized veins of the upper extremity. Compression and Augmentation: All evaluated veins compress fully with applied transducer pressure. Augmentation of venous flow is noted with distal compression. Additional Findings: No evidence of intraluminal thrombus. Left upper limb: Probable DVT seen in the brachial vein; appears non-compressible with no visible flow in the visible portion from mid-dist. Non-occlusive superficial thrombus seen in a basilic vein at the AC fossa; unable to follow the segment to measure. Cephalic vein and ulnar vein not visualized. Line in left neck; unable to evaluate IJV. IV line at mid portion of upper left arm; unable to fully visualize brachial and basilic veins. Normal phasic, non-pulsatile, and spontaneous flow is noted in the subclavian, axillary, antecubital, and radial veins. Visualized veins of the left upper extremity demonstrate normal compressibility. No sonographic evidence of acute deep vein thrombosis (DVT) is detected in the visualized veins of the upper extremity. IMPRESSION: 1. No sonographic evidence of acute DVT was detected in the right upper extremity visualized veins at the time of examination. Unchanged. 2. Probable left DVT. Thrombosis seen in the brachial vein; appears non-compressible with no visible flow in visible portion from mid-dist. New finding. 3. Non-occlusive superficial thrombus seen in the left basilic vein at the antecubital fossa; unable to follow the segment to measure. New finding 4. The left cephalic vein and ulnar vein are not visualized. Disclaimer: DVT could be missed early in the disease when clot burden is minimal. For patients with moderate and high pretest probability of DVT and negative ultrasound, the [employer] clinical guidelines recommend testing with a D-dimer assay or repeat ultrasound in 5-7 days. If symptoms worsen, the Society of radiologists in ultrasound recommends repeating ultrasound even earlier. [facility] was called on Ext# 1 at 05:38 PM [facility], 01/04/2025, and Gibran, Nurse, was informed about the presence of Critical Medical Findings in the report. Electronically signed by Reza Oreilly 01-04-2025 6:44 PM
--- NOTE | 2025-01-04 19:25 | Communication Note ---
Date of Service: January 04, 2025 Sepsis reassessment Improved, was suctioned, RR decreased, MAP improved to 85, ext remain warm Perfusion improved. 2h repeat lactate pending. Discussed with RN
[2025-01-04] MEDS: VANCOMYCIN 750 MG in SODIUM CHLORIDE 0.9% 250 ML IV SCH (20:58)
[2025-01-05 06:25] LABS: BUN Creatinine Ratio 37.1 (10-20); Calcium 7.2 mg/dl (8.6-10.3); Creatinine Clr Calc Pharmacy 134.8 ml/min
[2025-01-05 08:21] LABS: Hematocrit (blood only) 17.8 % (37.0-47.0); Hemoglobin 5.5 g/dl (12.0-16.0); Mean Corpuscular Hemoglobin 31.4 pg (25.0-34.0); Mean Corpuscular Hgb Conc 30.9 g/dL (32.0-36.0); Mean Corpuscular Volume 101.7 fL (80.0-100.0); Mean Platelet Volume 11.2 fL (9.4-12.4); Platelet Count 108 K/uL (130-400); RDW Coefficient of Variation 19.8 % (11.5-14.5); RDW Standard Deviation 72.2 fL (36.4-46.3); Red Blood Count 1.75 M/uL (4.20-5.40)
[2025-01-05] MEDS ORDERED: SODIUM CHLORIDE 0.9% 100 ML IV PRN (08:31)
[2025-01-05 10:11] LABS: Hematocrit (blood only) 17.1 % (37.0-47.0); Hemoglobin 5.3 g/dl (12.0-16.0)
[2025-01-05] MEDS: VANCOMYCIN LEVEL ONE (10:19)
--- NOTE | 2025-01-05 11:08 | Pharmacy Report ---
Pharmacy PK ABX Note - Date of Service January 05, 2025 - Assessment and Plan Assessment 01/05 Random level 22 this morning, drawn ~ 5 hours from previous dose. Estimating slightly supratherapeutic at steady state, will adjust dose. Blood cultures from 01/04 pending. 01/04 64 year old F receiving vancomycin and fluconazole for treatment of complicated UTI. 12/17 urine culture from R kidney (+) Pseudomonas, dhara. 12/27 urine culture (+) E. faecium, Dhara albicans (E. faecium sensitivities not reportable/ resistant to daptomycin). Day # 1 of vancomycin therapy. Plan Vancomycin * Loading dose: 1250 mg IV x 1 * Current maintenance dose: 750 mg IV every 8 hours * Adjust dose to : 1000 mg every 12 hours * Regimen is predicted to achieve target AUC/HUNG of 400-600 mg/L.hr Pharmacy will continue to follow and will adjust dose/frequency as necessary. Thank you. Pharmacy has transitioned to AUC monitoring for vancomycin. AUC/HUNG is the preferred PK/PD target and is associated with decreased risk of nephrotoxicity compared to traditional trough targets.
[2025-01-05] MEDS: VANCOMYCIN HCL 1,000 MG/270 ML BAG IV SCH (12:29)
--- NOTE | 2025-01-05 13:21 | Communication Note ---
Date of Service: January 05, 2025 Brief conversation with pt's son via phone today. He does not appear to have an understanding of how ill pt is, he stated "I can give you one minute of my time right now and I feel that this conversation can wait until Saturday when we know if the blood transfusion worked". I encouraged need for a multidisciplinary ACP discussion to help him understand pt's current state of health as well as make plans/decisions for future level of care. He shared that he cannot come in to hospital during daylight hours "unless she is actually dying". He questioned need for "continuous blood transfusions for the rest of her life" and if he needed to come in to the hospital. I encouraged visitation, and that despite pt's slight neurological improvement, she remains critically ill. He abruptly ended conversation due to his job requiring his attention. we planned a multidisciplinary GOC discussion to be held at bedside on 01/06/25 at 17:00. Total conversation was less than [address] Brooks (attending) made aware.
--- NOTE | 2025-01-05 13:42 | CT Scan Report ---
ABDOMEN AND PELVIS CT WITHOUT CONTRAST CT DOSE: 1092.04 mGy.cm HISTORY: eval for intra-abd hemorrhage, anemia, on Eliquis TECHNIQUE: Multiaxial CT images of the abdomen and pelvis were performed without contrast. A dose lo wering technique was utilized adhering to the principles of ALARA. COMPARISON STUDY: 12/28/2024 FINDINGS: There is stable elevation of the right hemidiaphragm. Stable small bilateral pleural effusi ons and associated consolidation at the lung bases. ABDOMEN: Stable fatty liver. There are tiny gallstones without evidence of acute cholecystitis. Splee n, pancreas, and adrenal glands have an unremarkable non-IV contrasted appearance. Stable well-positi oned right ureteral stent. There is no hydronephrosis bilaterally. There are scattered atheroscleroti c calcifications. No abdominal aortic aneurysm. Stable well-positioned PEG tube. Pelvis: Alves catheter is present and the urinary bladder is empty. Uterus and adnexal regions are gr ossly unremarkable. There is retained liquid stool suggesting diarrhea. No other bowel inflammation o r obstruction seen. There is trace ascites. No free air or abscess. No retroperitoneal hematoma seen. There is anasarca. Osseous structures: There is osteopenia. Stable mild height loss at the L4 vertebral body and a few l ower thoracic vertebral bodies. No acute osseous findings. IMPRESSION: 1. No retroperitoneal hematoma seen. 2. Retained liquid stool suggesting diarrhea. No other bowel inflammation or obstruction seen. 3. Anasarca, trace ascites, and pleural effusions suggest fluid overload. ACT 112: Negative or not required by law. The above report was generated using voice recognition software. It may contain grammatical, syntax o r spelling errors. Electronically signed by: Kevin Bryant M.D. 01/05/2025 1:41 PM
--- NOTE | 2025-01-05 13:52 | Hospitalist Progress Note ---
Date of Service January 05, 2025 Assessment & Plan (1) Pulmonary emboli: (2) AMS (altered mental status): (3) Metabolic acidosis with normal anion gap and bicarbonate losses: (4) Right arm weakness: (5) Depression: (6) UTI (urinary tract infection): (7) Status post insertion of percutaneous endoscopic gastrostomy (PEG) tube: Plan 64-year-old woman with past medical history of hemorrhagic left basal ganglia CVA in 2021 with resulting right sided strength deficits, seizure, hyp erlipidemia, chronic indwelling Magallanes who presented with concern for complicated UTI with right hydronephrosis and he was treated for both Pseudomonas and candidal UTI. Due to right hydro she underwent right stent placement. She completed treatment for Pseudomonas UTI with cefepime/meropenem/pip-tazo and treated for candidal UTI with fluconazole. Overnight 12/27/24 did have a rapid response for lethargy and hypotension. Found to have acute PE. Subsequent MRI with small new stroke. Since then she has continued to have slow improvement #Tachycardia, leukocytosis - possible sepsis due to LLL pneumonia Afebrile, WBC newly elevated to 13. ddx clabsi, recurrent UTI, SSTI, PNA, non- infectious source, arrhythmia, overdiuresis. Already anticoagulated for PE. -hold further diuresis -CXR with L base consolidation or effusion, UA abnormal culture pending (recent enterococcus UTI, has stents), blood culture, EKG had sinus tachy Increased hypoxia/cough/secretions throughout the day - treat for HAP ordered cefepime, vancomycin (for possible CLABSI pending cultures or recurrent UTI) Ideally would remove central line but she is so edematous that PIVs and blood draws very unreliable. was extremely difficult to get foot stick for blood culture today. If blood cx negative at 48h and continued hospitalization anticipated could exchange for PICC ?LUE pain - more swollen than RUE. Already anticoagulated but ordered duplex to check for line-associated DVT. Duplex showed a left brachial vein DVT. #Acute anemia Patient's hemoglobin dropped from 9-5 today 01/05 No visible bleeding anywhere Patient had a bowel movement yesterday which was not reported to be bloody or black No active bleeding noted Urine appears dark but not dark enough to explain the 4 point drop in hemog lobin CT abdomen and pelvis done that ruled out intra-abdominal/retroperitoneal hematoma The patient was on Eliquis which is being held now Subcutaneous bruises noted around the neck and upper chest area Also noted that the patient was found to have a left brachial vein DVT yesterday 01/04 and yet Eliquis is being held due to unexplained drop in hemoglobin Ordered 1 unit of blood after obtaining consent from the son. #Subacute CVA, chronic CVA, history of ICH #Acute metabolic encephalopathy History of left hemorrhagic CVA, seizure-like activity MRI: Large area of chronic encephalomalacia in the left frontal lobe. Within the center of this there is a 2.9 cm focus of restricted diffusion likely chronic but less likely could nagi present an acute versus subacute infarct within prior residual brain parenchyma. Additionally an 8 mm focus of restricted diffusion within the right cerebral hemisphere suggestive of acute versus subacute lacunar infarct is seen. Involutional changes are noted. Left occipital craniotomy noted. Does have a history of intracranial hemorrhage. Neurology consulted recommended anticoagulation alone for PE without antiplatelet because of high risk of hemorrhage she has baseline aphasia and apraxia but usually can communicate somewhat and follow commands for a neuro exam #Complicated UTI, right obstructive ureteral stones completed treatment for Pseudomonas UTI, last dose of fluconazole 01/05 AM for Dhara UTI - hematuria started 01/01 probably magallanes trauma while anticoagulated - remains pink. Monitor - repeat urine culture ordered - probably will be colonized with bacteria, retreat UTI if more compelling source of sepsis not identified #Acute PE CTA With right upper lobe segmental thrombus, radiographic suggestion of right heart strain TTE with some RV dilation. Grade 1 diastolic dysfunction. LV SF normal Eliquis being held due to drop in hemoglobin. Thrombocytopenia from heparin or prior sepsis resolved # malnutrition, initiation of PEG feeds TF at goal over weekend. Tube feeds being held due to high residuals - mild refeeding syndrome resolved - albumin 1.7-->2.0 #severe anasarca - related to severe hypoalbuminemia, critical illness -addressing nutrition -tolerated 20 mg IV lasix previously - currently held #Non-anion gap metabolic acidosis - was prolonged but has resolved. Thought to be related to GI losses. #cold upper extremities - LUE>RUE earlier in admission vascular surgery evaluated L hand/forearm, had adequate cap refill and was able to have good Doppler signals at the wrist and palmar arch. Did not feel there was evidence of ischemia of the right upper extremity; additional workup not recommended - warm last 48h #History of seizure Gabapentin held due to altered mental status Keppra via PEG tube twice daily continued Soha remains severely ill and had some slow improvement through 01/03. On 01/04, appeared to be septic. On 01/05, vital signs improved but is very anemic. Getting blood transfusion. Overall prognosis very guarded. Eventual return to [facility] with tube feeding. Unclear whether she can regain her previous baseline which was already very limited. Tried to speak to the son over the phone who gave me 30 seconds to discuss her clinical condition. I managed to get a consent for blood transfusion. He spent more than 30 seconds explaining why he was in a woodall. However he did not allow me to explain her clinical condition in detail. I was able to speak to him for about 3 minutes. It seems that the patient's son has been very difficult to reach and whenever we are able to reach him, he is in a woodall. The patient's condition is changing quickly and we will need a home planning consultant salesperson to make decisions on her behalf since the patient herself is not decisional. We are trying to hold a meeting at a reasonable time to talk to the son about her clinical condition and prognosis in general. DVT ppx -anticoagulation held Has [facility] see above Admission and Anticipated Discharge Date Admission Date: December 18, 2024 Subjective I received a [place] text from the nurse this morning about critical lab of low hemoglobin. Decision was made to transfuse the patient with a unit of blood. However they have been informed that the patient is not decisional and is not able to consent and that her son is difficult to reach. Today is my first day with this patient. Thankfully I was able to reach the son today but he stated that he only has 30 seconds for me and I would need to summarize everything that I needed to say in 30 seconds. I was quickly able to explain to him that she is in need of blood transfusion and he gave me the consent over the phone. I also tried to explain to him that we needed to talk about goals of care. He tells me that he can only come to the hospital between 6 PM to 9 PM and does not have any other available time. He went on to explain how is job is very demanding and spent more than 30 seconds explaining that. I was able to tell him that his mother is in a critical state and has critically low hemoglobin and she is on a blood thinner and we do not know where she is bleeding from and will need further workup. All in all, I was probably able to speak to him for 3 minutes. I saw the patient with the nurse at bedside during rounds. Per nurse who had the patient yesterday, she is doing a little bit better today. Her vital signs are more stable today. No more hypotensive, less tachycardic, not hypoxic today. Her encephalopathy is better as well. She is able to respond with some moans. 1 unit of blood transfusion has been ordered. Repeat hemoglobin has been ordered. Review of Systems Review of Systems: Unobtainable due to cognitive status Physical Exam Physical Exam: General: Moaning. Sometimes answers yes to some questions. Minimally verbal. Heart: S1, S2/regular rate and rhythm, no murmur rubs or gallops Lungs: Clear to auscultation bilaterally. Normal effort Abdomen: Soft/nontender/nondistended. No hepatosplenomegaly Extremities: No clubbing/cyanosis. 2+ pitting bilateral edema noted. Dark- colored urine noted in the Magallanes catheter. Behavior: Unable to assess Results & Data Results & Data Vital Signs (Past 12 Hours) Vital Signs Temp Pulse Pulse Resp BP BP Pulse Ox 01/05/25 13:00 37.1 C 99 H 16 148/83 H 97 01/05/25 12:05 36.9 C 92 H 14 125/76 97 01/05/25 11:35 36.9 C 01/05/25 11:20 37.2 C 98 H 16 139/86 96 01/05/25 11:14 37.2 C 99 H 16 133/78 96 01/05/25 11:00 37.5 C 103 H 16 127/81 98 01/05/25 08:00 110 H 01/05/25 04:38 124/74 01/05/25 02:30 107 H 18 93/68 L 94 O2 Del Method 01/05/25 13:00 01/05/25 12:05 01/05/25 11:35 01/05/25 11:20 01/05/25 11:14 01/05/25 11:00 01/05/25 08:00 01/05/25 04:38 01/05/25 02:30 Room Air Laboratory Results Abnormal lab results 01/04/25 01/04/25 01/04/25 Range/Units 13:04 17:02 17:54 RBC (4.20-5.40) M/uL Hgb (12.0-16.0) g/dl Hct (37.0-47.0) % MCV (80.0-100.0) fL MCHC (32.0-36.0) g/dL RDW Std Deviation (36.4-46.3) fL RDW Coeff of Naga (11.5-14.5) % Plt Count (130-400) K/uL VBG pH 7.31 L (7.36-7.41) Chloride (98-107) mmol/L Creatinine (0.6-1.2) mg/dl BUN/Creatinine Ratio (10-20) Glucose (70-99(Fasting)) mg/dl POC Glucose 216 H (70-99) mg/dl Lactate 3.1 H* (0.4-2.0) mmol/L Calcium (8.6-10.3) mg/dl Random Vancomycin (10-20) mcg/ml Crossmatch See Detail 01/04/25 01/05/25 01/05/25 Range/Units 18:51 00:44 05:33 RBC (4.20-5.40) M/uL Hgb (12.0-16.0) g/dl Hct (37.0-47.0) % MCV (80.0-100.0) fL MCHC (32.0-36.0) g/dL RDW Std Deviation (36.4-46.3) fL RDW Coeff of Naga (11.5-14.5) % Plt Count (130-400) K/uL VBG pH (7.36-7.41) Chloride 114 H (98-107) mmol/L Creatinine 0.35 L (0.6-1.2) mg/dl BUN/Creatinine Ratio 37.1 H (10-20) Glucose 103 H (70-99(Fasting)) mg/dl POC Glucose 134 H (70-99) mg/dl Lactate 2.3 H* (0.4-2.0) mmol/L Calcium 7.2 L (8.6-10.3) mg/dl Random Vancomycin (10-20) mcg/ml Crossmatch 01/05/25 01/05/25 01/05/25 Range/Units 06:30 07:27 09:35 RBC 1.75 L (4.20-5.40) M/uL Hgb 5.5 L* D 5.3 L* (12.0-16.0) g/dl Hct 17.8 L* 17.1 L* (37.0-47.0) % MCV 101.7 H (80.0-100.0) fL MCHC 30.9 L (32.0-36.0) g/dL RDW Std Deviation 72.2 H (36.4-46.3) fL RDW Coeff of Naga 19.8 H (11.5-14.5) % Plt Count 108 L (130-400) K/uL VBG pH (7.36-7.41) Chloride (98-107) mmol/L Creatinine (0.6-1.2) mg/dl BUN/Creatinine Ratio (10-20) Glucose (70-99(Fasting)) mg/dl POC Glucose 112 H (70-99) mg/dl Lactate (0.4-2.0) mmol/L Calcium (8.6-10.3) mg/dl Random Vancomycin 22.0 H (10-20) mcg/ml Crossmatch 01/05/25 Range/Units 11:09 RBC (4.20-5.40) M/uL Hgb (12.0-16.0) g/dl Hct (37.0-47.0) % MCV (80.0-100.0) fL MCHC (32.0-36.0) g/dL RDW Std Deviation (36.4-46.3) fL RDW Coeff of Naga (11.5-14.5) % Plt Count (130-400) K/uL VBG pH (7.36-7.41) Chloride (98-107) mmol/L Creatinine (0.6-1.2) mg/dl BUN/Creatinine Ratio (10-20) Glucose (70-99(Fasting)) mg/dl POC Glucose 104 H (70-99) mg/dl Lactate (0.4-2.0) mmol/L Calcium (8.6-10.3) mg/dl Random Vancomycin (10-20) mcg/ml Crossmatch Diagnostic Findings Venous Doppler Study 01/04/25 12:50 EXAM: US venous doppler UE BI CLINICAL HISTORY: LR upper extremity swelling, L arm pain. TECHNIQUE: Ultrasound examination of bilateral upper extremity veins was performed in real time and duplex. One or more of the following were performed- spectral analysis, resistive index, waveform analysis, and pulsed Doppler. COMPARISON: Prior ultrasound dated 12/28/2024. FINDINGS: Right upper limb: Normal phasic, non-pulsatile, and spontaneous flow is noted in the right Internal jugular, subclavian, axillary, brachial, basilic, cephalic, antecubital, radial, and ulnar veins. Visualized veins of the right upper extremity demonstrate normal compressibility. No sonographic evidence of acute deep vein thrombosis (DVT) is detected in the visualized veins of the upper extremity. Compression and Augmentation: All evaluated veins compress fully with applied transducer pressure. Augmentation of venous flow is noted with distal compression. Additional Findings: No evidence of intraluminal thrombus. Left upper limb: Probable DVT seen in the brachial vein; appears non-compressible with no visible flow in the visible portion from mid-dist. Non-occlusive superficial thrombus seen in a basilic vein at the AC fossa; unable to follow the segment to measure. Cephalic vein and ulnar vein not visualized. Line in left neck; unable to evaluate IJV. IV line at mid portion of upper left arm; unable to fully visualize brachial and basilic veins. Normal phasic, non-pulsatile, and spontaneous flow is noted in the subclavian, axillary, antecubital, and radial veins. Visualized veins of the left upper extremity demonstrate normal compressibility. No sonographic evidence of acute deep vein thrombosis (DVT) is detected in the visualized veins of the upper extremity. IMPRESSION: 1. No sonographic evidence of acute DVT was detected in the right upper extremity visualized veins at the time of examination. Unchanged. 2. Probable left DVT. Thrombosis seen in the brachial vein; appears non-compressible with no visible flow in visible portion from mid-dist. New finding. 3. Non-occlusive superficial thrombus seen in the left basilic vein at the antecubital fossa; unable to follow the segment to measure. New finding 4. The left cephalic vein and ulnar vein are not visualized. Disclaimer: DVT could be missed early in the disease when clot burden is minimal. For patients with moderate and high pretest probability of DVT and negative ultrasound, the [employer] clinical guidelines recommend testing with a D-dimer assay or repeat ultrasound in 5-7 days. If symptoms worsen, the Society of radiologists in ultrasound recommends repeating ultrasound even earlier. [facility] was called on Ext# 1 at 05:38 PM ELECTRIC ORGAN ASSEMBLER, 01/04/2025, and Gibran, Nurse, was informed about the presence of Critical Medical Findings in the report. Electronically signed by Reza Oreilly 01-04-2025 6:44 PM Abdomen/Pelvis CT 01/05/25 12:[address] WITHOUT CONTRAST CT DOSE: 1092.04 mGy.cm HISTORY: eval for intra-abd hemorrhage, anemia, on Eliquis TECHNIQUE: Multiaxial CT images of the abdomen and pelvis were performed without contrast. A dose lowering technique was utilized adhering to the principles of ALARA. COMPARISON STUDY: 12/28/2024 FINDINGS: There is stable elevation of the right hemidiaphragm. Stable small bilateral pleural effusions and associated consolidation at the lung bases. ABDOMEN: Stable fatty liver. There are tiny gallstones without evidence of acute cholecystitis. Spleen, pancreas, and adrenal glands have an unremarkable non-IV contrasted appearance. Stable well-positioned right ureteral stent. There is no hydronephrosis bilaterally. There are scattered atherosclerotic calcifications. No abdominal aortic aneurysm. Stable well-positioned PEG tube. Pelvis: Magallanes catheter is present and the urinary bladder is empty. Uterus and adnexal regions are grossly unremarkable. There is retained liquid stool suggesting diarrhea. No other bowel inflammation or obstruction seen. There is trace ascites. No free air or abscess. No retroperitoneal hematoma seen. There is anasarca. Osseous structures: There is osteopenia. Stable mild height loss at the L4 vertebral body and a few lower thoracic vertebral bodies. No acute osseous findings. IMPRESSION: 1. No retroperitoneal hematoma seen. 2. Retained liquid stool suggesting diarrhea. No other bowel inflammation or obstruction seen. 3. Anasarca, trace ascites, and pleural effusions suggest fluid overload. ACT 112: Negative or not required by law. The above report was generated using voice recognition software. It may contain grammatical, syntax or spelling errors. Electronically signed by: Kevin Bryant M.D. 01/05/2025 1:41 PM PG Care Time/CCT Total # of Minutes Spent Total Time Spent with Patient: Total time spent is greater than 50% in coordination of care (as documented) at patient's floor/unit and/or counseling patient: Coding Level of Care Code 34663 SUB INP/OBS CARE 235MIN Diagnoses Acute pulmonary embolism without acute cor pulmonale, unspecified pulmonary embolism type I26.99 Pulmonary embolism type: unspecified Chronicity: acute Acute cor pulmonale presence: without acute cor pulmonale AMS (altered mental status) R41.82 Metabolic acidosis with normal anion gap and bicarbonate losses E87.20 Right arm weakness R29.898 Depression F32.A UTI (urinary tract infection) N39.0 Status post insertion of percutaneous endoscopic gastrostomy (PEG) tube Z93.1 (1) Pulmonary emboli Pulmonary embolism type: unspecified Chronicity: acute Acute cor pulmonale presence: without acute cor pulmonale Qualified Code(s): I26.99 - Other pulmonary embolism without acute cor pulmonale
[2025-01-05 16:43] LABS: Hemoglobin 8.6 g/dl (12.0-16.0)
[2025-01-05] MEDS ORDERED: VANCOMYCIN HCL 1,000 MG/270 ML BAG IV SCH (20:00)
[2025-01-06 08:20] LABS: Hematocrit (blood only) 26.1 % (37.0-47.0); Hemoglobin 8.4 g/dl (12.0-16.0); Mean Corpuscular Hemoglobin 29.9 pg (25.0-34.0); Mean Corpuscular Hgb Conc 32.2 g/dL (32.0-36.0); Mean Corpuscular Volume 92.9 fL (80.0-100.0); Mean Platelet Volume 10.6 fL (9.4-12.4); Platelet Count 140 K/uL (130-400); RDW Coefficient of Variation 22.6 % (11.5-14.5); RDW Standard Deviation 74.4 fL (36.4-46.3); Red Blood Count 2.81 M/uL (4.20-5.40)
[2025-01-06 08:35] LABS: BUN Creatinine Ratio 28.6 (10-20); Calcium 7.3 mg/dl (8.6-10.3); Creatinine Clr Calc Pharmacy 112.4 ml/min; Potassium 3.5 mmol/L (3.5-5.1)
[2025-01-06 10:26] LABS: Hematocrit (blood only) 26.2 % (37.0-47.0); Hemoglobin 8.5 g/dl (12.0-16.0)
--- NOTE | 2025-01-06 12:52 | Palliative Family Discussion ---
Date of Service January 05, 2025 Patient Directed Conference Time of Meetin:40 - 18:45 Participants: Beatriz Burrell AGACNP Patient participation: no Patient Support System: son Basil Cagle Other Healthcare Provider Participation: attending Dr. Brooks and BSRN Meeting Location: telephonic with son/MD/BSRN in pt room. Advanced Directive available: No If yes, descriptors: The patient's surrogate medical decision maker participated: Basil Legally authorized health care proxy: patient's adult son Basil Cagle Other surrogate: n/a A family meeting was held for CASSIDY CAGLE. This meeting was necessary for determining the appropriate course of treatment. Topics of Discussion Topics of Discussion: 1. advanced directive 2. PMHx, HPI, expected progression of current illness 3. goals of care 4. code status Other Content of Meetin. Opportunity given for participants to speak and ask questions. 2. Participants were assured of attention to patient comfort. 3. Reassurance provided. 4. Support was provided for informed, good-cierra decisions. 5. Emotions expressed by family were acknowledged and addressed. 6. Follow-up Outpatient: n/a 7. Plan of Care: DNR/DNI continue current course of treatment with hopes of improvement to baseline. Pt's son arrived at bedside today at 1730 hrs requesting scheduled GOC meeting be held at that time. (multidisciplinary team mtg was arranged for 01/06 1700) Dr. Brooks was a bedside and met with son, adding me via speakerphone. Introduced Palliative Medicine and explained our role in advanced care planning, symptom management and navigation through the progression of life limiting disease. Basil was receptive to palliative services for goals of care discussions. Reviewed we are different from hospice, a home health nurse visiting service. Helped Basil understand that Patient currently exhibits lack of decisional capacity based on the inability to convey understanding of personal PMHx, current medical condition, treatment options nor the risks / benefits of those options, and lack of ability to make decisions based on such knowledge. Hospital does not have written documentation of patient wishes concerning her chosen proxy for medical decisions. Per PA [id number], in absence of written documentation of patient wishes, pt's proxy for medical decisions would be her adult son Basil Cagle. Pt does require a proxy for medical decisions. We discussed concern that the pt may never regain decisional capacity. Discussed pt's current cognitive state per medical staff assessments, pt opens eyes spontaneously but does not consistently follow commands nor offer any intelligible speech. Basil expressed that he is seeing cognitive improvements in pt during his visits, he shared that she was able to tell him what channel she wanted to watch on TV. He shared hope that she will return to her previous level of cognition where she "still had more quality days left". Dr Brooks shared medical updates with Basil and expressed concern that the pt may not survive this hospitalization. She helped Basil understand that the pt is very ill and in a state where treating one problem (hypercoagulable state with PE and DVT) is causing other life threatening problems (critical anemia with unknown etiology) and putting her at higher risk for additional stroke, MT or PE any of which could cause her . Discussed that given the critical nature of pt's illness and lack of decisional capacity, someone will need to be reasonably available to medical staff for updates as well as to act as a proxy for medical decisions for patient. Basil shared that the pt has no other children or family available with the exception of a cousin who has expressed that she is not willing to assist with medical decisions. discussed with Basil that his restricted availability even by phone and limited time (often restricted to less that a minute) is not sufficient to share detailed medical information in a meaningful way. After lengthy discussion, Basil shared that he can be available daily at 11am for medical updates or emergent discussion and would continue to try to visit at bedside evenings after 6pm. Discussed code status and helped Basil understand that CPR is only done after a person has and involves uncomfortable and invasive procedures that, if succ essful. have high risk of multiple complications including but not limited to rib fractures, pneumo/hemothorax, MARGARET, ventilator dependence, anoxic brain injury, and intermodal customer service/permanent cognitive and functional deficits. CPR survival: Only about 10% of patients who have [id number] sudden cardiac arrest survive to hospital discharge, with many survivors having neurologic impairment. This rate is even lower among patients with serious coexisting conditions, ie chance of survival to hospital discharge for in- hospital CPR in older people is low to moderate (15%) and decreases with age, comorbidities, performance status and frailty: for pts > 70 yo, more than half of the patients who initially survived resuscitation in the hospital before hospital discharge. The pooled survival to discharge after in-hospital CPR was 18% for patients between 70 and 79 years old, 15% for patients between 80 and 89 years old and 11% for patients of 90 years and older. (Jaleel LANE, Amadeo LJ, Nirali F, et al. Trends in short- and long-term survival among [id number] cardiac arrest patients alive at hospital arrival. Circulation 2014;130:1883- 1890. AND Selvin C, Cynthia T, Marleny R, et al. Performance of clinical risk scores to predict mortality and neurological outcome in cardiac arrest patients. Resuscitation 2019;136:21-29.) Basil asserts that he believes that the pt would not want to be revived to her current state of health and requests DNR/DNI status. Basil shared desire to give pt more time for improvement, stating that he has seen her sicker that this in the past and she has recovered. He expressed feeling encouraged by her level of response to him as well as her labs stabilizing after transfusions. We will follow this patient more loosely, as goals of care are clearly established for DNR/DNI but continue all other life prolonging therapies. Thank you for including Palliative Care in the management of this patient. Please call with any questions or concerns regarding this consultation. Time Involved in Meeting: I spent 80 minutes overall addressing this case: 10 in medical data review/discussion with referring provider(s) and/or preparation for the visit 60 in telephonic counselor at law/ interaction with the patient's son 60 Advance Care Planning/Goals of Care discussions as detailed above in note (must be >16min) 5 in subsequent review and synthesis of assessment and plan 5 in communicating with other providers regarding the patient's case: []
--- NOTE | 2025-01-06 13:10 | Hospitalist Progress Note ---
Date of Service January 06, 2025 Assessment & Plan (1) Pulmonary emboli: (2) AMS (altered mental status): (3) Metabolic acidosis with normal anion gap and bicarbonate losses: (4) Right arm weakness: (5) Depression: (6) UTI (urinary tract infection): (7) Status post insertion of percutaneous endoscopic gastrostomy (PEG) tube: Plan 64-year-old woman with past medical history of hemorrhagic left basal ganglia CVA in 2021 with resulting right sided strength deficits, seizure, hyp erlipidemia, chronic indwelling Magallanes who presented with concern for complicated UTI with right hydronephrosis and he was treated for both Pseudomonas and candidal UTI. Due to right hydro she underwent right stent placement. She completed treatment for Pseudomonas UTI with cefepime/meropenem/pip-tazo and treated for candidal UTI with fluconazole. Overnight 12/27/24 did have a rapid response for lethargy and hypotension. Found to have acute PE. Subsequent MRI with small new stroke. Since then she has continued to have slow improvement #Tachycardia, leukocytosis - possible sepsis due to LLL pneumonia Afebrile, WBC newly elevated to 13. ddx clabsi, recurrent UTI, SSTI, PNA, non- infectious source, arrhythmia, overdiuresis. Already anticoagulated for PE. -hold further diuresis -CXR with L base consolidation or effusion, UA abnormal culture pending (recent enterococcus UTI, has stents), blood culture, EKG had sinus tachy Increased hypoxia/cough/secretions throughout the day - treat for HAP ordered cefepime, vancomycin (for possible CLABSI pending cultures or recurrent UTI). Check repeat MRSA nares 01/06 Ideally would remove central line but she is so edematous that PIVs and blood draws very unreliable. was extremely difficult to get foot stick for blood culture today. If blood cx negative at 48h and continued hospitalization anticipated could exchange for PICC ?LUE pain - more swollen than RUE. Already anticoagulated but ordered duplex to check for line-associated DVT. Duplex showed a left brachial vein DVT. #Acute anemia Patient's hemoglobin dropped from 9-5 01/05 Responded to a unit of blood. Hemoglobin now in the eights range. No visible bleeding anywhere Patient had bowel movements which were not reported to be bloody or black No active bleeding noted Urine appeared dark but not dark enough to explain the 4 point drop in hemoglobin. Urine appears straw-colored today. CT abdomen and pelvis done that ruled out intra-abdominal/retroperitoneal hematoma The patient was on Eliquis which was held 01/05. Subcutaneous bruises noted around the neck and upper chest area Also noted that the patient was found to have a left brachial vein DVT yesterday 01/04 and yet Eliquis is being held due to unexplained drop in hemoglobin Resumed Eliquis at a lower dose 5 mg twice daily today because of newly diagnosed acute PE and left brachial vein DVT in the absence of any acute visible bleeding. Explained to the son that this is a difficult situation and he is agreeable with my choice Check H&H every 8 hours Monitor for any further signs of bleeding #Subacute CVA, chronic CVA, history of ICH #Acute metabolic encephalopathy History of left hemorrhagic CVA, seizure-like activity MRI: Large area of chronic encephalomalacia in the left frontal lobe. Within the center of this there is a 2.9 cm focus of restricted diffusion likely chronic but less likely could nagi present an acute versus subacute infarct within prior residual brain parenchyma. Additionally an 8 mm focus of restricted diffusion within the right cerebral hemisphere suggestive of acute versus subacute lacunar infarct is seen. Involutional changes are noted. Left occipital craniotomy noted. Does have a history of intracranial hemorrhage. Neurology consulted recommended anticoagulation alone for PE without antiplatelet because of high risk of hemorrhage she has baseline aphasia and apraxia but usually can communicate somewhat and follow commands for a neuro exam #Complicated UTI, right obstructive ureteral stones completed treatment for Pseudomonas UTI, last dose of fluconazole 01/05 AM for Dhara UTI - hematuria started 01/01 probably magallanes trauma while anticoagulated -was pink on 01/05. Today urine appears straw-colored upon holding Eliquis. - repeat urine culture ordered - probably will be colonized with bacteria, retreat UTI if more compelling source of sepsis not identified #Acute PE CTA With right upper lobe segmental thrombus, radiographic suggestion of right heart strain TTE with some RV dilation. Grade 1 diastolic dysfunction. LV SF normal Eliquis has been resumed 01/06. Thrombocytopenia from heparin or prior sepsis resolved # malnutrition, initiation of PEG feeds TF at goal over weekend. Tube feeds was held 01/05 due to high residuals. Now resumed - mild refeeding syndrome resolved - albumin 1.7-->2.0 #severe anasarca - related to severe hypoalbuminemia, critical illness -addressing nutrition -tolerated 20 mg IV lasix previously - currently held #Non-anion gap metabolic acidosis - was prolonged but has resolved. Thought to be related to GI losses. #cold upper extremities - LUE>RUE earlier in admission vascular surgery evaluated L hand/forearm, had adequate cap refill and was able to have good Doppler signals at the wrist and palmar arch. Did not feel there was evidence of ischemia of the right upper extremity; additional workup not recommended - warm last 48h #History of seizure Gabapentin held due to altered mental status Keppra via PEG tube twice daily continued Soha remains severely ill and had some slow improvement through 01/03. On 01/04, appeared to be septic. On 01/05, vital signs improved but is very anemic. blood transfusion on 01/05. Overall prognosis very guarded. Eventual return to [facility] with tube feeding. Unclear whether she can regain her previous baseline which was already very limited. Spoke to son in detail on 01/05. Son changed her CODE STATUS to DNR/DNI DVT ppx -Eliquis resumed Has [facility] TLC see above Admission and Anticipated Discharge Date Admission Date: December 18, 2024 Subjective Patient was seen at the bedside and examined by myself. Gibran nurse was present during the encounter. Patient continues to moan. No intelligible conversation held Review of Systems Review of Systems: Unobtainable due to cognitive status Physical Exam Physical Exam: General: Moaning. Sometimes answers yes to some questions. Minimally verbal. Heart: S1, S2/regular rate and rhythm, no murmur rubs or gallops Lungs: Clear to auscultation bilaterally. Normal effort Abdomen: Soft/nontender/nondistended. No hepatosplenomegaly Extremities: No clubbing/cyanosis. 2+ pitting bilateral edema noted. Urine in the Magallanes catheter is not dark today anymore Behavior: Unable to assess Results & Data Results & Data Vital Signs (Past 12 Hours) Vital Signs Temp Pulse Pulse Resp BP Pulse Ox O2 Del Method 01/06/25 10:41 36.6 C 84 20 120/70 95 Room Air 01/06/25 08:33 81 01/06/25 07:31 Room Air 01/06/25 07:21 36.8 C 90 20 135/87 97 Room Air 01/06/25 02:29 86 19 107/73 96 Room Air Laboratory Results Abnormal lab results 01/04/25 01/05/25 01/05/25 Range/Units 13:04 15:44 19:14 RBC (4.20-5.40) M/uL Hgb 8.6 L D (12.0-16.0) g/dl Hct 27.0 L (37.0-47.0) % RDW Std Deviation (36.4-46.3) fL RDW Coeff of Naga (11.5-14.5) % Chloride (98-107) mmol/L Creatinine (0.6-1.2) mg/dl BUN/Creatinine Ratio (10-20) POC Glucose 108 H (70-99) mg/dl Calcium (8.6-10.3) mg/dl Crossmatch See Detail 01/06/25 01/06/25 01/06/25 Range/Units 00:05 07:56 09:50 RBC 2.81 L (4.20-5.40) M/uL Hgb 8.4 L 8.5 L (12.0-16.0) g/dl Hct 26.1 L 26.2 L (37.0-47.0) % RDW Std Deviation 74.4 H (36.4-46.3) fL RDW Coeff of Naga 22.6 H (11.5-14.5) % Chloride 113 H (98-107) mmol/L Creatinine 0.42 L (0.6-1.2) mg/dl BUN/Creatinine Ratio 28.6 H (10-20) POC Glucose 105 H (70-99) mg/dl Calcium 7.3 L (8.6-10.3) mg/dl Crossmatch 01/06/25 Range/Units 11:27 RBC (4.20-5.40) M/uL Hgb (12.0-16.0) g/dl Hct (37.0-47.0) % RDW Std Deviation (36.4-46.3) fL RDW Coeff of Naga (11.5-14.5) % Chloride (98-107) mmol/L Creatinine (0.6-1.2) mg/dl BUN/Creatinine Ratio (10-20) POC Glucose 101 H (70-99) mg/dl Calcium (8.6-10.3) mg/dl Crossmatch PG Care Time/CCT Total # of Minutes Spent Total Time Spent with Patient: Total time spent is greater than 50% in coordination of care (as documented) at patient's floor/unit and/or counseling patient: Coding Level of Care Code 82625 SUB INP/OBS CARE 2/35MIN Diagnoses Acute pulmonary embolism without acute cor pulmonale, unspecified pulmonary embolism type I26.99 Pulmonary embolism type: unspecified Chronicity: acute Acute cor pulmonale presence: without acute cor pulmonale AMS (altered mental status) R41.82 Metabolic acidosis with normal anion gap and bicarbonate losses E87.20 Right arm weakness R29.898 Depression F32.A UTI (urinary tract infection) N39.0 Status post insertion of percutaneous endoscopic gastrostomy (PEG) tube Z93.1 (1) Pulmonary emboli Pulmonary embolism type: unspecified Chronicity: acute Acute cor pulmonale presence: without acute cor pulmonale Qualified Code(s): I26.99 - Other pulmonary embolism without acute cor pulmonale
[2025-01-06 17:20] LABS: Hematocrit (blood only) 24.1 % (37.0-47.0); Hemoglobin 7.8 g/dl (12.0-16.0)
[2025-01-06] MEDS: APIXABAN 5 MG TABLET PO SCH (21:00)
[2025-01-07 01:31] LABS: Hematocrit (blood only) 25.4 % (37.0-47.0); Hemoglobin 8.3 g/dl (12.0-16.0)
[2025-01-07 06:17] LABS: Hematocrit (blood only) 23.7 % (37.0-47.0); Hemoglobin 7.6 g/dl (12.0-16.0); Mean Corpuscular Hemoglobin 30.4 pg (25.0-34.0); Mean Corpuscular Hgb Conc 32.1 g/dL (32.0-36.0); Mean Corpuscular Volume 94.8 fL (80.0-100.0); Mean Platelet Volume 10.7 fL (9.4-12.4); Platelet Count 156 K/uL (130-400); RDW Coefficient of Variation 21.7 % (11.5-14.5); RDW Standard Deviation 72.5 fL (36.4-46.3)
[2025-01-07 06:26] LABS: BUN Creatinine Ratio 32.7 (10-20); Calcium 6.7 mg/dl (8.6-10.3); Creatinine Clr Calc Pharmacy 96.3 ml/min; Potassium 3.3 mmol/L (3.5-5.1)
[2025-01-07] MEDS: POTASSIUM CHLORIDE / WTR 10 MEQ/100 ML PLCT IV SCH (08:02)
[2025-01-07] MEDS ORDERED: APIXABAN 5 MG TABLET PO SCH ×3 (09:00→21:00)
[2025-01-07] MEDS: VANCOMYCIN LEVEL ONE (11:20)
--- NOTE | 2025-01-07 11:47 | Hospitalist Progress Note ---
Date of Service January 07, 2025 Assessment & Plan (1) Pulmonary emboli: (2) AMS (altered mental status): (3) Metabolic acidosis with normal anion gap and bicarbonate losses: (4) Right arm weakness: (5) Depression: (6) UTI (urinary tract infection): (7) Status post insertion of percutaneous endoscopic gastrostomy (PEG) tube: Plan 64-year-old woman with past medical history of hemorrhagic left basal ganglia CVA in 2021 with resulting right sided strength deficits, seizure, hyp erlipidemia, chronic indwelling Magallanes who presented with concern for complicated UTI with right hydronephrosis and he was treated for both Pseudomonas and candidal UTI. Due to right hydro she underwent right stent placement. She completed treatment for Pseudomonas UTI with cefepime/meropenem/pip-tazo and treated for candidal UTI with fluconazole. Overnight 12/27/24 did have a rapid response for lethargy and hypotension. Found to have acute PE. Subsequent MRI with small new stroke. Since then she has continued to have slow improvement # Possible LLL pneumonia leading to sepsis White count has trended down from 13-7 in response to IV antibiotics. Will discontinue vancomycin as MRSA nares negative on 01/06 again Continue cefepime Urine culture growing the same Enterococcus and not sure if the Magallanes catheter was changed since the last urine culture on 12/27. I am not convinced that this is a true UTI. The patient clinically had hypoxia and gurgling suggestive of pneumonia being the source of sepsis rather than UTI. #Acute anemia Patient's hemoglobin had dropped from 9-5 on 01/05 Had responded to a unit of blood No visible bleeding anywhere Patient had bowel movements which were not reported to be black or bloody Urine appeared dark but not dark enough to explain a 4 point drop in hemoglobin. Urine appears straw-colored today CT abdomen and pelvis was done that ruled out intra-abdominal/retroperitoneal hematoma Patient was on Eliquis which was held on 01/05 Subcutaneous bruises noted around the neck and upper chest area Also noted the patient was found to have a left brachial vein DVT on 01/04. Ultrasound-guided line has been removed since. Patient was put back on Eliquis since no bleeding source was found on 01/06 and H&H is being monitored very closely Son has been made aware of the difficult situation that the patient is not and he is agreeable with my decisions. #Subacute CVA, chronic CVA, history of ICH #Acute metabolic encephalopathy History of left hemorrhagic CVA, seizure-like activity MRI: Large area of chronic encephalomalacia in the left frontal lobe. Within the center of this there is a 2.9 cm focus of restricted diffusion likely chronic but less likely could nagi present an acute versus subacute infarct within prior residual brain parenchyma. Additionally an 8 mm focus of restricted diffusion within the right cerebral hemisphere suggestive of acute versus subacute lacunar infarct is seen. Involutional changes are noted. Left occipital craniotomy noted. Does have a history of intracranial hemorrhage. Neurology consulted recommended anticoagulation alone for PE without antiplatelet because of high risk of hemorrhage she has baseline aphasia and apraxia but usually can communicate somewhat and follow commands for a neuro exam #Complicated UTI, right obstructive ureteral stones completed treatment for Pseudomonas UTI, last dose of fluconazole 01/05 AM for Dhara UTI - hematuria started 01/01 probably magallanes trauma while anticoagulated -was pink on 01/05. Today urine appears straw-colored upon holding Eliquis. - repeat urine culture ordered - probably will be colonized with bacteria, retreat UTI if more compelling source of sepsis not identified #Acute PE CTA With right upper lobe segmental thrombus, radiographic suggestion of right heart strain TTE with some RV dilation. Grade 1 diastolic dysfunction. LV SF normal Eliquis has been resumed 01/06. Thrombocytopenia from heparin or prior sepsis resolved # malnutrition, initiation of PEG feeds TF at goal over weekend. Tube feeds was held 01/05 due to high residuals. Now resumed - mild refeeding syndrome resolved - albumin 1.7-->2.0 #severe anasarca - related to severe hypoalbuminemia, critical illness -addressing nutrition -tolerated 20 mg IV lasix previously - currently held #Non-anion gap metabolic acidosis - was prolonged but has resolved. Thought to be related to GI losses. #cold upper extremities - LUE>RUE earlier in admission vascular surgery evaluated L hand/forearm, had adequate cap refill and was able to have good Doppler signals at the wrist and palmar arch. Did not feel there was evidence of ischemia of the right upper extremity; additional workup not recommended - warm last 48h #History of seizure Gabapentin held due to altered mental status Keppra via PEG tube twice daily continued Soha remains severely ill and had some slow improvement through 01/03. On 01/04, appeared to be septic. On 01/05, vital signs improved but is very anemic. blood transfusion on 01/05. Overall prognosis very guarded. Eventual return to [facility] with tube feeding. Unclear whether she can regain her previous baseline which was already very limited. Spoke to son in detail on 01/05. Son changed her CODE STATUS to DNR/DNI. Son has been advised to call every day at 11 AM to get updates since he is so difficult to reach DVT ppx -Eliquis resumed Has [facility] TLC see above Admission and Anticipated Discharge Date Admission Date: December 18, 2024 Subjective Patient remains fairly nonverbal. Per nurse, no change clinically. No obvious bleeding. Urine remains straw-colored. Review of Systems Review of Systems: Unobtainable due to cognitive status Physical Exam Physical Exam: General: Moaning. Sometimes answers yes to some questions. Minimally verbal. Heart: S1, S2/regular rate and rhythm, no murmur rubs or gallops Lungs: Clear to auscultation bilaterally. Normal effort Abdomen: Soft/nontender/nondistended. No hepatosplenomegaly Extremities: No clubbing/cyanosis. 2+ pitting bilateral edema noted. Urine in the Magallanes catheter is straw-colored Behavior: Unable to assess Results & Data Results & Data Vital Signs (Past 12 Hours) Vital Signs Temp Pulse Resp BP Pulse Ox O2 Del Method O2 Flow Rate 01/07/25 11:01 36.5 C 105 H 21 113/87 94 Oxymask 2 01/07/25 08:00 Room Air 01/07/25 07:34 36.6 C 88 20 102/74 97 Room Air 01/07/25 03:08 94 H 18 109/78 95 Room Air Laboratory Results Abnormal lab results 01/06/25 01/06/25 01/07/25 Range/Units 17:03 18:02 00:18 RBC (4.20-5.40) M/uL Hgb 7.8 L (12.0-16.0) g/dl Hct 24.1 L (37.0-47.0) % RDW Std Deviation (36.4-46.3) fL RDW Coeff of Naga (11.5-14.5) % Potassium (3.5-5.1) mmol/L Chloride (98-107) mmol/L Creatinine (0.6-1.2) mg/dl BUN/Creatinine Ratio (10-20) Glucose (70-99(Fasting)) mg/dl POC Glucose 120 H 156 H (70-99) mg/dl Calcium (8.6-10.3) mg/dl 01/07/25 01/07/25 01/07/25 Range/Units 01:17 05:25 05:56 RBC 2.50 L (4.20-5.40) M/uL Hgb 8.3 L 7.6 L (12.0-16.0) g/dl Hct 25.4 L 23.7 L (37.0-47.0) % RDW Std Deviation 72.5 H (36.4-46.3) fL RDW Coeff of Naga 21.7 H (11.5-14.5) % Potassium 3.3 L (3.5-5.1) mmol/L Chloride 112 H (98-107) mmol/L Creatinine 0.49 L (0.6-1.2) mg/dl BUN/Creatinine Ratio 32.7 H (10-20) Glucose 206 H (70-99(Fasting)) mg/dl POC Glucose 213 H (70-99) mg/dl Calcium 6.7 L (8.6-10.3) mg/dl 01/07/25 Range/Units 09:40 RBC (4.20-5.40) M/uL Hgb 8.0 L (12.0-16.0) g/dl Hct 25.0 L (37.0-47.0) % RDW Std Deviation (36.4-46.3) fL RDW Coeff of Naga (11.5-14.5) % Potassium (3.5-5.1) mmol/L Chloride (98-107) mmol/L Creatinine (0.6-1.2) mg/dl BUN/Creatinine Ratio (10-20) Glucose (70-99(Fasting)) mg/dl POC Glucose (70-99) mg/dl Calcium (8.6-10.3) mg/dl PG Care Time/CCT Total # of Minutes Spent Total Time Spent with Patient: Total time spent is greater than 50% in coordination of care (as documented) at patient's floor/unit and/or counseling patient: Coding Level of Care Code 12583 SUB INP/OBS CARE 2/35MIN Diagnoses Acute pulmonary embolism without acute cor pulmonale, unspecified pulmonary embolism type I26.99 Pulmonary embolism type: unspecified Chronicity: acute Acute cor pulmonale presence: without acute cor pulmonale AMS (altered mental status) R41.82 Metabolic acidosis with normal anion gap and bicarbonate losses E87.20 Right arm weakness R29.898 Depression F32.A UTI (urinary tract infection) N39.0 Status post insertion of percutaneous endoscopic gastrostomy (PEG) tube Z93.1 (1) Pulmonary emboli Pulmonary embolism type: unspecified Chronicity: acute Acute cor pulmonale presence: without acute cor pulmonale Qualified Code(s): I26.99 - Other pulmon mamadou embolism without acute cor pulmonale
[2025-01-07] MEDS: MoRPHine SULFATE 2 MG/ML CARP IV STA (14:05)
[2025-01-07] MEDS ORDERED: MoRPHine SULFATE 2 MG/ML CARP IV PRN (14:29)
[2025-01-07] MEDS: MoRPHine SULFATE 2 MG/ML CARP IV PRN ×2 (14:46→15:35)
--- NOTE | 2025-01-07 15:21 | Palliative Family Discussion ---
Date of Service January 07, 2025 Patient Directed Conference Time of Meetin - 1430 Participants: Beatriz Burrell AGACNP Patient participation: no Patient Support System: son Basil Cagle Other Healthcare Provider Participation: None Meeting Location:telephonic Advanced Directive available: No If yes, descriptors: The patient's surrogate medical decision maker participated: yes Legally authorized health care proxy: DAT Cagle Other surrogate: n/a A family meeting was held for CASSIDY CAGLE. This meeting was necessary for determining the appropriate course of treatment. Topics of Discussion Topics of Discussion: 1. acute change in status 2. EOL anticipatory guidance 3. Goals of Care Pt found to be more lethargic today, tachypneic with marked dyspnea, accessory muscle use, and grunting respirations at rest. Pt moaning loudly continuously throughout day. Pt is DNR/DNI and is not effectively guarding her airway with gurgling respirations intermittently followed by weak ineffective cough. Her moaning and upper airway congestion can be heard from the hallway. she answers "yes" when asked if she is in pain, but does not offer any further qualification/quantification. Along with attending Dr. Brooks, made phone contact with the pt's son for updates and to readdress goals of care given this acute decompensation. Dr Brooks shared medical update, Basil responded that he had already received this information earlier in the day and that he does not have time to be on the phone for information he has already received fro the nurse. Dr Brooks attempted to describe patient's current state and difficulty managing pt discomfort and dyspnea while still trying to prolong her life. Basil responded:"I do not want her to suffer but she is not ready for by doctor yet, so just treat her pain and continue to try to keep her alive". Dr Brooks and I both reinforced that the pt has become dyspneic and is struggling to breath and verbalizing severe pain. Expressed concern that the pt may be actively dying and encouraged visitation. Basil shared that he would be to the hospital at 1730 and "this is just the way it is going to be". He again asked that pain be treated, but continue efforts to promote life. I again encouraged visitation, expressing concern that the pt's time may be very short. Basil abruptly ended the call stating he would visit in the evening. Basil maintained that goals of care are clearly to prolong pt's life with all treatments appropriate, but in the event of decompensation - DNR/DNI. Other Content of Meetin. Opportunity given for participants to speak and ask questions. 2. Participants were assured of attention to patient comfort. 3. Reassurance provided. 4. Support was provided for informed, good-cierra decisions. 5. Emotions expressed by family were acknowledged and addressed. 6. Follow-up Outpatient: n/a 7. Plan of Care: continue current level of care, DNR/DNI Time Involved in Meeting: I spent 46 minutes overall addressing this case: 10 in medical data review/discussion with referring provider(s) and/or preparation for the visit 5 in direct interaction with the patient 16 Advance Care Planning/Goals of Care discussions as detailed above in note (must be >16min) 5 in subsequent review and synthesis of assessment and plan 10 in communicating with other providers regarding the patient's case: CORY Eller and Dr Brooks
[2025-01-07] MEDS: GLYCOPYRROLATE 0.2 MG/ML VIAL IV PRN (15:25)
[2025-01-07] MEDS ORDERED: GLYCOPYRROLATE 1 MG TAB PO SCH (16:00)
[2025-01-07 17:26] LABS: Hemoglobin 7.9 g/dl (12.0-16.0)
[2025-01-08] MEDS: PANTOprazole 40 MG/10 ML SYR IV SCH (00:41)
[2025-01-08 01:27] LABS: Hematocrit (blood only) 21.4 % (37.0-47.0); Hemoglobin 6.9 g/dl (12.0-16.0)
[2025-01-08] MEDS ORDERED: SODIUM CHLORIDE 0.9% 100 ML IV PRN (01:31)
[2025-01-08 08:10] LABS: Hematocrit (blood only) 27.8 % (37.0-47.0); Hemoglobin 9.2 g/dl (12.0-16.0); Mean Corpuscular Hemoglobin 29.8 pg (25.0-34.0); Mean Corpuscular Hgb Conc 33.1 g/dL (32.0-36.0); Mean Platelet Volume 10.6 fL (9.4-12.4); Nucleated RBC # (auto) 0.02 K/uL (0.00-0.12); Nucleated RBC % (auto) 0.3 %; Platelet Count 154 K/uL (130-400); RDW Coefficient of Variation 18.1 % (11.5-14.5); RDW Standard Deviation 55.1 fL (36.4-46.3); Red Blood Count 3.09 M/uL (4.20-5.40)
[2025-01-08 08:27] LABS: BUN Creatinine Ratio 43.1 (10-20); Calcium 6.8 mg/dl (8.6-10.3); Creatinine Clr Calc Pharmacy 73.3 ml/min; Potassium 4.4 mmol/L (3.5-5.1)
--- NOTE | 2025-01-08 11:53 | Hospitalist Progress Note ---
Date of Service January 08, 2025 Assessment & Plan (1) Pulmonary emboli: (2) AMS (altered mental status): (3) Metabolic acidosis with normal anion gap and bicarbonate losses: (4) Right arm weakness: (5) Depression: (6) UTI (urinary tract infection): (7) Status post insertion of percutaneous endoscopic gastrostomy (PEG) tube: Plan 64-year-old woman with past medical history of hemorrhagic left basal ganglia CVA in 2021 with resulting right sided strength deficits, seizure, hyp erlipidemia, chronic indwelling Magallanes who presented with concern for complicated UTI with right hydronephrosis and he was treated for both Pseudomonas and candidal UTI. Due to right hydro she underwent right stent placement. She completed treatment for Pseudomonas UTI with cefepime/meropenem/pip-tazo and treated for candidal UTI with fluconazole. Overnight 12/27/24 did have a rapid response for lethargy and hypotension. Found to have acute PE. Subsequent MRI with small new stroke. Since then she has continued to have slow improvement # Possible LLL pneumonia leading to sepsis White count has trended down from 13-7 in response to IV antibiotics. Will discontinue vancomycin as MRSA nares negative on 01/06 again Continue cefepime Urine culture growing the same Enterococcus and not sure if the Magallanes catheter was changed since the last urine culture on 12/27. I am not convinced that this is a true UTI. The patient clinically had hypoxia and gurgling suggestive of pneumonia being the source of sepsis rather than UTI. #Acute blood loss anemia/GI bleed Patient's hemoglobin had dropped from 9-5 on 01/05 Had responded to a unit of blood No visible bleeding anywhere at that time. CT abdomen was negative as well When hemoglobin was stable, decision was made to resume Eliquis 01/06 and her H&H was being monitored closely Overnight, the patient started bleeding at the PEG tube site with drop in hemoglobin again Eliquis discontinued permanently Patient got a unit of blood She was started on Protonix #Acute PE CTA 12/28 with right upper lobe segmental thrombus, radiographic suggestion of right heart strain TTE with some RV dilation. Grade 1 diastolic dysfunction. LV SF normal Acute DVT was seen in the right upper extremity on 01/04 while on Eliquis Patient was on Eliquis but had to be discontinued because of acute GI bleed blood loss anemia #Subacute CVA, chronic CVA, history of ICH #Acute metabolic encephalopathy History of left hemorrhagic CVA, seizure-like activity MRI: Large area of chronic encephalomalacia in the left frontal lobe. Within the center of this there is a 2.9 cm focus of restricted diffusion likely chronic but less likely could nagi present an acute versus subacute infarct within prior residual brain parenchyma. Additionally an 8 mm focus of restricted diffusion within the right cerebral hemisphere suggestive of acute v ersus subacute lacunar infarct is seen. Involutional changes are noted. Left occipital craniotomy noted. Does have a history of intracranial hemorrhage. Neurology consulted recommended anticoagulation alone for PE without antiplatelet because of high risk of hemorrhage she has baseline aphasia and apraxia but usually can communicate somewhat and follow commands for a neuro exam #Complicated UTI, right obstructive ureteral stones completed treatment for Pseudomonas UTI, last dose of fluconazole 01/05 AM for Dhara UTI - hematuria started 01/01 probably magallanes trauma while anticoagulated -was pink on 01/05. Today urine appears straw-colored upon holding Eliquis. - repeat urine culture ordered - probably will be colonized with bacteria, retreat UTI if more compelling source of sepsis not identified # malnutrition, initiation of PEG feeds TF at goal over weekend. Tube feeds was held 01/05 due to high residuals. Tube feeds to be held now due to GI bleed - mild refeeding syndrome resolved - albumin 1.7-->2.0 #severe anasarca - related to severe hypoalbuminemia, critical illness -addressing nutrition -tolerated 20 mg IV lasix previously - currently held #Non-anion gap metabolic acidosis - was prolonged but has resolved. Thought to be related to GI losses. #cold upper extremities - LUE>RUE earlier in admission vascular surgery evaluated L hand/forearm, had adequate cap refill and was able to have good Doppler signals at the wrist and palmar arch. Did not feel there was evidence of ischemia of the right upper extremity; additional workup not recommended - warm last 48h #History of seizure Gabapentin held due to altered mental status Keppra via PEG tube twice daily continued Soha remains severely ill and had some slow improvement through 01/03. On 01/04, appeared to be septic. On 01/05, vital signs improved but is very anemic. blood transfusion on 01/05. Since no bleeding source was found, Eliquis was resumed and she became anemic again. Noted to be GI bleeding. Patient appears uncomfortable and declining clinically. She is moaning, using accessory muscles to breathe, is third spacing. Morphine is helping with the moaning and the air hunger Overall prognosis very guarded. Over the last several days, I have spoken to the son several times. He appears to be very rushed with time. He will often start out with "I have 30 seconds for you today" or "10 seconds for you today". We were able to meet with him on 01/05 and changed her CODE STATUS to DNR/DNI. I am trying to update him every day if he will allow the time but there has been times when he had to hang up because he was too busy. Today 01/08, I was able to have a phone conversation with him at 11 AM in the presence of nurse Mcdonald, palliative nurse practitioner Radha, patient's cousin Evie (phone #[phone]). Evie agreed to be the backup person to give us decisions in case the son was not available to give his decisions. The son Basil allowed Evie to be present during our conversation today. We were able to hold a conversation long enough for us to be able to update the son completely about her clinical deterioration. He understands that his mother is suffering while we are prolonging life. He says that he will visit her tonight and will give us a decision tomorrow. DVT ppx -Eliquis resumed Has RAFAELJ TLC see above Admission and Anticipated Discharge Date Admission Date: December 18, 2024 Subjective Patient was seen and examined at 10:30 AM. Overnight events noted. Met with cousin Evie at the bedside. Overnight, the nurse noticed a dark red fluid coming out of her PEG tube site. Her hemoglobin had dropped to 6.9. Eliquis discontinued. Patient is on Protonix and got a unit of blood transfused. Review of Systems Review of Systems: Unobtainable due to cognitive status Physical Exam Physical Exam: General: Moaning. Fairly unresponsive. Not answering any questions. Respirations in the high 20s range. Eyes rolling backwards Heart: S1, S2/regular rate and rhythm, no murmur rubs or gallops Lungs: Clear to auscultation bilaterally. Normal effort Abdomen: Soft/nontender/nondistended. No hepatosplenomegaly Extremities: No clubbing/cyanosis. 3+ pitting bilateral edema noted. Urine in the Magallanes catheter appears pink again today Behavior: Unable to assess Results & Data Results & Data Vital Signs (Past 12 Hours) Vital Signs Temp Pulse Pulse Resp BP BP Pulse Ox 01/08/25 08:30 01/08/25 08:00 88 01/08/25 07:38 37 C 103 H 28 H 123/82 92 01/08/25 07:31 36.7 C 103 H 28 H 127/85 92 01/08/25 06:17 36.8 C 100 H 26 H 120/79 94 01/08/25 05:20 100 H 01/08/25 05:17 36.7 C 100 H 24 105/74 98 01/08/25 04:47 37.1 C 100 H 24 90/69 L 95 01/08/25 04:32 99 H 29 H 90/67 L 97 01/08/25 04:15 37.1 C 101 H 32 H 88/61 L 97 01/08/25 02:36 36.8 C 100 H 34 H 100/49 L 97 01/08/25 00:00 105 H O2 Del Method O2 Flow Rate 01/08/25 08:30 Oxymask 2 01/08/25 08:00 01/08/25 07:38 Oxymask 3 01/08/25 07:31 01/08/25 06:17 3 01/08/25 05:20 01/08/25 05:17 3 01/08/25 04:47 3 01/08/25 04:32 3 01/08/25 04:15 01/08/25 02:36 Oxymask 4 01/08/25 00:00 Laboratory Results Abnormal lab results 01/07/25 01/07/25 01/07/25 Range/Units 10:56 11:52 16:58 RBC (4.20-5.40) M/uL Hgb 7.9 L (12.0-16.0) g/dl Hct 24.0 L (37.0-47.0) % RDW Std Deviation (36.4-46.3) fL RDW Coeff of Naga (11.5-14.5) % Chloride (98-107) mmol/L BUN (6-23) mg/dl BUN/Creatinine Ratio (10-20) Glucose (70-99(Fasting)) mg/dl POC Glucose 233 H (70-99) mg/dl Calcium (8.6-10.3) mg/dl Random Vancomycin 31.8 H* (10-20) mcg/ml Crossmatch 01/07/25 01/08/25 01/08/25 Range/Units 18:01 00:24 00:48 RBC (4.20-5.40) M/uL Hgb 6.9 L* (12.0-16.0) g/dl Hct 21.4 L (37.0-47.0) % RDW Std Deviation (36.4-46.3) fL RDW Coeff of Naga (11.5-14.5) % Chloride (98-107) mmol/L BUN (6-23) mg/dl BUN/Creatinine Ratio (10-20) Glucose (70-99(Fasting)) mg/dl POC Glucose 163 H 240 H (70-99) mg/dl Calcium (8.6-10.3) mg/dl Random Vancomycin (10-20) mcg/ml Crossmatch See Detail 01/08/25 01/08/25 Range/Units 06:43 07:46 RBC 3.09 L (4.20-5.40) M/uL Hgb 9.2 L (12.0-16.0) g/dl Hct 27.8 L (37.0-47.0) % RDW Std Deviation 55.1 H (36.4-46.3) fL RDW Coeff of Naga 18.1 H (11.5-14.5) % Chloride 113 H (98-107) mmol/L BUN 28 H (6-23) mg/dl BUN/Creatinine Ratio 43.1 H (10-20) Glucose 310 H* (70-99(Fasting)) mg/dl POC Glucose 334 H* (70-99) mg/dl Calcium 6.8 L (8.6-10.3) mg/dl Random Vancomycin (10-20) mcg/ml Crossmatch PG Care Time/CCT Total # of Minutes Spent Total Time Spent with Patient: Total time spent is greater than 50% in coordination of care (as documented) at patient's floor/unit and/or counseling patient: Coding Level of Care Code 38371 SUB INP/OBS CARE 2/35MIN Diagnoses Acute pulmonary embolism without acute cor pulmonale, unspecified pulmonary embolism type I26.99 Pulmonary embolism type: unspecified Chronicity: acute Acute cor pulmonale presence: without acute cor pulmonale AMS (altered mental status) R41.82 Metabolic acidosis with normal anion gap and bicarbonate losses E87.20 Right arm weakness R29.898 Depression F32.A UTI (urinary tract infection) N39.0 Status post insertion of percutaneous endoscopic gastrostomy (PEG) tube Z93.1 (1) Pulmonary emboli Pulmonary embolism type: unspecified Chronicity: acute Acute cor pulmonale presence: without acute cor pulmonale Qualified Code(s): I26.99 - Other pulmonary embolism without acute cor pulmonale
[2025-01-08] MEDS: MoRPHine SULFATE 2 MG/ML CARP IV SCH (12:34)
--- NOTE | 2025-01-08 15:39 | Palliative Family Discussion ---
Date of Service January 08, 2025 Patient Directed Conference Time of Meetin:00 - 11:30 Participants: Beatriz Burrell AGACNP Patient participation: no Patient Support System: son Basil and audra Case Other Healthcare Provider Participation: CORY Daley Meeting Location: conference call Advanced Directive available: No If yes, descriptors: The patient's surrogate medical decision maker participated:[employer] Legally authorized health care proxy: DAT Gracia Other surrogate: audra Case A family meeting was held for CASSIDY CAGLE. This meeting was necessary for determining the appropriate course of treatment. Topics of Discussion Topics of Discussion: 1. goals of care 2. pain/symptom management 3. EOL care More lengthy conversation held with pt today, 20 minutes via phone. Pt's cousin Evie was present at bedside and Pt 's son Basil (via phone) gave permission for Evie to join conversation. Dr Brooks shared medical updates and overnight events with family and answered questions. Pt again required blood transfusion overnight and Dr Brooks reinforced with Basil the difficulty in concurrently trying to treat a hypercoagulable state AND prevent bleeding. Dr Brooks expressed concern that despite being obtunded, the pt continues to appear uncomfortable with constant moaning and respiratory distress. Basil responded by saying " I am going to stop you there, moaning dies not mean she is in pain, sometimes she just moans and yells out". I reinforced with Basil that although the pt has been mostly nonverbal with the medical team, she does consistently make eye contact and answer "yes" when asked if she is in pain. We described the pt's current clinical and physical picture being one of discomfort and increasing struggle to breathe (tachypnea, shallow respiration, accessory muscle use, shoulder shrugging with inspiration,and moaning). Evie affirmed this assessment, but also agreed with Basil to "give her more time". Evie then expressed concern that the patient is suffering and that she does "not want to see her suffer like this any more". Basil stated that he wants to give the pt more time for improvement, requesting life prolonging measures continue, again referencing not being ready for " by doctor". Discussed that medical assistance in dying is not something that is legal in [place] nor supported in this hospital and that nothing would be done to hasten but the pt could be allowed to have a comfortable and dignified . Basil shared that he is struggling with decisions because he is being given mixed messaging about how pt is doing. He shared that he was told by a "pediatric critical care nurse in [place]" last night that the pt "had had a good day" yesterday and that she was conversing with her care team throughout the day. Dr Brooks and I both reinforced that this is not the clinical picture that we have seen. The pt in our assessment has at best had single syllable responses only intermittently, occasionally answering yes/no but not fully conversant. We discussed real concerns that the patient is unlikely to survive this hospitalization despite all aggressive medical treatment and that she is currently working very hard to breathe and in what appears to be a great deal of pain. Evie asserted that the pt does look like she is suffering and stated that it is hard to see her this uncomfortable. At this point Basil shared that he will be visiting with the pt after 5pm today and that he does not want to see her suffer and may consider "taking away her feeding and giving her more medication to help her ". Attempt made to explain comfort directed care was halted by Basil, stating that he would "see how she is tonight and make a decision". Other Content of Meetin. Opportunity given for participants to speak and ask questions. 2. Participants were assured of attention to patient comfort. 3. Reassurance provided. 4. Support was provided for informed, good-cierra decisions. 5. Emotions expressed by family were acknowledged and addressed. 6. Follow-up Outpatient: n/a 7. Plan of Care: continue current course of treatment Time Involved in Meeting: I spent 50 minutes overall addressing this case: 10 in medical data review/discussion with referring provider(s) and/or preparation for the visit 10 in direct interaction with the patient 20 Advance Care Planning/Goals of Care discussions as detailed above in note (must be >16min) 5 in subsequent review and synthesis of assessment and plan 5 in communicating with other providers regarding the patient's case: , BSRWon
[2025-01-08 17:05] LABS: Hematocrit (blood only) 27.7 % (37.0-47.0); Hemoglobin 9.3 g/dl (12.0-16.0)
[2025-01-09] MEDS: MoRPHine SULFATE 2 MG/ML CARP IV STA (04:55)
[2025-01-09 06:46] LABS: Hematocrit (blood only) 27.5 % (37.0-47.0); Hemoglobin 9.2 g/dl (12.0-16.0); Mean Corpuscular Hemoglobin 30.5 pg (25.0-34.0); Mean Corpuscular Hgb Conc 33.5 g/dL (32.0-36.0); Mean Corpuscular Volume 91.1 fL (80.0-100.0); Mean Platelet Volume 10.7 fL (9.4-12.4); Nucleated RBC # (auto) 0.04 K/uL (0.00-0.12); Nucleated RBC % (auto) 0.7 %; Platelet Count 163 K/uL (130-400); RDW Coefficient of Variation 19.7 % (11.5-14.5); RDW Standard Deviation 60.7 fL (36.4-46.3); Red Blood Count 3.02 M/uL (4.20-5.40); White Blood Count 5.55 K/ul (4.8-10.8)
[2025-01-09 07:02] LABS: Calcium 7.1 mg/dl (8.6-10.3); Creatinine Clr Calc Pharmacy 71.5 ml/min; Potassium 3.7 mmol/L (3.5-5.1)
--- NOTE | 2025-01-09 11:48 | Hospitalist Progress Note ---
Date of Service January 09, 2025 Assessment & Plan (1) Pulmonary emboli: (2) AMS (altered mental status): (3) Metabolic acidosis with normal anion gap and bicarbonate losses: (4) Right arm weakness: (5) Depression: (6) UTI (urinary tract infection): (7) Status post insertion of percutaneous endoscopic gastrostomy (PEG) tube: Plan 64-year-old woman with past medical history of hemorrhagic left basal ganglia CVA in 2021 with resulting right sided strength deficits, seizure, hyp erlipidemia, chronic indwelling Magallanes who presented with concern for complicated UTI with right hydronephrosis and he was treated for both Pseudomonas and candidal UTI. Due to right hydro she underwent right stent placement. She completed treatment for Pseudomonas UTI with cefepime/meropenem/pip-tazo and treated for candidal UTI with fluconazole. Overnight 12/27/24 did have a rapid response for lethargy and hypotension. Found to have acute PE. Subsequent MRI with small new stroke. Since then she has continued to have slow improvement # Possible LLL pneumonia leading to sepsis/aspiration White count has trended down from 13-7 in response to IV antibiotics. Discontinued vancomycin as MRSA nares negative on 01/06 again Continue cefepime Urine culture growing the same Enterococcus and not sure if the Magallanes catheter was changed since the last urine culture on 12/27. I am not convinced that this is a true UTI. The patient clinically had hypoxia and gurgling suggestive of pneumonia being the source of sepsis rather than UTI. On 01/09 patient had an episode of aspiration when nurse was doing mouth care. Even though her vital signs were stable, this led to some respiratory distress #Acute blood loss anemia/GI bleed Patient's hemoglobin had dropped from 9-5 on 01/05 Had responded to a unit of blood No visible bleeding anywhere at that time. CT abdomen was negative as well When hemoglobin was stable, decision was made to resume Eliquis 01/06 and her H&H was being monitored closely On 01/07 night, the patient started bleeding at the PEG tube site with drop in hemoglobin again Eliquis discontinued permanently Patient got a unit of blood She was started on Protonix #Acute PE CTA 12/28 with right upper lobe segmental thrombus, radiographic suggestion of right heart strain TTE with some RV dilation. Grade 1 diastolic dysfunction. LV SF normal Acute DVT was seen in the right upper extremity on 01/04 while on Eliquis Patient was on Eliquis but had to be discontinued because of acute GI bleed blood loss anemia #Subacute CVA, chronic CVA, history of ICH #Acute metabolic encephalopathy History of left hemorrhagic CVA, seizure-like activity MRI: Large area of chronic encephalomalacia in the left frontal lobe. Within the center of this there is a 2.9 cm focus of restricted diffusion likely chronic but less likely could nagi present an acute versus subacute infarct within prior residual brain parenchyma. Additionally an 8 mm focus of restricted diffusion within the right cerebral hemisphere suggestive of acute versus subacute lacunar infarct is seen. Involutional changes are noted. Left occipital craniotomy noted. Does have a history of intracranial hemorrhage. Neurology consulted recommended anticoagulation alone for PE without antiplatelet because of high risk of hemorrhage she has baseline aphasia and apraxia but usually can communicate somewhat and follow commands for a neuro exam #Complicated UTI, right obstructive ureteral stones completed treatment for Pseudomonas UTI, last dose of fluconazole 01/05 AM for Dhara UTI - hematuria started 01/01 probably magallanes trauma while anticoagulated -was pink on 01/05. Today urine appears straw-colored upon holding Eliquis. - repeat urine culture ordered - probably will be colonized with bacteria, retreat UTI if more compelling source of sepsis not identified # malnutrition, initiation of PEG feeds TF at goal over weekend. Tube feeds was held 01/05 due to high residuals. Tube feeds to be held now due to GI bleed - mild refeeding syndrome resolved - albumin 1.7-->2.0 #severe anasarca - related to severe hypoalbuminemia, critical illness -addressing nutrition -tolerated 20 mg IV lasix previously - currently held #Non-anion gap metabolic acidosis - was prolonged but has resolved. Thought to be related to GI losses. #cold upper extremities - LUE>RUE earlier in admission vascular surgery evaluated L hand/forearm, had adequate cap refill and was able to have good Doppler signals at the wrist and palmar arch. Did not feel there was evidence of ischemia of the right upper extremity; additional workup not recommended - warm last 48h #History of seizure Gabapentin held due to altered mental status Keppra via PEG tube twice daily continued Soha remains severely ill and had some slow improvement through 01/03. On 01/04, appeared to be septic. On 01/05, vital signs improved but is very anemic. blood transfusion on 01/05. Since no bleeding source was found, Eliquis was resumed and she became anemic again. Noted to be GI bleeding. Patient appears uncomfortable and declining clinically. She is moaning, using accessory muscles to breathe, is third spacing. Morphine is helping with the moaning and the air hunger Overall prognosis very guarded. Over the last several days, I have spoken to the son several times. He appears to be very rushed with time. He will often start out with "I have 30 seconds for you today" or "10 seconds for you today". We were able to meet with him on 01/05 and changed her CODE STATUS to DNR/DNI. I am trying to update him every day if he will allow the time but there has been times when he had to hang up because he was too busy. Today 01/08, I was able to have a phone conversation with him at 11 AM in the presence of nurse Mcdonald, palliative nurse practitioner Radha, patient's cousin Evie (phone #[phone]). Evie agreed to be the backup person to give us decisions in case the son was not available to give his decisions. The son Basil allowed Evie to be present during our conversation today. We were able to hold a conversation long enough for us to be able to update the son completely about her clinical deterioration. He understands that his mother is suffering while we are prolonging life. He says that he will visit her tonight and will give us a decision tomorrow. 01/09: I called the son at 11 AM in presence of nurse Christianson. Basil did not answer his cell phone. Left a voicemail. I then called his work phone number and spoke to a staff member who stated that Basil was not at work today. He will not be back until Saturday to work. In case Basil calls back, Meghan will update him about the overnight events and current condition DVT ppx -Eliquis discontinued Has CRISTA BRAVO see above Admission and Anticipated Discharge Date Admission Date: December 18, 2024 Subjective Overnight events noted. Patient had an aspiration event while nurse was performing oral care nurse was able to suction out and the sats remained acceptable but the patient was in some distress. Patient is already covered by cefepime. Today the patient remains unresponsive. Her moans are becoming weaker. The nurse informed me that she can hear rattling sound from her upper airways. Review of Systems Review of Systems: Unobtainable due to cognitive status Physical Exam Physical Exam: General: Unresponsive. Not answering any questions. Moans are weaker than yesterday. Eyes rolling backwards. Rattles heard from a distance Heart: S1, S2/regular rate and rhythm, no murmur rubs or gallops Lungs: Clear to auscultation bilaterally. Normal effort Abdomen: Soft/nontender/nondistended. No hepatosplenomegaly Extremities: No clubbing/cyanosis. 3+ pitting bilateral edema noted. Urine in the Magallanes catheter appears pink again today Behavior: Unable to assess Results & Data Results & Data Vital Signs (Past 12 Hours) Vital Signs Temp Pulse Pulse Resp BP Pulse Ox O2 Del Method 01/09/25 10:41 36.7 C 102 H 19 106/72 100 Oxymask 01/09/25 08:01 36.6 C 101 H 20 104/76 100 Oxymask 01/09/25 02:55 36.8 C 94 H 17 111/69 99 Oxymask 01/09/25 00:00 94 H O2 Flow Rate 01/09/25 10:41 4 01/09/25 08:01 4 01/09/25 02:55 3 01/09/25 00:00 Laboratory Results Abnormal lab results 01/08/25 01/08/25 01/08/25 Range/Units 12:02 16:54 18:03 RBC (4.20-5.40) M/uL Hgb 9.3 L (12.0-16.0) g/dl Hct 27.7 L (37.0-47.0) % RDW Std Deviation (36.4-46.3) fL RDW Coeff of Naga (11.5-14.5) % Chloride (98-107) mmol/L Carbon Dioxide (21-32) mmol/L BUN (6-23) mg/dl BUN/Creatinine Ratio (10-20) Glucose (70-99(Fasting)) mg/dl POC Glucose 274 H 214 H (70-99) mg/dl Calcium (8.6-10.3) mg/dl 01/08/25 01/09/25 01/09/25 Range/Units 21:06 01:24 06:16 RBC 3.02 L (4.20-5.40) M/uL Hgb 9.2 L (12.0-16.0) g/dl Hct 27.5 L (37.0-47.0) % RDW Std Deviation 60.7 H (36.4-46.3) fL RDW Coeff of Naga 19.7 H (11.5-14.5) % Chloride 113 H (98-107) mmol/L Carbon Dioxide 20 L (21-32) mmol/L BUN 30 H (6-23) mg/dl BUN/Creatinine Ratio 50.0 H (10-20) Glucose 246 H (70-99(Fasting)) mg/dl POC Glucose 214 H 282 H (70-99) mg/dl Calcium 7.1 L (8.6-10.3) mg/dl 01/09/25 Range/Units 06:29 RBC (4.20-5.40) M/uL Hgb (12.0-16.0) g/dl Hct (37.0-47.0) % RDW Std Deviation (36.4-46.3) fL RDW Coeff of Naga (11.5-14.5) % Chloride (98-107) mmol/L Carbon Dioxide (21-32) mmol/L BUN (6-23) mg/dl BUN/Creatinine Ratio (10-20) Glucose (70-99(Fasting)) mg/dl POC Glucose 271 H (70-99) mg/dl Calcium (8.6-10.3) mg/dl PG Care Time/CCT Total # of Minutes Spent Total Time Spent with Patient: Total time spent is greater than 50% in coordination of care (as documented) at patient's floor/unit and/or counseling patient: Coding Level of Care Code 76011 SUB INP/OBS CARE 2/35MIN Diagnoses Acute pulmonary embolism without acute cor pulmonale, unspecified pulmonary embolism type I26.99 Pulmonary embolism type: unspecified Chronicity: acute Acute cor pulmonale presence: without acute cor pulmonale AMS (altered mental status) R41.82 Metabolic acidosis with normal anion gap and bicarbonate losses E87.20 Right arm weakness R29.898 Depression F32.A UTI (urinary tract infection) N39.0 Status post insertion of percutaneous endoscopic gastrostomy (PEG) tube Z93.1 (1) Pulmonary emboli Pulmonary embolism type: unspecified Chronicity: acute Acute cor pulmonale presence: without acute cor pulmonale Qualified Code(s): I26.99 - Other pulmonary embolism without acute cor pulmonale
[2025-01-09] MEDS: LACTATED RINGER'S 500 ML IV ONE (23:03)
[2025-01-10] MEDS: ALBUMIN 25% 25 GM/100 ML VIAL IV SCH (02:45)
[2025-01-10] MEDS: LACTATED RINGER'S 500 ML IV ONE (02:51)
[2025-01-10 07:19] LABS: Hematocrit (blood only) 21.3 % (37.0-47.0); Mean Corpuscular Hemoglobin 30.8 pg (25.0-34.0); Mean Corpuscular Hgb Conc 32.9 g/dL (32.0-36.0); Mean Corpuscular Volume 93.8 fL (80.0-100.0); Nucleated RBC # (auto) 0.09 K/uL (0.00-0.12); Platelet Count 130 K/uL (130-400); RDW Standard Deviation 62.9 fL (36.4-46.3); Red Blood Count 2.27 M/uL (4.20-5.40); White Blood Count 4.43 K/ul (4.8-10.8)
[2025-01-10 07:36] LABS: Calcium 7.6 mg/dl (8.6-10.3); Creatinine Clr Calc Pharmacy 56.4 ml/min
--- NOTE | 2025-01-10 11:56 | Palliative Family Discussion ---
Date of Service January 10, 2025 Patient Directed Conference Time of Meetin:00 - 10:32 Participants: Beatriz Burrell AGACNP Patient participation: no Patient Support System: son Other Healthcare Provider Participation: CORY Christianson and Dr Brooks Meeting Location: telephonic Advanced Directive available: no If yes, descriptors: The patient's surrogate medical decision maker participated: son Basil Rae, who is LNOK Legally authorized health care proxy: Per PA [id number], in absence of written documentation of patient wishes, pt's proxy for medical decisions would be her son Basil Rae, who is reportedly her only adult child. Other surrogate: n/a A family meeting was held for CASSIDY RAE. This meeting was necessary for determining the appropriate course of treatment. Topics of Discussion Topics of Discussion: 1. medical updates 2. goals of care 3. plan of care/level of care Other Content of Meetin. Opportunity given for participants to speak and ask questions. 2. Participants were assured of attention to patient comfort. 3. Reassurance provided. 4. Support was provided for informed, good-cierra decisions. 5. Emotions expressed by family were acknowledged and addressed. 6. Follow-up Outpatient: n/a 7. Plan of Care: no escalation of care Phone conference with pt's son Basil arranged by Dr Brooks, present leak detection engineer were Basil Rae (son/LNOK of pt), Dr Brooks, CORY, and myself. Dr Brooks gave medical update and clearly stated concerns that the pt is progressing to failure of multiple organ systems, is again requiring blood transfusions without definitive source of acute anemia, has develped refractory hypotension and may require transfer to ICU for higher level of care. Discussed with Basil that we are seeing signs and symptoms of multisystem organ failure and EOL changes pt may move through in the dying process including but not limited to sleeping more, disorientation when awake, restlessness, diminished senses/inability to respond to stimulus although ability to be aware of them remains intact longer, and changes in body temperatures, skin changes/mottling/cyanosis, respiratory pattern changes, and oral secretions. Basil shared that he has been not visiting the pt over weekend to avoid stimulating her with hope that she might "let go". He shared that he gave her permission to on his last visit because he had read that some people "need to hear that it is okay before they will let themselves ". Basil again encouraged that we continue to provide life prolonging treatments including blood transfusions, but avoid any aggressive or uncomfortable interventions. Specifically, Basil is asking for NO ESCALATION OF CARE, no invasive procedures, no central lines, arterial lines or vasopressor support and DNR/DNI. He requests ongoing blood transfusion as indicated and medications for pain and dyspnea continue but is not prepared for comfort directed care at this point. BSRN expressed concerns that pt appears to be suffering today, with low moaning and outward signs of dyspnea most notably a visible "struggle to breathe". As pt is currently DNI, BSRN encouraged Basil to allow for staff to better manage pt's discomfort. Comfort directed care would be appropriate in this circumstance, however is currently not consistent with Basil's goals of care for his mother. Basil has indicated that he wishes to give his mother more time for improvement. Dr Brooks shared concern that regardless of all aggressive interventions, the pt is not improving, organ function continues to worsen, is becoming more hemodynamically unstable and appears to be suffering. Basil expressed gratitude and understanding of all information and reinforced his requests for no escalation of care, stating that he will plan to visit on Saturday (01/11/25) evening to determine next steps. * Secretions at EOL/management: I discussed with Basil that as the level of consciousness decreases in the dying process, patients lose their ability to swallow and clear oral secretions. As air moves over the secretions, which have pooled in the oropharynx and bronchi, the resulting turbulence produces noisy ventilation with each breath, described as gurgling or rattling noises. While there is no evidence that patients find this rattle disturbing, evidence from bereaved surveys suggests the noises can be disturbing to the patients visitors and caregivers who may fear that the patient is choking to . We recommend a combination of Non- Pharmacological and Pharmacological Treatments: * 1. Position the patient on their side or in a semi-prone position to facilitate postural drainage * 2. Communication with family and caregivers to reaffirm commitment to their loves ones care, reduce anxiety and fears. * 3. Gentle oropharyngeal suctioning is used although this can be ineffective when fluids are beyond the reach of the catheter. Avoid deep suctioning as it is very irritating. Note that frequent suctioning is disturbing to both the patient and the visitors. * 4. Reduction of fluid intake. * 5. Consider a 1-2 min Trendelenburg positioning, to move fluids up into the oropharynx for easier removal BUT note that ASPIRATION RISK WILL INCREASE. * 6. Muscarinic receptor blockers (anti-cholinergic drugs) are most often used: glycopyrrolate (Robinul), scopolamine (Transderm Scop), hyoscyamine and atropine. Of these, I prefer to using glycopyrrolate as first line treatment, because it is a quaternary amine (therefore does not cross the blood-brain barrier) which reduces the potential anti cholinergic agent associated MECHANICAL SYSTEM TECHNICIAN toxicity (sedation, delirium). * 7. Glycopyrrolate has five times the anti-secretory potency compared to atropine, while scopolamine dries/thickens secretions and causes dry mouth, which may be more distressing to the patient and detract from comfort. Time Involved in Meeting: I spent 50 minutes overall addressing this case: 5 in medical data review/discussion with referring provider(s) and/or preparation for the visit 30 in direct interaction with the patient's son 30 Advance Care Planning/Goals of Care discussions as detailed above in note (must be >16min) 5 in subsequent review and synthesis of assessment and plan 10 in communicating with other providers regarding the patient's case : Dr Brooks and BSRN
[2025-01-10] MEDS: GLYCOPYRROLATE 0.2 MG/ML VIAL IV PRN (12:17)
--- NOTE | 2025-01-10 12:54 | Hospitalist Progress Note ---
Date of Service January 10, 2025 Assessment & Plan (1) Pulmonary emboli: (2) AMS (altered mental status): (3) Metabolic acidosis with normal anion gap and bicarbonate losses: (4) Right arm weakness: (5) Depression: (6) UTI (urinary tract infection): (7) Status post insertion of percutaneous endoscopic gastrostomy (PEG) tube: Plan 64-year-old woman with past medical history of hemorrhagic left basal ganglia CVA in 2021 with resulting right sided strength deficits, seizure, hyp erlipidemia, chronic indwelling Magallanes who presented with concern for complicated UTI with right hydronephrosis and he was treated for both Pseudomonas and candidal UTI. Due to right hydro she underwent right stent placement. She completed treatment for Pseudomonas UTI with cefepime/meropenem/pip-tazo and treated for candidal UTI with fluconazole. Overnight 12/27/24 did have a rapid response for lethargy and hypotension. Found to have acute PE. Subsequent MRI with small new stroke. Since then she has continued to have slow improvement # Possible LLL pneumonia leading to sepsis/aspiration White count has trended down from 13-7 in response to IV antibiotics. Discontinued vancomycin as MRSA nares negative on 01/06 again Continue cefepime Urine culture growing the same Enterococcus and not sure if the Magallanes catheter was changed since the last urine culture on 12/27. I am not convinced that this is a true UTI. The patient clinically had hypoxia and gurgling suggestive of pneumonia being the source of sepsis rather than UTI. On 01/09 patient had an episode of aspiration when nurse was doing mouth care. Even though her vital signs were stable, this led to some respiratory distress #Acute blood loss anemia/GI bleed Patient's hemoglobin had dropped from 9-5 on 01/05 Had responded to a unit of blood No visible bleeding anywhere at that time. CT abdomen was negative as well When hemoglobin was stable, decision was made to resume Eliquis 01/06 and her H&H was being monitored closely On 01/07 night, the patient started bleeding at the PEG tube site with drop in hemoglobin again Eliquis discontinued permanently Patient got a unit of blood She was started on Protonix Tube feeds discontinued Patient continues to have dark fluid coming out of her PEG tube Transfuse 1 unit of blood as she is anemic today 01/10 #Acute PE CTA 12/28 with right upper lobe segmental thrombus, radiographic suggestion of right heart strain TTE with some RV dilation. Grade 1 diastolic dysfunction. LV SF normal Acute DVT was seen in the right upper extremity on 01/04 while on Eliquis Patient was on Eliquis but had to be discontinued because of acute GI bleed blood loss anemia #Subacute CVA, chronic CVA, history of ICH #Acute metabolic encephalopathy History of left hemorrhagic CVA, seizure-like activity MRI: Large area of chronic encephalomalacia in the left frontal lobe. Within the center of this there is a 2.9 cm focus of restricted diffusion likely chronic but less likely could nagi present an acute versus subacute infarct within prior residual brain parenchyma. Additionally an 8 mm focus of restricted diffusion within the right cerebral hemisphere suggestive of acute versus subacute lacunar infarct is seen. Involutional changes are noted. Left occipital craniotomy noted. Does have a history of intracranial hemorrhage. Neurology consulted recommended anticoagulation alone for PE without antiplatelet because of high risk of hemorrhage she has baseline aphasia and apraxia but usually can communicate somewhat and follow commands for a neuro exam #Complicated UTI, right obstructive ureteral stones completed treatment for Pseudomonas UTI, last dose of fluconazole 01/05 AM for Dhara UTI - hematuria started 01/01 probably magallanes trauma while anticoagulated -was pink on 01/05. Today urine appears straw-colored upon holding Eliquis. - repeat urine culture ordered - probably will be colonized with bacteria, retreat UTI if more compelling source of sepsis not identified # malnutrition, initiation of PEG feeds TF at goal over weekend. Tube feeds was held 01/05 due to high residuals. Tube feeds to be held now due to GI bleed - mild refeeding syndrome resolved - albumin 1.7-->2.0 #severe anasarca - related to severe hypoalbuminemia, critical illness -addressing nutrition -tolerated 20 mg IV lasix previously - currently held #Non-anion gap metabolic acidosis - was prolonged but has resolved. Thought to be related to GI losses. #cold upper extremities - LUE>RUE earlier in admission vascular surgery evaluated L hand/forearm, had adequate cap refill and was able to have good Doppler signals at the wrist and palmar arch. Did not feel there was evidence of ischemia of the right upper extremity; additional workup not recommended - warm last 48h #History of seizure Gabapentin held due to altered mental status Keppra via PEG tube twice daily continued Soha remains severely ill and had some slow improvement through 01/03. On 01/04, appeared to be septic. On 01/05, vital signs improved but is very anemic. blood transfusion on 01/05. Since no bleeding source was found, Eliquis was resumed and she became anemic again. Noted to be GI bleeding. Patient appears uncomfortable and declining clinically. She is moaning, using accessory muscles to breathe, is third spacing. Morphine is helping with the moaning and the air hunger Overall prognosis very guarded. Over the last several days, I have spoken to the son several times. He appears to be very rushed with time. He will often start out with "I have 30 seconds for you today" or "10 seconds for you today". We were able to meet with him on 01/05 and changed her CODE STATUS to DNR/DNI. I am trying to update him every day if he will allow the time but there has been times when he had to hang up because he was too busy. Today 01/08, I was able to have a phone conversation with him at 11 AM in the presence of nurse Mcdonald, palliative nurse practitioner Radha, patient's cousin Evie (phone #[phone]). Evie agreed to be the backup person to give us decisions in case the son was not available to give his decisions. The son Basil allowed Evie to be present during our conversation today. We were able to hold a conversation long enough for us to be able to update the son completely about her clinical deterioration. He understands that his mother is suffering while we are prolonging life. He says that he will visit her tonight and will give us a decision tomorrow. 01/09: I called the son at 11 AM in presence of nurse Christianson. Basil did not answer his cell phone. Left a voicemail. I then called his work phone number and spoke to a staff member who stated that Basil was not at work today. He will not be back until Saturday to work. In case Basil calls back, Meghan will update him about the overnight events and current condition 01/10: I called the son Basil and he answered my phone. Meghan was present next to me and Radha was available on the phone as well listening to and participating in this conversation. I updated the son about the the events that happened since we last spoke. The patient aspirated, had low blood pressures, is anemic. He was informed that she has multiorgan failure. After long discussion, the son decided to not escalate care. He does not want the patient to go to the ICU. He does not want pressors. He does want blood transfusion. It was communicated to the son that his mother is actively dying. He is not ready to switch to comfort measures yet. DVT ppx -Eliquis discontinued Has [facility] TLC see above Admission and Anticipated Discharge Date Admission Date: December 18, 2024 Subjective Overnight events noted. Patient was hypotensive requiring fluid boluses and albumin. Yesterday patient had aspirations and from vomiting. Tube feeds were discontinued. This morning, patient is unresponsive, she is able to open her eyes but not meaningfully. Not moaning much anymore. Review of Systems Review of Systems: Unobtainable due to cognitive status Physical Exam Physical Exam: General: Unresponsive. Not answering any questions. Moans are weaker than yesterday. Eyes rolling backwards. Rattles heard from a distance Heart: S1, S2/regular rate and rhythm, no murmur rubs or gallops Lungs: Left lung sounds heard.. Normal effort. Abdomen: Soft/nontender/nondistended. No hepatosplenomegaly. Nurse informed me there was dark fluid coming out of her PEG tube. Extremities: No clubbing/cyanosis. 3+ pitting bilateral edema noted. Urine in the Magallanes catheter appears pink again today Behavior: Unable to assess Results & Data Results & Data Vital Signs (Past 12 Hours) Vital Signs Temp Pulse Pulse Resp BP BP Pulse Ox 01/10/25 12:31 36.8 C 106 H 19 127/78 99 01/10/25 12:01 36.6 C 104 H 19 126/77 100 01/10/25 11:46 37 C 104 H 19 123/77 99 01/10/25 11:21 36.8 C 105 H 19 125/76 100 01/10/25 10:47 36.5 C 105 H 19 128/74 98 01/10/25 08:19 36.4 C L 109 H 20 113/68 98 01/10/25 08:00 01/10/25 06:00 103 H 23 97 01/10/25 06:00 110/64 01/10/25 06:00 110/64 01/10/25 06:00 110/64 01/10/25 06:00 110/64 01/10/25 05:57 102 H 20 96 01/10/25 04:00 95/65 L 01/10/25 03:51 103 H 20 92 01/10/25 03:45 99/62 L 01/10/25 03:45 99/62 L 01/10/25 03:45 99/62 L 01/10/25 03:45 99 H 19 93 01/10/25 02:04 97 H 20 92/61 L 100 O2 Del Method O2 Flow Rate 01/10/25 12:31 3.5 01/10/25 12:01 3.5 01/10/25 11:46 3.5 01/10/25 11:21 01/10/25 10:47 Nasal Cannula 4 01/10/25 08:19 Oxymask 4 01/10/25 08:00 Oxymask 3.5 01/10/25 06:00 01/10/25 06:00 01/10/25 06:00 01/10/25 06:00 01/10/25 06:00 01/10/25 05:57 01/10/25 04:00 01/10/25 03:51 01/10/25 03:45 01/10/25 03:45 01/10/25 03:45 01/10/25 03:45 01/10/25 02:04 Oxymask 3.5 PG Care Time/CCT Total # of Minutes Spent Total Time Spent with Patient: Total time spent is greater than 50% in coordination of care (as documented) at patient's floor/unit and/or counseling patient: Coding Level of Care Code 07080 SUB INP/OBS CARE 2/35MIN Diagnoses Acute pulmonary embolism without acute cor pulmonale, unspecified pulmonary embolism type I26.99 Pulmonary embolism type: unspecified Chronicity: acute Acute cor pulmonale presence: without acute cor pulmonale AMS (altered mental status) R41.82 Metabolic acidosis with normal anion gap and bicarbonate losses E87.20 Right arm weakness R29.898 Depression F32.A UTI (urinary tract infection) N39.0 Status post insertion of percutaneous endoscopic gastrostomy (PEG) tube Z93.1 (1) Pulmonary emboli Pulmonary embolism type: unspecified Chronicity: acute Acute cor pulmonale presence: without acute cor pulmonale Qualified Code(s): I26.99 - Other pulmonary embolism without acute cor pulmonale
[2025-01-10] MEDS: SODIUM CHLORIDE 0.9% 100 ML IV PRN (15:05)
[2025-01-10] MEDS: ATROPINE SULFATE 1% OP SOLN 5 ML BTL SL PRN (15:06)
[2025-01-11 06:30] LABS: Hematocrit (blood only) 28.2 % (37.0-47.0); Hemoglobin 9.4 g/dl (12.0-16.0); Mean Corpuscular Hemoglobin 29.9 pg (25.0-34.0); Mean Corpuscular Hgb Conc 33.3 g/dL (32.0-36.0); Mean Corpuscular Volume 89.8 fL (80.0-100.0); Mean Platelet Volume 10.9 fL (9.4-12.4); Nucleated RBC # (auto) 0.07 K/uL (0.00-0.12); Nucleated RBC % (auto) 1.6 %; Platelet Count 110 K/uL (130-400); RDW Coefficient of Variation 19.3 % (11.5-14.5); RDW Standard Deviation 56.1 fL (36.4-46.3); Red Blood Count 3.14 M/uL (4.20-5.40); White Blood Count 4.35 K/ul (4.8-10.8)
[2025-01-11 06:46] LABS: BUN Creatinine Ratio 46.5 (10-20); Calcium 7.9 mg/dl (8.6-10.3); Creatinine Clr Calc Pharmacy 66.6 ml/min; Potassium 3.3 mmol/L (3.5-5.1)
[2025-01-11] MEDS: POTASSIUM CHLORIDE / WTR 10 MEQ/100 ML PLCT IV SCH (10:53)
--- NOTE | 2025-01-11 11:11 | Hospitalist Progress Note ---
Date of Service January 11, 2025 Assessment & Plan (1) Pulmonary emboli: (2) AMS (altered mental status): (3) Metabolic acidosis with normal anion gap and bicarbonate losses: (4) Right arm weakness: (5) Depression: (6) UTI (urinary tract infection): (7) Status post insertion of percutaneous endoscopic gastrostomy (PEG) tube: Plan 64-year-old woman with past medical history of hemorrhagic left basal ganglia CVA in 2021 with resulting right sided strength deficits, seizure, hyp erlipidemia, chronic indwelling Magallanes who presented with concern for complicated UTI with right hydronephrosis and he was treated for both Pseudomonas and candidal UTI. Due to right hydro she underwent right stent placement. She completed treatment for Pseudomonas UTI with cefepime/meropenem/pip-tazo and treated for candidal UTI with fluconazole. Overnight 12/27/24 did have a rapid response for lethargy and hypotension. Found to have acute PE. Subsequent MRI with small new stroke. Since then she has continued to have slow improvement # Possible LLL pneumonia leading to sepsis/aspiration White count has trended down from 13-7 in response to IV antibiotics. Discontinued vancomycin as MRSA nares negative on 01/06 again Continue cefepime Urine culture growing the same Enterococcus and not sure if the Magallanes catheter was changed since the last urine culture on 12/27. I am not convinced that this is a true UTI. The patient clinically had hypoxia and gurgling suggestive of pneumonia being the source of sepsis rather than UTI. On 01/09 patient had an episode of aspiration when nurse was doing mouth care. Even though her vital signs were stable, this led to some respiratory distress #Acute blood loss anemia/GI bleed Patient's hemoglobin had dropped from 9-5 on 01/05 Had responded to a unit of blood No visible bleeding anywhere at that time. CT abdomen was negative as well When hemoglobin was stable, decision was made to resume Eliquis 01/06 and her H&H was being monitored closely On 01/07 night, the patient started bleeding at the PEG tube site with drop in hemoglobin again Eliquis discontinued permanently Patient got a unit of blood She was started on Protonix Tube feeds discontinued Patient continues to have dark fluid coming out of her PEG tube Transfused 1 unit of blood as she is anemic 01/10 Hemoglobin stable today #Acute PE CTA 4/14 with right upper lobe segmental thrombus, radiographic suggestion of right heart strain TTE with some RV dilation. Grade 1 diastolic dysfunction. LV SF normal Acute DVT was seen in the right upper extremity on 01/04 while on Eliquis Patient was on Eliquis but had to be discontinued because of acute GI bleed blood loss anemia # malnutrition, initiation of PEG feeds Tube feeds was held 01/05 due to high residuals. Tube feeds to be held now due to GI bleed Patient remains n.p.o. #severe anasarca - related to severe hypoalbuminemia, critical illness, malnutrition She has 3+ edema in all 4 of her extremities Skin peeling and skin tears while repositioning #Subacute CVA, chronic CVA, history of ICH #Acute metabolic encephalopathy History of left hemorrhagic CVA, seizure-like activity MRI: Large area of chronic encephalomalacia in the left frontal lobe. Within the center of this there is a 2.9 cm focus of restricted diffusion likely chronic but less likely could nagi present an acute versus subacute infarct within prior residual brain parenchyma. Additionally an 8 mm focus of restricted diffusion within the right cerebral hemisphere suggestive of acute versus subacute lacunar infarct is seen. Involutional changes are noted. Left occipital craniotomy noted. Does have a history of intracranial hemorrhage. Neurology consulted recommended anticoagulation alone for PE without antiplatelet because of high risk of hemorrhage she has baseline aphasia and apraxia but usually can communicate somewhat and follow commands for a neuro exam #Complicated UTI, right obstructive ureteral stones completed treatment for Pseudomonas UTI, last dose of fluconazole 01/05 AM for Dhara UTI - hematuria started 01/01 probably magallanes trauma while anticoagulated -was pink on 01/05. Off of Eliquis now #Non-anion gap metabolic acidosis - was prolonged but has resolved. Thought to be related to GI losses. #cold upper extremities - LUE>RUE earlier in admission vascular surgery evaluated L hand/forearm, had adequate cap refill and was able to have good Doppler signals at the wrist and palmar arch. Did not feel there was evidence of ischemia of the right upper extremity; additional workup not recommended - warm last 48h #History of seizure Gabapentin held due to altered mental status Keppra via PEG tube twice daily continued Soha remains severely ill and had some slow improvement through 01/03. On 01/04, appeared to be septic. On 01/05, vital signs improved but is very anemic. blood transfusion on 01/05. Since no bleeding source was found, Eliquis was resumed and she became anemic again. Noted to be GI bleeding. Patient appears uncomfortable and declining clinically. She is moaning, using accessory muscles to breathe, is third spacing. Morphine is helping with the moaning and the air hunger Overall prognosis very guarded. Over the last several days, I have spoken to the son several times. He appears to be very rushed with time. He will often start out with "I have 30 seconds for you today" or "10 seconds for you today". We were able to meet with him on 01/05 and changed her CODE STATUS to DNR/DNI. I am trying to update him every day if he will allow the time but there has been times when he had to hang up because he was too busy. Today 01/08, I was able to have a phone conversation with him at 11 AM in the presence of nurse Mcdonald, palliative nurse practitioner Radha, patient's cousin Evie (phone #[phone]). Evie agreed to be the backup person to give us decisions in case the son was not available to give his decisions. The son Basil allowed Evie to be present during our conversation today. We were able to hold a conversation long enough for us to be able to update the son completely about her clinical deterioration. He understands that his mother is suffering while we are prolonging life. He says that he will visit her tonight and will give us a decision tomorrow. 01/09: I called the son at 11 AM in presence of nurse Christianson. Basil did not answer his cell phone. Left a voicemail. I then called his work phone number and spoke to a staff member who stated that Basil was not at work today. He will not be back until Saturday to work. In case Basil calls back, Meghan will update him about the overnight events and current condition 01/10: I called the son Basil and he answered my phone. Meghan was present next to me and Radha was available on the phone as well listening to and participat ing in this conversation. I updated the son about the the events that happened since we last spoke. The patient aspirated, had low blood pressures, is anemic. He was informed that she has multiorgan failure. After long discussion, the son decided to not escalate care. He does not want the patient to go to the ICU. He does not want pressors. He does want blood transfusion. It was communicated to the son that his mother is actively dying. He is not ready to switch to comfort measures yet. DVT ppx -Eliquis discontinued Has [facility] TLC see above Admission and Anticipated Discharge Date Admission Date: December 18, 2024 Subjective Overnight, while flushing PEG tube, green bile liquid poured out. About 400 cc drained. Review of Systems Review of Systems: Unobtainable due to cognitive status Physical Exam Physical Exam: General: Unresponsive. Not answering any questions. Moans are weaker. Eyes ro lling backwards. Patient was able to open her eyes in response to vocal stimulus but could not respond with a nod or shake. Heart: S1, S2/regular rate and rhythm, no murmur rubs or gallops Lungs: Rhonchorous breath sounds. Normal effort. Abdomen: Soft/nontender/nondistended. No hepatosplenomegaly. Nurse informed me there was dark fluid coming out of her PEG tube. Extremities: No clubbing/cyanosis. 3+ pitting bilateral edema noted. Behavior: Unable to assess Results & Data Results & Data Vital Signs (Past 12 Hours) Vital Signs Temp Pulse Pulse Resp BP Pulse Ox O2 Del Method 01/11/25 07:03 36.3 C L 92 H 19 126/80 100 Oxymask 01/11/25 03:02 36.4 C L 92 H 14 137/77 100 Oxymask 01/11/25 00:00 91 H O2 Flow Rate 01/11/25 07:03 3 01/11/25 03:02 4.0 01/11/25 00:00 Laboratory Results Abnormal lab results 01/08/25 01/11/25 01/11/25 Range/Units 00:48 01:31 05:43 WBC 4.35 L (4.8-10.8) K/ul RBC 3.14 L (4.20-5.40) M/uL Hgb 9.4 L (12.0-16.0) g/dl Hct 28.2 L (37.0-47.0) % RDW Std Deviation 56.1 H (36.4-46.3) fL RDW Coeff of Naga 19.3 H (11.5-14.5) % Plt Count 110 L (130-400) K/uL Potassium 3.3 L (3.5-5.1) mmol/L Chloride 118 H (98-107) mmol/L BUN 33 H (6-23) mg/dl BUN/Creatinine Ratio 46.5 H (10-20) Glucose 138 H (70-99(Fasting)) mg/dl POC Glucose 126 H (70-99) mg/dl Calcium 7.9 L (8.6-10.3) mg/dl Crossmatch See Detail 01/11/25 Range/Units 05:49 WBC (4.8-10.8) K/ul RBC (4.20-5.40) M/uL Hgb (12.0-16.0) g/dl Hct (37.0-47.0) % RDW Std Deviation (36.4-46.3) fL RDW Coeff of Naga (11.5-14.5) % Plt Count (130-400) K/uL Potassium (3.5-5.1) mmol/L Chloride (98-107) mmol/L BUN (6-23) mg/dl BUN/Creatinine Ratio (10-20) Glucose (70-99(Fasting)) mg/dl POC Glucose 133 H (70-99) mg/dl Calcium (8.6-10.3) mg/dl Crossmatch PG Care Time/CCT Total # of Minutes Spent Total Time Spent with Patient: Total time spent is greater than 50% in coordination of care (as documented) at patient's floor/unit and/or counseling patient: Coding Level of Care Code 59767 SUB INP/OBS CARE 2/35MIN Diagnoses Acute pulmonary embolism without acute cor pulmonale, unspecified pulmonary embolism type I26.99 Pulmonary embolism type: unspecified Chronicity: acute Acute cor pulmonale presence: without acute cor pulmonale AMS (altered mental status) R41.82 Metabolic acidosis with normal anion gap and bicarbonate losses E87.20 Right arm weakness R29.898 Depression F32.A UTI (urinary tract infection) N39.0 Status post insertion of percutaneous endoscopic gastrostomy (PEG) tube Z93.1 (1) Pulmonary emboli Pulmonary embolism type: unspecified Chronicity: acute Acute cor pulmonale presence: without acute cor pulmonale Qualified Code(s): I26.99 - Other pulmonary embolism without acute cor pulmonale
--- NOTE | 2025-01-11 11:45 | Palliative Care Progress Note ---
Date of Service January 11, 2025 Assessment & Plan (1) Palliative care by specialist: Plan: Ms. Rae is a 64-year-old woman with past medical history of hemorrhagic left basal ganglia CVA in 2021 with resulting right sided strength deficits, seizure, hyperlipidemia, chronic indwelling Alves who presented with concern for complicated UTI. Lengthy admit course has been c/b right hydronephrosis requiring stent placement, urosepsis 2/2 Pseudomonas and marge, multifactorial encephalopathy, acute blood loss anemia requiring multiple transfusions, hypotension, acute PE, L brachial vein DVT, LUE SVT, subacute CVA, severe anasarca, aspiration PNA, metabolic acidosis and GI bleed requiring transfusion. Patient has had progressively decompensated health despite aggressive care throughout hospitalization and family has requested no further escalation of care. (2) Counseling regarding goals of care: Plan: No family present at bedside today, please see Family meeting note from 01/10 for details of most recent GOC discussion. Palliative care will continue to follow for ongoing GOC discussions and family support. Plan No escalation of care, pt's son Basil intends to visit this evening prior to any further change in plan of care. Admission and Anticipated Discharge Date Admission Date: December 18, 2024 Subjective Assessed pt at bedside, nursing notes and flowsheets reviewed. Pt awake and opens eyes spontaneously and does track but made no attempt at verbal response and does not follow commands. VSS, she appears more comfortable today, normal respiratory effort and she is no longer constantly moaning. Over weekend she has developed bleeding from around PEG requiring transfusion and is no longer tolerating her tube feeds with large bilious residuals. No visitors present. Review of Systems Review of Systems: Unobtainable due to cognitive status Physical Exam Physical Exam: Constitutional: + ill appearing and + frail appearing Eyes: PERRL, conjunctivae normal, anicteric sclerae ENMT: external ear and nose normal, oropharynx normal Neck: trachea midline, no thyromegaly Respiratory: normal respiratory effort, lungs clear to auscultation Cardiovascular: Rate/Rhythm: regular rate and regular rhythm Extremities: + edema Gastrointestinal (Abdomen): normal bowel sounds, soft, nontender, no hepatosplenomegaly Neurologic: awake and opens eyes spontaneously and does track but made no attempt at verbal response and does not follow commands Results & Data Vital Signs (Past 12 Hours) Vital Signs Temp Pulse Pulse Resp BP Pulse Ox O2 Del Method 01/11/25 10:52 36.5 C 87 16 134/70 99 Oxymask 01/11/25 07:03 36.3 C L 92 H 19 126/80 100 Oxymask 01/11/25 03:02 36.4 C L 92 H 14 137/77 100 Oxymask 01/11/25 00:00 91 H O2 Flow Rate 01/11/25 10:52 3 01/11/25 07:03 3 01/11/25 03:02 4.0 01/11/25 00:00 Laboratory Results Abnormal lab results 01/08/25 01/11/25 01/11/25 Range/Units 00:48 01:31 05:43 WBC 4.35 L (4.8-10.8) K/ul RBC 3.14 L (4.20-5.40) M/uL Hgb 9.4 L (12.0-16.0) g/dl Hct 28.2 L (37.0-47.0) % RDW Std Deviation 56.1 H (36.4-46.3) fL RDW Coeff of Naga 19.3 H (11.5-14.5) % Plt Count 110 L (130-400) K/uL Potassium 3.3 L (3.5-5.1) mmol/L Chloride 118 H (98-107) mmol/L BUN 33 H (6-23) mg/dl BUN/Creatinine Ratio 46.5 H (10-20) Glucose 138 H (70-99(Fasting)) mg/dl POC Glucose 126 H (70-99) mg/dl Calcium 7.9 L (8.6-10.3) mg/dl Crossmatch See Detail 01/11/25 Range/Units 05:49 WBC (4.8-10.8) K/ul RBC (4.20-5.40) M/uL Hgb (12.0-16.0) g/dl Hct (37.0-47.0) % RDW Std Deviation (36.4-46.3) fL RDW Coeff of Naga (11.5-14.5) % Plt Count (130-400) K/uL Potassium (3.5-5.1) mmol/L Chloride (98-107) mmol/L BUN (6-23) mg/dl BUN/Creatinine Ratio (10-20) Glucose (70-99(Fasting)) mg/dl POC Glucose 133 H (70-99) mg/dl Calcium (8.6-10.3) mg/dl Crossmatch Diagnostic Findings Abdomen Fluoroscopy 12/17/24 14:03 [facility] CLINICAL HISTORY: STENT PLACEMENTstatus post placement of a right ureteral stent COMPARISON STUDY: CT 08/27/2024 FLUOROSCOPY TIME: 9.7 seconds FLUOROSCOPY IMAGES: 2 EXPOSURE DOSE: 0.96 mGy FINDINGS: Proximal portion of a right ureteral stent is in satisfactory positioning. Mild dilation of the right renal pelvis. IMPRESSION: Fluoroscopic assistance as above. ACT 112: Negative or not required by law. Electronically signed by: Marky Rosa M.D. 12/18/2024 8:03 AM Duplex Scan Upper Extremity Artery 12/26/24 11:52 US arterial duplex UE LT CLINICAL HISTORY: pulseless, cold left arm COMPARISON STUDY: None FINDINGS: Arterial velocities at the left upper extremity are normal. No evidence of significant arterial narrowing or occlusion seen at the left upper extremity. IMPRESSION: No significant arterial narrowing or occlusion seen at the left upper extremity. ACT 112: Negative or not required by law. Electronically signed by: Kevin Bryant M.D. 12/26/2024 12:52 PM KUB X-Ray 12/27/24 10:31 KUB HISTORY: crying uncontrollably COMPARISON STUDY: 06/04/2023 FINDINGS: Position of the PEG tube is grossly stable. There is an interval well positioned appearing right ureteral stent. There are a few right renal calculi visible. There is mild retained stool. No bowel obstruction seen. No gross free air. IMPRESSION: No acute findings. ACT 112: Negative or not required by law. The above report was generated using voice recognition software. It may contain grammatical, syntax or spelling errors. Electronically signed by: Kevin Bryant M.D. 12/27/2024 10:[address] 12/27/24 19:29 Exam(s): CT HEAD Without Contrast EXAM: CT Head Without Intravenous Contrast CLINICAL HISTORY: Reason for exam: lethargy; sluggish pupils. TECHNIQUE: Axial computed tomography images of the head/brain without intravenous contrast. CTDI is 61.2 mGy and DLP is 961.59 mGy-cm. Automated exposure control was utilized for the study. A dose lowering technique was utilized adhering to the principles of ALARA. COMPARISON: CT January 23, 2024. FINDINGS: Brain: There is stable, old encephalomalacia in the left basal ganglia and estrella radiata white matter. No acute intracranial edema, hemorrhage or abnormal mass-effect. Ventricles: Unremarkable. No ventriculomegaly. Bones/joints: Unremarkable. No acute fracture. Soft tissues: Unremarkable. Sinuses: Unremarkable as visualized. No acute sinusitis. Mastoid air cells: Unremarkable as visualized. No mastoid effusion. IMPRESSION: No acute findings in the head/brain. Electronically signed by: Montrell Buck MD 12/27/24 23:01 PM Chest CTA 12/28/24 07:09 EXAM: CT angio chest PE protocol CLINICAL HISTORY: elevated d-dimer. TECHNIQUE: CT angiography of the chest was performed with and without intravenous contrast with the following protocol: axial images with, reconstructed coronal and sagittal images. Non-contrast images were initially acquired, followed by contrast-enhanced images in arterial and venous phases. Intravenous contrast was administered using automated injection techniques. Bolus tracking was employed to optimize arterial phase imaging. One of these 3D techniques was utilized: Maximum Intensity Pixel (MIP), 3D Reconstructed Images, Volume Rendered Images, Surface Shaded Rendering. One of the following dose reduction techniques was utilized for this exam: Automated exposure control, adjustment of the mA and/or kV according to patient size, and use of iterative reconstruction. DLP: 170.5 mGy.cm. COMPARISON: chest x-ray dated 12/27/[address] dated 12/17/2024. FINDINGS: Aorta and Great Vessels: Ascending Aorta: Normal in caliber, no aneurysm, dissection, or significant atherosclerosis. Aortic Arch: Normal in caliber, no aneurysm, dissection, or significant atherosclerosis. Descending Aorta: Normal in caliber, no aneurysm, dissection, or significant atherosclerosis. Pulmonary Arteries: Right upper lobe segmental artery thrombus is seen. The main pulmonary artery and its branches are patent. No evidence of other pulmonary embolism or significant stenosis. Heart: Cardiac Chambers: Mildly enlarged in size with increased RV:LV ratio, indicating right cardiac strain. Pericardium: Mild pericardial effusion/thickening. Lungs and Pleura: Bilateral moderate-sized free pleural effusion with passive basal atelectasis. No evidence of consolidation, collapse, or focal lesions. Mediastinum: No mediastinal mass or abnormal lymphadenopathy. The esophagus is mildly prominent, nonspecific. Normal appearance of the trachea and central bronchi. Hilar Structures: Hilar structures are normal without enlargement. Chest Wall: No mass lesions or abnormalities in the chest wall. Vascular Structures: Superior Vena Cava: Patent without evidence of stenosis or thrombus. Inferior Vena Cava: Patent without evidence of stenosis or thrombus. Free gas was noted in the abdomen. Bones and Soft Tissues: No fractures, lytic, or blastic lesions of the visualized bony structures. Soft tissues are unremarkable. IMPRESSION: 1. Right upper lobe segmental artery thrombus is seen with evidence of right sided cardiac strain, echo correlation recommended. 2. Bilateral moderate pleural effusion with passive basal atelectasis. present in previous chest X ray and not seen in the abdomen CT on 12/17/2024. 3. The esophagus is mildly prominent, nonspecific. Electronically signed by Reza Oreilly 12-28-2024 08:38 AM Brain MRI 12/29/24 08:13 MR brain wo con HISTORY: 64 years-old Female Nonverbal, persistent AMS, hx ICH acutely altered mental status with recent head trauma COMPARISON: Head CT 12/27/2024 TECHNIQUE: Multiplanar multisequence MRI of the brain was obtained without IV contrast FINDINGS: Study is motion degraded. The midline structures appear unremarkable Large focus of encephalomalacia with peripheral hemosiderin is seen within the left frontal lobe estrella radiata and basal ganglia with ex vacuo ventriculomegaly of the left lateral ventricle. Within the center of the encephalomalacia there is a 2.9 x 1.3 cm heterogeneous focus with intermediate T2 signal, increased T1 signal and increased diffusion-weighted signal on image 16 series 11. Prior left occipital craniotomy. There is an 8 mm focus of restricted diffusion within the right cerebral hemisphere on image 8 series 11 demonstrating slightly decreased signal on ADC map. Involutional changes with moderate T2/FLAIR hyperintense foci. The white matter suggestive of chronic microvascular ischemic disease. Cerebral venous sinuses and visualized major arterial flow voids appear patent. Moderate to large mastoid effusions. Unremarkable skull, orbits and soft tissues. IMPRESSION: 1. Large area of chronic encephalomalacia again noted within the left frontal lobe estrella radiata and basal ganglia. Within the center of the encephalomalacia there is a 2.9 cm focus of restricted diffusion which is likely related to the chronic findings. This less likely represents an acute versus subacute infarct within the residual brain parenchyma within this distribution. Correlate with patient presentation. 2. 8 mm focus of restricted diffusion within the right cerebral hemisphere is suggestive of an acute versus subacute lacunar infarct. 3. Involutional changes with chronic microvascular ischemic disease. 4. Left occipital craniotomy with bilateral mastoid effusions. ACT 112: Negative or not required by law. The above report was generated using voice recognition software. It may contain grammatical, syntax or spelling errors. Electronically signed by: Marky Rosa M.D. 12/29/2024 2:36 PM Chest X-Ray 01/04/25 07:21 XR chest 1V portable CLINICAL HISTORY: tachycardia, leukocytosis COMPARISON STUDY: 12/28/2024 FINDINGS: Stable left central catheter. Stable mild cardiomegaly without pulmonary vascular congestion. There is mild opacity at the left base with blunting of the left costophrenic angle. No pneumothorax. IMPRESSION: Mild opacity at the left lung base could represent small left pleural effusion, consolidation, or atelectasis. ACT 112: Negative or not required by law. Electronically signed by: Kevin Bryant M.D. 01/04/2025 8:11 AM Venous Doppler Study 01/04/25 12:50 EXAM: US venous doppler UE BI CLINICAL HISTORY: LR upper extremity swelling, L arm pain. TECHNIQUE: Ultrasound examination of bilateral upper extremity veins was performed in real time and duplex. One or more of the following were performed- spectral analysis, resistive index, waveform analysis, and pulsed Doppler. COMPARISON: Prior ultrasound dated 12/28/2024. FINDINGS: Right upper limb: Normal phasic, non-pulsatile, and spontaneous flow is noted in the right Internal jugular, subclavian, axillary, brachial, basilic, cephalic, antecubital, radial, and ulnar veins. Visualized veins of the right upper extremity demonstrate normal compressibility. No sonographic evidence of acute deep vein thrombosis (DVT) is detected in the visualized veins of the upper extremity. Compression and Augmentation: All evaluated veins compress fully with applied transducer pressure. Augmentation of venous flow is noted with distal compression. Additional Findings: No evidence of intraluminal thrombus. Left upper limb: Probable DVT seen in the brachial vein; appears non-compressible with no visible flow in the visible portion from mid-dist. Non-occlusive superficial thrombus seen in a basilic vein at the AC fossa; unable to follow the segment to measure. Cephalic vein and ulnar vein not visualized. Line in left neck; unable to evaluate IJV. IV line at mid portion of upper left arm; unable to fully visualize brachial and basilic veins. Normal phasic, non-pulsatile, and spontaneous flow is noted in the subclavian, axillary, antecubital, and radial veins. Visualized veins of the left upper extremity demonstrate normal compressibility. No sonographic evidence of acute deep vein thrombosis (DVT) is detected in the visualized veins of the upper extremity. IMPRESSION: 1. No sonographic evidence of acute DVT was detected in the right upper extremity visualized veins at the time of examination. Unchanged. 2. Probable left DVT. Thrombosis seen in the brachial vein; appears non-compressible with no visible flow in visible portion from mid-dist. New finding. 3. Non-occlusive superficial thrombus seen in the left basilic vein at the antecubital fossa; unable to follow the segment to measure. New finding 4. The left cephalic vein and ulnar vein are not visualized. Disclaimer: DVT could be missed early in the disease when clot burden is minimal. For patients with moderate and high pretest probability of DVT and negative ultrasound, the [place] [employer] clinical guidelines recommend testing with a D-dimer assay or repeat ultrasound in 5-7 days. If symptoms worsen, the Society of radiologists in ultrasound recommends repeating ultrasound even earlier. [facility] was called on Ext# 1 at 05:38 PM CAR DROPPER, 01/04/2025, and Gibran Nurse, was informed about the presence of Critical Medical Findings in the report. Electronically signed by Reza Oreilly 01-04-2025 6:44 PM Abdomen/Pelvis CT 01/05/25 12:[address] WITHOUT CONTRAST CT DOSE: 1092.04 mGy.cm HISTORY: eval for intra-abd hemorrhage, anemia, on Eliquis TECHNIQUE: Multiaxial CT images of the abdomen and pelvis were performed without contrast. A dose lowering technique was utilized adhering to the principles of ALARA. COMPARISON STUDY: 12/28/2024 FINDINGS: There is stable elevation of the right hemidiaphragm. Stable small bilateral pleural effusions and associated consolidation at the lung bases. ABDOMEN: Stable fatty liver. There are tiny gallstones without evidence of acute cholecystitis. Spleen, pancreas, and adrenal glands have an unremarkable non-IV contrasted appearance. Stable well-positioned right ureteral stent. There is no hydronephrosis bilaterally. There are scattered atherosclerotic calcifications. No abdominal aortic aneurysm. Stable well-positioned PEG tube. Pelvis: Alves catheter is present and the urinary bladder is empty. Uterus and adnexal regions are grossly unremarkable. There is retained liquid stool suggesting diarrhea. No other bowel inflammation or obstruction seen. There is trace ascites. No free air or abscess. No retroperitoneal hematoma seen. There is anasarca. Osseous structures: There is osteopenia. Stable mild height loss at the L4 vertebral body and a few lower thoracic vertebral bodies. No acute osseous findings. IMPRESSION: 1. No retroperitoneal hematoma seen. 2. Retained liquid stool suggesting diarrhea. No other bowel inflammation or obstruction seen. 3. Anasarca, trace ascites, and pleural effusions suggest fluid overload. ACT 112: Negative or not required by law. The above report was generated using voice recognition software. It may contain grammatical, syntax or spelling errors. Electronically signed by: Kevin Bryant M.D. 01/05/2025 1:41 PM Medications Administered Current Inpatient Medications Atorvastatin Calcium (Atorvastatin 40 Mg Tab) 40 mg GT HS CLAU Stop: 01/29/25 20:59 Last Admin: 01/10/25 20:18 Dose: 40 mg Atropine Sulfate (Atropine Sulfate 1% Op Soln 5 Ml Btl) 2 drops SL Q3H PRN PRN Reason: Secretions or pulm congestion Stop: 02/09/25 11:42 Last Admin: 01/10/25 15:06 Dose: 2 drops Glycopyrrolate (Glycopyrrolate 0.2 Mg/Ml Vial) 0.4 mg IV Q4 PRN PRN Reason: Congestion Stop: 02/06/25 14:26 Last Admin: 01/10/25 16:27 Dose: 0.4 mg Heparin Sodium (Beef Lung) (Heparin 10 Unit/Ml 5 Ml Flush) 5 ml FLUSH PRN PRN PRN Reason: Flush Stop: 02/08/25 08:56 Last Admin: 01/10/25 16:28 Dose: 5 ml Cefepime HCl (Maxipime 2000mg) 2,000 mg in 20 mls @ 5 mls/min IV Q8H CLAU; Protocol Stop: 01/11/25 12:59 Last Admin: 01/11/25 05:47 Dose: 5 mls/min Pantoprazole Sodium (Protonix) 40 mg in 10 mls @ 5 mls/min IV BID CLAU Stop: 02/07/25 00:29 Last Admin: 01/11/25 08:16 Dose: 5 mls/min Potassium Chloride (K Lee / Wtr) 10 meq in 100 mls @ 100 mls/hr IV Q1H CLAU Stop: 01/11/25 12:44 Last Admin: 01/11/25 10:53 Dose: 100 mls/hr Levetiracetam (Levetiracetam Oral Soln 100mg/Ml) 500 mg PEG BID CLAU Stop: 01/26/25 08:59 Last Admin: 01/11/25 08:15 Dose: 500 mg Miscellaneous (Check Scopolamine Patch Placement) 1 each N/A QS CLAU Stop: 02/03/25 15:59 Last Admin: 01/11/25 07:33 Dose: 1 each Miscellaneous (Remove Transderm-Scop Patch) 1 each N/A Q72H CLAU Stop: 02/06/25 14:44 Last Admin: 01/10/25 14:10 Dose: 1 each Morphine Sulfate (Morphine Sulfate 2 Mg/Ml Carp) 4 mg IV Q4 CLAU Stop: 01/22/25 11:59 Last Admin: 01/11/25 07:46 Dose: 4 mg Oxycodone HCl (Oxycodone Hcl Soln 5 Mg/5 Ml Udc) 10 mg GT Q4H PRN PRN Reason: Pain Stop: 01/17/25 12:46 Last Admin: 01/08/25 08:51 Dose: 10 mg Potassium Chloride (Potassium Chloride 20 Meq/15 Ml Udc) 20 meq GT QID CLAU Stop: 01/29/25 20:59 Last Admin: 01/04/25 13:54 Dose: Not Given Propranolol HCl (Propranolol Oral Soln 8 Mg/Ml) 20 mg PO TID [facility] Stop: 01/16/25 20:59 Last Admin: 01/11/25 08:15 Dose: 20 mg Scopolamine (Scopolamine 1 Mg/72 Hr Tdsy Patch) 1 patch TD Q72H PRN PRN Reason: secretions Stop: 02/03/25 14:44 Last Admin: 01/10/25 14:26 Dose: 1 patch Thiamine HCl (Thiamine Hcl 100 Mg Tab) 100 mg PEG QAM CLAU Stop: 01/25/25 13:14 Last Admin: 01/11/25 08:15 Dose: 100 mg PG Care Time/CCT Total # of Minutes Spent Total Time Spent with Patient: Total time spent is greater than 50% in coordination of care (as documented) at patient's floor/unit and/or counseling patient: [place] [address] SUB INP/OBS CARE 10/10MIN Patient Type Established History Problem Focused Exam Problem Focused Medical Decision Making Low Complexity Diagnoses Palliative care by specialist Z51.5 Counseling regarding goals of care Z71.89
[2025-01-12 06:07] LABS: Hematocrit (blood only) 32.7 % (37.0-47.0); Hemoglobin 10.8 g/dl (12.0-16.0); Mean Corpuscular Hemoglobin 29.8 pg (25.0-34.0); Mean Corpuscular Volume 90.3 fL (80.0-100.0); Mean Platelet Volume 11.3 fL (9.4-12.4); Nucleated RBC # (auto) 0.11 K/uL (0.00-0.12); Nucleated RBC % (auto) 2.8 %; Platelet Count 127 K/uL (130-400); RDW Coefficient of Variation 19.9 % (11.5-14.5); RDW Standard Deviation 58.7 fL (36.4-46.3); Red Blood Count 3.62 M/uL (4.20-5.40); White Blood Count 3.99 K/ul (4.8-10.8)
[2025-01-12 06:31] LABS: BUN Creatinine Ratio 40.9 (10-20); Creatinine Clr Calc Pharmacy 71.7 ml/min; Potassium 3.1 mmol/L (3.5-5.1)
[2025-01-12] MEDS: POTASSIUM CHLORIDE / WTR 10 MEQ/100 ML PLCT IV SCH (07:43)
--- NOTE | 2025-01-12 09:26 | Hospitalist Progress Note ---
Date of Service January 12, 2025 Assessment & Plan (1) Pulmonary emboli: Plan: CTA 12/28 with right upper lobe segmental thrombus, radiographic suggestion of right heart strain TTE with some RV dilation. Grade 1 diastolic dysfunction. LV SF normal Acute DVT was seen in the right upper extremity on 01/04 while on Eliquis Patient was on Eliquis but had to be discontinued because of acute GI bleed blood loss anemia (2) AMS (altered mental status): Plan: #Acute metabolic encephalopathy History of left hemorrhagic CVA, seizure-like activity MRI: Large area of chronic encephalomalacia in the left frontal lobe. Within the center of this there is a 2.9 cm focus of restricted diffusion likely chronic but less likely could nagi present an acute versus subacute infarct within prior residual brain parenchyma. Additionally an 8 mm focus of restricted diffusion within the right cerebral hemisphere suggestive of acute versus subacute lacunar infarct is seen. Involutional changes are noted. Left occipital craniotomy noted. Does have a history of intracranial hemorrhage. Neurology consulted recommended anticoagulation alone for PE without antiplatelet because of high risk of hemorrhage she has baseline aphasia and apraxia but usually can communicate somewhat and follow commands for a neuro exam (3) Metabolic acidosis with normal anion gap and bicarbonate losses: Plan: was prolonged but has resolved. Thought to be related to GI losses. (4) Right arm weakness: (5) Depression: (6) UTI (urinary tract infection): Plan: #Complicated UTI, right obstructive ureteral stones completed treatment for Pseudomonas UTI, last dose of fluconazole 01/05 AM for Dhara UTI - hematuria started 01/01 probably magallanes trauma while anticoagulated -was pink on 01/05. Off of Eliquis now (7) Status post insertion of percutaneous endoscopic gastrostomy (PEG) tube: Plan: Tube feeds was held 01/05 due to high residuals. Tube feeds to be held now due to GI bleed Patient remains n.p.o. (8) Acute blood loss anemia: Plan: Patient's hemoglobin had dropped from 9-5 on 01/05 Had responded to a unit of blood No visible bleeding anywhere at that time. CT abdomen was negative as well When hemoglobin was stable, decision was made to resume Eliquis 01/06 and her H&H was being monitored closely On 01/07 night, the patient started bleeding at the PEG tube site with drop in hemoglobin again Eliquis discontinued permanently Patient got a unit of blood She was started on Protonix Tube feeds discontinued Patient continues to have dark fluid coming out of her PEG tube Transfused 1 unit of blood as she is anemic 01/10 Hemoglobin stable today (9) Lower lobe pneumonia: Plan: Possible LLL pneumonia leading to sepsis/aspiration White count has trended down from 13-7 in response to IV antibiotics. Discontinued vancomycin as MRSA nares negative on 01/06 again Continue cefepime Urine culture growing the same Enterococcus and not sure if the Magallanes catheter was changed since the last urine culture on 12/27. I am not convinced that this is a true UTI. The patient clinically had hypoxia and gurgling suggestive of pneumonia being the source of sepsis rather than UTI. On 01/09 patient had an episode of aspiration when nurse was doing mouth care. Even though her vital signs were stable, this led to some respiratory distress (10) Anasarca: Plan: related to severe hypoalbuminemia, critical illness, malnutrition She has 3+ edema in all 4 of her extremities Skin peeling and skin tears while repositioning Plan 64-year-old woman with past medical history of hemorrhagic left basal ganglia CVA in 2021 with resulting right sided strength deficits, seizure, hyperlipidemia, chronic indwelling Magallanes who presented with concern for complicated UTI with right hydronephrosis and he was treated for both Pseudomonas and candidal UTI. Due to right hydro she underwent right stent placement. She completed treatment for Pseudomonas UTI with cefepime/meropenem/pip-tazo and treated for candidal UTI with fluconazole. Overnight 12/27/24 did have a rapid response for lethargy and hypotension. Found to have acute PE. Subsequent MRI with small new stroke. Since then she has continued to have slow improvement Soha remains severely ill and had some slow improvement through 01/03. On 01/04, appeared to be septic. On 01/05, vital signs improved but is very anemic. blood transfusion on 01/05. Since no bleeding source was found, Eliquis was resumed and she became anemic again. Noted to be GI bleeding. Patient appears uncomfortable and declining clinically. She is moaning, using accessory muscles to breathe, is third spacing. Morphine is helping with the moaning and the air hunger Overall prognosis very guarded. Over the last several days, I have spoken to the son several times. He appears to be very rushed with time. He will often start out with "I have 30 seconds for you today" or "10 seconds for you today". We were able to meet with him on 01/05 and changed her CODE STATUS to DNR/DNI. I am trying to update him every day if he will allow the time but there has been times when he had to hang up because he was too busy. Today 01/08, I was able to have a phone conversation with him at 11 AM in the presence of nurse Mcdonald, palliative nurse practitioner Rdaha, patient's cousin Evie (phone #[phone]). Evie agreed to be the backup person to give us decisions in case the son was not available to give his decisions. The son Basil allowed Evie to be present during our conversation today. We were able to hold a conversation long enough for us to be able to update the son completely about her clinical deterioration. He understands that his mother is suffering while we are prolonging life. He says that he will visit her tonight and will give us a decision tomorrow. 01/09: I called the son at 11 AM in presence of nurse Christianson. Basil did not answer his cell phone. Left a voicemail. I then called his work phone number and spoke to a staff member who stated that Basil was not at work today. He will not be back until Saturday to work. In case Basil calls back, Meghan will update him about the overnight events and current condition 01/10: I called the son Basil and he answered my phone. Meghan was present next to me and Radha was available on the phone as well listening to and participating in this conversation. I updated the son about the the events that happened since we last spoke. The patient aspirated, had low blood pressures, is anemic. He was informed that she has multiorgan failure. After long discussion, the son decided to not escalate care. He does not want the patient to go to the ICU. He does not want pressors. He does want blood transfusion. It was communicated to the son that his mother is actively dying. He is not ready to switch to comfort measures yet. DVT ppx -Eliquis discontinued Has CRISTA TLC see above Awaiting son follow up with palliative care and decision to make comfort care at this time. Admission and Anticipated Discharge Date Admission Date: December 18, 2024 Subjective Pt seen and examined, not responding to verbal commands. No events overnight. Review of Systems Review of Systems: CONST: Negative for fever, body aches and chills. HENT: Negative for neck pain/stiffness, headache, congestion, sore throat, swelling. EYES: Negative for discharge/pain or vision changes. RESP: Negative for cough/hemoptysis and shortness of breath. CV: Negative chest pain, difficulty breathing, palpitations. ABD: Negative pain, nausea, vomiting. : Negative increase frequency, dysuria, blood in urine or stool. MUSC: Negative for muscle aches, edema. SKIN: Negative rash, lesions/sores. NEURO: Negative headache, dizziness, weakness. Physical Exam Physical Exam: GENERAL APPEARANCE NAD, activity normal for age, well developed/ well nourished, no cyanosis, pallor, or diaphoresis. EYES lids/conjunctiva normal. EARS/NOSE/THROAT Mucous membranes moist, nares normal, lips/teeth normal uvula midline without oral pharyngeal erythema, exudate or swelling TMs normal bilaterally. No lymphangitis/lymphedema. HEAD/NECK normocephalic atraumatic, no facial trauma, neck is supple. RESPIRATORY respiratory effort normal, speaks in full sentences, no tripod position, no accessory muscle use. Lungs clear to auscultation without rhonchi, wheezes, rales CARDIAC Regular rate and rhythm, no edema. ABDOMINAL Soft, ND/NT. No evidence of fluid wave. No pulsatile masses on exam, rebound tenderness, Denny sign or pain over Mcburney's point. MUSCLES/EXTREMITIES No abnormal range of motion, no swelling. SKIN Warm, pink and dry. No rashes, dermatoses, petechiae or lesions. NEUROLOGICAL Not responding to verbal commands PSYCH Normal mood and affect. Judgement/competence is appropriate Results & Data Results & Data Vital Signs (Past 12 Hours) Vital Signs Temp Pulse Pulse Resp BP Pulse Ox O2 Del Method 01/12/25 08:00 83 01/12/25 08:00 Oxymask 01/12/25 07:32 36.7 C 83 18 151/84 H 98 Oxymask 01/12/25 03:36 36.2 C L 81 18 121/71 98 Oxymask 01/12/25 00:00 85 01/11/25 23:31 36.2 C L 83 20 101/67 100 Oxymask O2 Flow Rate 01/12/25 08:00 01/12/25 08:00 2 01/12/25 07:32 2 01/12/25 03:36 3 01/12/25 00:00 01/11/25 23:31 3 PG Care Time/CCT Total # of Minutes Spent Total Time Spent with Patient: Total time spent is greater than 50% in coordination of care (as documented) at patient's floor/unit and/or counseling patient: Coding Level of Care Code 72639 SUB INP/OBS CARE 2MIN Diagnoses Acute pulmonary embolism without acute cor pulmonale, unspecified pulmonary embolism type I26.99 Acute cor pulmonale presence: without acute cor pulmonale Chronicity: acute Pulmonary embolism type: unspecified AMS (altered mental status) R41.82 Metabolic acidosis with normal anion gap and bicarbonate losses E87.20 Right arm weakness R29.898 Depression F32.A UTI (urinary tract infection) N39.0 Status post insertion of percutaneous endoscopic gastrostomy (PEG) tube Z93.1 Acute blood loss anemia D62 Lower lobe pneumonia J18.9 Anasarca R60.1 (1) Pulmonary emboli Acute cor pulmonale presence: without acute cor pulmonale Chronicity: acute Pulmonary embolism type: unspecified Qualified Code(s): I26.99 - Other pulmonary embolism without acute cor pulmonale
--- NOTE | 2025-01-12 12:36 | Palliative Care Progress Note ---
Date of Service January 12, 2025 Assessment & Plan (1) Palliative care by specialist: Plan: Ms. Rae is a 64-year-old woman with past medical history of hemorrhagic left basal ganglia CVA in 2021 with resulting right sided strength deficits, seizure, hyperlipidemia, chronic indwelling Alves who presented with concern for complicated UTI. Lengthy admit course has been c/b right hydronephrosis requiring stent placement, urosepsis 2/2 Pseudomonas and marge, multifactorial metabolic encephalopathy, acute blood loss anemia requiring multiple transfusions, hypotension, acute PE, L brachial vein DVT, LUE SVT, subacute CVA, severe anasarca, aspiration PNA, metabolic acidosis and GI bleed requiring transfusion. Patient has had progressively decompensated health despite aggressive care throughout this hospitalization and on 01/10/25 son Basil requested no further escalation of care. (2) Counseling regarding goals of care: Plan: No family present at bedside today, along with attending Dr Whittington phone contact was made with pt's son/DAT Gracia. Dr Whittington offered medical updates and encouraged visitation siting concern that the pt is very ill and appears to be dying. Basil shared that he and other family members had visited over the weekend and "told her it is ok to , but she still has not". Basil shared awareness that the pt's health is not improving but also stated that he had seen her last night and her "blood pressure and heart rate look better and she was comfortable". He stated that he this a sign that "continuing the morphine for her pain is the right thing thing" and requests "a few more days" to see if she will improve with current level of care, no but escalation. Basil shared that he is glad that patient is not moaning anymore and to him this is a sign that she is comfortable. Attempt to explain that the pt was more lethargic and not clinically improved was met with Basil stating that he is busy at work and abruptly ending the call without notice. Palliative care will continue to follow for ongoing GOC discussions and family support. Plan DNR/DNI, No escalation of care, pt's son Basil requesting "few more days". Admission and Anticipated Discharge Date Admission Date: December 18, 2024 Subjective Assessed pt at bedside, nursing notes and flowsheets reviewed. Pt awake and opens eyes spontaneously but does not track, made no attempt at verbal response and does not follow commands. VSS, she appears more lethargic today with decreased respiratory effort from previous days. No visitors present. Review of Systems Review of Systems: Unobtainable due to cognitive status Physical Exam Physical Exam: Constitutional: + ill appearing, + cachectic and + frail appearing Eyes: PERRL, conjunctivae normal, anicteric sclerae ENMT: external ear and nose normal, oropharynx normal Neck: trachea midline, no thyromegaly Respiratory: normal respiratory effort, lungs clear to auscultation Cardiovascular: Rate/Rhythm: regular rate and regular rhythm Extremities: + edema Gastrointestinal (Abdomen): normal bowel sounds, soft, nontender, no hepatosplenomegaly Neurologic: awake and opens eyes spontaneously - does not track; no attempt at verbal response and does not follow commands Results & Data Vital Signs (Past 12 Hours) Vital Signs Temp Pulse Pulse Resp BP Pulse Ox O2 Del Method 01/12/25 10:38 36.7 C 81 18 123/77 98 Oxymask 01/12/25 08:00 83 01/12/25 08:00 Oxymask 01/12/25 07:32 36.7 C 83 18 151/84 H 98 Oxymask 01/12/25 03:36 36.2 C L 81 18 121/71 98 Oxymask O2 Flow Rate 01/12/25 10:38 2 01/12/25 08:00 01/12/25 08:00 2 01/12/25 07:32 2 01/12/25 03:36 3 Laboratory Results Abnormal lab results 01/11/25 01/12/25 01/12/25 Range/Units 18:11 00:36 05:39 WBC 3.99 L (4.8-10.8) K/ul RBC 3.62 L (4.20-5.40) M/uL Hgb 10.8 L (12.0-16.0) g/dl Hct 32.7 L (37.0-47.0) % RDW Std Deviation 58.7 H (36.4-46.3) fL RDW Coeff of Naga 19.9 H (11.5-14.5) % Plt Count 127 L (130-400) K/uL Sodium 146 H (136-145) mmol/L Potassium 3.1 L (3.5-5.1) mmol/L Chloride 118 H (98-107) mmol/L BUN 27 H (6-23) mg/dl BUN/Creatinine Ratio 40.9 H (10-20) Glucose 126 H (70-99(Fasting)) mg/dl POC Glucose 125 H 137 H (70-99) mg/dl Calcium 8.0 L (8.6-10.3) mg/dl 01/12/25 Range/Units 12:08 WBC (4.8-10.8) K/ul RBC (4.20-5.40) M/uL Hgb (12.0-16.0) g/dl Hct (37.0-47.0) % RDW Std Deviation (36.4-46.3) fL RDW Coeff of Naga (11.5-14.5) % Plt Count (130-400) K/uL Sodium (136-145) mmol/L Potassium (3.5-5.1) mmol/L Chloride (98-107) mmol/L BUN (6-23) mg/dl BUN/Creatinine Ratio (10-20) Glucose (70-99(Fasting)) mg/dl POC Glucose 117 H (70-99) mg/dl Calcium (8.6-10.3) mg/dl Diagnostic Findings Abdomen Fluoroscopy 12/17/24 14:03 [facility] CLINICAL HISTORY: STENT PLACEMENTstatus post placement of a right ureteral stent COMPARISON STUDY: CT 08/27/2024 FLUOROSCOPY TIME: 9.7 seconds FLUOROSCOPY IMAGES: 2 EXPOSURE DOSE: 0.96 mGy FINDINGS: Proximal portion of a right ureteral stent is in satisfactory positioning. Mild dilation of the right renal pelvis. IMPRESSION: Fluoroscopic assistance as above. ACT 112: Negative or not required by law. Electronically signed by: Marky Rosa M.D. 12/18/2024 8:03 AM Duplex Scan Upper Extremity Artery 12/26/24 11:52 US arterial duplex UE LT CLINICAL HISTORY: pulseless, cold left arm COMPARISON STUDY: None FINDINGS: Arterial velocities at the left upper extremity are normal. No evidence of significant arterial narrowing or occlusion seen at the left upper extremity. IMPRESSION: No significant arterial narrowing or occlusion seen at the left upper extremity. ACT 112: Negative or not required by law. Electronically signed by: Kevin Bryant M.D. 12/26/2024 12:52 PM KUB X-Ray 12/27/24 10:31 KUB HISTORY: crying uncontrollably COMPARISON STUDY: 06/04/2023 FINDINGS: Position of the PEG tube is grossly stable. There is an interval well positioned appearing right ureteral stent. There are a few right renal calculi visible. There is mild retained stool. No bowel obstruction seen. No gross free air. IMPRESSION: No acute findings. ACT 112: Negative or not required by law. The above report was generated using voice recognition software. It may contain grammatical, syntax or spelling errors. Electronically signed by: Kevin Bryant M.D. 12/27/2024 10:[address] 12/27/24 19:29 Exam(s): CT HEAD Without Contrast EXAM: CT Head Without Intravenous Contrast CLINICAL HISTORY: Reason for exam: lethargy; sluggish pupils. TECHNIQUE: Axial computed tomography images of the head/brain without intravenous contrast. CTDI is 61.2 mGy and DLP is 961.59 mGy-cm. Automated exposure control was utilized for the study. A dose lowering technique was utilized adhering to the principles of ALARA. COMPARISON: CT January 23, 2024. FINDINGS: Brain: There is stable, old encephalomalacia in the left basal ganglia and estrella radiata white matter. No acute intracranial edema, hemorrhage or abnormal mass-effect. Ventricles: Unremarkable. No ventriculomegaly. Bones/joints: Unremarkable. No acute fracture. Soft tissues: Unremarkable. Sinuses: Unremarkable as visualized. No acute sinusitis. Mastoid air cells: Unremarkable as visualized. No mastoid effusion. IMPRESSION: No acute findings in the head/brain. Electronically signed by: Montrell Buck MD 12/27/24 23:01 PM Chest CTA 12/28/24 07:09 EXAM: CT angio chest PE protocol CLINICAL HISTORY: elevated d-dimer. TECHNIQUE: CT angiography of the chest was performed with and without intravenous contrast with the following protocol: axial images with, reconstructed coronal and sagittal images. Non-contrast images were initially acquired, followed by contrast-enhanced images in arterial and venous phases. Intravenous contrast was administered using automated injection techniques. Bolus tracking was employed to optimize arterial phase imaging. One of these 3D techniques was utilized: Maximum Intensity Pixel (MIP), 3D Reconstructed Images, Volume Rendered Images, Surface Shaded Rendering. One of the following dose reduction techniques was utilized for this exam: Automated exposure control, adjustment of the mA and/or kV according to patient size, and use of iterative reconstruction. DLP: 170.5 mGy.cm. COMPARISON: chest x-ray dated 12/27/[address] dated 12/17/2024. FINDINGS: Aorta and Great Vessels: Ascending Aorta: Normal in caliber, no aneurysm, dissection, or significant atherosclerosis. Aortic Arch: Normal in caliber, no aneurysm, dissection, or significant atherosclerosis. Descending Aorta: Normal in caliber, no aneurysm, dissection, or significant atherosclerosis. Pulmonary Arteries: Right upper lobe segmental artery thrombus is seen. The main pulmonary artery and its branches are patent. No evidence of other pulmonary embolism or significant stenosis. Heart: Cardiac Chambers: Mildly enlarged in size with increased RV:LV ratio, indicating right cardiac strain. Pericardium: Mild pericardial effusion/thickening. Lungs and Pleura: Bilateral moderate-sized free pleural effusion with passive basal atelectasis. No evidence of consolidation, collapse, or focal lesions. Mediastinum: No mediastinal mass or abnormal lymphadenopathy. The esophagus is mildly prominent, nonspecific. Normal appearance of the trachea and central bronchi. Hilar Structures: Hilar structures are normal without enlargement. Chest Wall: No mass lesions or abnormalities in the chest wall. Vascular Structures: Superior Vena Cava: Patent without evidence of stenosis or thrombus. Inferior Vena Cava: Patent without evidence of stenosis or thrombus. Free gas was noted in the abdomen. Bones and Soft Tissues: No fractures, lytic, or blastic lesions of the visualized bony structures. Soft tissues are unremarkable. IMPRESSION: 1. Right upper lobe segmental artery thrombus is seen with evidence of right sided cardiac strain, echo correlation recommended. 2. Bilateral moderate pleural effusion with passive basal atelectasis. present in previous chest X ray and not seen in the abdomen CT on 12/17/2024. 3. The esophagus is mildly prominent, nonspecific. Electronically signed by Reza Oreilly 12-28-2024 08:38 AM Brain MRI 12/29/24 08:13 MR brain wo con HISTORY: 64 years-old Female Nonverbal, persistent AMS, hx ICH acutely altered mental status with recent head trauma COMPARISON: Head CT 12/27/2024 TECHNIQUE: Multiplanar multisequence MRI of the brain was obtained without IV contrast FINDINGS: Study is motion degraded. The midline structures appear unremarkable Large focus of encephalomalacia with peripheral hemosiderin is seen within the left frontal lobe estrella radiata and basal ganglia with ex vacuo ventriculomegaly of the left lateral ventricle. Within the center of the encephalomalacia there is a 2.9 x 1.3 cm heterogeneous focus with intermediate T2 signal, increased T1 signal and increased diffusion-weighted signal on image 16 series 11. Prior left occipital craniotomy. There is an 8 mm focus of restricted diffusion within the right cerebral hemisphere on image 8 series 11 demonstrating slightly decreased signal on ADC map. Involutional changes with moderate T2/FLAIR hyperintense foci. The white matter suggestive of chronic microvascular ischemic disease. Cerebral venous sinuses and visualized major arterial flow voids appear patent. Moderate to large mastoid effusions. Unremarkable skull, orbits and soft tissues. IMPRESSION: 1. Large area of chronic encephalomalacia again noted within the left frontal lobe estrella radiata and basal ganglia. Within the center of the encephalomalacia there is a 2.9 cm focus of restricted diffusion which is likely related to the chronic findings. This less likely represents an acute versus subacute infarct within the residual brain parenchyma within this distribution. Correlate with patient presentation. 2. 8 mm focus of restricted diffusion within the right cerebral hemisphere is suggestive of an acute versus subacute lacunar infarct. 3. Involutional changes with chronic microvascular ischemic disease. 4. Left occipital craniotomy with bilateral mastoid effusions. ACT 112: Negative or not required by law. The above report was generated using voice recognition software. It may contain grammatical, syntax or spelling errors. Electronically signed by: Marky Rosa M.D. 12/29/2024 2:36 PM Chest X-Ray 01/04/25 07:21 XR chest 1V portable CLINICAL HISTORY: tachycardia, leukocytosis COMPARISON STUDY: 12/28/2024 FINDINGS: Stable left central catheter. Stable mild cardiomegaly without pulmonary vascular congestion. There is mild opacity at the left base with blun ting of the left costophrenic angle. No pneumothorax. IMPRESSION: Mild opacity at the left lung base could represent small left pleural effusion, consolidation, or atelectasis. ACT 112: Negative or not required by law. Electronically signed by: Kevin Bryant M.D. 01/04/2025 8:11 AM Venous Doppler Study 01/04/25 12:50 EXAM: US venous doppler UE BI CLINICAL HISTORY: LR upper extremity swelling, L arm pain. TECHNIQUE: Ultrasound examination of bilateral upper extremity veins was performed in real time and duplex. One or more of the following were performed- spectral analysis, resistive index, waveform analysis, and pulsed Doppler. COMPARISON: Prior ultrasound dated 12/28/2024. FINDINGS: Right upper limb: Normal phasic, non-pulsatile, and spontaneous flow is noted in the right Internal jugular, subclavian, axillary, brachial, basilic, cephalic, antecubital, radial, and ulnar veins. Visualized veins of the right upper extremity demonstrate normal compressibility. No sonographic evidence of acute deep vein thrombosis (DVT) is detected in the visualized veins of the upper extremity. Compression and Augmentation: All evaluated veins compress fully with applied transducer pressure. Augmentation of venous flow is noted with distal compression. Additional Findings: No evidence of intraluminal thrombus. Left upper limb: Probable DVT seen in the brachial vein; appears non-compressible with no visible flow in the visible portion from mid-dist. Non-occlusive superficial thrombus seen in a basilic vein at the AC fossa; unable to follow the segment to measure. Cephalic vein and ulnar vein not visualized. Line in left neck; unable to evaluate IJV. IV line at mid portion of upper left arm; unable to fully visualize brachial and basilic veins. Normal phasic, non-pulsatile, and spontaneous flow is noted in the subclavian, axillary, antecubital, and radial veins. Visualized veins of the left upper extremity demonstrate normal compressibility. No sonographic evidence of acute deep vein thrombosis (DVT) is detected in the visualized veins of the upper extremity. IMPRESSION: 1. No sonographic evidence of acute DVT was detected in the right upper extremity visualized veins at the time of examination. Unchanged. 2. Probable left DVT. Thrombosis seen in the brachial vein; appears non-compressible with no visible flow in visible portion from mid-dist. New finding. 3. Non-occlusive superficial thrombus seen in the left basilic vein at the antecubital fossa; unable to follow the segment to measure. New finding 4. The left cephalic vein and ulnar vein are not visualized. Disclaimer: DVT could be missed early in the disease when clot burden is minimal. For patients with moderate and high pretest probability of DVT and negative ultrasound, the [employer] clinical guidelines recommend testing with a D-dimer assay or repeat ultrasound in 5-7 days. If symptoms worsen, the Society of radiologists in ultrasound recommends repeating ultrasound even earlier. [facility] was called on Ext# 1 at 05:38 PM CREDIT SPECIALIST, 01/04/2025, and Gibran, Nurse, was informed about the presence of Critical Medical Findings in the report. Electronically signed by Reza Oreilly 01-04-2025 6:44 PM Abdomen/Pelvis CT 01/05/25 12:[address] WITHOUT CONTRAST CT DOSE: 1092.04 mGy.cm HISTORY: eval for intra-abd hemorrhage, anemia, on Eliquis TECHNIQUE: Multiaxial CT images of the abdomen and pelvis were performed without contrast. A dose lowering technique was utilized adhering to the principles of ALARA. COMPARISON STUDY: 12/28/2024 FINDINGS: There is stable elevation of the right hemidiaphragm. Stable small bilateral pleural effusions and associated consolidation at the lung bases. ABDOMEN: Stable fatty liver. There are tiny gallstones without evidence of acute cholecystitis. Spleen, pancreas, and adrenal glands have an unremarkable non-IV contrasted appearance. Stable well-positioned right ureteral stent. There is no hydronephrosis bilaterally. There are scattered atherosclerotic calcifications. No abdominal aortic aneurysm. Stable well-positioned PEG tube. Pelvis: Alves catheter is present and the urinary bladder is empty. Uterus and adnexal regions are grossly unremarkable. There is retained liquid stool suggesting diarrhea. No other bowel inflammation or obstruction seen. There is trace ascites. No free air or abscess. No retroperitoneal hematoma seen. There is anasarca. Osseous structures: There is osteopenia. Stable mild height loss at the L4 vertebral body and a few lower thoracic vertebral bodies. No acute osseous findings. IMPRESSION: 1. No retroperitoneal hematoma seen. 2. Retained liquid stool suggesting diarrhea. No other bowel inflammation or obstruction seen. 3. Anasarca, trace ascites, and pleural effusions suggest fluid overload. ACT 112: Negative or not required by law. The above report was generated using voice recognition software. It may contain grammatical, syntax or spelling errors. Electronically signed by: Kevin Bryant M.D. 01/05/2025 1:41 PM Medications Administered Current Inpatient Medications Atorvastatin Calcium (Atorvastatin 40 Mg Tab) 40 mg GT HS CLAU Stop: 01/29/25 20:59 Last Admin: 01/11/25 19:59 Dose: 40 mg Atropine Sulfate (Atropine Sulfate 1% Op Soln 5 Ml Btl) 2 drops SL Q3H PRN PRN Reason: Secretions or pulm congestion Stop: 02/09/25 11:42 Last Admin: 01/10/25 15:06 Dose: 2 drops Glycopyrrolate (Glycopyrrolate 0.2 Mg/Ml Vial) 0.4 mg IV Q4 PRN PRN Reason: Congestion Stop: 02/06/25 14:26 Last Admin: 01/10/25 16:27 Dose: 0.4 mg Heparin Sodium (Beef Lung) (Heparin 10 Unit/Ml 5 Ml Flush) 5 ml FLUSH PRN PRN PRN Reason: Flush Stop: 02/08/25 08:56 Last Admin: 01/10/25 16:28 Dose: 5 ml Pantoprazole Sodium (Protonix) 40 mg in 10 mls @ 5 mls/min IV BID CLAU Stop: 02/07/25 00:29 Last Admin: 01/12/25 08:37 Dose: 5 mls/min Levetiracetam (Levetiracetam Oral Soln 100mg/Ml) 500 mg PEG BID CLAU Stop: 01/26/25 08:59 Last Admin: 01/12/25 08:36 Dose: 500 mg Miscellaneous (Check Scopolamine Patch Placement) 1 each N/A QS CLAU Stop: 02/03/25 15:59 Last Admin: 01/12/25 07:52 Dose: 1 each Miscellaneous (Remove Transderm-Scop Patch) 1 each N/A Q72H CLAU Stop: 02/06/25 14:44 Last Admin: 01/10/25 14:10 Dose: 1 each Morphine Sulfate (Morphine Sulfate 2 Mg/Ml Carp) 4 mg IV Q4 CLAU Stop: 01/22/25 11:59 Last Admin: 01/12/25 12:18 Dose: 4 mg Oxycodone HCl (Oxycodone Hcl Soln 5 Mg/5 Ml Udc) 10 mg GT Q4H PRN PRN Reason: Pain Stop: 01/17/25 12:46 Last Admin: 01/08/25 08:51 Dose: 10 mg Potassium Chloride (Potassium Chloride 20 Meq/15 Ml Udc) 20 meq GT QID CLAU Stop: 01/29/25 20:59 Last Admin: 01/04/25 13:54 Dose: Not Given Propranolol HCl (Propranolol Oral Soln 8 Mg/Ml) 20 mg PO TID [facility] Stop: 01/16/25 20:59 Last Admin: 01/12/25 08:36 Dose: 20 mg Scopolamine (Scopolamine 1 Mg/72 Hr Tdsy Patch) 1 patch TD Q72H PRN PRN Reason: secretions Stop: 02/03/25 14:44 Last Admin: 01/10/25 14:26 Dose: 1 patch Thiamine HCl (Thiamine Hcl 100 Mg Tab) 100 mg PEG QAM [facility] Stop: 01/25/25 13:14 Last Admin: 01/12/25 08:37 Dose: 100 mg PG Care Time/CCT Total # of Minutes Spent Total Time Spent with Patient: Total time spent is greater than 50% in coordination of care (as documented) at patient's floor/unit and/or counseling patient: Coding [place] [address] SUB INP/OBS CARE 2/35MIN Patient Type Established Medical Decision Making Low Complexity Diagnoses Palliative care by specialist Z51.5 Counseling regarding goals of care Z71.89
[2025-01-13 06:06] LABS: Hematocrit (blood only) 32.2 % (37.0-47.0); Hemoglobin 10.6 g/dl (12.0-16.0); Mean Corpuscular Hemoglobin 29.8 pg (25.0-34.0); Mean Corpuscular Hgb Conc 32.9 g/dL (32.0-36.0); Mean Corpuscular Volume 90.4 fL (80.0-100.0); Mean Platelet Volume 11.3 fL (9.4-12.4); Nucleated RBC % (auto) 4.3 %; Platelet Count 138 K/uL (130-400); RDW Coefficient of Variation 20.2 % (11.5-14.5); RDW Standard Deviation 57.4 fL (36.4-46.3); Red Blood Count 3.56 M/uL (4.20-5.40)
[2025-01-13 06:21] LABS: BUN Creatinine Ratio 31.5 (10-20); Calcium 7.8 mg/dl (8.6-10.3); Creatinine Clr Calc Pharmacy 58.7 ml/min; Potassium 3.2 mmol/L (3.5-5.1)
[2025-01-13] MEDS: POTASSIUM CHLORIDE / WTR 10 MEQ/100 ML PLCT IV SCH (08:28)
--- NOTE | 2025-01-13 09:17 | Hospitalist Progress Note ---
Date of Service January 13, 2025 Assessment & Plan (1) Pulmonary emboli: Plan: CTA 12/28 with right upper lobe segmental thrombus, radiographic suggestion of right heart strain TTE with some RV dilation. Grade 1 diastolic dysfunction. LV SF normal Acute DVT was seen in the right upper extremity on 01/04 while on Eliquis Patient was on Eliquis but had to be discontinued because of acute GI bleed blood loss anemia (2) AMS (altered mental status): Plan: #Acute metabolic encephalopathy History of left hemorrhagic CVA, seizure-like activity MRI: Large area of chronic encephalomalacia in the left frontal lobe. Within the center of this there is a 2.9 cm focus of restricted diffusion likely chronic but less likely could nagi present an acute versus subacute infarct within prior residual brain parenchyma. Additionally an 8 mm focus of restricted diffusion within the right cerebral hemisphere suggestive of acute versus subacute lacunar infarct is seen. Involutional changes are noted. Left occipital craniotomy noted. Does have a history of intracranial hemorrhage. Neurology consulted recommended anticoagulation alone for PE without antiplatelet because of high risk of hemorrhage she has baseline aphasia and apraxia but usually can communicate somewhat and follow commands for a neuro exam (3) Metabolic acidosis with normal anion gap and bicarbonate losses: Plan: was prolonged but has resolved. Thought to be related to GI losses. (4) Right arm weakness: (5) Depression: (6) UTI (urinary tract infection): Plan: #Complicated UTI, right obstructive ureteral stones completed treatment for Pseudomonas UTI, last dose of fluconazole 01/05 AM for Dhara UTI - hematuria started 01/01 probably magallanes trauma while anticoagulated -was pink on 01/05. Off of Eliquis now (7) Status post insertion of percutaneous endoscopic gastrostomy (PEG) tube: Plan: Tube feeds was held 01/05 due to high residuals. Tube feeds to be held now due to GI bleed Patient remains n.p.o. (8) Acute blood loss anemia: Plan: Patient's hemoglobin had dropped from 9-5 on 01/05 Had responded to a unit of blood No visible bleeding anywhere at that time. CT abdomen was negative as well When hemoglobin was stable, decision was made to resume Eliquis 01/06 and her H&H was being monitored closely On 01/07 night, the patient started bleeding at the PEG tube site with drop in hemoglobin again Eliquis discontinued permanently Patient got a unit of blood She was started on Protonix Tube feeds discontinued Patient continues to have dark fluid coming out of her PEG tube Transfused 1 unit of blood as she is anemic 01/10 Hemoglobin stable today (9) Lower lobe pneumonia: Plan: Possible LLL pneumonia leading to sepsis/aspiration White count has trended down from 13-7 in response to IV antibiotics. Discontinued vancomycin as MRSA nares negative on 01/06 again Continue cefepime Urine culture growing the same Enterococcus and not sure if the Magallanes catheter was changed since the last urine culture on 12/27. I am not convinced that this is a true UTI. The patient clinically had hypoxia and gurgling suggestive of pneumonia being the source of sepsis rather than UTI. On 01/09 patient had an episode of aspiration when nurse was doing mouth care. Even though her vital signs were stable, this led to some respiratory distress (10) Anasarca: Plan: related to severe hypoalbuminemia, critical illness, malnutrition She has 3+ edema in all 4 of her extremities Skin peeling and skin tears while repositioning Plan 64-year-old woman with past medical history of hemorrhagic left basal ganglia CVA in 2021 with resulting right sided strength deficits, seizure, hyperlipidemia, chronic indwelling Magallanes who presented with concern for complicated UTI with right hydronephrosis and he was treated for both Pseudomonas and candidal UTI. Due to right hydro she underwent right stent placement. She completed treatment for Pseudomonas UTI with cefepime/meropenem/pip-tazo and treated for candidal UTI with fluconazole. Overnight 12/27/24 did have a rapid response for lethargy and hypotension. Found to have acute PE. Subsequent MRI with small new stroke. Since then she has continued to have slow improvement 01/10: I called the son Basil and he answered my phone. Meghan was present next to me and Rahda was available on the phone as well listening to and participating in this conversation. I updated the son about the the events that happened since we last spoke. The patient aspirated, had low blood pressures, is anemic. He was informed that she has multiorgan failure. After long discussion, the son decided to not escalate care. He does not want the patient to go to the ICU. He does not want pressors. He does want blood transfusion. It was communicated to the son that his mother is actively dying. He is not ready to switch to comfort measures yet. DVT ppx -Eliquis discontinued Has [facility] TLC see above 01/13 Son visited mother last night, appears to understand her condition, but not willing to make decision. Will attempt to speak with him today at 11 and follow up. Awaiting son follow up with palliative care and decision to make comfort care at this time. Admission and Anticipated Discharge Date Admission Date: December 18, 2024 Subjective No events overnight. Pt still unresponsive, pain appears under control. Review of Systems Review of Systems: CONST: Negative for fever, body aches and chills. HENT: Negative for neck pain/stiffness, headache, congestion, sore throat, swelling. EYES: Negative for discharge/pain or vision changes. RESP: Negative for cough/hemoptysis and shortness of breath. CV: Negative chest pain, difficulty breathing, palpitations. ABD: Negative pain, nausea, vomiting. : Negative increase frequency, dysuria, blood in urine or stool. MUSC: Negative for muscle aches, edema. SKIN: Negative rash, lesions/sores. NEURO: Negative headache, dizziness, weakness. Constitutional: Negative for antecedent/coincident fevers, chills, diaphoresis, cough, wheeze, sore throat, hemoptysis, chest pains, palpitations, pleurisy, nausea, vomiting, diarrhea, abdominal pain, pelvic pain, hematemesis, hematochezia, melena, hematuria, dysuria, frequency, urgency, headaches, dizziness, lightheadedness, visual changes, hearing changes, weakness, falls, syncope, trauma, travel history, sick contacts, or food/drug ingestions novel or new. All other review of systems are reported as negative by the patient on 12/24/2024 - 12/27/2024. Physical Exam Physical Exam: GENERAL APPEARANCE NAD, activity normal for age, well developed/ well nourished, no cyanosis, pallor, or diaphoresis. EYES lids/conjunctiva normal. EARS/NOSE/THROAT Mucous membranes moist, nares normal, lips/teeth normal uvula midline without oral pharyngeal erythema, exudate or swelling TMs normal bilaterally. No lymphangitis/lymphedema. HEAD/NECK normocephalic atraumatic, no facial trauma, neck is supple. RESPIRATORY respiratory effort normal, speaks in full sentences, no tripod position, no accessory muscle use. Lungs clear to auscultation without rhonchi, wheezes, rales CARDIAC Regular rate and rhythm, no edema. ABDOMINAL Soft, ND/NT. No evidence of fluid wave. No pulsatile masses on exam, rebound tenderness, Denny sign or pain over Mcburney's point. MUSCLES/EXTREMITIES No abnormal range of motion, no swelling. SKIN Warm, pink and dry. No rashes, dermatoses, petechiae or lesions. NEUROLOGICAL Not responding to verbal commands PSYCH Normal mood and affect. Judgement/competence is appropriate Results & Data Results & Data Vital Signs (Past 12 Hours) Vital Signs Temp Pulse Pulse Resp BP Pulse Ox O2 Del Method 01/13/25 08:06 36.6 C 102 H 18 122/86 97 Room Air 01/13/25 03:11 36.4 C L 88 22 99/68 L 97 Oxymask 01/13/25 00:00 90 01/12/25 22:55 36.4 C L 89 24 103/69 97 Oxymask PG Care Time/CCT Total # of Minutes Spent Total Time Spent with Patient: Total time spent is greater than 50% in coordination of care (as documented) at patient's floor/unit and/or counseling patient: Coding Level of Care Code 61050 SUB INP/OBS CARE 2/35MIN Diagnoses Acute pulmonary embolism without acute cor pulmonale, unspecified pulmonary embolism type I26.99 Pulmonary embolism type: unspecified Chronicity: acute Acute cor pulmonale presence: without acute cor pulmonale AMS (altered mental status) R41.82 Metabolic acidosis with normal anion gap and bicarbonate losses E87.20 Right arm weakness R29.898 Depression F32.A UTI (urinary tract infection) N39.0 Status post insertion of percutaneous endoscopic gastrostomy (PEG) tube Z93.1 Acute blood loss anemia D62 Lower lobe pneumonia J18.9 Anasarca R60.1 (1) Pulmonary emboli Pulmonary embolism type: unspecified Chronicity: acute Acute cor pulmonale presence: without acute cor pulmonale Qualified Code(s): I26.99 - Other pulmonary embolism without acute cor pulmonale
[2025-01-13] MEDS: PROPRANOLOL PO SCH (21:31)
[2025-01-14 06:17] LABS: Hematocrit (blood only) 32.2 % (37.0-47.0); Hemoglobin 10.5 g/dl (12.0-16.0); Mean Corpuscular Hemoglobin 29.5 pg (25.0-34.0); Mean Corpuscular Hgb Conc 32.6 g/dL (32.0-36.0); Mean Corpuscular Volume 90.4 fL (80.0-100.0); Mean Platelet Volume 11.3 fL (9.4-12.4); Nucleated RBC # (auto) 0.14 K/uL (0.00-0.12); Nucleated RBC % (auto) 2.6 %; Platelet Count 168 K/uL (130-400); RDW Coefficient of Variation 20.9 % (11.5-14.5); Red Blood Count 3.56 M/uL (4.20-5.40); White Blood Count 5.42 K/ul (4.8-10.8)
[2025-01-14 06:36] LABS: BUN Creatinine Ratio 27.8 (10-20); Calcium 7.8 mg/dl (8.6-10.3); Creatinine Clr Calc Pharmacy 54.3 ml/min; Potassium 3.2 mmol/L (3.5-5.1)
[2025-01-14] MEDS: POTASSIUM CHLORIDE / WTR 10 MEQ/100 ML PLCT IV SCH (08:34)
[2025-01-14] MEDS ORDERED: PROPRANOLOL PO SCH (09:00)
--- NOTE | 2025-01-14 09:36 | Hospitalist Progress Note ---
Date of Service January 14, 2025 Assessment & Plan (1) Pulmonary emboli: Plan: CTA 12/28 with right upper lobe segmental thrombus, radiographic suggestion of right heart strain TTE with some RV dilation. Grade 1 diastolic dysfunction. LV SF normal Acute DVT was seen in the right upper extremity on 01/04 while on Eliquis Patient was on Eliquis but had to be discontinued because of acute GI bleed blood loss anemia (2) AMS (altered mental status): Plan: #Acute metabolic encephalopathy History of left hemorrhagic CVA, seizure-like activity MRI: Large area of chronic encephalomalacia in the left frontal lobe. Within the center of this there is a 2.9 cm focus of restricted diffusion likely chronic but less likely could nagi present an acute versus subacute infarct within prior residual brain parenchyma. Additionally an 8 mm focus of restricted diffusion within the right cerebral hemisphere suggestive of acute versus subacute lacunar infarct is seen. Involutional changes are noted. Left occipital craniotomy noted. Does have a history of intracranial hemorrhage. Neurology consulted recommended anticoagulation alone for PE without antiplatelet because of high risk of hemorrhage she has baseline aphasia and apraxia but usually can communicate somewhat and follow commands for a neuro exam (3) Metabolic acidosis with normal anion gap and bicarbonate losses: Plan: was prolonged but has resolved. Thought to be related to GI losses. (4) Right arm weakness: (5) Depression: (6) UTI (urinary tract infection): Plan: #Complicated UTI, right obstructive ureteral stones completed treatment for Pseudomonas UTI, last dose of fluconazole 01/05 AM for Dhara UTI - hematuria started 01/01 probably magallanes trauma while anticoagulated -was pink on 01/05. Off of Eliquis now (7) Status post insertion of percutaneous endoscopic gastrostomy (PEG) tube: Plan: Tube feeds was held 01/05 due to high residuals. Tube feeds to be held now due to GI bleed Patient remains n.p.o. (8) Acute blood loss anemia: Plan: Patient's hemoglobin had dropped from 9-5 on 01/05 Had responded to a unit of blood No visible bleeding anywhere at that time. CT abdomen was negative as well When hemoglobin was stable, decision was made to resume Eliquis 01/06 and her H&H was being monitored closely On 01/07 night, the patient started bleeding at the PEG tube site with drop in hemoglobin again Eliquis discontinued permanently Patient got a unit of blood She was started on Protonix Tube feeds discontinued Patient continues to have dark fluid coming out of her PEG tube Transfused 1 unit of blood as she is anemic 01/10 Hemoglobin stable today (9) Lower lobe pneumonia: Plan: Possible LLL pneumonia leading to sepsis/aspiration White count has trended down from 13-7 in response to IV antibiotics. Discontinued vancomycin as MRSA nares negative on 01/06 again Continue cefepime Urine culture growing the same Enterococcus and not sure if the Magallanes catheter was changed since the last urine culture on 12/27. I am not convinced that this is a true UTI. The patient clinically had hypoxia and gurgling suggestive of pneumonia being the source of sepsis rather than UTI. On 01/09 patient had an episode of aspiration when nurse was doing mouth care. Even though her vital signs were stable, this led to some respiratory distress (10) Anasarca: Plan: related to severe hypoalbuminemia, critical illness, malnutrition She has 3+ edema in all 4 of her extremities Skin peeling and skin tears while repositioning Plan 64-year-old woman with past medical history of hemorrhagic left basal ganglia CVA in 2021 with resulting right sided strength deficits, seizure, hyperlipidemia, chronic indwelling Magallanes who presented with concern for complicated UTI with right hydronephrosis and he was treated for both Pseudomonas and candidal UTI. Due to right hydro she underwent right stent placement. She completed treatment for Pseudomonas UTI with cefepime/meropenem/pip-tazo and treated for candidal UTI with fluconazole. Overnight 12/27/24 did have a rapid response for lethargy and hypotension. Found to have acute PE. Subsequent MRI with small new stroke. 01/10: I called the son Basil and he answered my phone. Meghan was present next to me and Radha was available on the phone as well listening to and par ticipating in this conversation. I updated the son about the the events that happened since we last spoke. The patient aspirated, had low blood pressures, is anemic. He was informed that she has multiorgan failure. After long discussion, the son decided to not escalate care. He does not want the patient to go to the ICU. He does not want pressors. He does want blood transfusion. It was communicated to the son that his mother is actively dying. He is not ready to switch to comfort measures yet. DVT ppx -Eliquis discontinued Has [facility] TLC see above 01/13 Son visited mother last night, appears to understand her condition, but not willing to make decision. Will attempt to speak with him today at 11 and follow up. Awaiting son follow up with palliative care and decision to make comfort care at this time. Awaiting to follow up with son 11am today 01/14 Admission and Anticipated Discharge Date Admission Date: December 18, 2024 Subjective No events overnight. Pt still unresponsive, pain appears under control. Review of Systems Review of Systems: CONST: Negative for fever, body aches and chills. HENT: Negative for neck pain/stiffness, headache, congestion, sore throat, swelling. EYES: Negative for discharge/pain or vision changes. RESP: Negative for cough/hemoptysis and shortness of breath. CV: Negative chest pain, difficulty breathing, palpitations. ABD: Negative pain, nausea, vomiting. : Negative increase frequency, dysuria, blood in urine or stool. MUSC: Negative for muscle aches, edema. SKIN: Negative rash, lesions/sores. NEURO: Negative headache, dizziness, weakness. Constitutional: Negative for antecedent/coincident fevers, chills, diaphoresis, cough, wheeze, sore throat, hemoptysis, chest pains, palpitations, pleurisy, nausea, vomiting, diarrhea, abdominal pain, pelvic pain, hematemesis, hematochezia, melena, hematuria, dysuria, frequency, urgency, headaches, dizziness, lightheadedness, visual changes, hearing changes, weakness, falls, syncope, trauma, travel history, sick contacts, or food/drug ingestions novel or new. All other review of systems are reported as negative by the patient on 12/24/2024 - 12/27/2024. Physical Exam Physical Exam: GENERAL APPEARANCE NAD, activity normal for age, well developed/ well nourished, no cyanosis, pallor, or diaphoresis. EYES lids/conjunctiva normal. EARS/NOSE/THROAT Mucous membranes moist, nares normal, lips/teeth normal uvula midline without oral pharyngeal erythema, exudate or swelling TMs normal bilaterally. No lymphangitis/lymphedema. HEAD/NECK normocephalic atraumatic, no facial trauma, neck is supple. RESPIRATORY respiratory effort normal, speaks in full sentences, no tripod position, no accessory muscle use. Lungs clear to auscultation without rhonchi, wheezes, rales CARDIAC Regular rate and rhythm, no edema. ABDOMINAL Soft, ND/NT. No evidence of fluid wave. No pulsatile masses on exam, rebound tenderness, Denny sign or pain over Mcburney's point. MUSCLES/EXTREMITIES No abnormal range of motion, no swelling. SKIN Warm, pink and dry. No rashes, dermatoses, petechiae or lesions. NEUROLOGICAL Not responding to verbal commands PSYCH Normal mood and affect. Judgement/competence is appropriate Results & Data Results & Data Vital Signs (Past 12 Hours) Vital Signs Temp Pulse Pulse Resp BP Pulse Ox O2 Del Method 01/14/25 07:19 95 H 01/14/25 06:59 36.7 C 95 H 22 111/72 97 Room Air 01/14/25 03:18 36.5 C 101 H 26 H 124/75 94 Room Air 01/13/25 23:02 37.8 C H 99 H 25 H 117/80 95 Room Air PG Care Time/CCT Total # of Minutes Spent Total Time Spent with Patient: Total time spent is greater than 50% in coordination of care (as documented) at patient's floor/unit and/or counseling patient: Coding Level of Care Code 34837 SUB INP/OBS CARE 2/35MIN Diagnoses Acute pulmonary embolism without acute cor pulmonale, unspecified pulmonary embolism type I26.99 Pulmonary embolism type: unspecified Chronicity: acute Acute cor pulmonale presence: without acute cor pulmonale AMS (altered mental status) R41.82 Metabolic acidosis with normal anion gap and bicarbonate losses E87.20 Right arm weakness R29.898 Depression F32.A UTI (urinary tract infection) N39.0 Status post insertion of percutaneous endoscopic gastrostomy (PEG) tube Z93.1 Acute blood loss anemia D62 Lower lobe pneumonia J18.9 Anasarca R60.1 (1) Pulmonary emboli Pulmonary embolism type: unspecified Chronicity: acute Acute cor pulmonale presence: without acute cor pulmonale Qualified Code(s): I26.99 - Other pulmonary embolism without acute cor pulmonale
--- NOTE | 2025-01-14 10:16 | Palliative Care Progress Note ---
Date of Service January 14, 2025 Assessment & Plan (1) Palliative care by specialist: Plan: Ms. Rae is a 64-year-old woman with past medical history of hemorrhagic left basal ganglia CVA in 2021 with resulting right sided strength deficits, seizure, hyperlipidemia, chronic indwelling Alves who presented with concern for complicated UTI. Lengthy admit course has been c/b right hydronephrosis requiring stent placement, urosepsis 2/2 Pseudomonas and marge, multifactorial metabolic encephalopathy, acute blood loss anemia requiring multiple transfusions, hypotension, acute PE, L brachial vein DVT, LUE SVT, subacute CVA, severe anasarca, aspiration PNA, metabolic acidosis and GI bleed requiring transfusion. Patient has had progressively decompensated health despite aggressive care throughout this hospitalization and on 01/10/25 son Basil requested no further escalation of care. (2) Counseling regarding goals of care: Plan: No family present at bedside today, along with attending Dr Whittington phone contact was made with pt's son/DAT Gracia. Dr Whittington offered medical updates and again encouraged visitation. Basil shared that he wants more time "through the weekend" for homself and other family members to visit. Basil shared that he had spoken at length with [employer]hon[employer] Huffman last evening and that we could ask him for details about goals of care; again requesting "a few more days" to see if she will improve with current level of care. Basil then abruptly ended the call. Palliative care will continue to follow loosely for ongoing GOC discussions and family support. Plan DNR/DNI, No escalation of care, pt's son Basil requesting current level of care to "continue through the weekend". Admission and Anticipated Discharge Date Admission Date: December 18, 2024 Subjective Assessed pt at bedside, nursing notes and flowsheets reviewed. Pt awake and opens eyes spontaneously but does not track, made no attempt at verbal response and does not follow commands. VSS, she remains lethargic with shallow respiratory effort. No visitors present. Review of Systems Review of Systems: Unobtainable due to cognitive status Physical Exam Physical Exam: Constitutional: + ill appearing, + cachectic and + frail appearing Eyes: PERRL, conjunctivae normal, anicteric sclerae ENMT: external ear and nose normal, oropharynx normal Neck: trachea midline, no thyromegaly Respiratory: normal respiratory effort, lungs clear to auscultation Cardiovascular: Rate/Rhythm: regular rate and regular rhythm Extremities: + edema Gastrointestinal (Abdomen): normal bowel sounds, soft, nontender, no hepatosplenomegaly Neurologic: awake and opens eyes spontaneously - does not track; no attempt at verbal response and does not follow commands Results & Data Vital Signs (Past 12 Hours) Vital Signs Temp Pulse Pulse Resp BP Pulse Ox O2 Del Method 01/14/25 09:20 Room Air 01/14/25 07:19 95 H 01/14/25 06:59 36.7 C 95 H 22 111/72 97 Room Air 01/14/25 03:18 36.5 C 101 H 26 H 124/75 94 Room Air 01/13/25 23:02 37.8 C H 99 H 25 H 117/80 95 Room Air Laboratory Results Abnormal lab results 01/13/25 01/14/25 01/14/25 Range/Units 15:02 00:40 05:55 RBC 3.56 L (4.20-5.40) M/uL Hgb 10.5 L (12.0-16.0) g/dl Hct 32.2 L (37.0-47.0) % RDW Std Deviation 59.0 H (36.4-46.3) fL RDW Coeff of Naga 20.9 H (11.5-14.5) % Absolute Nucleated RBC 0.14 H (0.00-0.12) K/uL Sodium 148 H (136-145) mmol/L Potassium 3.2 L (3.5-5.1) mmol/L Chloride 118 H (98-107) mmol/L BUN/Creatinine Ratio 27.8 H (10-20) Glucose 133 H (70-99(Fasting)) mg/dl POC Glucose 105 H 118 H (70-99) mg/dl Calcium 7.8 L (8.6-10.3) mg/dl Diagnostic Findings Abdomen Fluoroscopy 12/17/24 14:03 [facility] CLINICAL HISTORY: STENT PLACEMENTstatus post placement of a right ureteral stent COMPARISON STUDY: CT 08/27/2024 FLUOROSCOPY TIME: 9.7 seconds FLUOROSCOPY IMAGES: 2 EXPOSURE DOSE: 0.96 mGy FINDINGS: Proximal portion of a right ureteral stent is in satisfactory po sitioning. Mild dilation of the right renal pelvis. IMPRESSION: Fluoroscopic assistance as above. ACT 112: Negative or not required by law. Electronically signed by: Marky Rosa M.D. 12/18/2024 8:03 AM Duplex Scan Upper Extremity Artery 12/26/24 11:52 US arterial duplex UE LT CLINICAL HISTORY: pulseless, cold left arm COMPARISON STUDY: None FINDINGS: Arterial velocities at the left upper extremity are normal. No evidence of significant arterial narrowing or occlusion seen at the left upper extremity. IMPRESSION: No significant arterial narrowing or occlusion seen at the left upper extremity. ACT 112: Negative or not required by law. Electronically signed by: Kevin Bryant M.D. 12/26/2024 12:52 PM KUB X-Ray 12/27/24 10:31 KUB HISTORY: crying uncontrollably COMPARISON STUDY: 06/04/2023 FINDINGS: Position of the PEG tube is grossly stable. There is an interval well positioned appearing right ureteral stent. There are a few right renal calculi visible. There is mild retained stool. No bowel obstruction seen. No gross free air. IMPRESSION: No acute findings. ACT 112: Negative or not required by law. The above report was generated using voice recognition software. It may contain grammatical, syntax or spelling errors. Electronically signed by: Kevin Bryant M.D. 12/27/2024 10:[address] 12/27/24 19:29 Exam(s): CT HEAD Without Contrast EXAM: CT Head Without Intravenous Contrast CLINICAL HISTORY: Reason for exam: lethargy; sluggish pupils. TECHNIQUE: Axial computed tomography images of the head/brain without intravenous contrast. CTDI is 61.2 mGy and DLP is 961.59 mGy-cm. Automated exposure control was utilized for the study. A dose lowering technique was utilized adhering to the principles of ALARA. COMPARISON: CT January 23, 2024. FINDINGS: Brain: There is stable, old encephalomalacia in the left basal ganglia and estrella radiata white matter. No acute intracranial edema, hemorrhage or abnormal mass-effect. Ventricles: Unremarkable. No ventriculomegaly. Bones/joints: Unremarkable. No acute fracture. Soft tissues: Unremarkable. Sinuses: Unremarkable as visualized. No acute sinusitis. Mastoid air cells: Unremarkable as visualized. No mastoid effusion. IMPRESSION: No acute findings in the head/brain. Electronically signed by: Montrell Buck MD 12/27/24 23:01 PM Chest CTA 12/28/24 07:09 EXAM: CT angio chest PE protocol CLINICAL HISTORY: elevated d-dimer. TECHNIQUE: CT angiography of the chest was performed with and without intravenous contrast with the following protocol: axial images with, reconstructed coronal and sagittal images. Non-contrast images were initially acquired, followed by contrast-enhanced images in arterial and venous phases. Intravenous contrast was administered using automated injection techniques. Bolus tracking was employed to optimize arterial phase imaging. One of these 3D techniques was utilized: Maximum Intensity Pixel (MIP), 3D Reconstructed Images, Volume Rendered Images, Surface Shaded Rendering. One of the following dose reduction techniques was utilized for this exam: Automated exposure control, adjustment of the mA and/or kV according to patient size, and use of iterative reconstruction. DLP: 170.5 mGy.cm. COMPARISON: chest x-ray dated 12/27/[address] dated 12/17/2024. FINDINGS: Aorta and Great Vessels: Ascending Aorta: Normal in caliber, no aneurysm, dissection, or significant atherosclerosis. Aortic Arch: Normal in caliber, no aneurysm, dissection, or significant atherosclerosis. Descending Aorta: Normal in caliber, no aneurysm, dissection, or significant atherosclerosis. Pulmonary Arteries: Right upper lobe segmental artery thrombus is seen. The main pulmonary artery and its branches are patent. No evidence of other pulmonary embolism or significant stenosis. Heart: Cardiac Chambers: Mildly enlarged in size with increased RV:LV ratio, indicating right cardiac strain. Pericardium: Mild pericardial effusion/thickening. Lungs and Pleura: Bilateral moderate-sized free pleural effusion with passive basal atelectasis. No evidence of consolidation, collapse, or focal lesions. Mediastinum: No mediastinal mass or abnormal lymphadenopathy. The esophagus is mildly prominent, nonspecific. Normal appearance of the trachea and central bronchi. Hilar Structures: Hilar structures are normal without enlargement. Chest Wall: No mass lesions or abnormalities in the chest wall. Vascular Structures: Superior Vena Cava: Patent without evidence of stenosis or thrombus. Inferior Vena Cava: Patent without evidence of stenosis or thrombus. Free gas was noted in the abdomen. Bones and Soft Tissues: No fractures, lytic, or blastic lesions of the visualized bony structures. Soft tissues are unremarkable. IMPRESSION: 1. Right upper lobe segmental artery thrombus is seen with evidence of right sided cardiac strain, echo correlation recommended. 2. Bilateral moderate pleural effusion with passive basal atelectasis. present in previous chest X ray and not seen in the abdomen CT on 12/17/2024. 3. The esophagus is mildly prominent, nonspecific. Electronically signed by Reza Oreilly 12-28-2024 08:38 AM Brain MRI 12/29/24 08:13 MR brain wo con HISTORY: 64 years-old Female Nonverbal, persistent AMS, hx ICH acutely altered mental status with recent head trauma COMPARISON: Head CT 12/27/2024 TECHNIQUE: Multiplanar multisequence MRI of the brain was obtained without IV contrast FINDINGS: Study is motion degraded. The midline structures appear unremarkable Large focus of encephalomalacia with peripheral hemosiderin is seen within the left frontal lobe estrella radiata and basal ganglia with ex vacuo ventriculomegaly of the left lateral ventricle. Within the center of the encephalomalacia there is a 2.9 x 1.3 cm heterogeneous focus with intermediate T2 signal, increased T1 signal and increased diffusion-weighted signal on image 16 series 11. Prior left occipital craniotomy. There is an 8 mm focus of restricted diffusion within the right cerebral hemisphere on image 8 series 11 demonstrating slightly decreased signal on ADC map. Involutional changes with moderate T2/FLAIR hyperintense foci. The white matter suggestive of chronic microvascular ischemic disease. Cerebral venous sinuses and visualized major arterial flow voids appear patent. Moderate to large mastoid effusions. Unremarkable skull, orbits and soft tissues. IMPRESSION: 1. Large area of chronic encephalomalacia again noted within the left frontal lobe estrella radiata and basal ganglia. Within the center of the encephalomalacia there is a 2.9 cm focus of restricted diffusion which is likely related to the chronic findings. This less likely represents an acute versus subacute infarct within the residual brain parenchyma within this distribution. Correlate with patient presentation. 2. 8 mm focus of restricted diffusion within the right cerebral hemisphere is suggestive of an acute versus subacute lacunar infarct. 3. Involutional changes with chronic microvascular ischemic disease. 4. Left occipital craniotomy with bilateral mastoid effusions. ACT 112: Negative or not required by law. The above report was generated using voice recognition software. It may contain grammatical, syntax or spelling errors. Electronically signed by: Marky Rosa M.D. 12/29/2024 2:36 PM Chest X-Ray 01/04/25 07:21 XR chest 1V portable CLINICAL HISTORY: tachycardia, leukocytosis COMPARISON STUDY: 12/28/2024 FINDINGS: Stable left central catheter. Stable mild cardiomegaly without pulmonary vascular congestion. There is mild opacity at the left base with blunting of the left costophrenic angle. No pneumothorax. IMPRESSION: Mild opacity at the left lung base could represent small left pleural effusion, consolidation, or atelectasis. ACT 112: Negative or not required by law. Electronically signed by: Kevin Bryant M.D. 01/04/2025 8:11 AM Venous Doppler Study 01/04/25 12:50 EXAM: US venous doppler UE BI CLINICAL HISTORY: LR upper extremity swelling, L arm pain. TECHNIQUE: Ultrasound examination of bilateral upper extremity veins was performed in real time and duplex. One or more of the following were performed- spectral analysis, resistive index, waveform analysis, and pulsed Doppler. COMPARISON: Prior ultrasound dated 12/28/2024. FINDINGS: Right upper limb: Normal phasic, non-pulsatile, and spontaneous flow is noted in the right Internal jugular, subclavian, axillary, brachial, basilic, cephalic, antecubital, radial, and ulnar veins. Visualized veins of the right upper extremity demonstrate normal compressibility. No sonographic evidence of acute deep vein thrombosis (DVT) is detected in the visualized veins of the upper extremity. Compression and Augmentation: All evaluated veins compress fully with applied transducer pressure. Augmentation of venous flow is noted with distal compression. Additional Findings: No evidence of intraluminal thrombus. Left upper limb: Probable DVT seen in the brachial vein; appears non-compressible with no visible flow in the visible portion from mid-dist. Non-occlusive superficial thrombus seen in a basilic vein at the AC fossa; unable to follow the segment to measure. Cephalic vein and ulnar vein not visualized. Line in left neck; unable to evaluate IJV. IV line at mid portion of upper left arm; unable to fully visualize brachial and basilic veins. Normal phasic, non-pulsatile, and spontaneous flow is noted in the subclavian, axillary, antecubital, and radial veins. Visualized veins of the left upper extremity demonstrate normal compressibility. No sonographic evidence of acute deep vein thrombosis (DVT) is detected in the visualized veins of the upper extremity. IMPRESSION: 1. No sonographic evidence of acute DVT was detected in the right upper extremity visualized veins at the time of examination. Unchanged. 2. Probable left DVT. Thrombosis seen in the brachial vein; appears non-compressible with no visible flow in visible portion from mid-dist. New finding. 3. Non-occlusive superficial thrombus seen in the left basilic vein at the antecubital fossa; unable to follow the segment to measure. New finding 4. The left cephalic vein and ulnar vein are not visualized. Disclaimer: DVT could be missed early in the disease when clot burden is minimal. For patients with moderate and high pretest probability of DVT and negative ultrasound, the [employer] clinical guidelines recommend testing with a D-dimer assay or repeat ultrasound in 5-7 days. If symptoms worsen, the Society of radiologists in ultrasound recommends repeating ultrasound even earlier. [facility] was called on Ext# 1 at 05:38 PM [employer], 01/04/2025, and Gibran, Nurse, was informed about the presence of Critical Medical Findings in the report. Electronically signed by Reza Oreilly 01-04-2025 6:44 PM Abdomen/Pelvis CT 01/05/25 12:[address] WITHOUT CONTRAST CT DOSE: 1092.04 mGy.cm HISTORY: eval for intra-abd hemorrhage, anemia, on Eliquis TECHNIQUE: Multiaxial CT images of the abdomen and pelvis were performed without contrast. A dose lowering technique was utilized adhering to the principles of ALARA. COMPARISON STUDY: 12/28/2024 FINDINGS: There is stable elevation of the right hemidiaphragm. Stable small bilateral pleural effusions and associated consolidation at the lung bases. ABDOMEN: Stable fatty liver. There are tiny gallstones without evidence of acute cholecystitis. Spleen, pancreas, and adrenal glands have an unremarkable non-IV contrasted appearance. Stable well-positioned right ureteral stent. There is no hydronephrosis bilaterally. There are scattered atherosclerotic calcifications. No abdominal aortic aneurysm. Stable well-positioned PEG tube. Pelvis: Alves catheter is present and the urinary bladder is empty. Uterus and adnexal regions are grossly unremarkable. There is retained liquid stool suggesting diarrhea. No other bowel inflammation or obstruction seen. There is trace ascites. No free air or abscess. No retroperitoneal hematoma seen. There is anasarca. Osseous structures: There is osteopenia. Stable mild height loss at the L4 vertebral body and a few lower thoracic vertebral bodies. No acute osseous findings. IMPRESSION: 1. No retroperitoneal hematoma seen. 2. Retained liquid stool suggesting diarrhea. No other bowel inflammation or obstruction seen. 3. Anasarca, trace ascites, and pleural effusions suggest fluid overload. ACT 112: Negative or not required by law. The above report was generated using voice recognition software. It may contain grammatical, syntax or spelling errors. Electronically signed by: Kevin Bryant M.D. 01/05/2025 1:41 PM Medications Administered Current Inpatient Medications Atorvastatin Calcium (Atorvastatin 40 Mg Tab) 40 mg GT HS CLAU Stop: 01/29/25 20:59 Last Admin: 01/13/25 21:30 Dose: 40 mg Atropine Sulfate (Atropine Sulfate 1% Op Soln 5 Ml Btl) 2 drops SL Q3H PRN PRN Reason: Secretions or pulm congestion Stop: 02/09/25 11:42 Last Admin: 01/10/25 15:06 Dose: 2 drops Glycopyrrolate (Glycopyrrolate 0.2 Mg/Ml Vial) 0.4 mg IV Q4 PRN PRN Reason: Congestion Stop: 02/06/25 14:26 Last Admin: 01/10/25 16:27 Dose: 0.4 mg Heparin Sodium (Beef Lung) (Heparin 10 Unit/Ml 5 Ml Flush) 5 ml FLUSH PRN PRN PRN Reason: Flush Stop: 02/08/25 08:56 Last Admin: 01/10/25 16:28 Dose: 5 ml Pantoprazole Sodium (Protonix) 40 mg in 10 mls @ 5 mls/min IV BID CLAU Stop: 02/07/25 00:29 Last Admin: 01/14/25 08:39 Dose: 5 mls/min Potassium Chloride (K Lee / Wtr) 10 meq in 100 mls @ 100 mls/hr IV Q1H CLAU Stop: 01/14/25 10:44 Last Admin: 01/14/25 09:38 Dose: 100 mls/hr Levetiracetam (Levetiracetam Oral Soln 100mg/Ml) 500 mg PEG BID CLAU Stop: 01/26/25 08:59 Last Admin: 01/14/25 08:40 Dose: 500 mg Miscellaneous (Check Scopolamine Patch Placement) 1 each N/A QS CLAU Stop: 02/03/25 15:59 Last Admin: 01/14/25 08:33 Dose: 1 each Miscellaneous (Remove Transderm-Scop Patch) 1 each N/A Q72H [facility] Stop: 02/06/25 14:44 Last Admin: 01/13/25 14:58 Dose: 1 each Morphine Sulfate (Morphine Sulfate 2 Mg/Ml Carp) 4 mg IV Q4 [facility] Stop: 01/22/25 11:59 Last Admin: 01/14/25 08:32 Dose: 4 mg Oxycodone HCl (Oxycodone Hcl Soln 5 Mg/5 Ml Udc) 10 mg GT Q4H PRN PRN Reason: Pain Stop: 01/17/25 12:46 Last Admin: 01/08/25 08:51 Dose: 10 mg Potassium Chloride (Potassium Chloride 20 Meq/15 Ml Udc) 20 meq GT QID [facility] Stop: 01/29/25 20:59 Last Admin: 01/04/25 13:54 Dose: Not Given Propranolol HCl (Propranolol Oral Soln 4 Mg/1ml) 20 mg PO TID [facility] Stop: 02/12/25 20:59 Last Admin: 01/14/25 08:39 Dose: 20 mg Scopolamine (Scopolamine 1 Mg/72 Hr Tdsy Patch) 1 patch TD Q72H PRN PRN Reason: secretions Stop: 02/03/25 14:44 Last Admin: 01/13/25 15:54 Dose: 1 patch Thiamine HCl (Thiamine Hcl 100 Mg Tab) 100 mg PEG QAM [facility] Stop: 01/25/25 13:14 Last Admin: 01/14/25 08:39 Dose: 100 mg PG Care Time/CCT Total # of Minutes Spent Total Time Spent with Patient: Total time spent is greater than 50% in coordination of care (as documented) at patient's floor/unit and/or counseling patient: Coding [place] [address] SUB INP/OBS CARE 10/10MIN Patient Type Established History Problem Focused Exam Problem Focused Medical Decision Making Low Complexity Diagnoses Palliative care by specialist Z51.5 Counseling regarding goals of care Z71.89
[2025-01-15 06:44] LABS: Hematocrit (blood only) 33.9 % (37.0-47.0); Hemoglobin 10.9 g/dl (12.0-16.0); Mean Corpuscular Hemoglobin 29.5 pg (25.0-34.0); Mean Corpuscular Hgb Conc 32.2 g/dL (32.0-36.0); Mean Corpuscular Volume 91.9 fL (80.0-100.0); Mean Platelet Volume 11.6 fL (9.4-12.4); Nucleated RBC # (auto) 0.09 K/uL (0.00-0.12); Nucleated RBC % (auto) 1.3 %; Platelet Count 204 K/uL (130-400); RDW Coefficient of Variation 21.7 % (11.5-14.5); RDW Standard Deviation 60.9 fL (36.4-46.3); Red Blood Count 3.69 M/uL (4.20-5.40); White Blood Count 7.01 K/ul (4.8-10.8)
[2025-01-15 07:14] LABS: BUN Creatinine Ratio 28.4 (10-20); Calcium 7.9 mg/dl (8.6-10.3); Potassium 3.8 mmol/L (3.5-5.1)
--- NOTE | 2025-01-15 11:21 | Hospitalist Progress Note ---
Date of Service January 15, 2025 Assessment & Plan (1) Pulmonary emboli: Plan: CTA 12/28 with right upper lobe segmental thrombus, radiographic suggestion of right heart strain TTE with some RV dilation. Grade 1 diastolic dysfunction. LV SF normal Acute DVT was seen in the right upper extremity on 01/04 while on Eliquis Patient was on Eliquis but had to be discontinued because of acute GI bleed blood loss anemia (2) AMS (altered mental status): Plan: #Acute metabolic encephalopathy History of left hemorrhagic CVA, seizure-like activity MRI: Large area of chronic encephalomalacia in the left frontal lobe. Within the center of this there is a 2.9 cm focus of restricted diffusion likely chronic but less likely could nagi present an acute versus subacute infarct within prior residual brain parenchyma. Additionally an 8 mm focus of restricted diffusion within the right cerebral hemisphere suggestive of acute versus subacute lacunar infarct is seen. Involutional changes are noted. Left occipital craniotomy noted. Does have a history of intracranial hemorrhage. Neurology consulted recommended anticoagulation alone for PE without antiplatelet because of high risk of hemorrhage she has baseline aphasia and apraxia but usually can communicate somewhat and follow commands for a neuro exam (3) Metabolic acidosis with normal anion gap and bicarbonate losses: Plan: was prolonged but has resolved. Thought to be related to GI losses. (4) Right arm weakness: (5) Depression: (6) UTI (urinary tract infection): Plan: #Complicated UTI, right obstructive ureteral stones completed treatment for Pseudomonas UTI, last dose of fluconazole 01/05 AM for Dhara UTI - hematuria started 01/01 probably magallanes trauma while anticoagulated -was pink on 01/05. Off of Eliquis now (7) Status post insertion of percutaneous endoscopic gastrostomy (PEG) tube: Plan: Tube feeds was held 01/05 due to high residuals. Tube feeds to be held now due to GI bleed Patient remains n.p.o. (8) Acute blood loss anemia: Plan: Patient's hemoglobin had dropped from 9-5 on 01/05 Had responded to a unit of blood No visible bleeding anywhere at that time. CT abdomen was negative as well When hemoglobin was stable, decision was made to resume Eliquis 01/06 and her H&H was being monitored closely On 01/07 night, the patient started bleeding at the PEG tube site with drop in hemoglobin again Eliquis discontinued permanently Patient got a unit of blood She was started on Protonix Tube feeds discontinued Patient continues to have dark fluid coming out of her PEG tube Transfused 1 unit of blood as she is anemic 01/10 Hemoglobin stable today (9) Lower lobe pneumonia: Plan: Possible LLL pneumonia leading to sepsis/aspiration White count has trended down from 13-7 in response to IV antibiotics. Discontinued vancomycin as MRSA nares negative on 01/06 again Continue cefepime Urine culture growing the same Enterococcus and not sure if the Magallanes catheter was changed since the last urine culture on 12/27. I am not convinced that this is a true UTI. The patient clinically had hypoxia and gurgling suggestive of pneumonia being the source of sepsis rather than UTI. On 01/09 patient had an episode of aspiration when nurse was doing mouth care. Even though her vital signs were stable, this led to some respiratory distress (10) Anasarca: Plan: related to severe hypoalbuminemia, critical illness, malnutrition She has 3+ edema in all 4 of her extremities Skin peeling and skin tears while repositioning Plan 64-year-old woman with past medical history of hemorrhagic left basal ganglia CVA in 2021 with resulting right sided strength deficits, seizure, hyperlipidemia, chronic indwelling Magallanes who presented with concern for complicated UTI with right hydronephrosis and he was treated for both Pseudomonas and candidal UTI. Due to right hydro she underwent right stent placement. She completed treatment for Pseudomonas UTI with cefepime/meropenem/pip-tazo and treated for candidal UTI with fluconazole. Overnight 12/27/24 did have a rapid response for lethargy and hypotension. Found to have acute PE. Subsequent MRI with small new stroke. 01/10: I called the son Basil and he answered my phone. Meghan was present next to me and Radha was available on the phone as well listening to and par ticipating in this conversation. I updated the son about the the events that happened since we last spoke. The patient aspirated, had low blood pressures, is anemic. He was informed that she has multiorgan failure. After long discussion, the son decided to not escalate care. He does not want the patient to go to the ICU. He does not want pressors. He does want blood transfusion. It was communicated to the son that his mother is actively dying. He is not ready to switch to comfort measures yet. DVT ppx -Eliquis discontinued Has [facility]J TLC see above 01/13 Son visited mother last night, appears to understand her condition, but not willing to make decision. Will attempt to speak with him today at 11 and follow up. Awaiting son follow up with palliative care and decision to make comfort care at this time. Spoke with son, would like to wait over week prior to making decision on comfort care. Admission and Anticipated Discharge Date Admission Date: December 18, 2024 Subjective No events overnight. Pt appears comfortable, unresponsive. Review of Systems Review of Systems: CONST: Negative for fever, body aches and chills. HENT: Negative for neck pain/stiffness, headache, congestion, sore throat, swelling. EYES: Negative for discharge/pain or vision changes. RESP: Negative for cough/hemoptysis and shortness of breath. CV: Negative chest pain, difficulty breathing, palpitations. ABD: Negative pain, nausea, vomiting. : Negative increase frequency, dysuria, blood in urine or stool. MUSC: Negative for muscle aches, edema. SKIN: Negative rash, lesions/sores. NEURO: Negative headache, dizziness, weakness. Physical Exam Physical Exam: GENERAL APPEARANCE NAD, activity normal for age, well developed/ well nourished, no cyanosis, pallor, or diaphoresis. EYES lids/conjunctiva normal. EARS/NOSE/THROAT Mucous membranes moist, nares normal, lips/teeth normal uvula midline without oral pharyngeal erythema, exudate or swelling TMs normal bilaterally. No lymphangitis/lymphedema. HEAD/NECK normocephalic atraumatic, no facial trauma, neck is supple. RESPIRATORY respiratory effort normal, speaks in full sentences, no tripod position, no accessory muscle use. Lungs clear to auscultation without rhonchi, wheezes, rales CARDIAC Regular rate and rhythm, no edema. ABDOMINAL Soft, ND/NT. No evidence of fluid wave. No pulsatile masses on exam, rebound tenderness, Denny sign or pain over Mcburney's point. MUSCLES/EXTREMITIES No abnormal range of motion, no swelling. SKIN Warm, pink and dry. No rashes, dermatoses, petechiae or lesions. NEUROLOGICAL Not responding to verbal commands PSYCH Normal mood and affect. Judgement/competence is appropriate Results & Data Results & Data Vital Signs (Past 12 Hours) Vital Signs Temp Pulse Pulse Resp BP Pulse Ox O2 Del Method 01/15/25 09:51 Oxymask 01/15/25 08:16 36.7 C 93 H 20 109/67 92 Room Air 01/15/25 08:00 97 H 01/15/25 03:12 36.4 C L 85 22 115/79 94 Room Air O2 Flow Rate 01/15/25 09:51 2 01/15/25 08:16 01/15/25 08:00 01/15/25 03:12 PG Care Time/CCT Total # of Minutes Spent Total Time Spent with Patient: Total time spent is greater than 50% in coordination of care (as documented) at patient's floor/unit and/or counseling patient: Coding Level of Care Code 13842 SUB INP/OBS CARE 235MIN Diagnoses Acute pulmonary embolism without acute cor pulmonale, unspecified pulmonary embolism type I26.99 Pulmonary embolism type: unspecified Chronicity: acute Acute cor pulmonale presence: without acute cor pulmonale AMS (altered mental status) R41.82 Metabolic acidosis with normal anion gap and bicarbonate losses E87.20 Right arm weakness R29.898 Depression F32.A UTI (urinary tract infection) N39.0 Status post insertion of percutaneous endoscopic gastrostomy (PEG) tube Z93.1 Acute blood loss anemia D62 Lower lobe pneumonia J18.9 Anasarca R60.1 (1) Pulmonary emboli Pulmonary embolism type: unspecified Chronicity: acute Acute cor pulmonale presence: without acute cor pulmonale Qualified Code(s): I26.99 - Other pulmonary embolism without acute cor pulmonale
[2025-01-16 06:05] LABS: Hematocrit (blood only) 33.3 % (37.0-47.0); Hemoglobin 10.5 g/dl (12.0-16.0); Mean Corpuscular Hemoglobin 29.5 pg (25.0-34.0); Mean Corpuscular Hgb Conc 31.5 g/dL (32.0-36.0); Mean Corpuscular Volume 93.5 fL (80.0-100.0); Nucleated RBC # (auto) 0.06 K/uL (0.00-0.12); Nucleated RBC % (auto) 0.6 %; Platelet Count 206 K/uL (130-400); RDW Coefficient of Variation 21.8 % (11.5-14.5); RDW Standard Deviation 64.5 fL (36.4-46.3); Red Blood Count 3.56 M/uL (4.20-5.40); White Blood Count 10.09 K/ul (4.8-10.8)
[2025-01-16 06:27] LABS: Calcium 7.8 mg/dl (8.6-10.3); Potassium 4.2 mmol/L (3.5-5.1)
--- NOTE | 2025-01-16 09:50 | Hospitalist Progress Note ---
Date of Service January 16, 2025 Assessment & Plan (1) Pulmonary emboli: Plan: CTA 12/28 with right upper lobe segmental thrombus, radiographic suggestion of right heart strain TTE with some RV dilation. Grade 1 diastolic dysfunction. LV SF normal Acute DVT was seen in the right upper extremity on 01/04 while on Eliquis Patient was on Eliquis but had to be discontinued because of acute GI bleed blood loss anemia (2) AMS (altered mental status): Plan: #Acute metabolic encephalopathy History of left hemorrhagic CVA, seizure-like activity MRI: Large area of chronic encephalomalacia in the left frontal lobe. Within the center of this there is a 2.9 cm focus of restricted diffusion likely chronic but less likely could nagi present an acute versus subacute infarct within prior residual brain parenchyma. Additionally an 8 mm focus of restricted diffusion within the right cerebral hemisphere suggestive of acute versus subacute lacunar infarct is seen. Involutional changes are noted. Left occipital craniotomy noted. Does have a history of intracranial hemorrhage. Neurology consulted recommended anticoagulation alone for PE without antiplatelet because of high risk of hemorrhage she has baseline aphasia and apraxia but usually can communicate somewhat and follow commands for a neuro exam (3) Metabolic acidosis with normal anion gap and bicarbonate losses: Plan: was prolonged but has resolved. Thought to be related to GI losses. (4) Right arm weakness: (5) Depression: (6) UTI (urinary tract infection): Plan: #Complicated UTI, right obstructive ureteral stones completed treatment for Pseudomonas UTI, last dose of fluconazole 01/05 AM for Dhara UTI - hematuria started 01/01 probably magallanes trauma while anticoagulated -was pink on 01/05. Off of Eliquis now (7) Status post insertion of percutaneous endoscopic gastrostomy (PEG) tube: Plan: Tube feeds was held 01/05 due to high residuals. Tube feeds to be held now due to GI bleed Patient remains n.p.o. (8) Acute blood loss anemia: Plan: Patient's hemoglobin had dropped from 9-5 on 01/05 Had responded to a unit of blood No visible bleeding anywhere at that time. CT abdomen was negative as well When hemoglobin was stable, decision was made to resume Eliquis 01/06 and her H&H was being monitored closely On 01/07 night, the patient started bleeding at the PEG tube site with drop in hemoglobin again Eliquis discontinued permanently Patient got a unit of blood She was started on Protonix Tube feeds discontinued Patient continues to have dark fluid coming out of her PEG tube Transfused 1 unit of blood as she is anemic 01/10 Hemoglobin stable today (9) Lower lobe pneumonia: Plan: Possible LLL pneumonia leading to sepsis/aspiration White count has trended down from 13-7 in response to IV antibiotics. Discontinued vancomycin as MRSA nares negative on 01/06 again Continue cefepime Urine culture growing the same Enterococcus and not sure if the Magallanes catheter was changed since the last urine culture on 12/27. I am not convinced that this is a true UTI. The patient clinically had hypoxia and gurgling suggestive of pneumonia being the source of sepsis rather than UTI. On 01/09 patient had an episode of aspiration when nurse was doing mouth care. Even though her vital signs were stable, this led to some respiratory distress (10) Anasarca: Plan: related to severe hypoalbuminemia, critical illness, malnutrition She has 3+ edema in all 4 of her extremities Skin peeling and skin tears while repositioning Plan 64-year-old woman with past medical history of hemorrhagic left basal ganglia CVA in 2021 with resulting right sided strength deficits, seizure, hyperlipidemia, chronic indwelling Magallanes who presented with concern for complicated UTI with right hydronephrosis and he was treated for both Pseudomonas and candidal UTI. Due to right hydro she underwent right stent placement. She completed treatment for Pseudomonas UTI with cefepime/meropenem/pip-tazo and treated for candidal UTI with fluconazole. Overnight 12/27/24 did have a rapid response for lethargy and hypotension. Found to have acute PE. Subsequent MRI with small new stroke. 01/10: I called the son Basil and he answered my phone. Meghan was present next to me and Radha was available on the phone as well listening to and par ticipating in this conversation. I updated the son about the the events that happened since we last spoke. The patient aspirated, had low blood pressures, is anemic. He was informed that she has multiorgan failure. After long discussion, the son decided to not escalate care. He does not want the patient to go to the ICU. He does not want pressors. He does want blood transfusion. It was communicated to the son that his mother is actively dying. He is not ready to switch to comfort measures yet. DVT ppx -Eliquis discontinued Has [facility] TLC see above 01/13 Son visited mother last night, appears to understand her condition, but not willing to make decision. Will attempt to speak with him today at 11 and follow up. Awaiting son follow up with palliative care and decision to make comfort care at this time. Spoke with son, would like to wait over week prior to making decision on comfort care. Admission and Anticipated Discharge Date Admission Date: December 18, 2024 Subjective No events overnight. Pt appears comfortable, unresponsive. Review of Systems Review of Systems: CONST: Negative for fever, body aches and chills. HENT: Negative for neck pain/stiffness, headache, congestion, sore throat, swelling. EYES: Negative for discharge/pain or vision changes. RESP: Negative for cough/hemoptysis and shortness of breath. CV: Negative chest pain, difficulty breathing, palpitations. ABD: Negative pain, nausea, vomiting. : Negative increase frequency, dysuria, blood in urine or stool. MUSC: Negative for muscle aches, edema. SKIN: Negative rash, lesions/sores. NEURO: Negative headache, dizziness, weakness. Physical Exam Physical Exam: GENERAL APPEARANCE NAD, activity normal for age, well developed/ well nourished, no cyanosis, pallor, or diaphoresis. EYES lids/conjunctiva normal. EARS/NOSE/THROAT Mucous membranes moist, nares normal, lips/teeth normal uvula midline without oral pharyngeal erythema, exudate or swelling TMs normal bilaterally. No lymphangitis/lymphedema. HEAD/NECK normocephalic atraumatic, no facial trauma, neck is supple. RESPIRATORY respiratory effort normal, speaks in full sentences, no tripod position, no accessory muscle use. Lungs clear to auscultation without rhonchi, wheezes, rales CARDIAC Regular rate and rhythm, no edema. ABDOMINAL Soft, ND/NT. No evidence of fluid wave. No pulsatile masses on exam, rebound tenderness, Denny sign or pain over Mcburney's point. MUSCLES/EXTREMITIES No abnormal range of motion, no swelling. SKIN Warm, pink and dry. No rashes, dermatoses, petechiae or lesions. NEUROLOGICAL Not responding to verbal commands PSYCH Normal mood and affect. Judgement/competence is appropriate Results & Data Results & Data Vital Signs (Past 12 Hours) Vital Signs Temp Pulse Pulse Resp BP BP Pulse Ox 01/16/25 09:10 01/16/25 08:00 36.5 C 96 H 16 113/80 99 01/16/25 07:16 94 H 01/16/25 04:00 36.5 C 96 H 23 96/66 L 94 01/15/25 23:46 36.4 C L 97 H 19 110/74 93 01/15/25 23:11 97 H O2 Del Method O2 Flow Rate 01/16/25 09:10 Room Air 01/16/25 08:00 Oxymask 2 01/16/25 07:16 01/16/25 04:00 Oxymask 2 01/15/25 23:46 Oxymask 2 01/15/25 23:11 PG Care Time/CCT Total # of Minutes Spent Total Time Spent with Patient: Total time spent is greater than 50% in coordination of care (as documented) at patient's floor/unit and/or counseling patient: Coding Level of Care Code 29660 SUB INP/OBS CARE 2/35MIN Diagnoses Acute pulmonary embolism without acute cor pulmonale, unspecified pulmonary embolism type I26.99 Pulmonary embolism type: unspecified Chronicity: acute Acute cor pulmonale presence: without acute cor pulmonale AMS (altered mental status) R41.82 Metabolic acidosis with normal anion gap and bicarbonate losses E87.20 Right arm weakness R29.898 Depression F32.A UTI (urinary tract infection) N39.0 Status post insertion of percutaneous endoscopic gastrostomy (PEG) tube Z93.1 Acute blood loss anemia D62 Lower lobe pneumonia J18.9 Anasarca R60.1 (1) Pulmonary emboli Pulmonary embolism type: unspecified Chronicity: acute Acute cor pulmonale presence: without acute cor pulmonale Qualified Code(s): I26.99 - Other pulmonary embolism without acute cor pulmonale
[2025-01-16] MEDS: SODIUM CHLORIDE 0.9% 1,000 ML IV SCH (15:15)
--- NOTE | 2025-01-17 07:58 | Hospitalist Progress Note ---
Date of Service January 17, 2025 Assessment & Plan (1) Pulmonary emboli: Plan: CTA 12/28 with right upper lobe segmental thrombus, radiographic suggestion of right heart strain TTE with some RV dilation. Grade 1 diastolic dysfunction. LV SF normal Acute DVT was seen in the right upper extremity on 01/04 while on Eliquis Patient was on Eliquis but had to be discontinued because of acute GI bleed blood loss anemia (2) AMS (altered mental status): Plan: #Acute metabolic encephalopathy History of left hemorrhagic CVA, seizure-like activity MRI: Large area of chronic encephalomalacia in the left frontal lobe. Within the center of this there is a 2.9 cm focus of restricted diffusion likely chronic but less likely could nagi present an acute versus subacute infarct within prior residual brain parenchyma. Additionally an 8 mm focus of restricted diffusion within the right cerebral hemisphere suggestive of acute versus subacute lacunar infarct is seen. Involutional changes are noted. Left occipital craniotomy noted. Does have a history of intracranial hemorrhage. Neurology consulted recommended anticoagulation alone for PE without antiplatelet because of high risk of hemorrhage she has baseline aphasia and apraxia but usually can communicate somewhat and follow commands for a neuro exam (3) Metabolic acidosis with normal anion gap and bicarbonate losses: Plan: was prolonged but has resolved. Thought to be related to GI losses. (4) Right arm weakness: (5) Depression: (6) UTI (urinary tract infection): Plan: #Complicated UTI, right obstructive ureteral stones completed treatment for Pseudomonas UTI, last dose of fluconazole 01/05 AM for Dhara UTI - hematuria started 01/01 probably magallanes trauma while anticoagulated -was pink on 01/05. Off of Eliquis now (7) Status post insertion of percutaneous endoscopic gastrostomy (PEG) tube: Plan: Tube feeds was held 01/05 due to high residuals. Tube feeds to be held now due to GI bleed Patient remains n.p.o. (8) Acute blood loss anemia: Plan: Patient's hemoglobin had dropped from 9-5 on 01/05 Had responded to a unit of blood No visible bleeding anywhere at that time. CT abdomen was negative as well When hemoglobin was stable, decision was made to resume Eliquis 01/06 and her H&H was being monitored closely On 01/07 night, the patient started bleeding at the PEG tube site with drop in hemoglobin again Eliquis discontinued permanently Patient got a unit of blood She was started on Protonix Tube feeds discontinued Patient continues to have dark fluid coming out of her PEG tube Transfused 1 unit of blood as she is anemic 01/10 Hemoglobin stable today (9) Lower lobe pneumonia: Plan: Possible LLL pneumonia leading to sepsis/aspiration White count has trended down from 13-7 in response to IV antibiotics. Discontinued vancomycin as MRSA nares negative on 01/06 again Continue cefepime Urine culture growing the same Enterococcus and not sure if the Magallanes catheter was changed since the last urine culture on 12/27. I am not convinced that this is a true UTI. The patient clinically had hypoxia and gurgling suggestive of pneumonia being the source of sepsis rather than UTI. On 01/09 patient had an episode of aspiration when nurse was doing mouth care. Even though her vital signs were stable, this led to some respiratory distress (10) Anasarca: Plan: related to severe hypoalbuminemia, critical illness, malnutrition She has 3+ edema in all 4 of her extremities Skin peeling and skin tears while repositioning -will given albumin today 01/16 Plan 64-year-old woman with past medical history of hemorrhagic left basal ganglia CVA in 2021 with resulting right sided strength deficits, seizure, hyperlip idemia, chronic indwelling Magallanes who presented with concern for complicated UTI with right hydronephrosis and he was treated for both Pseudomonas and candidal UTI. Due to right hydro she underwent right stent placement. She completed treatment for Pseudomonas UTI with cefepime/meropenem/pip-tazo and treated for candidal UTI with fluconazole. Overnight 12/27/24 did have a rapid response for lethargy and hypotension. Found to have acute PE. Subsequent MRI with small new stroke. 01/10: I called the son Basil and he answered my phone. Meghan was present next to me and Radha was available on the phone as well listening to and participating in this conversation. I updated the son about the the events that happened since we last spoke. The patient aspirated, had low blood pressures, is anemic. He was informed that she has multiorgan failure. After long discussion, the son decided to not escalate care. He does not want the patient to go to the ICU. He does not want pressors. He does want blood transfusion. It was communicated to the son that his mother is actively dying. He is not ready to switch to comfort measures yet. DVT ppx -Eliquis discontinued Has LIJ TLC see above 01/13 Son visited mother last night, appears to understand her condition, but not willing to make decision. Will attempt to speak with him today at 11 and follow up. Awaiting son follow up with palliative care and decision to make comfort care at this time. Spoke with son, would like to wait over week prior to making decision on comfort care. Admission and Anticipated Discharge Date Admission Date: December 18, 2024 Subjective Pt responding to with grunting to verbal commands. Was noted to be having extremity swelling this morning. IVF d/c'd. Review of Systems Review of Systems: CONST: Negative for fever, body aches and chills. HENT: Negative for neck pain/stiffness, headache, congestion, sore throat, swelling. EYES: Negative for discharge/pain or vision changes. RESP: Negative for cough/hemoptysis and shortness of breath. CV: Negative chest pain, difficulty breathing, palpitations. ABD: Negative pain, nausea, vomiting. : Negative increase frequency, dysuria, blood in urine or stool. MUSC: Negative for muscle aches, edema. SKIN: Negative rash, lesions/sores. NEURO: Negative headache, dizziness, weakness. Physical Exam Physical Exam: GENERAL APPEARANCE NAD, activity normal for age, well developed/ well nourished, no cyanosis, pallor, or diaphoresis. EYES lids/conjunctiva normal. EARS/NOSE/THROAT Mucous membranes moist, nares normal, lips/teeth normal uvula midline without oral pharyngeal erythema, exudate or swelling TMs normal bilaterally. No lymphangitis/lymphedema. HEAD/NECK normocephalic atraumatic, no facial trauma, neck is supple. RESPIRATORY respiratory effort normal, speaks in full sentences, no tripod position, no accessory muscle use. Lungs clear to auscultation without rhonchi, wheezes, rales CARDIAC Regular rate and rhythm, no edema. ABDOMINAL Soft, ND/NT. No evidence of fluid wave. No pulsatile masses on exam, rebound tenderness, Denny sign or pain over Mcburney's point. MUSCLES/EXTREMITIES No abnormal range of motion, no swelling. SKIN Warm, pink and dry. No rashes, dermatoses, petechiae or lesions. NEUROLOGICAL Not responding to verbal commands PSYCH Normal mood and affect. Judgement/competence is appropriate Results & Data Results & Data Vital Signs (Past 12 Hours) Vital Signs Temp Pulse Pulse Resp BP Pulse Ox O2 Del Method 01/17/25 04:12 36.6 C 89 17 126/83 96 Room Air 01/17/25 00:00 36.6 C 85 22 104/72 97 Room Air 01/16/25 22:36 84 01/16/25 20:57 Room Air 01/16/25 20:00 36.6 C 90 21 119/82 94 Room Air PG Care Time/CCT Total # of Minutes Spent Total Time Spent with Patient: Total time spent is greater than 50% in coordination of care (as documented) at patient's floor/unit and/or counseling patient: Coding Level of Care Code 02997 SUB INP/OBS CARE 2/35MIN Diagnoses Acute pulmonary embolism without acute cor pulmonale, unspecified pulmonary embolism type I26.99 Pulmonary embolism type: unspecified Chronicity: acute Acute cor pulmonale presence: without acute cor pulmonale AMS (altered mental status) R41.82 Metabolic acidosis with normal anion gap and bicarbonate losses E87.20 Right arm weakness R29.898 Depression F32.A UTI (urinary tract infection) N39.0 Status post insertion of percutaneous endoscopic gastrostomy (PEG) tube Z93.1 Acute blood loss anemia D62 Lower lobe pneumonia J18.9 Anasarca R60.1 (1) Pulmonary emboli Pulmonary embolism type: unspecified Chronicity: acute Acute cor pulmonale presence: without acute cor pulmonale Qualified Code(s): I26.99 - Other pulmonary embolism without acute cor pulmonale
[2025-01-17] MEDS: ALBUMIN 25% 25 GM/100 ML VIAL IV SCH (08:10)
[2025-01-18 06:24] LABS: Hematocrit (blood only) 26.3 % (37.0-47.0); Mean Corpuscular Hemoglobin 29.4 pg (25.0-34.0); Mean Corpuscular Hgb Conc 30.4 g/dL (32.0-36.0); Mean Corpuscular Volume 96.7 fL (80.0-100.0); Mean Platelet Volume 10.8 fL (9.4-12.4); Nucleated RBC # (auto) 0.02 K/uL (0.00-0.12); Nucleated RBC % (auto) 0.2 %; Platelet Count 171 K/uL (130-400); RDW Coefficient of Variation 21.8 % (11.5-14.5); RDW Standard Deviation 70.5 fL (36.4-46.3); Red Blood Count 2.72 M/uL (4.20-5.40)
[2025-01-18 06:46] LABS: BUN Creatinine Ratio 21.5 (10-20); Calcium 7.8 mg/dl (8.6-10.3); Creatinine Clr Calc Pharmacy 28.8 ml/min; Potassium 3.9 mmol/L (3.5-5.1)
[2025-01-18] MEDS: TUBE FEEDING WATER FLUSH PEG SCH (09:06)
[2025-01-18] MEDS: FIBERSOURCE HN 1.2 CAL 1000 ML BAG GT SCH (09:06)
--- NOTE | 2025-01-18 09:13 | Hospitalist Progress Note ---
Date of Service January 18, 2025 Assessment & Plan (1) Pulmonary emboli: Plan: CTA 12/28 with right upper lobe segmental thrombus, radiographic suggestion of right heart strain TTE with some RV dilation. Grade 1 diastolic dysfunction. LV SF normal Acute DVT was seen in the right upper extremity on 01/04 while on Eliquis Patient was on Eliquis but had to be discontinued because of acute GI bleed blood loss anemia (2) AMS (altered mental status): Plan: #Acute metabolic encephalopathy History of left hemorrhagic CVA, seizure-like activity MRI: Large area of chronic encephalomalacia in the left frontal lobe. Within the center of this there is a 2.9 cm focus of restricted diffusion likely chronic but less likely could nagi present an acute versus subacute infarct within prior residual brain parenchyma. Additionally an 8 mm focus of restricted diffusion within the right cerebral hemisphere suggestive of acute versus subacute lacunar infarct is seen. Involutional changes are noted. Left occipital craniotomy noted. Does have a history of intracranial hemorrhage. Neurology consulted recommended anticoagulation alone for PE without antiplatelet because of high risk of hemorrhage she has baseline aphasia and apraxia but usually can communicate somewhat and follow commands for a neuro exam -now only communicating via grunting (3) Metabolic acidosis with normal anion gap and bicarbonate losses: Plan: was prolonged but has resolved. Thought to be related to GI losses. (4) Right arm weakness: (5) Depression: (6) UTI (urinary tract infection): Plan: #Complicated UTI, right obstructive ureteral stones completed treatment for Pseudomonas UTI, last dose of fluconazole 01/05 AM for Dhara UTI - hematuria started 01/01 probably magallanes trauma while anticoagulated -was pink on 01/05. Off of Eliquis now (7) Status post insertion of percutaneous endoscopic gastrostomy (PEG) tube: Plan: Tube feeds was held 01/05 due to high residuals. Tube feeds to be held now due to GI bleed Patient remains n.p.o. -Pt's son not making decision on comfort care, will attempt to restart tube feeds today 01/18 (8) Acute blood loss anemia: Plan: Patient's hemoglobin had dropped from 9-5 on 01/05 Had responded to a unit of blood No visible bleeding anywhere at that time. CT abdomen was negative as well When hemoglobin was stable, decision was made to resume Eliquis 01/06 and her H&H was being monitored closely On 01/07 night, the patient started bleeding at the PEG tube site with drop in hemoglobin again Eliquis discontinued permanently Patient got a unit of blood She was started on Protonix Tube feeds discontinued Patient continues to have dark fluid coming out of her PEG tube Transfused 1 unit of blood as she is anemic 01/10 Hemoglobin stable today (9) Lower lobe pneumonia: Plan: Possible LLL pneumonia leading to sepsis/aspiration White count has trended down from 13-7 in response to IV antibiotics. Discontinued vancomycin as MRSA nares negative on 01/06 again Continue cefepime Urine culture growing the same Enterococcus and not sure if the Magallanes catheter was changed since the last urine culture on 12/27. I am not convinced that this is a true UTI. The patient clinically had hypoxia and gurgling suggestive of pneumonia being the source of sepsis rather than UTI. On 01/09 patient had an episode of aspiration when nurse was doing mouth care. Even though her vital signs were stable, this led to some respiratory distress (10) Anasarca: Plan: related to severe hypoalbuminemia, critical illness, malnutrition She has 3+ edema in all 4 of her extremities Skin peeling and skin tears while repositioning -will given albumin today 01/16 Plan 64-year-old woman with past medical history of hemorrhagic left basal ganglia CVA in 2021 with resulting right sided strength deficits, seizure, hyperlipidemia, chronic indwelling Magallanes who presented with concern for complic ated UTI with right hydronephrosis and he was treated for both Pseudomonas and candidal UTI. Due to right hydro she underwent right stent placement. She completed treatment for Pseudomonas UTI with cefepime/meropenem/pip-tazo and treated for candidal UTI with fluconazole. Overnight 12/27/24 did have a rapid response for lethargy and hypotension. Found to have acute PE. Subsequent MRI with small new stroke. 01/10: I called the son Basil and he answered my phone. Meghan was present next to me and Radha was available on the phone as well listening to and participating in this conversation. I updated the son about the the events that happened since we last spoke. The patient aspirated, had low blood pressures, is anemic. He was informed that she has multiorgan failure. After long discussion, the son decided to not escalate care. He does not want the patient to go to the ICU. He does not want pressors. He does want blood transfusion. It was communicated to the son that his mother is actively dying. He is not ready to switch to comfort measures yet. DVT ppx -Eliquis discontinued Has LIJ TLC see above 01/13 Son visited mother last night, appears to understand her condition, but not willing to make decision. Will attempt to speak with him today at 11 and follow up. Awaiting son follow up with palliative care and decision to make comfort care at this time. Pt's son not making decision on comfort care, will attempt to restart tube feeds today 01/18. No further need for PCU, transfer to [facility] Admission and Anticipated Discharge Date Admission Date: December 18, 2024 Subjective Pt appears comfortable, moaning gently, no events overnight. Review of Systems Review of Systems: CONST: Negative for fever, body aches and chills. HENT: Negative for neck pain/stiffness, headache, congestion, sore throat, swelling. EYES: Negative for discharge/pain or vision changes. RESP: Negative for cough/hemoptysis and shortness of breath. CV: Negative chest pain, difficulty breathing, palpitations. ABD: Negative pain, nausea, vomiting. : Negative increase frequency, dysuria, blood in urine or stool. MUSC: Negative for muscle aches, edema. SKIN: Negative rash, lesions/sores. NEURO: Negative headache, dizziness, weakness. Constitutional: Negative for antecedent/coincident fevers, chills, diaphoresis, cough, wheeze, sore throat, hemoptysis, chest pains, palpitations, pleurisy, nausea, vomiting, diarrhea, abdominal pain, pelvic pain, hematemesis, hematochezia, melena, hematuria, dysuria, frequency, urgency, headaches, dizziness, lightheadedness, visual changes, hearing changes, weakness, falls, syncope, trauma, travel history, sick contacts, or food/drug ingestions novel or new. All other review of systems are reported as negative by the patient on 12/24/2024 - 12/27/2024. Physical Exam Physical Exam: GENERAL APPEARANCE NAD, activity normal for age, well developed/ well nourished, no cyanosis, pallor, or diaphoresis. EYES lids/conjunctiva normal. EARS/NOSE/THROAT Mucous membranes moist, nares normal, lips/teeth normal uvula midline without oral pharyngeal erythema, exudate or swelling TMs normal bilaterally. No lymphangitis/lymphedema. HEAD/NECK normocephalic atraumatic, no facial trauma, neck is supple. RESPIRATORY respiratory effort normal, speaks in full sentences, no tripod position, no accessory muscle use. Lungs clear to auscultation without rhonchi, wheezes, rales CARDIAC Regular rate and rhythm, no edema. ABDOMINAL Soft, ND/NT. No evidence of fluid wave. No pulsatile masses on exam, rebound tenderness, Denny sign or pain over Mcburney's point. MUSCLES/EXTREMITIES No abnormal range of motion, no swelling. SKIN Warm, pink and dry. No rashes, dermatoses, petechiae or lesions. NEUROLOGICAL Not responding to verbal commands PSYCH Normal mood and affect. Judgement/competence is appropriate Results & Data Results & Data Vital Signs (Past 12 Hours) Vital Signs Temp Pulse Pulse Resp BP Pulse Ox O2 Del Method 01/18/25 08:00 101 H 01/18/25 08:00 36.5 C 103 H 17 118/79 95 Oxymask 01/18/25 07:39 Nasal Cannula 01/18/25 02:34 36.9 C 103 H 20 133/79 96 Oxymask 01/17/25 22:36 36.4 C L 107 H 20 165/89 H 92 Nasal Cannula 01/17/25 21:59 97 H 01/17/25 21:15 Nasal Cannula O2 Flow Rate 01/18/25 08:00 01/18/25 08:00 2 01/18/25 07:39 2 01/18/25 02:34 2.0 01/17/25 22:36 2.0 01/17/25 21:59 01/17/25 21:15 2 PG Care Time/CCT Total # of Minutes Spent Total Time Spent with Patient: Total time spent is greater than 50% in coordination of care (as documented) at patient's floor/unit and/or counseling patient: Coding Level of Care Code 86483 SUB INP/OBS CARE 2/35MIN Diagnoses Acute pulmonary embolism without acute cor pulmonale, unspecified pulmonary embolism type I26.99 Pulmonary embolism type: unspecified Chronicity: acute Acute cor pulmonale presence: without acute cor pulmonale AMS (altered mental status) R41.82 Metabolic acidosis with normal anion gap and bicarbonate losses E87.20 Right arm weakness R29.898 Depression F32.A UTI (urinary tract infection) N39.0 Status post insertion of percutaneous endoscopic gastrostomy (PEG) tube Z93.1 Acute blood loss anemia D62 Lower lobe pneumonia J18.9 Anasarca R60.1 (1) Pulmonary emboli Pulmonary embolism type: unspecified Chronicity: acute Acute cor pulmonale presence: without acute cor pulmonale Qualified Code(s): I26.99 - Other pulmonary embolism without acute cor pulmonale
[2025-01-19 06:08] LABS: Hematocrit (blood only) 27.7 % (37.0-47.0); Hemoglobin 8.6 g/dl (12.0-16.0); Mean Corpuscular Hemoglobin 30.4 pg (25.0-34.0); Mean Corpuscular Volume 97.9 fL (80.0-100.0); Mean Platelet Volume 10.4 fL (9.4-12.4); Platelet Count 167 K/uL (130-400); RDW Standard Deviation 75.1 fL (36.4-46.3); Red Blood Count 2.83 M/uL (4.20-5.40); White Blood Count 12.13 K/ul (4.8-10.8)
[2025-01-19 06:52] LABS: BUN Creatinine Ratio 20.9 (10-20); Calcium 8.3 mg/dl (8.6-10.3); Creatinine Clr Calc Pharmacy 27.1 ml/min; Potassium 4.7 mmol/L (3.5-5.1)
--- NOTE | 2025-01-19 12:15 | Communication Note ---
Date of Service: January 19, 2025 Per CM notes pt's son Basil is working with "catherine thomas a palliative insolvency practitioner to give him a better perspective of palliative/hospice". Although Basil has made himself available for very brief (typically 1-3 minutes) phone updates, he has not offered engagement in discussions of palliative care nor hospice with our team when offered. Due to his work schedule, he is not otherwise available during business hours for effective ACP discussions. We will sign off on this patient as goals of care are clearly established for DNR/DNI but continue other life prolonging therapies Thank you for including Palliative Care in the management of this patient. Please call with any questions or concerns regarding this consultation. no charges from palliative care team this date.
--- NOTE | 2025-01-19 12:46 | Hospitalist Progress Note ---
Date of Service January 19, 2025 Assessment & Plan (1) Pulmonary emboli: Plan: CTA 12/28 with right upper lobe segmental thrombus, radiographic suggestion of right heart strain TTE with some RV dilation. Grade 1 diastolic dysfunction. LV SF normal Acute DVT was seen in the right upper extremity on 01/04 while on Eliquis Patient was on Eliquis but had to be discontinued because of acute GI bleed blood loss anemia -off eliquis (2) AMS (altered mental status): Plan: #Acute metabolic encephalopathy History of left hemorrhagic CVA, seizure-like activity MRI: Large area of chronic encephalomalacia in the left frontal lobe. Within the center of this there is a 2.9 cm focus of restricted diffusion likely chronic but less likely could nagi present an acute versus subacute infarct within prior residual brain parenchyma. Additionally an 8 mm focus of restricted diffusion within the right cerebral hemisphere suggestive of acute versus subacute lacunar infarct is seen. Involutional changes are noted. Left occipital craniotomy noted. Does have a history of intracranial hemorrhage. Neurology consulted recommended anticoagulation alone for PE without antiplatelet because of high risk of hemorrhage she has baseline aphasia and apraxia but usually can communicate somewhat and follow commands for a neuro exam -now only communicating via grunting (3) Metabolic acidosis with normal anion gap and bicarbonate losses: Plan: was prolonged but has resolved. Thought to be related to GI losses. (4) Right arm weakness: (5) Depression: (6) UTI (urinary tract infection): Plan: #Complicated UTI, right obstructive ureteral stones completed treatment for Pseudomonas UTI, last dose of fluconazole 01/05 AM for Dhara UTI - hematuria started 01/01 probably magallanes trauma while anticoagulated -was pink on 01/05. Off of Eliquis now -resolved, off abx (7) Status post insertion of percutaneous endoscopic gastrostomy (PEG) tube: Plan: Tube feeds was held 01/05 due to high residuals. Tube feeds to be held now due to GI bleed Patient remains n.p.o. -Pt's son not making decision on comfort care, tube feeds restarted 01/18, ma intain at goal, check residuals (8) Acute blood loss anemia: Plan: Patient's hemoglobin had dropped from 9-5 on 01/05 Had responded to a unit of blood No visible bleeding anywhere at that time. CT abdomen was negative as well When hemoglobin was stable, decision was made to resume Eliquis 01/06 and her H&H was being monitored closely On 01/07 night, the patient started bleeding at the PEG tube site with drop in hemoglobin again Eliquis discontinued permanently Patient got a unit of blood She was started on Protonix Tube feeds discontinued Patient continues to have dark fluid coming out of her PEG tube Transfused 1 unit of blood as she is anemic 01/10 Hemoglobin remains stable (9) Lower lobe pneumonia: Plan: Possible LLL pneumonia leading to sepsis/aspiration White count has trended down from 13-7 in response to IV antibiotics. Discontinued vancomycin as MRSA nares negative on 01/06 again Continue cefepime Urine culture growing the same Enterococcus and not sure if the Magallanes catheter was changed since the last urine culture on 12/27. I am not convinced that this is a true UTI. The patient clinically had hypoxia and gurgling suggestive of pneumonia being the source of sepsis rather than UTI. On 01/09 patient had an episode of aspiration when nurse was doing mouth care. Even though her vital signs were stable, this led to some respiratory distress -pt maintaining 02 sats on 4LNC (10) Anasarca: Plan: related to severe hypoalbuminemia, critical illness, malnutrition She has 3+ edema in all 4 of her extremities Skin peeling and skin tears while repositioning -will given albumin today 01/16 -con't to monitor for improvement with initiation of tube feeds. Plan 64-year-old woman with past medical history of hemorrhagic left basal ganglia CVA in 2021 with resulting right sided strength deficits, seizure, hyperlipidemia, chronic indwelling Magallanes who presented with concern for complicated UTI with right hydronephrosis and he was treated for both Pseudomonas and candidal UTI. Due to right hydro she underwent right stent placement. She completed treatment for Pseudomonas UTI with cefepime/meropenem/pip-tazo and treated for candidal UTI with fluconazole. Overnight 12/27/24 did have a rapid response for lethargy and hypotension. Found to have acute PE. Subsequent MRI with small new stroke. Pt's son not making decision on comfort care, tube feeds restarted on 01/18. Son is working with palliative federal air marshal to help guide his decisions and offer support. Pt is DNR/DNI. Admission and Anticipated Discharge Date Admission Date: December 18, 2024 Subjective No events overnight. Pt resting comfortably, responding only with grunts. Review of Systems Review of Systems: CONST: Negative for fever, body aches and chills. HENT: Negative for neck pain/stiffness, headache, congestion, sore throat, swelling. EYES: Negative for discharge/pain or vision changes. RESP: Negative for cough/hemoptysis and shortness of breath. CV: Negative chest pain, difficulty breathing, palpitations. ABD: Negative pain, nausea, vomiting. : Negative increase frequency, dysuria, blood in urine or stool. MUSC: Negative for muscle aches, edema. SKIN: Negative rash, lesions/sores. NEURO: Negative headache, dizziness, weakness. Physical Exam Physical Exam: GENERAL APPEARANCE NAD, activity normal for age, well developed/ well nourished, no cyanosis, pallor, or diaphoresis. EYES lids/conjunctiva normal. EARS/NOSE/THROAT Mucous membranes moist, nares normal, lips/teeth normal uvula midline without oral pharyngeal erythema, exudate or swelling TMs normal bilaterally. No lymphangitis/lymphedema. HEAD/NECK normocephalic atraumatic, no facial trauma, neck is supple. RESPIRATORY respiratory effort normal, speaks in full sentences, no tripod position, no accessory muscle use. Lungs clear to auscultation without rhonchi, wheezes, rales CARDIAC Regular rate and rhythm, no edema. ABDOMINAL Soft, ND/NT. No evidence of fluid wave. No pulsatile masses on exam, rebound tenderness, Denny sign or pain over Mcburney's point. MUSCLES/EXTREMITIES No abnormal range of motion, no swelling. SKIN Warm, pink and dry. No rashes, dermatoses, petechiae or lesions. NEUROLOGICAL Not responding to verbal commands PSYCH Normal mood and affect. Judgement/competence is appropriate Results & Data Results & Data Vital Signs (Past 12 Hours) Vital Signs Temp Pulse Pulse Resp BP Pulse Ox O2 Del Method 01/19/25 07:20 36.5 C 101 H 22 117/80 94 Oxymask 01/19/25 05:04 36.2 C L 104 H 20 112/83 93 Oxymask O2 Flow Rate 01/19/25 07:20 4 01/19/25 05:04 PG Care Time/CCT Total # of Minutes Spent Total Time Spent with Patient: Total time spent is greater than 50% in coordination of care (as documented) at patient's floor/unit and/or counseling patient: Coding Level of Care Code 84922 SUB INP/OBS CARE 2/35MIN Diagnoses Acute pulmonary embolism without acute cor pulmonale, unspecified pulmonary embolism type I26.99 Pulmonary embolism type: unspecified Chronicity: acute Acute cor pulmonale presence: without acute cor pulmonale AMS (altered mental status) R41.82 Metabolic acidosis with normal anion gap and bicarbonate losses E87.20 Right arm weakness R29.898 Depression F32.A UTI (urinary tract infection) N39.0 Status post insertion of percutaneous endoscopic gastrostomy (PEG) tube Z93.1 Acute blood loss anemia D62 Lower lobe pneumonia J18.9 Anasarca R60.1 (1) Pulmonary emboli Pulmonary embolism type: unspecified Chronicity: acute Acute cor pulmonale presence: without acute cor pulmonale Qualified Code(s): I26.99 - Other pulmonary embolism without acute cor pulmonale
[2025-01-19 14:57] VITALS: TEMP 97.5
--- NOTE | 2025-01-19 23:54 | XRay Report ---
Exam(s): XR CXR 1 VIEW EXAM: XR Chest, 1 View CLINICAL HISTORY: Reason for exam: aspiration. TECHNIQUE: Frontal view of the chest. COMPARISON: January 04, 2025 FINDINGS: Lungs: Complete opacification of the right hemithorax with slight volume loss. Pleural space: Slight blunting the left costophrenic angle consistent with small left pleural effusion, similar to previous. No pneumothorax. Heart: The cardiac silhouette is mildly enlarged but partially obscured. Mediastinum: Unremarkable. Normal mediastinal contour. Bones/joints: Unremarkable. No acute fracture. Tubes, lines and devices: Left internal jugular central venous catheter extends to the junction of the brachiocephalic vein and superior vena cava. IMPRESSION: 1. Complete opacification of the right hemithorax with slight volume loss. Consider pneumonia and atelectasis with possible small right effusion. 2. Slight blunting the left costophrenic angle consistent with small left pleural effusion, similar to previous. 3. Left internal jugular central venous catheter extends to the junction of the brachiocephalic vein and superior vena cava. 4. The cardiac silhouette is mildly enlarged but partially obscured. Electronically signed by: Lenard Rodgers MD 01/19/25 23:53 PM
--- NOTE | 2025-01-20 00:08 | Communication Note ---
Date of Service: January 20, 2025 Notified by RN regarding concern for aspiration of tube feed formula - day team had paused tube feeds for 2 hours d/t recorded GRV of 450mL, recommended reass essing before resuming. Patient seen at bedside, appeared in moderate respiratory distress with accessory muscle use (baseline per RN) - rhonchi appreciated throughout upper lung brower, +wet upper airway breath sounds. Patient was suctioned; the majority of contents consisted of formula. Tube feeds held, no additional medications administered via PEG tube. Stat CXR with near full opacification of right lung. Prior to initiating any treatment, attempt was made to reach primary contact, son Basil, in hopes of better understanding goals of care. Unfortunately, was not able to get in touch. I left a message after the first phone call; voicemail was full on subsequent calls. Given existing documentation regarding level of care, felt treating aspiration pneumonia with antibiotics was within stated goals without representing significant escalation of care. Started Unasyn for aspiration pneumonia. Overnight vitals began to deviate compared to the preceding week, in which BP, HR, RR were all fairly steady. BP began to drop - hovered in the 80s/50s for the majority of the night and was refractory to IV fluids. Similarly, tachycardia became more prominent and supplemental O2 requirement increased. Without escalating level of care, patient would likely benefit most from transitioning to comfort-oriented care. This was what I hoped to discuss with patient's son, but as noted above, was not able to get in touch. Welt Maker Addendum (Dr Jeffery Canales): I personally saw and examined the patient. I independently reviewed the labs, EKG, imaging, problem list, medication list, past medical history and family history. I verified all berrios points and agree with resident physician Dr Rod Blandon DO with the following exceptions and/or additions: Ongoing aspirations. Discussed with RN and respiratory therapy and reportedly this sick for the last week. No sudden worsening of hypoxia. White out of right lung - appears to be consolidation rather than pleural effusion on POCUS. Patient not conscious enough for CPAP and I do no think this would make a significant difference. Multiple attempts were made to contact son to transition to comfort care to avoid further harm but no answer on cell phone in EHR. Unasyn given, IV fluids bolus given, D5W started for hypernatremia.
[2025-01-20] MEDS: DEXTROSE 5% 1,000 ML IV SCH (00:28)
[2025-01-20] MEDS: AMPICILLIN/SULBACTAM SOD 3,000 MG/100 ML BAG IV SCH (00:28)
[2025-01-20 01:58] VITALS: RESP 26; O2SAT 97
[2025-01-20] MEDS: LACTATED RINGER'S 250 ML IV ONE (02:41)
[2025-01-20 02:54] VITALS: BP 71/53; PULSE 117
--- NOTE | 2025-01-20 04:02 | Death Pronouncement Note ---
Date of Service January 20, 2025 Pronouncement Note Admission Date Admission Date: December 18, 2024 Contributing Factors (1) Pulmonary emboli: (2) AMS (altered mental status): (3) Metabolic acidosis with normal anion gap and bicarbonate losses: (4) Right arm weakness: (5) Depression: (6) UTI (urinary tract infection): (7) Status post insertion of percutaneous endoscopic gastrostomy (PEG) tube: (8) Acute blood loss anemia: (9) Lower lobe pneumonia: (10) Anasarca: Summary Additional details: I was called to pronounce the of Soha Rae ( 1960) by Pam Liz RN on 01/20/2025. Upon entering the room, patient was found to be in a terminal state. They were unresponsive to, and did not withdrawal from, verbal or tactile stimuli. They were unresponsive to corneal, pupillary, and oculocephalic reflexes. On cardiopulmonary exam, they were found to be without detectable carotid pulses, and without spontaneous heart tones or respirations. Time of was pronounced by me on 01/20/2025 at 0355. Attending physician was notified. Attempted to contact next of kin, son Marky Rae, multiple times but was unsuccessful. I will try again prior shift change. Signed: Rod Blandon DO Additional Data Attending physician: Jeffery Lind MD Resident Activity Tracking Resident Involvement: Resident Care Provided Care Provided: Adult Hospital Medicine
--- NOTE | 2025-01-21 21:14 | Discharge Summary ---
Discharge Summary Date of Service January 21, 2025 Principal Dx & Hospital Course #1 = Principal Diagnosis (1) Pulmonary emboli: CTA 12/28 with right upper lobe segmental thrombus, radiographic suggestion of right heart strain TTE with some RV dilation. Grade 1 diastolic dysfunction. LV SF normal Acute DVT was seen in the right upper extremity on 01/04 while on Eliquis Patient was on Eliquis but had to be discontinued because of acute GI bleed blood loss anemia -off eliquis (2) AMS (altered mental status): #Acute metabolic encephalopathy History of left hemorrhagic CVA, seizure-like activity MRI: Large area of chronic encephalomalacia in the left frontal lobe. Within the center of this there is a 2.9 cm focus of restricted diffusion likely chronic but less likely could nagi present an acute versus subacute infarct within prior residual brain parenchyma. Additionally an 8 mm focus of restricted diffusion within the right cerebral hemisphere suggestive of acute versus subacute lacunar infarct is seen. Involutional changes are noted. Left occipital craniotomy noted. Does have a history of intracranial hemorrhage. Neurology consulted recommended anticoagulation alone for PE without antiplatelet because of high risk of hemorrhage she has baseline aphasia and apraxia but usually can communicate somewhat and follow commands for a neuro exam -now only communicating via grunting (3) Metabolic acidosis with normal anion gap and bicarbonate losses: was prolonged but has resolved. Thought to be related to GI losses. (4) Right arm weakness: (5) Depression: (6) UTI (urinary tract infection): #Complicated UTI, right obstructive ureteral stones completed treatment for Pseudomonas UTI, last dose of fluconazole 01/05 AM for Dhara UTI - hematuria started 01/01 probably magallanes trauma while anticoagulated -was pink on 01/05. Off of Eliquis now -resolved, off abx (7) Status post insertion of percutaneous endoscopic gastrostomy (PEG) tube: Tube feeds was held 01/05 due to high residuals. Tube feeds to be held now due to GI bleed Patient remains n.p.o. -Pt's son not making decision on comfort care, tube feeds restarted 01/18, maintain at goal, check residuals (8) Acute blood loss anemia: Patient's hemoglobin had dropped from 9-5 on 01/05 Had responded to a unit of blood No visible bleeding anywhere at that time. CT abdomen was negative as well When hemoglobin was stable, decision was made to resume Eliquis 01/06 and her H&H was being monitored closely On 01/07 night, the patient started bleeding at the PEG tube site with drop in hemoglobin again Eliquis discontinued permanently Patient got a unit of blood She was started on Protonix Tube feeds discontinued Patient continues to have dark fluid coming out of her PEG tube Transfused 1 unit of blood as she is anemic 01/10 Hemoglobin remains stable (9) Lower lobe pneumonia: Possible LLL pneumonia leading to sepsis/aspiration White count has trended down from 13-7 in response to IV antibiotics. Discontinued vancomycin as MRSA nares negative on 01/06 again Continue cefepime Urine culture growing the same Enterococcus and not sure if the Magallanes catheter was changed since the last urine culture on 12/27. I am not convinced that this is a true UTI. The patient clinically had hypoxia and gurgling suggestive of pneumonia being the source of sepsis rather than UTI. On 01/09 patient had an episode of aspiration when nurse was doing mouth care. Even though her vital signs were stable, this led to some respiratory distress -pt maintaining 02 sats on 4LNC (10) Anasarca: related to severe hypoalbuminemia, critical illness, malnutrition She has 3+ edema in all 4 of her extremities Skin peeling and skin tears while repositioning -will given albumin today 01/16 -con't to monitor for improvement with initiation of tube feeds. Plan 64-year-old woman with past medical history of hemorrhagic left basal ganglia CVA in 2021 with resulting right sided strength deficits, seizure, hyperlipidemia, chronic indwelling Magallanes who presented with concern for complicated UTI with right hydronephrosis and he was treated for both Pseudomonas and candidal UTI. Due to right hydro she underwent right stent placement. She completed treatment for Pseudomonas UTI with cefepime/meropenem/pip-tazo and treated for candidal UTI with fluconazole. Overnight 12/27/24 did have a rapid response for lethargy and hypotension. Found to have acute PE. Subsequent MRI with small new stroke. Pt's son not making decision on comfort care, tube feeds restarted on 01/18. Son is working with palliative water carter to help guide his decisions and offer support. Pt is DNR/DNI. Admission HPI Per Admitting Provider Pleasent 64 year old female with PMH: hemorrhagic stroke, seizures, hyperlipidemia, and chronic indwelling catheter who presented to the ED from [facility] for abdominal pain. Unable to obtain more details from the abdominal pain. Patient has expressive aphasia and is a poor historian. Vitals were stable in the ED. No fever. CT abd/pelvis was obtained. Imaging showed hydronephrosis with a 4 mm calculus at the distal right ureter. Urology was consulted for stent placement and Hospitalist service for admission. Discharge Plan Discharge Items Patient Disposition: Other Date/Time: 01/20/25 03:55 Hospital Stay Data Consultations 12/17/24 13:57 ED Decision to Admit Stat 12/21/24 08:06 Consult Gastroenterology Routine 12/28/24 09:16 Consult Vascular Surgery Stat 12/28/24 11:20 Consult Inventory Specialist Routine 12/29/24 17:14 Consult Neurology Routine 12/29/24 18:05 Consult Palliative Care Routine Procedures Performed Operation Date: 12/25/24 16:30 Actual Procedures p EGD Gastric Tube Placement - Lenin Church MD Diagnostic Imagining Performed 12/17/24 11:30 CT Abd and Pelvis [CT abd pelvis IV con only] Stat 12/17/24 14:03 FL KUB Routine 12/26/24 11:52 US arterial duplex UE LT Stat 12/27/24 19:29 CT Brain [CT head/brain wo con] Stat 12/28/24 US venous doppler UE BI Stat 12/28/24 07:09 CT abd pelvis IV con only Urgent CT angio chest PE protocol Urgent 12/28/24 11:38 US point of care ultrasound Routine 12/29/24 08:13 MR brain wo con Routine 01/04/25 12:50 US venous doppler UE BI Routine 01/05/25 12:25 CT abd pelvis wo con Stat Coding Diagnoses Acute pulmonary embolism without acute cor pulmonale, unspecified pulmonary embolism type I26.99 Pulmonary embolism type: unspecified Chronicity: acute Acute cor pulmonale presence: without acute cor pulmonale AMS (altered mental status) R41.82 Metabolic acidosis with normal anion gap and bicarbonate losses E87.20 Right arm weakness R29.898 Depression F32.A UTI (urinary tract infection) N39.0 Status post insertion of percutaneous endoscopic gastrostomy (PEG) tube Z93.1 Acute blood loss anemia D62 Lower lobe pneumonia J18.9 Anasarca R60.1
== END 2025-01-20 05:13 | disposition expired | DRG 659 ==
LOC: ED 11:15 → 3W 14:17 → OR 14:17 → SUATTDRO 12-18 08:46 → 4W 12-27 21:16 → 1E 12-28 10:22 → 2E 12-31 06:25 → 4W 01-18 10:55